=== PATIENT | male | born 1945 | race Caucasian/White ===

== ENCOUNTER 2024-12-11 21:24 | Inpatient (IN) | payer OTHER, MEDICAID ==
[~2024-12-11] VITALS: Ht 177.8 cm; Wt 48.3 kg
[~2024-12-11 21:24] MED LIST: ATOR-507 PO; BACL10TA PO; DIGO0.1262 PO; GABA-1250 PO; LISI2.5T47 PO; METO25TA36 PO; WARF-110 PO
--- NOTE | 2024-12-11 21:44 | ED.PDOC ---
HPI Comments 79y M who presents to the ED via EMS for chief complaint of chest pain. Per EMS, pt is resident at care facility called [facility] and facility called after pt approx 2230, started beating his chest and states he was having pain. Pt preceded to have episode of vomiting and EMS was called to the scene. EMS arrived on scene and facility had give pt 324 ASA and EMS states pt was altered upon arrival. EMS states they asked if this is baseline and facility states they do not know but EMS states pt was [id number]. Pt now in the ED, appears alerted but otherwise has noted stable vitals. Pt otherwise not answering questions at this time and EMS states only know history of pt is HTN. 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 Notes Allergies: Coded Allergies: Penicillins (Verified Allergy, Severe, 10/21/15) Home Meds Reported Medications Warfarin Sodium (Warfarin Sodium) 2.5 Mg Tab, 2.5 MG PO DAILY, TAB 10/23/15 Gabapentin (Gabapentin) 300 Mg Cap, 1 CAP PO TID PRN for MILD PAIN OR TEMP>100.4, #90 CAP 5 Refills 10/23/15 Baclofen (Baclofen) 10 Mg Tab, 10 MG PO Q6HP PRN for MILD PAIN OR TEMP>100.4, TAB 10/23/15 Digoxin (Digoxin) 0.125 Mg Tab, 1 TAB PO DAILY, #30 TAB 5 Refills 10/23/15 Metoprolol Succinate (Toprol Xl) 25 Mg Tab, 1 TAB PO BID, #30 TAB 5 Refills 10/23/15 Lisinopril (Lisinopril) 2.5 Mg Tab, 1 TAB PO DAILY, #30 TAB 5 Refills 10/23/15 Atorvastatin Calcium (Lipitor) 40 Mg Tab, 1 TAB PO QPM, #90 TAB 1 Refill 10/23/15 Information Source: Emergency Med Personnel Mode of Arrival: EMS Brought in by: EMS Past Medical History PAST MEDICAL HISTORY: CAD, CVA, HTN, [place] Surgical History: Pacemaker Family History Family History: No family hx of DM, No family hx of Heart eleanor, No family hx of HTN, No family hx of Stroke Social History Smoker: Cigarettes, Greater Than 1 Pack/Day Alcohol: Occasionally Drugs: Denies Drug Use Lives In: Assisted Care Constitutional: denies: chills, diaphoresis, fatigue, fever, malaise, sweats, weakness, others EENTM: denies: blurred vision, double vision, ear bleeding, ear discharge, ear drainage, ear pain, ear ringing, eye pain, eye redness, hearing loss, mouth pain, mouth swelling, nasal discharge, nose bleeding, nose congestion, nose pain, photophobia, tearing, throat pain, throat swelling, voice changes, others Respiratory: denies: cough, hemoptysis, orthopnea, SOB at rest, shortness of breath, SOB with excertion, stridor, wheezing, others Cardiovascular: reports: chest pain; denies: dizzy spells, diaphoresis, Dyspnea on exertion, edema, irregular heart beat, left arm pain, lightheadedness, palpitations, PND, syncope, others Gastrointestinal: denies: abdomen distended, abdominal pain, blood streaked bowels, constipated, diarrhea, dysphagia, difficulty swallowing, hematemesis, melena, nausea, poor appetite, poor fluid intake, rectal bleeding, rectal pain, vomiting, others Genitourinary: denies: burning, dysuria, flank pain, frequency, hematuria, incontinence, penile discharge, penile sore, pain, testicle pain, testicle swelling, urgency, others Neurological: denies: dizziness, fainting, headache, left sided numbness, left sided weakness, numbness, paresthesia, pre-existing deficit, right sided numbness, right sided weakness, seizure, speech problems, tingling, tremors, weakness, others Musculoskeletal: denies: back pain, gout, joint pain, joint swelling, muscle pain, muscle stiffness, neck pain, others Integumetry: denies: bruises, change in color, change in hair/nails, dryness, laceration, lesions, lumps, rash, wounds, others Allergic/Immunocompromised: denies: Difficulty Healing, Frequent Infections, Hives, Itching, others Hematologic/Lymphatic: denies: anemia, blood clots, easy bleeding, easy bruising, swollen glands, others Endocrine: denies: excessive hunger, excessive sweating, excessive thirst, excessive urination, flushing, intolerance to cold, intolerance to heat, unexplained weight gain, unexplained weight loss, others Psychiatric: denies: anxiety, bipolar disorder, depression, hopeless, panic disorder, schizophrenia, sleepless, suicidal, others Unable to Obtain due to: Altered Mental Status Physical Exam General Appearance: Other (pt is catatonic ) HEENT: NOT DONE Neck: NOT DONE Respiratory: Normal Breath Sounds Cardiovascular: NOT DONE Breast Exam: None Gastrointestinal: NOT DONE Genitalia: Deferred Pelvic: Deferred Rectal: Deferred Extremities: NOT DONE Musculoskeletal : Apperance: Normal Neurologic: NOT DONE Cerebellar Function: NOT DONE Reflexes: NOT DONE Skin: Dry, NOT DONE Lymphatic: NOT DONE Was a procedure done? Was a procedure done?: No CP Differential Dx Differential Diagnosis: A-fib, A-Flutter, Angina, Anxiety / Panic Attack, Atrial Dysrhythmia, Heart Failure Other Differential Diagnosis altered mental status, metabolic encephalopathy X-Ray, Labs, Meds, VS Vital Signs Date Time Temp Pulse Resp B/P (MAP) Pulse Ox O2 Delivery O2 Flow Rate FiO2 12/11/24 21:26 88 12/11/24 21:24 99.1 69 16 108/51 (70) 96 Lab Test 12/11/24 23:07 12/11/24 22:10 12/11/24 22:08 Range/Units Troponin I High Sensitivity Pending 4 </=54 ng/L White Blood Count 16.8 H 4.4-10.8 10^3/uL Red Blood Count 3.00 L 4.5-5.90 10^6/uL Hemoglobin 4.6 *L 13.5-17.5 g/dL Hematocrit 17.9 L 41.0-53.0 % Mean Corpuscular Volume 59.7 L 80.0-100.0 fL Mean Corpuscular Hemoglobin 15.2 L 28.0-32.0 pg Mean Corpuscular Hemoglobin Concent 25.5 L 32.0-36.0 g/dL Red Cell Distribution Width 20.7 H 11.8-14.3 % Platelet Count 384 140-450 10^3/uL Mean Platelet Volume 7.2 6.9-10.8 fL Neutrophils (%) (Auto) 37.0-80.0 % Lymphocytes (%) (Auto) 10.0-50.0 % Monocytes (%) (Auto) 0.0-12.0 % Eosinophils (%) (Auto) 0.0-7.0 % Basophils (%) (Auto) 0.0-2.0 % Neutrophils # (Auto) 1.6-8.6 10 ^3/uL Lymphocytes # (Auto) 0.4-5.4 10 ^3/uL Monocytes # (Auto) 0-1.3 10 ^3/uL Eosinophils # (Auto) 0-0.8 10 ^3/uL Basophils # (Auto) 0-0.2 10 ^3/uL Differential Total Cells Counted Pending Neutrophils % (Manual) Pending Band Neutrophils % (Manual) Pending Lymphocytes % (Manual) Pending Monocytes % (Manual) Pending Eosinophils % (Manual) Pending Basophils % (Manual) Pending Metamyelocytes % (manual) Pending Myelocytes % (Manual) Pending Promyelocytes % (Manual) Pending Blast Cells % (Manual) Pending Nucleated Red Blood Cells % Reactive Lymphocytes Pending Platelet Estimate Pending Sodium Level 139 136-145 mmol/L Potassium Level 4.3 3.5-5.1 mmol/L Chloride Level 111 H 98-107 mmol/L Carbon Dioxide Level 20 20-31 mmol/L Anion Gap 8 5-15 Blood Urea Nitrogen 14 9-23 mg/dL Creatinine 0.69 L 0.700-1.30 mg/dL Glomerular Filtration Rate Calc 95 >90 mL/min BUN/Creatinine Ratio 20.3 H 10.0-20.0 Serum Glucose 108 H 74-106 mg/dL Calcium Level 8.6 L 8.7-10.4 mg/dL Total Bilirubin 0.3 0.2-1.0 mg/dL Aspartate Amino Transferase (AST) 8 L 13-40 U/L Alanine Aminotransferase (ALT) 9 7-40 U/L Alkaline Phosphatase 71 46-116 U/L B-Type Natriuretic Peptide 304.72 0-100 pg/mL Total Protein 5.5 L 5.7-8.2 g/dL Albumin 3.3 3.2-4.8 g/dL Lipase 22 12-53 U/L Lactic Acid Level 4.8 *H 0.4-2.0 mmol/L Ammonia < 10 L 11-32 umol/L X-Ray, Labs, Meds, VS Comment Patient will be admitted for anemia, hemoglobin less than five, patient to be started with tinnitus packed red blood cells pending type and screen Possible sepsis. Elevated lactic acid elevated white count. Currently unknown source. Patient will be started on vancomycin and blood cultures will be drawn Prior charts reviewed Vital signs reviewed Time of 1ST Reevaluation: 22:10 Reevaluation 1ST: Unchanged Patient Education/Counseling: Diagnosis, Treatment, Other (pt altered) Family Education/Counseling: Diagnosis, No Family Present Departure 1 Departure Time of Disposition: 23:36 Impression: Primary Impression: Anemia due to blood loss, chronic Additional Impressions: Leukocytosis Qualified Codes: D72.829 - Elevated white blood cell count, unspecified Elevated lactic acid level Altered mental status Qualified Codes: R41.0 - Disorientation, unspecified Disposition: 09 ADMITTED INPATIENT Condition: Guarded Discharged With: Self Critical Care Note Critical Care Time?: Yes (30 min-critical care time only) Critical care comment: Due to a high probability of clinically significant, life threatening deterioration, the patient required my highest level of preparedness to intervene emergently and I personally spent this critical care time directly and personally managing the patient. This critical care time included obtaining a history; examining the patient; pulse oximetry; ordering and review of studies; arranging urgent treatment with development of a management plan; evaluation of patient's response to treatment; frequent reassessment; and, discussions with other providers. This critical care time was performed to assess and manage the high probability of imminent, life-threatening deterioration that could result in multi-organ failure. It was exclusive of separately billable procedures and treating other patients and teaching time. Stability Stability form required: No Heart Score Heart Score: Heart Score Response (Comments) Value History N/A 0 EKG N/A 0 Age N/A 0 Risk Factors N/A 0 Troponin N/A 0 Total 0 I personally scribed for SAVANNAH RIOJAS MD ([email or web address]) on 12/11/24 at 21:44. Electronically submitted by Moe Jett ([email or web address]). SAVANNAH RIOJAS MD Dec 11, 2024 21:44 KEN THURMAN Dec 11, 2024 23:40
--- NOTE | 2024-12-11 22:47 | DVH ---
CHEST RADIOGRAPH Indication: aloc Technique: Single frontal view of the chest was obtained Comparison: None FINDINGS: Lines and Tubes: Left-sided cardiac device with intact leads. Lungs: Clear Pleura: No effusion. No pneumothorax. Cardiomediastinal contours: Unremarkable Bones: Unremarkable IMPRESSION: Clear lungs.
[2024-12-11 22:48] LABS: Albumin 3.3 g/dL (3.2-4.8); Alkaline Phosphatase 71 U/L (46-116); Anion Gap 8 (5-15); BUN/Creatinine Ratio 20.3 (10.0-20.0); Blood Urea Nitrogen 14 mg/dL (9-23); Carbon Dioxide 20 mmol/L (20-31); Lipase 22 U/L (12-53); Potassium 4.3 mmol/L (3.5-5.1); Sodium 139 mmol/L (136-145)
[2024-12-11 22:54] LABS: Alanine Aminotransferase 9 U/L (7-40); Aspartate Aminotransferase 8 U/L (13-40); Bilirubin, Total 0.3 mg/dL (0.2-1.0); Calcium 8.6 mg/dL (8.7-10.4); Chloride 111 mmol/L (98-107); Glucose 108 mg/dL (74-106); Total Protein 5.5 g/dL (5.7-8.2)
--- NOTE | 2024-12-11 22:59 | DVH ---
EXAM: CT HEAD WITHOUT CONTRAST INDICATION: aloc TECHNIQUE: CT of the head without intravenous contrast. Radiation Dose Information: CT Dose: CTDI volume is 21.65 mGy. Dose-length product is 3500 86.68 mGy*cm The dose indicators for CT are the volume Computed Tomography (CT) Dose Index (CTDIvol) and the Dose Length Product (DLP), and are measured in units of mGy and mGy-cm, respectively. These indicators are not patient dose, but values generated from the CT scanner acquisition factors. The report includes radiation exposure data for exposures received during this examination. COMPARISON: None FINDINGS: Patient would not hold still and images are suboptimal. There is no evidence of acute intracranial hemorrhage, extra-axial collection, mass effect, midline s hift, herniation or hydrocephalus. Large area of encephalomalacia involving the right frontal temporal lobe with no mass effect or midli ne shift findings suggest large area of ischemic infarct. This suggests an old infarct. There are no prior studies for comparison The ventricles, sulci and cisterns are age appropriate. The cuadra-white differentiation is intact. Patchy periventricular and subcortical white matter hypoattenuation is nonspecific but may be related to small vessel ischemic disease. The visualized paranasal sinuses and mastoid air cells are clear. The surrounding soft tissues and osseous structures are unremarkable. IMPRESSION: 1. Large area of encephalomalacia involving the right temporal frontal and parietal lobes may represe nt old infarct. 2. No prior studies for comparison.
[2024-12-11 23:28] LABS: Hematocrit 17.9 % (41.0-53.0); Mean Corpuscular Hemoglobin 15.2 pg (28.0-32.0); Mean Corpuscular Hgb Conc. 25.5 g/dL (32.0-36.0); Mean Corpuscular Volume 59.7 fL (80.0-100.0); Platelet Count (auto) 384 10^3/uL (140-450); Red Cell Distribution Width 20.7 % (11.8-14.3); White Blood Cell 16.8 10^3/uL (4.4-10.8)
[2024-12-11 23:28] LABS: Lactic Acid w/Reflex 4.8 mmol/L (0.4-2.0)
[2024-12-11 23:29] LABS: Hemoglobin 4.6 g/dL (13.5-17.5)
[2024-12-11 23:32] LABS: Basophils % (manual) 0 (0.0-2.0); Blast Cells 0; Eosinophils % (manual) 0 (0-7); Metamyelocytes % 0; Monocytes % (manual) 0 (0-12); Myelocytes % 0; Promyelocytes % 0; Reactive Lymphocytes 0
[2024-12-12] VITALS (17 sets, daily range): BP systolic 80–164; BP diastolic 34–53; PULSE 58–79; RESP 19–45; TEMP 97.9–100.2; O2SAT 96–98
[2024-12-12] MEDS: VANCOMYCIN 1GM/250ML KIT 250 ML IV ONE (00:02)
[2024-12-12] MEDS ORDERED: cefTRIAXone 1GM/50ML D5W 50 ML IV ONE (00:15)
[2024-12-12] MEDS ORDERED: MORPHINE SULFATE INJ 2 MG/ml SYRG IV PRN (00:30)
[2024-12-12] MEDS ORDERED: NITROGLYCERIN 0.4 MG SL TAB SL PRN (00:30)
[2024-12-12] MEDS ORDERED: VANCOMYCIN PER PHARMACY 0 MG IV SCH (00:30)
[2024-12-12] MEDS: SODIUM CHLORIDE 0.9% 2,000 ML IV ONE (01:05)
[2024-12-12 01:11] LABS: % Iron Saturation 3.4 % (20-55); Band Neutrophils % (manual) 11; Lymphocytes % (manual) 5 (10.0-50.0)
[2024-12-12 01:12] LABS: Hypochromia Marked
[2024-12-12 01:13] LABS: Anisocytosis Slight; Platelet Estimate Adequate
[2024-12-12] MEDS ORDERED: SODIUM CHLORIDE 0.9% 1,000 ML IV ONE ×2 (01:15→01:30)
[2024-12-12] MEDS ORDERED: MEROPENEM 1GM IVPB 50 ML IV ONE (01:15)
--- NOTE | 2024-12-12 01:20 | DVH ---
Exam: CT CHST AB PEL WO CON-NO IV/ORAL History: aloc Comparison Study: None available at time of dictation. Technique: Multidetector spiral CT of the chest, abdomen and pelvis was performed from lower neck to pubic symphysis Axial, coronal and sagittal multiplanar reformats were performed by the technologist on a separate workstation. Radiation Dose : 1. Chest/Abdomen/Pelvis: CTDIvol 7 mGy, DLP 476 mGy*cm. Findings: Lower neck: Within normal limits Lungs: Within normal limits Heart/Vascular Structures: Fviddwea-jy-apaig pericardial effusion measuring up to 2 cm left lateral p ericardium left-sided cardiac device with intact leads. Lymph Nodes: No adenopathy Pleura: Small right and trace left-sided pericardial effusion with adjacent compressive atelectasis Liver: The liver is normal in size. No focal lesions. Normal hepatic vascular enhancement. Gallbladder and Biliary Tree: Unremarkable Spleen: Unremarkable Pancreas: The pancreas is normal in appearance without focal lesions or abnormal enhancement. Adrenal Glands: Unremarkable Kidneys: Bilateral nonobstructing renal stones measuring up to 1.5 cm. Cwug-rw-jizfonlb right-sided h ydronephrosis with multiple stones seen in the right ureter measuring up to 8 mm. Bladder: Multiple urinary bladder stones measuring up to 1 cm Bowel: The stomach is grossly normal in appearance. Moderate fecal retention throughout the colon. T he appendix is not visualized; however, no secondary findings of acute appendicitis identified. Ascites: Absent Lymphadenopathy: No mesenteric, retroperitoneal or periportal lymphadenopathy. Abdominal Wall and Mesentery: Unremarkable. Vasculature: The visualized abdominal aorta is normal in size and caliber. Abdominal and pelvic vess els demonstrate normal enhancement. Pelvic Organs: Unremarkable Musculoskeletal: No aggressive focal bony lesions, acute fractures or dislocation. IMPRESSION: Lfpt-uj-avgketfe right-sided hydroureteronephrosis with multiple stones in the right ureter measuring up to 8 mm. There are multiple stones within the urinary bladder measuring less than 1 cm. The bila teral kidneys demonstrate multiple nonobstructing stones measuring up to 2 cm. Small right and trace left pleural effusions with adjacent compressive atelectasis Moderate to severe pericardial effusion. Moderate fecal retention throughout the colon
[2024-12-12 01:24] LABS: INR 1.17 (0.9-1.15); Partial Thromboplastin Time 25.9 SEC (24.5-34.5); Prothrombin Time 12.2 sec (9.3-11.8)
[2024-12-12] MEDS: ACETAMINOPHEN 650 MG RECT SUPP PR ONE ×2 (01:44→01:55)
[2024-12-12] MEDS: IRON SUCROSE COMPLEX 110 ML IV SCH (02:05)
[2024-12-12 02:14] LABS: Erythrocyte Sedimentation Rate 25 mm/hr (0-20)
[2024-12-12] MEDS: MEROPENEM 1GM IVPB 50 ML IV ONE (02:31)
--- NOTE | 2024-12-12 02:32 | DVHHPRES ---
History of Present Illness Resident Creating Document: TRANG FULLER RESIDENT Reason for Visit: Severe anemia History of Present Illness All the info were extracted from the EMR, patient is AX40 and the phone numbers given didn't worm picker the call. A79y old male BIBA due to chest pain. Patient is a resident at a care facility called [facility]. The facility called EMS after approximately 2230 when the patient started beating his chest, stating he was having pain, and subsequently had an episode of vomiting. On EMS arrival, patient was reported to be altered. The facility had given 324 mg ASA prior to EMS arrival. EMS was uncertain if this mental status was baseline; the facility was unsure. PMHx: He also has a history of severe stroke (encephalomalacia in right temporal, frontal, and parietal lobes) with significant neurologic sequelae possible vascular dementia, prior episodes of gastrointestinal bleeding, Coronary artery disease sp stents, hypertension, atrial fibrillation with rapid ventricular response, ventricular tachycardia, left above-knee amputation, chronic kidney stones, history of GI bleed, ICD , hypercoagulable state. Home meds: Risperidone Eliquis levothyroxine tamsulosin Restoril gabapentin Currently, he is febrile and tachycardic, with borderline-low blood pressures, on 3 L of oxygen nasal cannula for acute hypoxic respiratory failure. Broad- spectrum antibiotics (meropenem, vancomycin) have been started for possible sepsis; IV fluids were stopped due to a newly discovered asmhpwnw-wu-vjmiyo pericardial effusion. He is also severely anemic (hemoglobin 4.6 g/dL) and is receiving packed red blood cell transfusions. Review of Systems Review of Systems Patient is altered Allergies: Coded Allergies: Penicillins (Verified Allergy, Severe, 10/21/15) Medications Current Medications Medications Dose Ordered Sig/Roberto Route Start Time Stop Time Status Last Admin Dose Admin Nitroglycerin 0.4 mg Q5MINP PRN SL 12/12/24 00:30 Morphine Sulfate 2 mg Q30M PRN IV 12/12/24 00:30 Vancomycin HCl 0 ml @ 0 mls/hr UD IV 12/12/24 00:30 UNV Ceftriaxone Sodium 50 ml @ 100 mls/hr DAILY IV 12/12/24 10:00 UNV Meropenem 50 ml @ 17 mls/hr Q8HR IV 12/12/24 06:00 UNV Iron Sucrose 110 ml @ 110 mls/hr DAILY@1200 IV 12/12/24 01:30 12/15/24 12:59 12/12/24 02:05 110 MLS/HR Exam Vital Signs Vital Signs Date Time Temp Pulse Resp B/P (MAP) Pulse Ox O2 Delivery O2 Flow Rate FiO2 12/12/24 01:55 101.1 12/12/24 01:21 22 125/38 (67) 100 12/12/24 00:38 121 General Appearance: Other (AX0 0 ) HEENT: Atraumatic, Other (pale ) Respiratory: Other (diminished breath sounds ) Cardiovascular: Other (tachycardic , heart sound inaudible ) Abdominal: Normal bowel sounds, Other (rectal exam: stool in the rectal vault, no active bleeding ) Extremities: Other (above the knee amputation ) Neuro: Other (severe sequalae of stroke ) Psych/Mental Status: Other (AX0 ) Labs/Xrays Labs Test 12/12/24 01:30 12/12/24 00:06 12/11/24 23:07 12/11/24 22:10 Range/Units Erythrocyte Sedimentation Rate 25 H 0-20 mm/hr Lactic Acid Level 7.8 *H 0.4-2.0 mmol/L Prothrombin Time 12.2 H 9.3-11.8 sec Prothrombin Time INR 1.17 H 0.9-1.15 Activated Partial Thromboplast Time 25.9 24.5-34.5 SEC Troponin I High Sensitivity 6 </=54 ng/L Thyroid Stimulating Hormone (TSH) 3.98 0.55-4.78 uIU/mL White Blood Count 16.8 H 4.4-10.8 10^3/uL Red Blood Count 3.00 L 4.5-5.90 10^6/uL Hemoglobin 4.6 *L 13.5-17.5 g/dL Hematocrit 17.9 L 41.0-53.0 % Mean Corpuscular Volume 59.7 L 80.0-100.0 fL Mean Corpuscular Hemoglobin 15.2 L 28.0-32.0 pg Mean Corpuscular Hemoglobin Concent 25.5 L 32.0-36.0 g/dL Red Cell Distribution Width 20.7 H 11.8-14.3 % Platelet Count 384 140-450 10^3/uL Mean Platelet Volume 7.2 6.9-10.8 fL Neutrophils (%) (Auto) 37.0-80.0 % Lymphocytes (%) (Auto) 10.0-50.0 % Monocytes (%) (Auto) 0.0-12.0 % Eosinophils (%) (Auto) 0.0-7.0 % Basophils (%) (Auto) 0.0-2.0 % Neutrophils # (Auto) 1.6-8.6 10 ^3/uL Lymphocytes # (Auto) 0.4-5.4 10 ^3/uL Monocytes # (Auto) 0-1.3 10 ^3/uL Eosinophils # (Auto) 0-0.8 10 ^3/uL Basophils # (Auto) 0-0.2 10 ^3/uL Differential Total Cells Counted 100.0 100 Neutrophils % (Manual) 84 H 37.0-80.0 Band Neutrophils % (Manual) 11 Lymphocytes % (Manual) 5 L 10.0-50.0 Monocytes % (Manual) 0 0-12 Eosinophils % (Manual) 0 0-7 Basophils % (Manual) 0 0.0-2.0 Metamyelocytes % (manual) 0 Myelocytes % (Manual) 0 Promyelocytes % (Manual) 0 Blast Cells % (Manual) 0 Nucleated Red Blood Cells % Reactive Lymphocytes 0 Platelet Estimate Adequate Hypochromasia (manual) Marked Anisocytosis (manual) Slight Microcytosis Marked [place] Cells Few Schistocytes Few Sodium Level 139 136-145 mmol/L Potassium Level 4.3 3.5-5.1 mmol/L Chloride Level 111 H 98-107 mmol/L Carbon Dioxide Level 20 20-31 mmol/L Anion Gap 8 5-15 Blood Urea Nitrogen 14 9-23 mg/dL Creatinine 0.69 L 0.700-1.30 mg/dL Glomerular Filtration Rate Calc 95 >90 mL/min BUN/Creatinine Ratio 20.3 H 10.0-20.0 Serum Glucose 108 H 74-106 mg/dL Calcium Level 8.6 L 8.7-10.4 mg/dL Iron Level 11 L 65-175 ug/dL Total Iron Binding Capacity 323 250-425 ug/dL Percent Iron Saturation 3.4 L 20-55 % Ferritin 6.1 L 22-322 ng/mL Total Bilirubin 0.3 0.2-1.0 mg/dL Aspartate Amino Transferase (AST) 8 L 13-40 U/L Alanine Aminotransferase (ALT) 9 7-40 U/L Alkaline Phosphatase 71 46-116 U/L C-Reactive Protein High Sensitivity 1.32 H <1.0 mg/dL B-Type Natriuretic Peptide 304.72 0-100 pg/mL Total Protein 5.5 L 5.7-8.2 g/dL Albumin 3.3 3.2-4.8 g/dL Lipase 22 12-53 U/L Test 12/11/24 22:08 Range/Units Ammonia < 10 L 11-32 umol/L Assessment/Plan Assessment/Plan Chest/Abdomen/ Pelvis CT scan: Irda-oo-zzvwoens right-sided hydroureteronephrosis with multiple stones in the right ureter measuring up to 8 mm. There are multiple stones within the urinary bladder measuring less than 1 cm. The bilateral kidneys demonstrate multiple nonobstructing stones measuring up to 2 cm. Small right and trace left pleural effusions with adjacent compressive atelectasis Moderate to severe pericardial effusion. Moderate fecal retention throughout the colon Head CT scan: Large area of encephalomalacia involving the right temporal frontal and parietal lobes may represent old infarct. Neurologic: #Acute metabolic encephalopathy due to sepsis #Vascular dementia #Large area of encephalomalacia involving the right temporal frontal and parietal lobes may represent old infarct Patient is AX0, no relatives at bedside unable to discuss code status Cardiology: #Sepsis: not septic shock yet #Moderate to severe pericardial effusion #H/o atrial fibrillation #H/o coronary disease s/p stent #H/o ventricular arrhythmia #s/p ICD placement EKG showed tachycardia and ventricular pacing Hold on fluids due to pericardial effusion Hold on anticoagulation due to severe anemia ECHO and cardiology consult 2RBC transfusing Pulmonary #Acute respiratory failure #Small pleural effusions #Early Aspiration pneumonia? #Sepsis Patient is on nasal cannula 3LT Meropenem/vancomycin Sputum culture Renal #Sepsis #Bkcs-hz-mdfvinek right-sided hydroureteronephrosis with multiple stones in the right ureter measuring up to 8 mm. #Lactic acidosis #There are multiple stones within the urinary bladder measuring less than 1 cm. #The bilateral kidneys demonstrate multiple nonobstructing stones measuring up to 2 cm. Diane placement Meropenem/vancomycin Urine culture Pending urinalysis: possible UTI GI #Possible GI bleeding #History of GI bleeding #History of colonic polyps Rectal exam negative for blood pending SOB Hold on feedings Heme/onc #Severe anemia #Iron deficiency 2RBC Iron IV Case discussed with Dr Villaloobs Disposition: BG Time spent on care 71 min Unable to assess code status Plan discussed with: Other (RN) My Orders Orders - TRANG FULLER RESIDENT Procedure Category Date Status Time Admit ADMIT 12/12/24 Transmitted 00:16 Nitroglycerin PHA 12/12/24 In Process Sublingual (Ntrostat 00:30 Morphine Sulfate PHA 12/12/24 In Process Injection 00:30 Oxygen By Nasal RT 12/12/24 Transmitted Cannula 00:16 Stat Ekg For Chest DEMARIO 12/12/24 In Process Pain 00:16 Notify Md Of Changes DEMARIO 12/12/24 In Process From Base 00:16 Supervisor Engine Repair For [facility] 12/12/24 In Process 24 Hours 00:16 Emergency Dysrhythmia [facility] 12/12/24 In Process Protocol 00:16 Rhythm Strips Once DEMARIO 12/12/24 In Process Every Shift 00:16 Stool Occult Blood LAB 12/12/24 Logged 00:22 Stool Wbc LAB 12/12/24 Logged 00:22 Stool Bacterial ANAHI 12/12/24 Logged Culture 00:22 Urine Bacterial ANAHI 12/12/24 Logged Culture 00:22 Respiratory Culture ANAHI 12/12/24 Logged W/ Gs 00:22 Echo 2d Mode Cardiac US 12/12/24 Logged DOP 00:25 Vancomycin Per PHA 12/12/24 Pending Pharmacy 00:30 Mrsa Screen ANAHI 12/12/24 Logged 00:31 Meropenem 1gm Ivpb PHA 12/12/24 Pending (Merrem 1gm/ Ns) 06:00 Iron Sucrose Complex PHA 12/12/24 In Process (Venofer) 01:30 Insert Diane Catheter DEMARIO 12/12/24 In Process 01:30 Complete Blood Count LAB 12/13/24 Verified 04:00 Comprehensive LAB 12/13/24 Verified Metabolic Panel 04:00 Drug Screen LAB 12/13/24 Verified 04:00 Hemoglobin A1c LAB 12/13/24 Verified 04:00 Lactic Acid W/ Reflex LAB 12/13/24 Verified Order 04:00 Lipid Panel LAB 12/13/24 Verified 04:00 PTPTT LAB 12/13/24 Verified 04:00 Vitamin B12 LAB 12/13/24 Verified 04:00 Vitamin D, 25-Hydroxy LAB 12/13/24 Verified 04:00 * Cardiology Consult CONS 12/12/24 Verified 02:31 Date of Service: Dec 12, 2024 Billing Provider: HUMBERTO VILLALOBOS MD Common Visit Codes: 59427-AWHDKWO INP/OBS CARE (HIGH) Secondary Visit Codes: 49510-IBIOESHZ CARE PLAN 30 MINUTES TRANG FULLER RESIDENT Dec 12, 2024 02:32 HUMBERTO VILLALOBOS MD Dec 12, 2024 13:08
[2024-12-12 05:47] LABS: Urine Bacteria FEW /hpf (None Seen); Urine Blood 1+ /uL (Negative); Urine Clarity Turbid (Clear); Urine Color Light-Orange (Yellow); Urine Protein, UAD 2+ (Negative); Urine Specific Gravity 1.018 (1.001-1.035); Urine Squamous Epithelial Cell FEW /hpf (<5); Urine Urobilinogen Normal (Negative); Urine WBC 50 /HPF (0-3); Urine pH 7.5 (5.0-9.0)
[2024-12-12] MEDS: SODIUM CHLORIDE 0.9% 500 ML IV ONE (07:30)
[2024-12-12 08:10] LABS: Urine Blood 2+ /uL (Negative); Urine Clarity Ex.Turbid (Clear); Urine Color Dark-Brown (Yellow); Urine Protein, UAD 3+ (Negative); Urine Specific Gravity 1.022 (1.001-1.035); Urine Urobilinogen Normal (Negative)
[2024-12-12] MEDS: ACETAMINOPHEN 650 MG RECT SUPP PR PRN (09:17)
[2024-12-12 09:39] LABS: Base Excess -12.3 mmol/L (-2.0-3.0)
--- NOTE | 2024-12-12 09:58 | ECG ---
[facility] Test Date: 2024-12-12 Test Time: 00:38:44 Pat Name: ADI LUX Department: ER Room: [address] [place] [address] Gender: M Livestock Feeder: ER : 1945 Requested By: EMERGENCY EMERGENCY Order Number: [id number] Reading MD: James Sanchez Measurements Intervals [place] Rate: 121 P: 0 FL: 0 QRS: 156 QRSD: 223 T: 263 QT: 429 QTc: 609 Interpretive Statements Afib/flut and V-paced complexes No further analysis attempted due to paced rhythm Electronically Signed On 12-12-2024 22:26:25 PST by James Sanchez Please click the below link to view image of tracing.
--- NOTE | 2024-12-12 09:58 | ECG ---
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
--- NOTE | 2024-12-12 09:58 | ECG ---
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
[2024-12-12] MEDS ORDERED: cefTRIAXone 1GM/50ML D5W 50 ML IV SCH (10:00)
[2024-12-12] MEDS: SODIUM BICARB 8.4% 50Meq/50ml SYR Vial IV ONE (10:41)
--- NOTE | 2024-12-12 10:53 | DVHCONRES ---
Date Seen: Dec 12, 2024 Resident Creating Document: THIERNO MELENDEZ RESIDENT Referring Physician Dr. Torrez, resident Reason for Consultation Pericardial effusion History of Present Illness This is a 79-year-old male who was brought in by ambulance due to chief complain of chest pain. History was gathered from the EMR given that patient is A&Ox0. He has a past medical history relevant for stroke with right temporal, frontal and parietal encephalomalacia, he has received bleeding, CAD status post stents, hypertension, atrial fibrillation, nephrolithiasis, AICD placement. Past surgical history: Left above the knee amputation. Home meds: Digoxin, Lipitor, baclofen, gabapentin, lisinopril, metoprolol, levothyroxine, Eliquis, risperidone, tamsulosin Patient is a current resident at a care facility called [facility], home called EMS at 10:30 p.m. due to patient has been beating his chest and stating that he had pain, subsequently developing an episode of vomiting. On EMS arrival, patient was altered, they have given aspirin 325 mg. In the ED, a head CT demonstrated large encephalomalacia, no other acute abnormality, a CBC revealed a hemoglobin of 4.6, patient was ordered to packs of RBCs, patient was given IV fluids, she was placed on broad-spectrum antibiotics with meropenem [place]. [place] [address], bands 11%. Patient's lactic acid was shown to be 4.8 and increased to 7.8, he continued to receive IV fluids, he was larsen-cultured. Troponins were within normal limits x3, BNP was 304. A chest x-ray initially showed to be unremarkable, no significant effusion or signs of congestion. He has a left-sided AICD with intact leads. A chest/abdomen/pelvis CT scan without contrast revealed: Moderate to large pericardial effusion measuring up to 2 cm in the left lateral pericardium, small right and left pleural effusions, right-sided hydroureteronephrosis, significant amount of kidney stones. An EKG revealed ventricular paced complexes, low voltage in V1, V2, V6. Family History: Cancer of colon G8 MOTHER, Onset:50's - 60 Family history: Arthritis G8 MOTHER, Onset:50's - 60 Family history: Cardiovascular disease G8 FATHER, Onset:50's - 60 Allergies: Coded Allergies: Penicillins (Verified Allergy, Severe, 10/21/15) Home Meds Reported Medications Warfarin Sodium (Warfarin Sodium) 2.5 Mg Tab, 2.5 MG PO DAILY, TAB 10/23/15 Gabapentin (Gabapentin) 300 Mg Cap, 1 CAP PO TID PRN for MILD PAIN OR TEMP>100.4, #90 CAP 5 Refills 10/23/15 Baclofen (Baclofen) 10 Mg Tab, 10 MG PO Q6HP PRN for MILD PAIN OR TEMP>100.4, TAB 10/23/15 Digoxin (Digoxin) 0.125 Mg Tab, 1 TAB PO DAILY, #30 TAB 5 Refills 10/23/15 Metoprolol Succinate (Toprol Xl) 25 Mg Tab, 1 TAB PO BID, #30 TAB 5 Refills 10/23/15 Lisinopril (Lisinopril) 2.5 Mg Tab, 1 TAB PO DAILY, #30 TAB 5 Refills 10/23/15 Atorvastatin Calcium (Lipitor) 40 Mg Tab, 1 TAB PO QPM, #90 TAB 1 Refill 10/23/15 Current Medications Current Medications Medications (Trade) Dose Ordered Sig/Roberto Route PRN Reason Start Time Stop Time Status Last Admin Nitroglycerin (Ntrostat Sublingual) 0.4 mg Q5MINP PRN SL FOR CHEST PAIN 12/12/24 00:30 Morphine Sulfate 2 mg Q30M PRN IV FOR CHEST PAIN 12/12/24 00:30 Vancomycin HCl 0 ml @ 0 mls/hr UD IV 12/12/24 00:30 UNV Ceftriaxone Sodium 50 ml @ 100 mls/hr DAILY IV 12/12/24 10:00 UNV Meropenem 50 ml @ 17 mls/hr Q8HR IV 12/12/24 06:00 UNV Iron Sucrose 110 ml @ 110 mls/hr DAILY@1200 IV 12/12/24 01:30 12/15/24 12:59 12/12/24 02:05 Acetaminophen (Tylenol Suppository) 650 mg Q6HP PRN CA PAIN SCALE 1-3 OR TEMP>100.4 12/12/24 08:30 12/12/24 09:17 Review of Systems Can not obtain as patient is altered. Vital Signs Vital Signs Date Time Temp Pulse Resp B/P (MAP) Pulse Ox O2 Delivery O2 Flow Rate FiO2 12/12/24 09:17 100.8 12/12/24 08:00 67 12/12/24 07:42 Nasal Cannula* 2 28 12/12/24 07:42 39 154/46 (82 98 Physical Exam General: A&O x0, in acute distress due to shortness of breath, using accessory muscles HEENT: Head is normocephalic and atraumatic. Pupils are equal, round, and reactive to light. Neck: Flat jugular veins Heart: Regular rate, muffled heart sounds Lungs: Mild bilateral crackles Abdomen: No external sign of injury. Bowel sounds are present. Abdomen is soft, nontender. Extremities: Left [id number] amputation, cold extremities Skin: No rash. Labs/Diagnostic Data Labs Test 12/12/24 09:29 12/12/24 07:47 12/12/24 04:56 12/12/24 02:20 Range/Units Blood Gas Specimen Type Arterial Blood Gas Sample Site Right radial Blood Gas Patient Temperature 37.0 Arterial Blood Date Drawn Arterial Blood pH 7.406 7.350-7.450 Arterial Blood Partial Pressure CO2 18.3 *L 35.0-48.0 mmHg Arterial Blood Partial Pressure O2 79.4 L 83.0-108.0 mmHg Arterial Blood HCO3 11.2 L 21.0-28.0 mmol/L Arterial Blood Oxygen Saturation 95.6 94.0-98.0 % Arterial Blood Base Excess -12.3 L -2.0-3.0 mmol/L Arterial Blood Oxyhemoglobin 92.6 L 94.0-98.0 % Arterial Blood Carboxyhemoglobin 2.6 H 0.5-1.5 % Arterial Blood Methemoglobin 0.5 0.0-1.5 % David Test Yes Blood Gas Total Hemoglobin 6.20 *L 13.5-17.5 g/dL Blood Gas Liter Flow 4.00 Blood Gas Modality Nasal cannula FiO2 % 36.0 Blood Gas Critical Value Read Back Yes Blood Gas Notified Whom yash Frost Blood Gas Notified Time Blood Gas Notified By Research Assistant laquita alex Urine Color Dark-brown Yellow Urine Clarity Ex.turbid Clear Urine pH 7.0 5.0-9.0 Urine Specific [place] 1.022 1.001-1.035 Urine Protein 3+ H Negative Urine Ketones Trace Negative Urine Blood 2+ H Negative /uL Urine Nitrite 2+ H Negative Urine Bilirubin Negative Negative Urine Urobilinogen Normal Negative mg/dL Urine Leukocyte Esterase 3+ Negative /uL Urine Glucose Normal Normal mg/dL POC Glucose 112 H 70-106 mg/dl Urine RBC 19 0 - 3 /hpf Urine Microscopic WBC 50 H 0-3 /HPF Urine Squamous Epithelial Cells Few <5 /hpf Urine Calcium Oxalate Crystals Few None Seen Urine Bacteria Few H None Seen /hpf Test 12/12/24 01:30 12/12/24 00:06 12/12/24 00:04 12/11/24 23:07 Range/Units Erythrocyte Sedimentation Rate 25 H 0-20 mm/hr Lactic Acid Level 7.8 *H 0.4-2.0 mmol/L Magnesium Level 1.7 1.6-2.6 mg/dL Prothrombin Time 12.2 H 9.3-11.8 sec Prothrombin Time INR 1.17 H 0.9-1.15 Activated Partial Thromboplast Time 25.9 24.5-34.5 SEC Troponin I High Sensitivity 6 </=54 ng/L Thyroid Stimulating Hormone (TSH) 3.98 0.55-4.78 uIU/mL Test 12/11/24 22:10 12/11/24 22:08 Range/Units White Blood Count 16.8 H 4.4-10.8 10^3/uL Red Blood Count 3.00 L 4.5-5.90 10^6/uL Hemoglobin 4.6 *L 13.5-17.5 g/dL Hematocrit 17.9 L 41.0-53.0 % Mean Corpuscular Volume 59.7 L 80.0-100.0 fL Mean Corpuscular Hemoglobin 15.2 L 28.0-32.0 pg Mean Corpuscular Hemoglobin Concent 25.5 L 32.0-36.0 g/dL Red Cell Distribution Width 20.7 H 11.8-14.3 % Platelet Count 384 140-450 10^3/uL Mean Platelet Volume 7.2 6.9-10.8 fL Neutrophils (%) (Auto) 37.0-80.0 % Lymphocytes (%) (Auto) 10.0-50.0 % Monocytes (%) (Auto) 0.0-12.0 % Eosinophils (%) (Auto) 0.0-7.0 % Basophils (%) (Auto) 0.0-2.0 % Neutrophils # (Auto) 1.6-8.6 10 ^3/uL Lymphocytes # (Auto) 0.4-5.4 10 ^3/uL Monocytes # (Auto) 0-1.3 10 ^3/uL Eosinophils # (Auto) 0-0.8 10 ^3/uL Basophils # (Auto) 0-0.2 10 ^3/uL Differential Total Cells Counted 100.0 100 Neutrophils % (Manual) 84 H 37.0-80.0 Band Neutrophils % (Manual) 11 Lymphocytes % (Manual) 5 L 10.0-50.0 Monocytes % (Manual) 0 0-12 Eosinophils % (Manual) 0 0-7 Basophils % (Manual) 0 0.0-2.0 Metamyelocytes % (manual) 0 Myelocytes % (Manual) 0 Promyelocytes % (Manual) 0 Blast Cells % (Manual) 0 Nucleated Red Blood Cells % Reactive Lymphocytes 0 Platelet Estimate Adequate Hypochromasia (manual) Marked Anisocytosis (manual) Slight Microcytosis Marked Diane Cells Few Schistocytes Few Sodium Level 139 136-145 mmol/L Potassium Level 4.3 3.5-5.1 mmol/L Chloride Level 111 H 98-107 mmol/L Carbon Dioxide Level 20 20-31 mmol/L Anion Gap 8 5-15 Blood Urea Nitrogen 14 9-23 mg/dL Creatinine 0.69 L 0.700-1.30 mg/dL Glomerular Filtration Rate Calc 95 >90 mL/min BUN/Creatinine Ratio 20.3 H 10.0-20.0 Serum Glucose 108 H 74-106 mg/dL Calcium Level 8.6 L 8.7-10.4 mg/dL Iron Level 11 L 65-175 ug/dL Total Iron Binding Capacity 323 250-425 ug/dL Percent Iron Saturation 3.4 L 20-55 % Ferritin 6.1 L 22-322 ng/mL Total Bilirubin 0.3 0.2-1.0 mg/dL Aspartate Amino Transferase (AST) 8 L 13-40 U/L Alanine Aminotransferase (ALT) 9 7-40 U/L Alkaline Phosphatase 71 46-116 U/L C-Reactive Protein High Sensitivity 1.32 H <1.0 mg/dL B-Type Natriuretic Peptide 304.72 0-100 pg/mL Total Protein 5.5 L 5.7-8.2 g/dL Albumin 3.3 3.2-4.8 g/dL Lipase 22 12-53 U/L Ammonia < 10 L 11-32 umol/L Assessment Chest pain, rule out ACS, likely related to pericardial effusion Pericardial effusion, moderate to severe CAD status post multiple stents Atrial fibrillation Hypertension AICD Sepsis Lactic acidosis UTI Metabolic encephalopathy Metabolic acidosis with respiratory alkalosis Acute hypoxic respiratory failure Severe anemia GI bleed Left cetnz-jis-tdlt amputation Nephrolithiasis Right-sided hydroureteronephrosis Plan/Recommendation Order stat echo given CT findings of moderate to severe pericardial effusion, muffled heart sounds, on low voltage in some precordial leads, blood pressure is currently stable. Echo showed mild pericardial effusion, EF 40%, septal hypokinesis Previous echo from 2016 reveals an ejection fraction of 30-35%, moderate global hypokinesis Last stress test was performed in 2016, no ischemia noted Recommend treating underlying infection, broad-spectrum antibiotic, gentle IV fluids, sepsis protocol IVF given, pending pancultures Obtain digoxin levels Address goals of care by primary team Poor prognosis Case was discussed with Dr. Landers Plan discussed with: Other (RN) THIERNO MELENDEZ RESIDENT Dec 12, 2024 10:53 ELIDA LANDERS MD Dec 12, 2024 13:57
[2024-12-12 11:11] LABS: Eosinophils # (auto) 0 10 ^3/uL (0-0.8); Monocytes # (auto) 0.2 10 ^3/uL (0-1.3)
[2024-12-12 11:13] LABS: Basophils # (auto) 0 10 ^3/uL (0-0.2); Basophils % (auto) 0.2 % (0.0-2.0); Hematocrit 22.2 % (41.0-53.0); Lymphocytes # (auto) 0.1 10 ^3/uL (0.4-5.4); Lymphocytes % (auto) 0.6 % (10.0-50.0); Mean Corpuscular Hemoglobin 17.7 pg (28.0-32.0); Mean Corpuscular Hgb Conc. 26.5 g/dL (32.0-36.0); Mean Corpuscular Volume 66.9 fL (80.0-100.0); Neutrophils % (auto) 98.2 % (37.0-80.0); Nucleated Red Blood Cells % 0.2 %; Platelet Count (auto) 268 10^3/uL (140-450); Red Blood Cells 3.32 10^6/uL (4.5-5.90); Red Cell Distribution Width 26.5 % (11.8-14.3); White Blood Cell 21.4 10^3/uL (4.4-10.8)
[2024-12-12 11:20] LABS: Hemoglobin 5.9 g/dL (13.5-17.5)
[2024-12-12 11:26] LABS: Alanine Aminotransferase 16 U/L (7-40); Alkaline Phosphatase 81 U/L (46-116); Anion Gap 17 (5-15); Aspartate Aminotransferase 24 U/L (13-40); BUN/Creatinine Ratio 18.2 (10.0-20.0); Bilirubin, Total 0.6 mg/dL (0.2-1.0); Blood Urea Nitrogen 20 mg/dL (9-23); Potassium 4.8 mmol/L (3.5-5.1); Sodium 142 mmol/L (136-145)
[2024-12-12 11:35] LABS: Carbon Dioxide 13 mmol/L (20-31); Chloride 112 mmol/L (98-107); Glucose 74 mg/dL (74-106); Total Protein 5.1 g/dL (5.7-8.2)
--- NOTE | 2024-12-12 11:48 | DVHSR ---
APPROVED REPORT EXAM: Two-dimensional and M-mode echocardiogram with Doppler and color Doppler. Blood Pressure: 148/53 mmHg INDICATION Heart Failure RISK FACTORS Height: 5'10", Weight: 132 DIMENSIONS LVDd4.5 (3.8-5.7cm)LA (2D)5.5 (1.9-4.0cm)Aortic Root3.8 (2.0-3.7cm) LVDs3.1 (2.5-4.0cm)LA (MM) (1.9-4.0cm)Aortic Cusp Exc1.6 (1.5-2.0cm) EF (%) 58.0 (55-70%)Rt. Atrium5.9 (1.9-4.0cm)Asc. Aorta cm IVSd1.2 (0.7-1.1cm)RV (D) (1.8-2.4cm) Mitral Valve MitralMitral Stenosis E wave1.14m/sMV Mean GR.mmHg E/A ratio0.02D MVAcm2 Aortic Valve Aortic ValveAortic Stenosis LVOT Diameter2.5 (1.8-2.4cm)Doppler AVAcm2 Tricuspid Valve TR Velocity2.50m/s [id number] Other Information Quality : Technically LimitedRhythm : Technically limited study due to body habitus and pt moving. Conclusion lvef 40% septal is hypokinetic small posterior pericardial effusion noted, no complromise severe left atrium enlarged RV enlrged RA enlarged lead in RV valves not well seen
[2024-12-12 12:44] LABS: Rapid Influenza A Negative (Negative); Rapid Influenza B Negative (Negative)
[2024-12-12 12:51] LABS: COVID19 ANTIGEN SOFIA FIA POSITIVE (NEGATIVE)
[2024-12-12] MEDS: SODIUM CHLORIDE 0.9% 1,000 ML IV SCH (13:15)
[2024-12-12] MEDS ORDERED: REMDESIVIR PER PHARMACY 0 ML IV SCH (13:15)
[2024-12-12 13:57] LABS: Hematocrit 19.5 % (41.0-53.0)
[2024-12-12] MEDS ORDERED: MEROPENEM 1GM IVPB 50 ML IV SCH (14:00)
[2024-12-12 14:06] LABS: Hemoglobin 5.7 g/dL (13.5-17.5)
[2024-12-12] MEDS: DOXYCYCLINE 100MG/100ML 100 ML IV SCH (14:16)
[2024-12-12] MEDS: ACETAMINOPHEN IV 1000 MG/100ML (10MG/ML) IV ONE (14:16)
[2024-12-12] MEDS: methylPREDNISolone SOD SUCC 40 MG/ML VL IV SCH (14:31)
[2024-12-12] MEDS: VANCOMYCIN 750MG KIT 100 ML IV SCH (15:08)
[2024-12-12] MEDS: REMDESIVIR 200mg in NS 210mL LOADING DOSE ADULT IV ONE (15:08)
[2024-12-13] MEDS: VANCOMYCIN 1GM/250ML KIT 187.5 ML IV ONE (03:18)
[2024-12-13 04:30] LABS: Hemoglobin 8.8 g/dL (13.5-17.5); Red Cell Distribution Width 29.5 % (11.8-14.3)
[2024-12-13 04:34] LABS: Hematocrit 29.1 % (41.0-53.0); Mean Corpuscular Hemoglobin 21.4 pg (28.0-32.0); Mean Corpuscular Hgb Conc. 30.3 g/dL (32.0-36.0); Mean Corpuscular Volume 70.6 fL (80.0-100.0); Platelet Count (auto) 249 10^3/uL (140-450); Red Blood Cells 4.12 10^6/uL (4.5-5.90)
[2024-12-13 04:42] LABS: INR 1.88 (0.9-1.15); Partial Thromboplastin Time 49.2 SEC (24.5-34.5); Prothrombin Time 18.7 sec (9.3-11.8)
[2024-12-13 04:48] LABS: Alanine Aminotransferase 25 U/L (7-40); Alkaline Phosphatase 69 U/L (46-116); Anion Gap 12 (5-15); BUN/Creatinine Ratio 21.8 (10.0-20.0); Cholesterol 66 mg/dL (< 200); LDL Cholesterol 25 mg/dL (< 100); Potassium 3.9 mmol/L (3.5-5.1); Triglycerides 82 mg/dL (< 150)
[2024-12-13 04:49] LABS: Bilirubin, Total 0.6 mg/dL (0.2-1.0)
[2024-12-13 04:58] LABS: Aspartate Aminotransferase 68 U/L (13-40); Blood Urea Nitrogen 24 mg/dL (9-23); Calcium 7.6 mg/dL (8.7-10.4); Carbon Dioxide 17 mmol/L (20-31); Chloride 116 mmol/L (98-107); Glucose 73 mg/dL (74-106); HDL Cholesterol 21 mg/dL (40-59); Sodium 145 mmol/L (136-145); Total Protein 5.2 g/dL (5.7-8.2)
[2024-12-13 04:59] LABS: White Blood Cell 51.2 10^3/uL (4.4-10.8)
[2024-12-13 05:00] LABS: Lactic Acid w/Reflex 3.9 mmol/L (0.4-2.0)
[2024-12-13 05:02] LABS: Basophils % (manual) 0 (0.0-2.0); Blast Cells 0; Eosinophils % (manual) 0 (0-7); Metamyelocytes % 0; Myelocytes % 0; Promyelocytes % 0; Reactive Lymphocytes 0
[2024-12-13 06:08] LABS: Anisocytosis Marked; Band Neutrophils % (manual) 19; Hypochromia Moderate; Lymphocytes % (manual) 7 (10.0-50.0); Monocytes % (manual) 7 (0-12); Platelet Estimate Adequate
[2024-12-13] MEDS ORDERED: REMDESIVIR 100mg in NS 230mL (3 DAY REGIMEN) IV SCH (15:00)
[2024-12-13] MEDS: REMDESIVIR 100mg in NS 230mL (5 DAY REGIMEN) IV SCH (15:06)
[2024-12-13] MEDS: VANCOMYCIN 750MG KIT 100 ML IV SCH (16:39)
[2024-12-13 19:57] VITALS: PULSE 60; RESP 26; O2SAT 96
[2024-12-14] VITALS (79 sets, daily range): BP systolic 94–137; BP diastolic 15–83; PULSE 59–91; RESP 12–29; TEMP 96.4–98.6; O2SAT 95–100
[2024-12-14] MEDS: ROCURONIUM 10MG/ML 10ML VIAL IV ONE ×2 (00:14→00:16)
[2024-12-14] MEDS: NOREPINEPHRINE 8 MG/250ML KIT 250 ML IV ONE (00:14)
[2024-12-14] MEDS: DEXTROSE 50% SYRINGE 50 ML IV ONE (00:14)
[2024-12-14] MEDS: ETOMIDATE (2MG/ML) 20ML VIAL IV ONE ×2 (00:14→00:16)
[2024-12-14] MEDS: NOREPINEPHRINE 8 MG/250ML KIT 250 ML IV SCH (00:15)
[2024-12-14] MEDS: PROPOFOL 100 ML IV SCH (01:21)
--- NOTE | 2024-12-14 01:21 | DVH ---
CHEST RADIOGRAPH Indication: POST INTUBATION Technique: Single frontal view of the chest was obtained COMPARISON: XY CHEST XRAY 1 VIEW on DOS: 12/11/24 FINDINGS/IMPRESSION: Lines and Tubes: Interval insertion of ETT the tip of which is at the origin of the right mainstem br onchus and should be withdrawn by 3-4 cm. Dual-lead AID again noted overlying left chest wall. Lungs/Pleura: Opacities noted throughout both lungs most likely representing pulmonary edema. Bibasil ar atelectasis/consolidation and small bilateral pleural effusions. No normal thorax. Cardiomediastinal contours: Unremarkable
[2024-12-14 02:16] LABS: Base Excess -15.5 mmol/L (-2.0-3.0)
--- NOTE | 2024-12-14 02:42 | DVHNC2 ---
Intubation Indication: Respiratory Insufficiency, Airway Protection Prep: Preoxygenation Pretreated with: Analgesia, Sedation Medicated with: Other (Rocuronium and etomidate) Intubation Approach: Orotracheal Intubation size: cm (22) Informed consent obtained: No Risks/benefits/alt described: Yes Date of Service: Dec 14, 2024 Billing Provider: HUMBERTO KEY MD Common Visit Codes: PROCEDURE ONLY Procedure Codes: 09819-[id number] HAZEL ARAGON RESIDENT Dec 14, 2024 02:42 HUMBERTO KEY MD Dec 16, 2024 10:11
--- NOTE | 2024-12-14 02:44 | DVHNC2 ---
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 department chair: Attending Physician (Dr Leija) Indication: Hypotension Room prepared for procedure: Yes Security Systems Installer performed hand hygien: Yes Maximal sterile barrier precau: Mask/Eye shield, Sterile gown, Cap, Sterlie gloves, Large sterlie drape Skin Preparation: Chlorhexidine gluconate Skin preparation completely dr: Yes Insertion site: Left, Internal jugular Central line catheter type: [id number] dialysis Number of lumens: 3 Central line exchanged over a: No Antiseptic ointment applied to: Yes Post Assessment: Chest X-Ray, Proper placement Informed consent obtained: No Risks/benefits/alt described: Yes Date of Service: Dec 14, 2024 Billing Provider: HUMBERTO KEY MD Common Visit Codes: PROCEDURE ONLY Procedure Codes: 30245-LTRYUM NON-TUNNEL CV CATH HAZEL ARAGON Dec 14, 2024 02:44 HUMBERTO KEY MD Dec 16, 2024 10:12
[2024-12-14] MEDS ORDERED: cefTRIAXone 1GM/50ML D5W 50 ML IV ONE (03:30)
[2024-12-14 06:57] LABS: Base Excess -14.6 mmol/L (-2.0-3.0)
[2024-12-14 09:20] LABS: Basophils # (auto) 0.1 10 ^3/uL (0-0.2); Basophils % (auto) 0.3 % (0.0-2.0); Eosinophils # (auto) 0.5 10 ^3/uL (0-0.8); Eosinophils % (auto) 1.1 % (0.0-7.0); Hematocrit 33.6 % (41.0-53.0); Hemoglobin 9.5 g/dL (13.5-17.5); Lymphocytes # (auto) 0.5 10 ^3/uL (0.4-5.4); Lymphocytes % (auto) 1.2 % (10.0-50.0); Mean Corpuscular Hemoglobin 20.7 pg (28.0-32.0); Mean Corpuscular Hgb Conc. 28.3 g/dL (32.0-36.0); Monocytes # (auto) 0.7 10 ^3/uL (0-1.3); Monocytes % (auto) 1.6 % (0.0-12.0); Neutrophils # (auto) 41.7 10 ^3/uL (1.6-8.6); Neutrophils % (auto) 95.8 % (37.0-80.0); Nucleated Red Blood Cells % 0.5 %; Platelet Count (auto) 263 10^3/uL (140-450); Red Blood Cells 4.61 10^6/uL (4.5-5.90); Red Cell Distribution Width 29.2 % (11.8-14.3)
[2024-12-14 09:31] LABS: Alkaline Phosphatase 108 U/L (46-116); Anion Gap 16 (5-15); BUN/Creatinine Ratio 31.9 (10.0-20.0); Potassium 4.1 mmol/L (3.5-5.1)
[2024-12-14 09:32] LABS: Bilirubin, Total 0.7 mg/dL (0.2-1.0)
[2024-12-14 09:38] LABS: Alanine Aminotransferase 257 U/L (7-40); Albumin 2.8 g/dL (3.2-4.8); Aspartate Aminotransferase 357 U/L (13-40); Blood Urea Nitrogen 46 mg/dL (9-23); Calcium 7.6 mg/dL (8.7-10.4); Carbon Dioxide 14 mmol/L (20-31); Chloride 120 mmol/L (98-107); Glucose 134 mg/dL (74-106); Sodium 150 mmol/L (136-145); Total Protein 5.1 g/dL (5.7-8.2)
[2024-12-14 09:43] LABS: White Blood Cell 43.5 10^3/uL (4.4-10.8)
[2024-12-14 10:01] LABS: Anisocytosis Marked; Hypochromia Marked; Ovalocytes FEW; Platelet Estimate Adequate
[2024-12-14] MEDS: PANTOPRAZOLE 40 MG/10 ML VIAL INJ IV SCH (10:54)
--- NOTE | 2024-12-14 12:25 | RESUS ---
CODE BLUE ASSESSSMENT History of Events History of Events: ICU bed assigned and was being transported to room 262 with RT and ER drawbench operator helper. Per RN pulses were lost in elevator when CPR began and 1 epinephrine was given then code was called on arrival to 262. Patient was Infusing levophed and propofol drips as ordered and being bagged by RT during transport/code on zoll monitor. Initial Information Date: Dec 14, 2024 Time: 08:20 Location of Arrest: [facility] (in central elevator on way to marco a) Arrest Witnessed: Yes CPR started initial time: 08:20 CPR started by whom: Hospital Staff Type of arrest: Cardiac, Adult, Witnessed Spontaneous Respirations: No Pulse Present: No Monitoring: ECG, Pulse Oximetry Crash Cart Opened and Supplies: Yes Airway Ventilation Breathing at Onset: Assisted Oxygen Delivery Method: Ambu-Bag Comments: previously intubated Circulation Circulation : Time: 08:24 Pulse Rate (adult): 106 Blood Pressure Systolic: 122 Blood Pressure Diastolic: 26 Medications & Response Medications and Responses #1: Medication Time: 08:20 ADULT Medications Given ADULT: Epinephrine 1 mg Route of Administration: IV Medications and Responses #2: Medication Time: 08:27 ADULT Medications Given ADULT: 2 Amps Na Bicarb Comment given post rosc Nurses Notes [place] Coma Scale Eye Opening: None (1) [place] Coma Scale Verbal: None (1) [place] Coma Scale Motor: Withdraws to Pain (4) Pupil Reaction: Sluggish Bedside Blood Glucose: 143 Time Code Ended Time Code Ended: 08:24 Post Arrest Status: Ventilated Outcome of code: Successful Code Team Present: Anamaria Dailey PATTERNMAKER PRESSURE CAST, Dr Valerio Resident, ROSC Time of ROSC: 08:24 Sathya Cuadra Dec 14, 2024 12:25
--- NOTE | 2024-12-14 12:32 | DVH ---
EXAM: US Duplex Right Upper Extremity Veins CLINICAL INDICATION: rule out DVT TECHNIQUE: Real-time duplex ultrasound scan of the right upper extremity veins integrating B-mode tw o-dimensional vascular structure, Doppler spectral analysis, color flow Doppler imaging and compressi on. COMPARISON: None FINDINGS: DEEP VEINS: Unremarkable. No DVT in the internal jugular, subclavian, axillary, or brachial veins. The veins demonstrate normal color flow, are normally compressible, with normal phasic flow and/or augmentation response. SUPERFICIAL VEINS: Thrombus in the cephalic vein of the forearm. SOFT TISSUES: No acute findings. OTHER FINDINGS: . IMPRESSION: Thrombus in the cephalic vein of the forearm.
[2024-12-14 13:01] LABS: Lactic Acid w/Reflex 3.1 mmol/L (0.4-2.0)
[2024-12-14] MEDS: SODIUM CHLORIDE 0.9% 1,000 ML IV SCH (13:15)
[2024-12-14 15:28] LABS: Base Excess -9.5 mmol/L (-2.0-3.0)
[2024-12-14] MEDS: AZTREONAM 1GM INJ 1 GM in D5W 5% 50 ML IV SCH (16:00)
--- NOTE | 2024-12-14 20:00 | DVHINCON2 ---
Date of service: Dec 14, 2024 Referring Physician Arnel Chiu DO Reason for Consultation Acute hypoxic respiratory failure requiring mechanical vent. History of Present Illness A 79-year-old man with extensive past medical history including stroke, GI bleed, CAD s/p stents, hypertension, AFib and ICD placement who was brought in to ED on 12/12/24 via EMS due to chest pain. Patient is a resident at a care facility called [facility]. The facility called EMS at approximately 2230 on day of presentation when pt started beating his chest stating he was having pain, and subsequently had an episode of vomiting. On EMS arrival, patient was reported to be altered. The facility had given 324 mg ASA prior to EMS arrival. EMS was uncertain if this mental status was baseline; the facility was unsure. Patient was admitted for further care and pulmonary consultation is requested for evaluation and management of acute hypoxic respiratory failure requiring mechanical vent. Review of Systems: Unable to obtain, intubated. Past Medical History: History of severe stroke (encephalomalacia in right temporal, frontal, and parietal lobes) with significant neurologic sequelae possible vascular dementia Prior episodes of gastrointestinal bleeding Coronary artery disease sp stents Hypertension Atrial fibrillation with rapid ventricular response, ventricular tachycardia Chronic kidney stones Hypercoagulable state. Past Surgical History: Cardiac stents ICD Left above-knee amputation Medications: Reviewed. Allergies: Penicillin. Family History: Cancer of colon Cardiovascular disease Arthritis Social History: Nonsmoker. No alcohol or illicit drug use. Family History: Cancer of colon G8 MOTHER, Onset:50's - 60 Family history: Arthritis G8 MOTHER, Onset:50's - 60 Family history: Cardiovascular disease G8 FATHER, Onset:50's - 60 Allergies: Coded Allergies: Penicillins (Verified Allergy, Severe, 10/21/15) Home Meds Reported Medications Warfarin Sodium (Warfarin Sodium) 2.5 Mg Tab, 2.5 MG PO DAILY, TAB 10/23/15 Gabapentin (Gabapentin) 300 Mg Cap, 1 CAP PO TID PRN for MILD PAIN OR TEMP>100.4, #90 CAP 5 Refills 10/23/15 Baclofen (Baclofen) 10 Mg Tab, 10 MG PO Q6HP PRN for MILD PAIN OR TEMP>100.4, TAB 10/23/15 Digoxin (Digoxin) 0.125 Mg Tab, 1 TAB PO DAILY, #30 TAB 5 Refills 10/23/15 Metoprolol Succinate (Toprol Xl) 25 Mg Tab, 1 TAB PO BID, #30 TAB 5 Refills 10/23/15 Lisinopril (Lisinopril) 2.5 Mg Tab, 1 TAB PO DAILY, #30 TAB 5 Refills 10/23/15 Atorvastatin Calcium (Lipitor) 40 Mg Tab, 1 TAB PO QPM, #90 TAB 1 Refill 10/23/15 Current Medications Current Medications Medications (Trade) Dose Ordered Sig/Roberto Route PRN Reason Start Time Stop Time Status Last Admin Propofol 100 ml @ 1.8 mls/hr Q24H IV 12/14/24 00:30 12/14/24 14:04 Norepinephrine Bitartrate 250 ml @ 3.75 mls/hr Q24H IV 12/14/24 00:15 12/14/24 19:57 Ceftriaxone Sodium 50 ml @ 100 mls/hr DAILY@0300 IV 12/15/24 03:00 12/14/24 15:30 DC Pantoprazole Sodium (Protonix) 40 mg BID IV 12/14/24 08:46 12/14/24 10:54 Sodium Chloride 1,000 ml @ 75 mls/hr [id number] IV 12/14/24 13:15 12/14/24 13:15 Aztreonam 1 gm/ Dextrose 50 ml @ 100 mls/hr Q8HR IV 12/14/24 16:00 Apixaban (Eliquis) 10 mg BID NG 12/14/24 22:00 12/21/24 21:59 Vital Signs Vital Signs Date Time Temp Pulse Resp B/P (MAP) Pulse Ox O2 Delivery O2 Flow Rate FiO2 12/14/24 19:57 109/57 12/14/24 19:15 98.4 60 18 100 209.1 12/14/24 18:58 30 12/14/24 12:25 Ambu-Bag 12/13/24 19:57 3 Physical Exam Gen.: Patient lying in bed in medical ICU. Sedated, intubated on mechanical ventilator. Head: Normocephalic, atraumatic. Eyes: PERRLA. Ears: Normal external anatomy. Throat: Endotracheal tube and orogastric tube in place. Neck: Supple, trachea midline. Chest: Transmitted breath sounds bilaterally. Decreased air entry bilaterally. No wheezing. Bibasilar crackles. Cardiovascular: Positive S1, positive S2. Regular rate and rhythm. Abdomen: Positive bowel sounds in all 4 quadrants. Soft, nontender, nondistended. : Diane in place. Normal external genitalia. Rectal: Deferred. Skin: Warm, dry. Intact. Extremities: 2+ radial pulses bilaterally. No lower extremity edema. Left above-knee amputation Neuro: Sedated. Labs/Diagnostic Data Labs Test 12/14/24 14:22 12/14/24 11:40 12/14/24 10:25 12/14/24 08:48 Range/Units Lactic Acid Level 2.3 *H 0.4-2.0 mmol/L Creatinine 1.29 0.700-1.30 mg/dL Glomerular Filtration Rate Calc 57 >90 mL/min Random Vancomycin Level 21.2 H 5-10 ug/mL Blood Gas Specimen Type Arterial Blood Gas Sample Site Right radial Blood Gas Patient Temperature 37.0 Arterial Blood Date Drawn [id number] Arterial Blood pH 7.401 7.350-7.450 Arterial Blood Partial Pressure CO2 22.7 L 35.0-48.0 mmHg Arterial Blood Partial Pressure O2 119.8 H 83.0-108.0 mmHg Arterial Blood HCO3 13.8 L 21.0-28.0 mmol/L Arterial Blood Oxygen Saturation 98.1 H 94.0-98.0 % Arterial Blood Base Excess -9.5 L -2.0-3.0 mmol/L Arterial Blood Oxyhemoglobin 96.8 94.0-98.0 % Arterial Blood Carboxyhemoglobin 1.2 0.5-1.5 % Arterial Blood Methemoglobin 0.1 0.0-1.5 % David Test Modified Blood Gas Total Hemoglobin 9.80 L 13.5-17.5 g/dL Blood Gas Set Respiration Rate 18.0 Blood Gas Modality Vent - ac FiO2 % 30.0 Blood Gas Tidal Volume 480.0 Blood Gas PEEP or CPAP 5.0 White Blood Count 43.5 *H 4.4-10.8 10^3/uL Red Blood Count 4.61 4.5-5.90 10^6/uL Hemoglobin 9.5 L 13.5-17.5 g/dL Hematocrit 33.6 #L 41.0-53.0 % Mean Corpuscular Volume 73.0 L 80.0-100.0 fL Mean Corpuscular Hemoglobin 20.7 L 28.0-32.0 pg Mean Corpuscular Hemoglobin Concent 28.3 L 32.0-36.0 g/dL Red Cell Distribution Width 29.2 H 11.8-14.3 % Platelet Count 263 140-450 10^3/uL Mean Platelet Volume 9.0 6.9-10.8 fL Neutrophils (%) (Auto) 95.8 H 37.0-80.0 % Lymphocytes (%) (Auto) 1.2 L 10.0-50.0 % Monocytes (%) (Auto) 1.6 0.0-12.0 % Eosinophils (%) (Auto) 1.1 0.0-7.0 % Basophils (%) (Auto) 0.3 0.0-2.0 % Neutrophils # (Auto) 41.7 H 1.6-8.6 10 ^3/uL Lymphocytes # (Auto) 0.5 0.4-5.4 10 ^3/uL Monocytes # (Auto) 0.7 0-1.3 10 ^3/uL Eosinophils # (Auto) 0.5 0-0.8 10 ^3/uL Basophils # (Auto) 0.1 0-0.2 10 ^3/uL Nucleated Red Blood Cells 0.5 % Platelet Estimate Adequate Hypochromasia (manual) Marked Anisocytosis (manual) Marked Microcytosis Moderate Ovalocytes Few Diane Cells Moderate Sodium Level 150 #H 136-145 mmol/L Potassium Level 4.1 3.5-5.1 mmol/L Chloride Level 120 H 98-107 mmol/L Carbon Dioxide Level 14 L 20-31 mmol/L Anion Gap 16 H 5-15 Blood Urea Nitrogen 46 #H 9-23 mg/dL BUN/Creatinine Ratio 31.9 H 10.0-20.0 Serum Glucose 134 H 74-106 mg/dL Calcium Level 7.6 L 8.7-10.4 mg/dL Magnesium Level 2.0 1.6-2.6 mg/dL Total Bilirubin 0.7 0.2-1.0 mg/dL Aspartate Amino Transferase (AST) 357 H 13-40 U/L Alanine Aminotransferase (ALT) 257 H 7-40 U/L Alkaline Phosphatase 108 46-116 U/L Total Protein 5.1 L 5.7-8.2 g/dL Albumin 2.8 L 3.2-4.8 g/dL Test 12/14/24 08:29 12/14/24 06:48 12/14/24 03:26 12/13/24 16:12 Range/Units POC Glucose 143 H 70-106 mg/dl Blood Gas Critical Value Read Back Yes Blood Gas Notified Whom Peg chiu md Blood Gas Notified Time [id number] Blood Gas Notified By Legal Secretary virginia ortiz Stool Occult Blood Negative Stool Occult Blood Sample #3 Negative Vancomycin Level Trough 21.1 H 5-10 ug/mL Test 12/13/24 05:00 12/13/24 03:56 12/12/24 13:28 12/12/24 10:21 Range/Units Differential Total Cells Counted 100.0 100 Neutrophils % (Manual) 67 37.0-80.0 Band Neutrophils % (Manual) 19 Lymphocytes % (Manual) 7 L 10.0-50.0 Monocytes % (Manual) 7 0-12 Eosinophils % (Manual) 0 0-7 Basophils % (Manual) 0 0.0-2.0 Metamyelocytes % (manual) 0 Myelocytes % (Manual) 0 Promyelocytes % (Manual) 0 Blast Cells % (Manual) 0 Reactive Lymphocytes 0 Prothrombin Time 18.7 H 9.3-11.8 sec Prothrombin Time INR 1.88 H 0.9-1.15 Activated Partial Thromboplast Time 49.2 H 24.5-34.5 SEC Hemoglobin A1c 5.0 <5.7 % A1C Triglycerides Level 82 < 150 mg/dL Cholesterol Level 66 < 200 mg/dL LDL Cholesterol 25 < 100 mg/dL HDL Cholesterol 21 L 40-59 mg/dL Vitamin B12 Level 331 211-911 pg/mL Vitamin D 25-Hydroxy 7.2 L 30.0-100 ng/mL Haptoglobin 139 34-355 mg/dL Digoxin Level < 0.14 L 0.8-2 ng/mL Test 12/12/24 09:29 12/12/24 07:47 12/12/24 07:45 12/12/24 02:20 Range/Units Blood Gas Liter Flow 4.00 Urine Color Dark-brown Yellow Urine Clarity Ex.turbid Clear Urine pH 7.0 5.0-9.0 Urine Specific [place] 1.022 1.001-1.035 Urine Protein 3+ H Negative Urine Ketones Trace Negative Urine Blood 2+ H Negative /uL Urine Nitrite 2+ H Negative Urine Bilirubin Negative Negative Urine Urobilinogen Normal Negative mg/dL Urine Leukocyte Esterase 3+ Negative /uL Urine Glucose Normal Normal mg/dL Influenza Type A Antigen Negative Negative Influenza Type B Antigen Negative Negative Urine RBC 19 0 - 3 /hpf Urine Microscopic WBC 50 H 0-3 /HPF Urine Squamous Epithelial Cells Few <5 /hpf Urine Calcium Oxalate Crystals Few None Seen Urine Bacteria Few H None Seen /hpf Test 12/12/24 01:30 12/12/24 00:00 12/11/24 23:07 12/11/24 22:10 Range/Units Erythrocyte Sedimentation Rate 25 H 0-20 mm/hr SARS-CoV-2 Antigen (Rapid) Positive *A NEGATIVE Troponin I High Sensitivity 6 </=54 ng/L Thyroid Stimulating Hormone (TSH) 3.98 0.55-4.78 uIU/mL Schistocytes Few Iron Level 11 L 65-175 ug/dL Total Iron Binding Capacity 323 250-425 ug/dL Percent Iron Saturation 3.4 L 20-55 % Ferritin 6.1 L 22-322 ng/mL C-Reactive Protein High Sensitivity 1.32 H <1.0 mg/dL B-Type Natriuretic Peptide 304.72 0-100 pg/mL Lipase 22 12-53 U/L Test 12/11/24 22:08 Range/Units Ammonia < 10 L 11-32 umol/L Microbiology Date/Time Source Procedure Growth Status 12/12/24 00:41 Stool Stool Culture - Preliminary Resulted 12/12/24 00:41 Stool Shiga Toxin I & II - Final Resulted 12/12/24 00:31 Nose MRSA Screen - Final Complete 12/12/24 00:14 Blood Blood Culture - Preliminary NO GROWTH AFTER 48 HOURS OF INCUBATION. Resulted Assessment Impression: Acute hypoxic respiratory failure On mechanical ventilator COVID 19 infection S/p cardiac arrest Anemia Cachexia, BMI of 19 Plan: s/p intubation on mechanical ventilator. CXR image and report reviewed. Devices in place. Bilateral opacities. No pneumothorax. No pleural effusion. ABG reviewed. On AC mode; RR 18, VT 480, PEEP 5, Fio2 30% Titrate FIO2 to keep O2 saturation above 90%. VAP bundle. Daily ABG and CXR while intubated Sedate for ventilator synchrony - on Propofol Start remdesivir course. Steroids - Solu-Medrol Monitor hemoglobin On pressors for hemodynamic support Levophed 18 mcg/min Titrate to keep mean arterial pressure greater than 65 mmHg. Monitor renal function Monitor electrolytes. Supplement as necessary. Monitor ins and outs. GI prophylaxis. DVT prophylaxis. Prognosis: Poor given patient's multiple co-morbidities. Condition: Critical Rest of plan per hospitalist and other consultants. A total of 35 minutes of critical care time was spent reviewing the patient record, examining the patient, making a diagnostic and therapeutic plan, discussing this plan with the medical personnel, following up on diagnostic studies and following the patient for clinical stability excluding any and all procedures. At least 50% of this time was spent in direct, [id number] contact. Thank you Dr. Chiu for allowing me to participate in this patient's care. Further recommendations will depend on the patient's clinical course. Please do not hesitate to contact me if you have any questions or concerns. This medical document was created using an electronic medical record system with [email or web address] dictation system. Although these documentations are being carefully reviewed, there may still be some phonetic and typographical changes. The errors are purely typographical, due to imperfection on the software program, and do not reflect any compromise in the patient's medical care. Plan discussed with: Other (ROSALES Santizo/Dr. Chiu) VIDYA MISHRA MD Dec 14, 2024 20:00
[2024-12-14] MEDS: AZTREONAM 1 GM INJ VIAL ONE (21:42)
[2024-12-14] MEDS: APIXABAN 5 MG TAB NG SCH (22:29)
[2024-12-15] VITALS (108 sets, daily range): BP systolic 92–127; BP diastolic 45–67; PULSE 58–69; RESP 15–23; TEMP 97.5–99.3; O2SAT 98–100
[2024-12-15] MEDS ORDERED: cefTRIAXone 1GM/50ML D5W 50 ML IV SCH (03:00)
[2024-12-15 05:25] LABS: Hemoglobin 8.7 g/dL (13.5-17.5); Platelet Count (auto) 194 10^3/uL (140-450)
[2024-12-15 05:28] LABS: Hematocrit 30.1 % (41.0-53.0); Mean Corpuscular Hemoglobin 20.7 pg (28.0-32.0); Mean Corpuscular Hgb Conc. 28.8 g/dL (32.0-36.0); Mean Corpuscular Volume 71.8 fL (80.0-100.0)
[2024-12-15 05:29] LABS: Anion Gap 15 (5-15)
[2024-12-15 05:34] LABS: BUN/Creatinine Ratio 43.2 (10.0-20.0)
--- NOTE | 2024-12-15 05:44 | DVH ---
EXAM: XY CHEST PORTABLE Indication: INTUBATED Technique: Single frontal view of the chest was obtained Comparison: XY CHEST PORTABLE on DOS: 12/14/24, XY CHEST XRAY 1 VIEW on DOS: 12/11/24 FINDINGS: Lines and Tubes: Interval retraction of endotracheal tube which projects 6 cm above the level of the pauline. Cardiac pacemaker projects over left chest wall. Enteric tube tip projects over the expected region of the stomach. Lungs: Pulmonary edema. Pleura: Trace left pleural effusion. No pneumothorax. Cardiomediastinal contours: Unremarkable Bones: No acute osseous abnormality. IMPRESSION: Lines and tubes in appropriate position.
[2024-12-15 05:57] LABS: Blood Urea Nitrogen 48 mg/dL (9-23); Calcium 7.6 mg/dL (8.7-10.4); Carbon Dioxide 17 mmol/L (20-31); Chloride 121 mmol/L (98-107); Glucose 145 mg/dL (74-106); Potassium 3.1 mmol/L (3.5-5.1); Sodium 153 mmol/L (136-145)
[2024-12-15 06:17] LABS: White Blood Cell 39.3 10^3/uL (4.4-10.8)
[2024-12-15 06:19] LABS: Basophils % (manual) 0 (0.0-2.0); Blast Cells 0; Eosinophils % (manual) 0 (0-7); Metamyelocytes % 0; Monocytes % (manual) 0 (0-12); Myelocytes % 0; Promyelocytes % 0; Reactive Lymphocytes 0
[2024-12-15 07:03] LABS: Band Neutrophils % (manual) 6; Hypochromia Marked; Lymphocytes % (manual) 2 (10.0-50.0); Ovalocytes FEW
[2024-12-15 07:04] LABS: Anisocytosis Marked; Platelet Estimate Adequate
[2024-12-15] MEDS: VANCOMYCIN 1GM/250ML KIT 250 ML IV ONE (10:35)
--- NOTE | 2024-12-15 15:12 | DVHPN2 ---
Reviewed: Care Plan, H&P, Labs, Medications, Previous Orders, Radiology Changes from previous H/P or p: No Changes General: Per HPI Objective Vitals Vital Signs Date Time Temp Pulse Resp B/P (MAP) Pulse Ox O2 Delivery O2 Flow Rate FiO2 12/15/24 14:45 98.4 60 19 113/57 (75) 100 209.1 12/15/24 14:12 30 12/15/24 08:00 Mechanical Ventilator+ 12/13/24 19:57 3 Intake/Output Intake and Output 12/15/24 07:00 Intake Total 2833.75 ml Output Total 875 ml Balance 1958.75 ml Intake Oral 30 ml IV Total 2803.75 ml Output Urine Total 875 ml General Appearance: No acute distress Cardiovascular: Regular rate, Normal S1, Normal S2 Abdomen: Normal bowel sounds Medications Current Medications Medications Dose Ordered Sig/Roberto Route Start Time Stop Time Status Last Admin Dose Admin Nitroglycerin 0.4 mg Q5MINP PRN SL 12/12/24 00:30 Morphine Sulfate 2 mg Q30M PRN IV 12/12/24 00:30 Vancomycin HCl 0 ml @ 0 mls/hr UD IV 12/12/24 00:30 Ceftriaxone Sodium 50 ml @ 100 mls/hr DAILY IV 12/12/24 10:00 UNV Acetaminophen 650 mg Q6HP PRN AL 12/12/24 08:30 12/12/24 09:17 650 MG Doxycycline Hyclate 100 ml @ 50 mls/hr Q12H IV 12/12/24 13:00 12/15/24 14:28 50 MLS/HR Remdesivir 0 ml @ 0 mls/hr PER PHARMACY IV 12/12/24 13:15 12/16/24 13:16 Methylprednisolone Sodium Succinate 40 mg Q8HR IV 12/12/24 14:00 12/15/24 14:29 40 MG Remdesivir 100 mg/ Sodium Chloride 250 ml @ 250 mls/hr DAILY@1500 IV 12/13/24 15:00 12/16/24 15:59 12/14/24 16:30 250 MLS/HR Propofol 100 ml @ 1.8 mls/hr Q24H IV 12/14/24 00:30 12/15/24 05:07 5.4 MLS/HR Norepinephrine Bitartrate 250 ml @ 3.75 mls/hr Q24H IV 12/14/24 00:15 12/15/24 13:23 26.25 MLS/HR Pantoprazole Sodium 40 mg BID IV 12/14/24 08:46 12/15/24 09:48 40 MG Sodium Chloride 1,000 ml @ 75 mls/hr [id number] IV 12/14/24 13:15 12/15/24 04:00 75 MLS/HR Aztreonam 1 gm/ Dextrose 50 ml @ 100 mls/hr Q8HR IV 12/14/24 16:00 12/15/24 14:39 100 MLS/HR Apixaban 10 mg BID NG 12/14/24 22:00 12/21/24 21:59 12/15/24 09:48 10 MG Laboratory Results Laboratory Tests 12/15/24 04:46 Chemistry Test 12/15/24 04:46 Calcium Level 7.6 mg/dL (8.7-10.4) L Urinalysis Test 12/12/24 02:20 12/12/24 07:47 Urine RBC 19 /hpf (0 - 3) Urine Microscopic WBC 50 /HPF (0-3) H Urine Squamous Epithelial Cells Few /hpf (<5) Urine Calcium Oxalate Crystals Few (None Seen) Urine Bacteria Few /hpf (None Seen) H Urine Color Dark-brown (Yellow) Urine Clarity Ex.turbid (Clear) Urine pH 7.0 (5.0-9.0) Urine Specific [place] 1.022 (1.001-1.035) Urine Protein 3+ (Negative) H Urine Ketones Trace (Negative) Urine Blood 2+ /uL (Negative) H Urine Nitrite 2+ (Negative) H Urine Bilirubin Negative (Negative) Urine Urobilinogen Normal mg/dL (Negative) Urine Leukocyte Esterase 3+ /uL (Negative) Urine Glucose Normal mg/dL (Normal) Blood Gas Results Test 12/15/24 08:51 Arterial Blood pH 7.400 (7.350-7.450) FiO2 % 30.0 Microbiology Microbiology Date/Time Source Procedure Growth Status 12/14/24 10:05 Nose MRSA Screen - Final Complete 12/14/24 01:10 Sputum Gram Stain - Final Resulted 12/14/24 01:10 Sputum Respiratory Culture - Preliminary Resulted 12/12/24 00:41 Stool Stool Culture - Preliminary Resulted 12/12/24 00:41 Stool Shiga Toxin I & II - Final Resulted 12/12/24 00:14 Blood Blood Culture - Preliminary NO GROWTH AFTER 72 HOURS OF INCUBATION. Resulted Labs and/or images reviewed: Labs reviewed by me, Image(s) reviewed by me Assessment/Plan Assessment/Plan A79y old male BIBA due to chest pain. Patient is a resident at a care facility called [facility]. The facility called EMS after approximately 2230 when the patient started beating his chest, stating he was having pain, and subsequently had an episode of vomiting. On EMS arrival, patient was reported to be altered. The facility had given 324 mg ASA prior to EMS arrival. EMS was uncertain if this mental status was baseline; the facility was unsure. PMHx: He also has a history of severe stroke (encephalomalacia in right temporal, frontal, and parietal lobes) with significant neurologic sequelae possible vascular dementia, prior episodes of gastrointestinal bleeding, Coronary artery disease sp stents, hypertension, atrial fibrillation with rapid ventricular response, ventricular tachycardia, left above-knee amputation, chronic kidney stones, history of GI bleed, ICD , hypercoagulable state. Chest/Abdomen/ Pelvis CT scan: [id number] right-sided hydroureteronephrosis with multiple stones in the right ureter measuring up to 8 mm. There are multiple stones within the urinary bladder measuring less than 1 cm. The bilateral kidneys demonstrate multiple nonobstructing stones measuring up to 2 cm. Small right and trace left pleural effusions with adjacent compressive atelectasis Moderate to severe pericardial effusion. Moderate fecal retention throughout the colon Head CT scan: Large area of encephalomalacia involving the right temporal frontal and parietal lobes may represent old infarct. #Acute metabolic encephalopathy due to sepsis #Vascular dementia #Large area of encephalomalacia involving the right temporal frontal and parietal lobes may represent old infarct #Sepsis: not septic shock yet #Moderate to severe pericardial effusion #H/o atrial fibrillation #H/o coronary disease s/p stent #H/o ventricular arrhythmia #s/p ICD placement #Acute respiratory failure #Small pleural effusions #Early Aspiration pneumonia? #Sepsis #Sepsis #[id number] right-sided hydroureteronephrosis with multiple stones in the right ureter measuring up to 8 mm. #Lactic acidosis #There are multiple stones within the urinary bladder measuring less than 1 cm. #The bilateral kidneys demonstrate multiple nonobstructing stones measuring up to 2 cm. #Possible GI bleeding #History of GI bleeding #History of colonic polyps #Severe anemia #Iron deficiency 12/13/2024 continue with current care family wants every done at the moment. Plan discussed with: Other My Orders Orders - EMI RUSH DO Procedure Category Date Status Time Aztreonam 1gm Inj PHA 12/14/24 In Process (Azactam) 16:00 Apixaban (Eliquis) PHA 12/14/24 In Process 22:00 Chest Portable XY 12/15/24 Resulted 04:00 Lactulose Oral PHA 12/15/24 Verified 15:15 Date of Service: Dec 13, 2024 Billing Provider: EMI RUSH DO Common Visit Codes: [id number] INP/OBS CARE(HIGH) EMI RUSH DO Dec 15, 2024 15:12
--- NOTE | 2024-12-15 15:13 | DVHPN2 ---
Reviewed: Care Plan, H&P, Labs, Medications, Previous Orders, Radiology Changes from previous H/P or p: No Changes General: Per HPI Objective Vitals Vital Signs Date Time Temp Pulse Resp B/P (MAP) Pulse Ox O2 Delivery O2 Flow Rate FiO2 12/15/24 14:45 98.4 60 19 113/57 (75) 100 209.1 12/15/24 14:12 30 12/15/24 08:00 Mechanical Ventilator+ 12/13/24 19:57 3 Intake/Output Intake and Output 12/15/24 07:00 Intake Total 2833.75 ml Output Total 875 ml Balance 1958.75 ml Intake Oral 30 ml IV Total 2803.75 ml Output Urine Total 875 ml Medications Current Medications Medications Dose Ordered Sig/Roberto Route Start Time Stop Time Status Last Admin Dose Admin Nitroglycerin 0.4 mg Q5MINP PRN SL 12/12/24 00:30 Morphine Sulfate 2 mg Q30M PRN IV 12/12/24 00:30 Vancomycin HCl 0 ml @ 0 mls/hr UD IV 12/12/24 00:30 Ceftriaxone Sodium 50 ml @ 100 mls/hr DAILY IV 12/12/24 10:00 UNV Acetaminophen 650 mg Q6HP PRN MN 12/12/24 08:30 12/12/24 09:17 650 MG Doxycycline Hyclate 100 ml @ 50 mls/hr Q12H IV 12/12/24 13:00 12/15/24 14:28 50 MLS/HR Remdesivir 0 ml @ 0 mls/hr PER PHARMACY IV 12/12/24 13:15 12/16/24 13:16 Methylprednisolone Sodium Succinate 40 mg Q8HR IV 12/12/24 14:00 12/15/24 14:29 40 MG Remdesivir 100 mg/ Sodium Chloride 250 ml @ 250 mls/hr DAILY@1500 IV 12/13/24 15:00 12/16/24 15:59 12/14/24 16:30 250 MLS/HR Propofol 100 ml @ 1.8 mls/hr Q24H IV 12/14/24 00:30 12/15/24 05:07 5.4 MLS/HR Norepinephrine Bitartrate 250 ml @ 3.75 mls/hr Q24H IV 12/14/24 00:15 12/15/24 13:23 26.25 MLS/HR Pantoprazole Sodium 40 mg BID IV 12/14/24 08:46 12/15/24 09:48 40 MG Sodium Chloride 1,000 ml @ 75 mls/hr [id number] IV 12/14/24 13:15 12/15/24 04:00 75 MLS/HR Aztreonam 1 gm/ Dextrose 50 ml @ 100 mls/hr Q8HR IV 12/14/24 16:00 12/15/24 14:39 100 MLS/HR Apixaban 10 mg BID NG 12/14/24 22:00 12/21/24 21:59 12/15/24 09:48 10 MG Laboratory Results Laboratory Tests 12/15/24 04:46 Chemistry Test 12/15/24 04:46 Calcium Level 7.6 mg/dL (8.7-10.4) L Urinalysis Test 12/12/24 02:20 12/12/24 07:47 Urine RBC 19 /hpf (0 - 3) Urine Microscopic WBC 50 /HPF (0-3) H Urine Squamous Epithelial Cells Few /hpf (<5) Urine Calcium Oxalate Crystals Few (None Seen) Urine Bacteria Few /hpf (None Seen) H Urine Color Dark-brown (Yellow) Urine Clarity Ex.turbid (Clear) Urine pH 7.0 (5.0-9.0) Urine Specific [place] 1.022 (1.001-1.035) Urine Protein 3+ (Negative) H Urine Ketones Trace (Negative) Urine Blood 2+ /uL (Negative) H Urine Nitrite 2+ (Negative) H Urine Bilirubin Negative (Negative) Urine Urobilinogen Normal mg/dL (Negative) Urine Leukocyte Esterase 3+ /uL (Negative) Urine Glucose Normal mg/dL (Normal) Blood Gas Results Test 12/15/24 08:51 Arterial Blood pH 7.400 (7.350-7.450) FiO2 % 30.0 Microbiology Microbiology Date/Time Source Procedure Growth Status 12/14/24 10:05 Nose MRSA Screen - Final Complete 12/14/24 01:10 Sputum Gram Stain - Final Resulted 12/14/24 01:10 Sputum Respiratory Culture - Preliminary Resulted 12/12/24 00:41 Stool Stool Culture - Preliminary Resulted 12/12/24 00:41 Stool Shiga Toxin I & II - Final Resulted 12/12/24 00:14 Blood Blood Culture - Preliminary NO GROWTH AFTER 72 HOURS OF INCUBATION. Resulted Assessment/Plan Assessment/Plan A79y old male BIBA due to chest pain. Patient is a resident at a care facility called [facility]. The facility called EMS after approximately 2230 when the patient started beating his chest, stating he was having pain, and subsequently had an episode of vomiting. On EMS arrival, patient was reported to be altered. The facility had given 324 mg ASA prior to EMS arrival. EMS was uncertain if this mental status was baseline; the facility was unsure. PMHx: He also has a history of severe stroke (encephalomalacia in right temporal, frontal, and parietal lobes) with significant neurologic sequelae possible vascular dementia, prior episodes of gastrointestinal bleeding, Coronary artery disease sp stents, hypertension, atrial fibrillation with rapid ventricular response, ventricular tachycardia, left above-knee amputation, chronic kidney stones, history of GI bleed, ICD , hypercoagulable state. Chest/Abdomen/ Pelvis CT scan: [id number] right-sided hydroureteronephrosis with multiple stones in the right ureter measuring up to 8 mm. There are multiple stones within the urinary bladder measuring less than 1 cm. The bilateral kidneys demonstrate multiple nonobstructing stones measuring up to 2 cm. Small right and trace left pleural effusions with adjacent compressive atelectasis Moderate to severe pericardial effusion. Moderate fecal retention throughout the colon Head CT scan: Large area of encephalomalacia involving the right temporal frontal and parietal lobes may represent old infarct. #Acute metabolic encephalopathy due to sepsis #Vascular dementia #Large area of encephalomalacia involving the right temporal frontal and parietal lobes may represent old infarct #Sepsis: not septic shock yet #Moderate to severe pericardial effusion #H/o atrial fibrillation #H/o coronary disease s/p stent #H/o ventricular arrhythmia #s/p ICD placement #Acute respiratory failure #Small pleural effusions #Early Aspiration pneumonia? #Sepsis #Sepsis #[id number]-[id number] right-sided hydroureteronephrosis with multiple stones in the right ureter measuring up to 8 mm. #Lactic acidosis #There are multiple stones within the urinary bladder measuring less than 1 cm. #The bilateral kidneys demonstrate multiple nonobstructing stones measuring up to 2 cm. #Possible GI bleeding #History of GI bleeding #History of colonic polyps #Severe anemia #Iron deficiency 12/13/2024 continue with current care family wants every done at the moment. 12/14/2024 continue with current pt is now intubated Plan discussed with: Other (nursing staff) My Orders Orders - EMI RUSH DO Procedure Category Date Status Time Aztreonam 1gm Inj PHA 12/14/24 In Process (Azactam) 16:00 Apixaban (Eliquis) PHA 12/14/24 In Process 22:00 Chest Portable XY 12/15/24 Resulted 04:00 Lactulose Oral PHA 12/15/24 Verified 15:15 Date of Service: Dec 14, 2024 Billing Provider: EMI RUSH DO Common Visit Codes: [id number] CARE 30-74 MIN EMI RUSH DO Dec 15, 2024 15:13
--- NOTE | 2024-12-15 15:14 | DVHPN2 ---
Reviewed: Care Plan, H&P, Labs, Medications, Previous Orders, Radiology Changes from previous H/P or p: No Changes General: Per HPI Objective Vitals Vital Signs Date Time Temp Pulse Resp B/P (MAP) Pulse Ox O2 Delivery O2 Flow Rate FiO2 12/15/24 14:45 98.4 60 19 113/57 (75) 100 209.1 12/15/24 14:12 30 12/15/24 08:00 Mechanical Ventilator+ 12/13/24 19:57 3 Intake/Output Intake and Output 12/15/24 07:00 Intake Total 2833.75 ml Output Total 875 ml Balance 1958.75 ml Intake Oral 30 ml IV Total 2803.75 ml Output Urine Total 875 ml General Appearance: No acute distress HEENT: Atraumatic Cardiovascular: Regular rate, Normal S1, Normal S2 Abdomen: Normal bowel sounds, Soft Medications Current Medications Medications Dose Ordered Sig/Roberto Route Start Time Stop Time Status Last Admin Dose Admin Nitroglycerin 0.4 mg Q5MINP PRN SL 12/12/24 00:30 Morphine Sulfate 2 mg Q30M PRN IV 12/12/24 00:30 Vancomycin HCl 0 ml @ 0 mls/hr UD IV 12/12/24 00:30 Ceftriaxone Sodium 50 ml @ 100 mls/hr DAILY IV 12/12/24 10:00 UNV Acetaminophen 650 mg Q6HP PRN [place] 12/12/24 08:30 12/12/24 09:17 650 MG Doxycycline Hyclate 100 ml @ 50 mls/hr Q12H IV 12/12/24 13:00 12/15/24 14:28 50 MLS/HR Remdesivir 0 ml @ 0 mls/hr PER PHARMACY IV 12/12/24 13:15 12/16/24 13:16 Methylprednisolone Sodium Succinate 40 mg Q8HR IV 12/12/24 14:00 12/15/24 14:29 40 MG Remdesivir 100 mg/ Sodium Chloride 250 ml @ 250 mls/hr DAILY@1500 IV 12/13/24 15:00 12/16/24 15:59 12/14/24 16:30 250 MLS/HR Propofol 100 ml @ 1.8 mls/hr Q24H IV 12/14/24 00:30 12/15/24 05:07 5.4 MLS/HR Norepinephrine Bitartrate 250 ml @ 3.75 mls/hr Q24H IV 12/14/24 00:15 12/15/24 13:23 26.25 MLS/HR Pantoprazole Sodium 40 mg BID IV 12/14/24 08:46 12/15/24 09:48 40 MG Sodium Chloride 1,000 ml @ 75 mls/hr [id number] IV 12/14/24 13:15 12/15/24 04:00 75 MLS/HR Aztreonam 1 gm/ Dextrose 50 ml @ 100 mls/hr Q8HR IV 12/14/24 16:00 12/15/24 14:39 100 MLS/HR Apixaban 10 mg BID NG 12/14/24 22:00 12/21/24 21:59 12/15/24 09:48 10 MG Laboratory Results Laboratory Tests 12/15/24 04:46 Chemistry Test 12/15/24 04:46 Calcium Level 7.6 mg/dL (8.7-10.4) L Urinalysis Test 12/12/24 02:20 12/12/24 07:47 Urine RBC 19 /hpf (0 - 3) Urine Microscopic WBC 50 /HPF (0-3) H Urine Squamous Epithelial Cells Few /hpf (<5) Urine Calcium Oxalate Crystals Few (None Seen) Urine Bacteria Few /hpf (None Seen) H Urine Color Dark-brown (Yellow) Urine Clarity Ex.turbid (Clear) Urine pH 7.0 (5.0-9.0) Urine Specific [place] 1.022 (1.001-1.035) Urine Protein 3+ (Negative) H Urine Ketones Trace (Negative) Urine Blood 2+ /uL (Negative) H Urine Nitrite 2+ (Negative) H Urine Bilirubin Negative (Negative) Urine Urobilinogen Normal mg/dL (Negative) Urine Leukocyte Esterase 3+ /uL (Negative) Urine Glucose Normal mg/dL (Normal) Blood Gas Results Test 12/15/24 08:51 Arterial Blood pH 7.400 (7.350-7.450) FiO2 % 30.0 Microbiology Microbiology Date/Time Source Procedure Growth Status 12/14/24 10:05 Nose MRSA Screen - Final Complete 12/14/24 01:10 Sputum Gram Stain - Final Resulted 12/14/24 01:10 Sputum Respiratory Culture - Preliminary Resulted 12/12/24 00:41 Stool Stool Culture - Preliminary Resulted 12/12/24 00:41 Stool Shiga Toxin I & II - Final Resulted 12/12/24 00:14 Blood Blood Culture - Preliminary NO GROWTH AFTER 72 HOURS OF INCUBATION. Resulted Labs and/or images reviewed: Labs reviewed by me, Image(s) reviewed by me Assessment/Plan Assessment/Plan A79y old male BIBA due to chest pain. Patient is a resident at a care facility called [facility]. The facility called EMS after approximately 2230 when the patient started beating his chest, stating he was having pain, and subsequently had an episode of vomiting. On EMS arrival, patient was reported to be altered. The facility had given 324 mg ASA prior to EMS arrival. EMS was uncertain if this mental status was baseline; the facility was unsure. PMHx: He also has a history of severe stroke (encephalomalacia in right temporal, frontal, and parietal lobes) with significant neurologic sequelae possible vascular dementia, prior episodes of gastrointestinal bleeding, Coronary artery disease sp stents, hypertension, atrial fibrillation with rapid ventricular response, ventricular tachycardia, left above-knee amputation, chronic kidney stones, history of GI bleed, ICD , hypercoagulable state. Chest/Abdomen/ Pelvis CT scan: [id number] right-sided hydroureteronephrosis with multiple stones in the right ureter measuring up to 8 mm. There are multiple stones within the urinary bladder measuring less than 1 cm. The bilateral kidneys demonstrate multiple nonobstructing stones measuring up to 2 cm. Small right and trace left pleural effusions with adjacent compressive atelectasis Moderate to severe pericardial effusion. Moderate fecal retention throughout the colon Head CT scan: Large area of encephalomalacia involving the right temporal frontal and parietal lobes may represent old infarct. #Acute metabolic encephalopathy due to sepsis #Vascular dementia #Large area of encephalomalacia involving the right temporal frontal and parietal lobes may represent old infarct #Sepsis: not septic shock yet #Moderate to severe pericardial effusion #H/o atrial fibrillation #H/o coronary disease s/p stent #H/o ventricular arrhythmia #s/p ICD placement #Acute respiratory failure #Small pleural effusions #Early Aspiration pneumonia? #Sepsis #Sepsis #Esil-mo-abbedacx right-sided hydroureteronephrosis with multiple stones in the right ureter measuring up to 8 mm. #Lactic acidosis #There are multiple stones within the urinary bladder measuring less than 1 cm. #The bilateral kidneys demonstrate multiple nonobstructing stones measuring up to 2 cm. #Possible GI bleeding #History of GI bleeding #History of colonic polyps #Severe anemia #Iron deficiency 12/13/2024 continue with current care family wants every done at the moment. 12/14/2024 continue with current pt is now intubated 12/15/2024 continue with current care Pulm (DR Perez) consulted and assisting in management Plan discussed with: Other (nursing staff) My Orders Orders - EMI RUSH DO Procedure Category Date Status Time Aztreonam 1gm Inj PHA 12/14/24 In Process (Azactam) 16:00 Apixaban (Eliquis) PHA 12/14/24 In Process 22:00 Chest Portable XY 12/15/24 Resulted 04:00 Lactulose Oral PHA 12/15/24 Verified 15:15 Date of Service: Dec 15, 2024 Billing Provider: EMI RUSH DO Common Visit Codes: [id number] CARE 30-74 MIN EMI RUSH DO Dec 15, 2024 15:14
[2024-12-15] MEDS ORDERED: CLINIMIX PER PHARMACY 0 ML IV SCH (15:15)
[2024-12-15] MEDS: POTASSIUM CHL 20MEQ/100ML 100 ML IV SCH (17:34)
[2024-12-15] MEDS: LACTULOSE 20Gm/30ML SOLN PO PRN (17:41)
[2024-12-15] MEDS: AMINO ACID INFUSION IN D10W 1,000 ML IV SCH (21:43)
--- NOTE | 2024-12-15 22:58 | DVHPN2 ---
Progress Note - Dictate Date Seen: Dec 15, 2024 Medical Necessity Reason Pt with a Central, PICC or Fol: Yes The following are medically ne: Barron Catheter Reason for barron catheter: Strict I&O Subjective Patient seen and examined at bedside. Sedated, intubated on mechanical ventilator. Overnight events reviewed. vital signs Vital Sign Date Time Temp Pulse Resp B/P (MAP) Pulse Ox O2 Delivery O2 Flow Rate FiO2 12/15/24 22:30 105/54 12/15/24 22:00 30 12/15/24 22:00 60 12/15/24 20:45 99.3 18 100 210.7 12/15/24 20:00 Mechanical Ventilator+ 12/13/24 19:57 3 Total Intake and Output 12/14/24 12/14/24 12/15/24 15:00 23:00 07:00 Intake Total 619.75 ml 1305.80 ml 908.20 ml Output Total 25 ml 400 ml 450 ml Balance 594.75 ml 905.80 ml 458.20 ml medications Current Medications Medications Dose Ordered Sig/Roberto Route Start Time Stop Time Status Last Admin Dose Admin Nitroglycerin 0.4 mg Q5MINP PRN SL 12/12/24 00:30 Morphine Sulfate 2 mg Q30M PRN IV 12/12/24 00:30 Vancomycin HCl 0 ml @ 0 mls/hr UD IV 12/12/24 00:30 Ceftriaxone Sodium 50 ml @ 100 mls/hr DAILY IV 12/12/24 10:00 UNV Acetaminophen 650 mg Q6HP PRN GA 12/12/24 08:30 12/12/24 09:17 650 MG Doxycycline Hyclate 100 ml @ 50 mls/hr Q12H IV 12/12/24 13:00 12/15/24 14:28 50 MLS/HR Remdesivir 0 ml @ 0 mls/hr PER PHARMACY IV 12/12/24 13:15 12/16/24 13:16 Methylprednisolone Sodium Succinate 40 mg Q8HR IV 12/12/24 14:00 12/15/24 21:52 40 MG Remdesivir 100 mg/ Sodium Chloride 250 ml @ 250 mls/hr DAILY@1500 IV 12/13/24 15:00 12/16/24 15:59 12/15/24 16:59 250 MLS/HR Propofol 100 ml @ 1.8 mls/hr Q24H IV 12/14/24 00:30 12/15/24 16:18 5.4 MLS/HR Norepinephrine Bitartrate 250 ml @ 3.75 mls/hr Q24H IV 12/14/24 00:15 12/15/24 13:23 26.25 MLS/HR Pantoprazole Sodium 40 mg BID IV 12/14/24 08:46 12/15/24 21:51 40 MG Aztreonam 1 gm/ Dextrose 50 ml @ 100 mls/hr Q8HR IV 12/14/24 16:00 12/15/24 21:42 100 MLS/HR Apixaban 10 mg BID NG 12/14/24 22:00 12/21/24 21:59 12/15/24 21:51 10 MG Lactulose 30 ml Q6HPRN PRN PO 12/15/24 15:15 12/15/24 17:41 30 ML Amino Acids 0 ml @ 0 mls/hr PER PHARMACY IV 12/15/24 15:15 Amino Acids/ Electrolytes/ Dextrose 1,000 ml @ 41 mls/hr DAILY@2200 IV 12/15/24 22:00 12/15/24 21:43 41 MLS/HR Diagnostic Test (Pha) 1 strip Q6HR 12/16/24 00:00 Insulin Human Regular FOLLOW SLIDING SCALE Q6HR SC 12/16/24 00:00 Dextrose 50 ml UD IV 12/16/24 00:00 Apixaban 5 mg BID NG 12/21/24 22:00 objective Gen.: Patient lying in bed in medical ICU. Sedated, intubated on mechanical ventilator. Head: Normocephalic, atraumatic. Eyes: PERRLA. Ears: Normal external anatomy. Throat: Endotracheal tube and orogastric tube in place. Neck: Supple, trachea midline. Chest: Transmitted breath sounds bilaterally. Decreased air entry bilaterally. No wheezing. Bibasilar crackles. Cardiovascular: Positive S1, positive S2. Regular rate and rhythm. Abdomen: Positive bowel sounds in all 4 quadrants. Soft, nontender, nondistended. : Barron in place. Normal external genitalia. Rectal: Deferred. Skin: Warm, dry. Intact. Extremities: 2+ radial pulses bilaterally. No lower extremity edema. Neuro: Sedated. laboratory and microbiology Laboratory Tests 12/15/24 04:46 Test 12/15/24 04:46 Range/Units Serum Glucose 145 H 74-106 mg/dL Assessment/Plan Impression: Acute hypoxic respiratory failure On mechanical ventilator COVID 19 infection S/p cardiac arrest Anemia Cachexia, BMI of 19 Events: Remains on vent support On AC mode; RR 18, VT 480, PEEP 5, Fio2 30% CXR image and report reviewed. Devices in place. Pulmonary edema. Trace left pleural effusion and atelectasis. ABG reviewed, compensated. Metabolic acidosis w/ respiratory compensation. Leukocytosis - monitor WBC Monitor hemoglobin, 8.7 g/dl Iron supplementation Lactic acidosis - trending down Hypernatremia -monitor sodium Hypokalemia, supplement Metabolic acidosis - bicarb 17. Sedated on Propofol On pressors for hemodynamic support Levophed 14 mcg/min Titrate to keep mean arterial pressure greater than 65 mmHg. Continue abx Blood cultures show no growth after 72 hours Sputum culture shows normal oropharyngeal carmelo IV steroids Continue Remdesivir Labs and imaging reviewed. Rest of plan as noted below. Plan: s/p intubation on mechanical ventilator. On AC mode; RR 18, VT 480, PEEP 5, Fio2 30% Titrate FIO2 to keep O2 saturation above 90%. VAP bundle. Daily ABG and CXR while intubated Sedate for ventilator synchrony - on Propofol Remdesivir course. Steroids - Solu-Medrol Monitor hemoglobin On pressors for hemodynamic support Titrate to keep mean arterial pressure greater than 65 mmHg. Monitor renal function Monitor electrolytes. Supplement as necessary. Monitor ins and outs. GI prophylaxis. DVT prophylaxis. Prognosis: Poor given patient's multiple co-morbidities. Condition: Critical Rest of plan per hospitalist and other consultants. A total of 35 minutes of critical care time was spent reviewing the patient record, examining the patient, making a diagnostic and therapeutic plan, discussing this plan with the medical personnel, following up on diagnostic studies and following the patient for clinical stability excluding any and all procedures. At least 50% of this time was spent in direct, onum-op-vkwl contact. Thank you Dr. Baez for allowing me to participate in this patient's care. Further recommendations will depend on the patient's clinical course. Please do not hesitate to contact me if you have any questions or concerns. This medical document was created using an electronic medical record system with [employer] system. Although these documentations are being carefully reviewed, there may still be some phonetic and typographical changes. The errors are purely typographical, due to imperfection on the software program, and do not reflect any compromise in the patient's medical care. Dietary Evaluation Review Comments: 1. If GI is accessible, consider glucerna 1.2 @ 50ml/hr to provide 1440kcal, 72g pro, 966 ml FW to meet 100% of needs. 2. Consider advance to CCHO 60g diet when appropriate 3. Consider TPN if NPO> 7 days Expected Outcomes/Goals: 1. Pt will meet >75% of estimated needs within 2-3 days Plan discussed with: Other (ROSALES Moss) Critical Care Time(min): 35 CC Plasma Assessment Blood Product Administration S: [id number] VIDYA MISHRA MD Dec 15, 2024 22:58
[2024-12-16] VITALS (107 sets, daily range): BP systolic 85–118; BP diastolic 50–76; PULSE 60–71; RESP 12–24; TEMP 96.3–99.5; O2SAT 95–100
[2024-12-16] MEDS ORDERED: DEXTROSE (50%) 50ML SYRG IV SCH
[2024-12-16] MEDS: ACCU-CHEK COMFORT CURVE STRIP VI SCH (00:02)
[2024-12-16] MEDS: InsuLIN REG 1unit/0.01ml Soln (100units/ml) SC SCH (00:02)
[2024-12-16 05:53] LABS: Alanine Aminotransferase 245 U/L (7-40); Albumin 2.3 g/dL (3.2-4.8); Alkaline Phosphatase 102 U/L (46-116); Anion Gap 12 (5-15); Aspartate Aminotransferase 96 U/L (13-40); BUN/Creatinine Ratio 48.3 (10.0-20.0); Bilirubin, Total 0.5 mg/dL (0.2-1.0); Blood Urea Nitrogen 56 mg/dL (9-23); Calcium 7.7 mg/dL (8.7-10.4); Carbon Dioxide 18 mmol/L (20-31); Chloride 123 mmol/L (98-107); Glucose 188 mg/dL (74-106); Phosphorus 2.6 mg/dL (2.4-5.1); Potassium 3.3 mmol/L (3.5-5.1); Sodium 153 mmol/L (136-145)
[2024-12-16 07:47] LABS: Base Excess -8.2 mmol/L (-2.0-3.0)
[2024-12-16] MEDS: POTASSIUM PHOSPHATE 26.4 MEQ in SODIUM CHL 0.9% 100 ML IV ONE (13:05)
--- NOTE | 2024-12-16 15:46 | DVHPN2 ---
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, left leg AKA, history of atrial fibrillation and VT, hypertension, coronary artery disease with a history of stents, history of GI bleed, history of kidney stones, history of ICD placement He is on mechanical ventilation 30% FiO2 and 5 of PEEP, Diprivan drip He is on Levophed drip On admission he had a hemoglobin of 4.6, today is 8.7 White count was up to 51.2 3 days ago, today is 39.3, hemoglobin is 8.7 today, platelets 194 Sodium 153 Potassium 3.3 Creatinine 1.1 Reviewed: Care Plan, H&P, Labs, Medications, Previous Orders, Radiology Changes from previous H/P or p: Changes General: Per HPI Objective Vitals Vital Signs Date Time Temp Pulse Resp B/P (MAP) Pulse Ox O2 Delivery O2 Flow Rate FiO2 12/16/24 14:46 61 18 99/60 (73) 100 30 12/16/24 13:45 99.3 210.7 12/16/24 08:00 Mechanical Ventilator+ Intake/Output Intake and Output 12/16/24 07:00 Intake Total 2591.95 ml Output Total 650 ml Balance 1941.95 ml Intake Oral 120 ml IV Total 2471.95 ml Output Urine Total 650 ml General Appearance: No acute distress HEENT: Atraumatic Cardiovascular: Regular rate, Normal S1, Normal S2 Abdomen: Normal bowel sounds, Soft Medications Current Medications Medications Dose Ordered Sig/Roberto Route Start Time Stop Time Status Last Admin Dose Admin Nitroglycerin 0.4 mg Q5MINP PRN SL 12/12/24 00:30 Morphine Sulfate 2 mg Q30M PRN IV 12/12/24 00:30 Vancomycin HCl 0 ml @ 0 mls/hr UD IV 12/12/24 00:30 Ceftriaxone Sodium 50 ml @ 100 mls/hr DAILY IV 12/12/24 10:00 UNV Acetaminophen 650 mg Q6HP PRN SD 12/12/24 08:30 12/12/24 09:17 650 MG Doxycycline Hyclate 100 ml @ 50 mls/hr Q12H IV 12/12/24 13:00 12/16/24 13:04 50 MLS/HR Methylprednisolone Sodium Succinate 40 mg Q8HR IV 12/12/24 14:00 12/16/24 14:25 40 MG Remdesivir 100 mg/ Sodium Chloride 250 ml @ 250 mls/hr DAILY@1500 IV 12/13/24 15:00 12/16/24 15:59 12/15/24 16:59 250 MLS/HR Propofol 100 ml @ 1.8 mls/hr Q24H IV 12/14/24 00:30 12/16/24 14:26 9 MLS/HR Norepinephrine Bitartrate 250 ml @ 3.75 mls/hr Q24H IV 12/14/24 00:15 12/16/24 02:11 3.75 MLS/HR Pantoprazole Sodium 40 mg BID IV 12/14/24 08:46 12/16/24 10:26 40 MG Aztreonam 1 gm/ Dextrose 50 ml @ 100 mls/hr Q8HR IV 12/14/24 16:00 12/16/24 14:25 100 MLS/HR Apixaban 10 mg BID NG 12/14/24 22:00 12/21/24 21:59 12/16/24 10:26 10 MG Lactulose 30 ml Q6HPRN PRN PO 12/15/24 15:15 12/15/24 17:41 30 ML Amino Acids 0 ml @ 0 mls/hr PER PHARMACY IV 12/15/24 15:15 Amino Acids/ Electrolytes/ Dextrose 1,000 ml @ 41 mls/hr DAILY@2200 IV 12/15/24 22:00 12/15/24 21:43 41 MLS/HR Diagnostic Test (Pha) 1 strip Q6HR 12/16/24 00:00 12/16/24 13:04 1 STRIP Insulin Human Regular FOLLOW SLIDING SCALE Q6HR SC 12/16/24 00:00 12/16/24 13:06 4 UNITS Dextrose 50 ml UD IV 12/16/24 00:00 Apixaban 5 mg BID NG 12/21/24 22:00 Laboratory Results Laboratory Tests 12/15/24 04:46 12/16/24 05:13 Chemistry Test 12/16/24 05:13 Albumin 2.3 g/dL (3.2-4.8) L Calcium Level 7.7 mg/dL (8.7-10.4) L Magnesium Level 2.0 mg/dL (1.6-2.6) Phosphorus Level 2.6 mg/dL (2.4-5.1) Total Protein 4.0 g/dL (5.7-8.2) L LFT Test 12/16/24 05:13 Alanine Aminotransferase (ALT) 245 U/L (7-40) H Alkaline Phosphatase 102 U/L (46-116) Aspartate Amino Transferase (AST) 96 U/L (13-40) H Total Bilirubin 0.5 mg/dL (0.2-1.0) Urinalysis Test 12/12/24 02:20 12/12/24 07:47 Urine RBC 19 /hpf (0 - 3) Urine Microscopic WBC 50 /HPF (0-3) H Urine Squamous Epithelial Cells Few /hpf (<5) Urine Calcium Oxalate Crystals Few (None Seen) Urine Bacteria Few /hpf (None Seen) H Urine Color Dark-brown (Yellow) Urine Clarity Ex.turbid (Clear) Urine pH 7.0 (5.0-9.0) Urine Specific [place] 1.022 (1.001-1.035) Urine Protein 3+ (Negative) H Urine Ketones Trace (Negative) Urine Blood 2+ /uL (Negative) H Urine Nitrite 2+ (Negative) H Urine Bilirubin Negative (Negative) Urine Urobilinogen Normal mg/dL (Negative) Urine Leukocyte Esterase 3+ /uL (Negative) Urine Glucose Normal mg/dL (Normal) Blood Gas Results Test 12/16/24 07:29 Arterial Blood pH 7.414 (7.350-7.450) FiO2 % 30.0 Microbiology Microbiology Date/Time Source Procedure Growth Status 12/14/24 10:05 Nose MRSA Screen - Final Complete 12/14/24 01:10 Sputum Gram Stain - Final Resulted 12/14/24 01:10 Sputum Respiratory Culture - Preliminary Resulted 12/12/24 00:41 Stool Stool Culture - Final Complete 12/12/24 00:41 Stool Shiga Toxin I & II - Final Complete 12/12/24 00:14 Blood Blood Culture - Preliminary NO GROWTH AFTER 72 HOURS OF INCUBATION. 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 History of GI bleed with possible GI bleed Severe anemia History of colonic polyps History of atrial fibrillation on blood thinners Coronary artery disease with a history of stents History of ventricular arrhythmia Status post ICD Bilateral pleural effusions Possible aspiration pneumonia COVID pneumonia Pericardial effusion Plan Clinimix IV Broad-spectrum antibiotics aztreonam and doxycycline and vancomycin IV remdesivir Eliquis IV steroids Start free water for the hypernatremia IV potassium IV Protonix Full code Contact numbers for family to clarify advance directives or code status are not working DC Eliquis: No DVT GI consult According to patient's nurse the power of environmental attorney requested full code Full code today Plan discussed with: Other Date of Service: Dec 16, 2024 Billing Provider: HUMPHREY OROZCO MD Common Visit Codes: 03522-[id number] CARE 30-74 MIN Secondary Visit Codes: 10921-[id number] CARE PLAN 30 MINUTES HUMPHREY OROZCO MD Dec 16, 2024 15:46
[2024-12-16] MEDS: VANCOMYCIN 1GM/250ML KIT 250 ML IV ONE (16:58)
[2024-12-16] MEDS: fentaNYL Drip 2500mCg/250mlNS 250 ML IV SCH (17:47)
[2024-12-16] MEDS: FREE WATER GT SCH (18:47)
--- NOTE | 2024-12-16 22:30 | DVHPN2 ---
Progress Note - Dictate Date Seen: Dec 16, 2024 Medical Necessity Reason Pt with a Central, PICC or Fol: Yes The following are medically ne: Barron Catheter Reason for barron catheter: Strict I&O Subjective Patient seen and examined at bedside. Sedated, intubated on mechanical ventilator. Overnight events reviewed. vital signs Vital Sign Date Time Temp Pulse Resp B/P (MAP) Pulse Ox O2 Delivery O2 Flow Rate FiO2 12/16/24 21:50 60 18 112/65 (81) 100 30 12/16/24 18:00 99.1 99.1 12/16/24 08:00 Mechanical Ventilator+ Total Intake and Output 12/15/24 12/15/24 12/16/24 15:00 23:00 07:00 Intake Total 1083.20 ml 875.05 ml 633.70 ml Output Total 500 ml 150 ml Balance 1083.20 ml 375.05 ml 483.70 ml medications Current Medications Medications Dose Ordered Sig/Roberto Route Start Time Stop Time Status Last Admin Dose Admin Nitroglycerin 0.4 mg Q5MINP PRN SL 12/12/24 00:30 Morphine Sulfate 2 mg Q30M PRN IV 12/12/24 00:30 Vancomycin HCl 0 ml @ 0 mls/hr UD IV 12/12/24 00:30 Ceftriaxone Sodium 50 ml @ 100 mls/hr DAILY IV 12/12/24 10:00 UNV Acetaminophen 650 mg Q6HP PRN AR 12/12/24 08:30 12/12/24 09:17 650 MG Doxycycline Hyclate 100 ml @ 50 mls/hr Q12H IV 12/12/24 13:00 12/16/24 13:04 50 MLS/HR Methylprednisolone Sodium Succinate 40 mg Q8HR IV 12/12/24 14:00 12/16/24 22:02 40 MG Propofol 100 ml @ 1.8 mls/hr Q24H IV 12/14/24 00:30 12/16/24 21:36 5.4 MLS/HR Norepinephrine Bitartrate 250 ml @ 3.75 mls/hr Q24H IV 12/14/24 00:15 12/16/24 21:38 15 MLS/HR Pantoprazole Sodium 40 mg BID IV 12/14/24 08:46 12/16/24 22:02 40 MG Aztreonam 1 gm/ Dextrose 50 ml @ 100 mls/hr Q8HR IV 12/14/24 16:00 12/16/24 21:55 100 MLS/HR Lactulose 30 ml Q6HPRN PRN PO 12/15/24 15:15 12/15/24 17:41 30 ML Amino Acids 0 ml @ 0 mls/hr PER PHARMACY IV 12/15/24 15:15 Amino Acids/ Electrolytes/ Dextrose 1,000 ml @ 41 mls/hr DAILY@2200 IV 12/15/24 22:00 12/16/24 21:55 41 MLS/HR Diagnostic Test (Pha) 1 strip Q6HR 12/16/24 00:00 12/16/24 18:48 1 STRIP Insulin Human Regular FOLLOW SLIDING SCALE Q6HR SC 12/16/24 00:00 12/16/24 18:50 2 UNITS Dextrose 50 ml UD IV 12/16/24 00:00 Purified Water 200 ml Q6HR GT 12/16/24 18:00 12/16/24 18:47 200 ML Fentanyl Citrate 250 ml @ 2.5 mls/hr Q24H IV 12/16/24 16:30 12/16/24 17:47 2.5 MLS/HR Dexmedetomidine HCl 400 mcg/ Dextrose 100 ml @ 3 mls/hr Q24H IV 12/16/24 17:00 objective Gen.: Patient lying in bed in medical ICU. Sedated, intubated on mechanical ventilator. Head: Normocephalic, atraumatic. Eyes: PERRLA. Ears: Normal external anatomy. Throat: Endotracheal tube and orogastric tube in place. Neck: Supple, trachea midline. Chest: Transmitted breath sounds bilaterally. Decreased air entry bilaterally. No wheezing. Bibasilar crackles. Cardiovascular: Positive S1, positive S2. Regular rate and rhythm. Abdomen: Positive bowel sounds in all 4 quadrants. Soft, nontender, nondistended. : Barron in place. Normal external genitalia. Rectal: Deferred. Skin: Warm, dry. Intact. Extremities: 2+ radial pulses bilaterally. No lower extremity edema. Neuro: Sedated. 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 Devices in place. Pulmonary edema. Trace left pleural effusion and atelectasis. ABG reviewed, compensated. Leukocytosis - monitor WBC Monitor hemoglobin, 8.7 g/dl Iron supplementation Sedated on Propofol On pressors for hemodynamic support Levophed 8 mcg/min Titrate to keep mean arterial pressure greater than 65 mmHg. Continue abx Blood cultures show no growth after 72 hours Sputum culture shows normal oropharyngeal carmelo IV steroids Continue Remdesivir course Taper sedation CPAP in AM with PS 8, PEEP of 5 OK for Precedex drip Labs and imaging reviewed. Rest of plan as noted below. Plan: s/p intubation on mechanical ventilator. On AC mode; RR 18, VT 480, PEEP 5, Fio2 30% Titrate FIO2 to keep O2 saturation above 90%. VAP bundle. Daily ABG and CXR while intubated Sedate for ventilator synchrony Remdesivir course. Steroids - Solu-Medrol Monitor hemoglobin On pressors for hemodynamic support Titrate to keep mean arterial pressure greater than 65 mmHg. Monitor renal function Monitor electrolytes. Supplement as necessary. Monitor ins and outs. GI prophylaxis. DVT prophylaxis. Prognosis: Poor given patient's multiple co-morbidities. Condition: Critical Rest of plan per hospitalist and other consultants. A total of 35 minutes of critical care time was spent reviewing the patient record, examining the patient, making a diagnostic and therapeutic plan, discussing this plan with the medical personnel, following up on diagnostic studies and following the patient for clinical stability excluding any and all procedures. At least 50% of this time was spent in direct, [id number] contact. Thank you Dr. Baez for allowing me to participate in this patient's care. Further recommendations will depend on the patient's clinical course. Please do not hesitate to contact me if you have any questions or concerns. This medical document was created using an electronic medical record system with [employer] system. Although these documentations are being carefully reviewed, there may still be some phonetic and typographical changes. The errors are purely typographical, due to imperfection on the software program, and do not reflect any compromise in the patient's medical care. Dietary Evaluation Review Comments: 1. If GI is accessible, consider glucerna 1.2 @ 50ml/hr to provide 1440kcal, 72g pro, 966 ml FW to meet 100% of needs. 2. Consider advance to CCHO 60g diet when appropriate 3. Consider TPN if NPO> 7 days Expected Outcomes/Goals: 1. Pt will meet >75% of estimated needs within 2-3 days Plan discussed with: Other (ROSALES Strong) Critical Care Time(min): 35 CC Plasma Assessment Blood Product Administration S: [id number] VIDYA MISHRA MD Dec 16, 2024 22:30
[2024-12-17] VITALS (88 sets, daily range): BP systolic 92–151; BP diastolic 28–84; PULSE 59–145; RESP 8–28; TEMP 96.3–97.9; O2SAT 93–100
--- NOTE | 2024-12-17 03:55 | DVH ---
CHEST RADIOGRAPH Indication: vent Technique: Single frontal view of the chest was obtained COMPARISON: XY CHEST PORTABLE on DOS: 12/15/24, XY CHEST PORTABLE on DOS: 12/14/24, XY CHEST XRAY 1 VIE W on DOS: 12/11/24 FINDINGS: Lines and Tubes: Endotracheal catheter again noted with its tip overlying level just below the thorac ic inlet. ICD generator overlies and obscures the lateral left chest and axilla with atrial and ventr icular wire leads. Lungs: Patchy airspace disease is noted at the right lung base. There is improved visualization of th e left lung base when compared with the prior study. Pleura: No effusion. No pneumothorax. Cardiomediastinal contours: Unremarkable Bones: Unremarkable IMPRESSION: 1. Pneumonia.
[2024-12-17 05:34] LABS: Platelet Count (auto) 130 10^3/uL (140-450)
[2024-12-17 05:39] LABS: Hematocrit 28.3 % (41.0-53.0); Hemoglobin 8.4 g/dL (13.5-17.5); Mean Corpuscular Hemoglobin 21.2 pg (28.0-32.0); Mean Corpuscular Hgb Conc. 29.5 g/dL (32.0-36.0); Mean Corpuscular Volume 71.9 fL (80.0-100.0); Red Blood Cells 3.94 10^6/uL (4.5-5.90); White Blood Cell 14.6 10^3/uL (4.4-10.8)
[2024-12-17 06:02] LABS: Alkaline Phosphatase 102 U/L (46-116); Anion Gap 12 (5-15); Bilirubin, Total 0.5 mg/dL (0.2-1.0); Magnesium 1.9 mg/dL (1.6-2.6); Phosphorus 3.4 mg/dL (2.4-5.1); Triglycerides 78 mg/dL (< 150)
[2024-12-17 06:43] LABS: Alanine Aminotransferase 291 U/L (7-40); Albumin 2.5 g/dL (3.2-4.8); Aspartate Aminotransferase 101 U/L (13-40); Blood Urea Nitrogen 50 mg/dL (9-23); Calcium 7.9 mg/dL (8.7-10.4); Carbon Dioxide 17 mmol/L (20-31); Chloride 120 mmol/L (98-107); Glucose 179 mg/dL (74-106); Potassium 3.3 mmol/L (3.5-5.1); Sodium 149 mmol/L (136-145); Total Protein 4.6 g/dL (5.7-8.2)
[2024-12-17 07:03] LABS: Red Cell Distribution Width 30.9 % (11.8-14.3)
[2024-12-17 07:06] LABS: Basophils % (manual) 0 (0.0-2.0); Blast Cells 0; Eosinophils % (manual) 0 (0-7); Metamyelocytes % 0; Myelocytes % 0; Promyelocytes % 0; Reactive Lymphocytes 0
[2024-12-17 07:16] LABS: Base Excess -7.7 mmol/L (-2.0-3.0)
[2024-12-17 09:13] LABS: Anisocytosis Marked; Band Neutrophils % (manual) 1; Lymphocytes % (manual) 5 (10.0-50.0); Monocytes % (manual) 1 (0-12)
[2024-12-17 09:14] LABS: Hypochromia Moderate
[2024-12-17 09:15] LABS: Large Platelets FEW; Ovalocytes FEW
[2024-12-17 09:16] LABS: Platelet Estimate Decrea
--- NOTE | 2024-12-17 11:53 | DVHPN2 ---
Subjective He is on CPAP He is alert Not following commands completely He is off the Levophed Sodium is better at 149 Reviewed: Care Plan, H&P, Labs, Medications, Previous Orders, Radiology Changes from previous H/P or p: Changes General: Per HPI Objective Vitals Vital Signs Date Time Temp Pulse Resp B/P (MAP) Pulse Ox O2 Delivery O2 Flow Rate FiO2 12/17/24 08:19 72 18 107/62 (77) 100 30 12/17/24 08:00 97.3 97.3 12/16/24 20:00 Mechanical Ventilator+ Intake/Output Intake and Output 12/17/24 07:00 Intake Total 2835.585 ml Output Total 650 ml Balance 2185.585 ml Intake Oral 400 ml IV Total 2130.585 ml Other 305 ml Output Urine Total 650 ml General Appearance: No acute distress HEENT: Atraumatic Cardiovascular: Regular rate, Normal S1, Normal S2 Abdomen: Normal bowel sounds, Soft Medications Current Medications Medications Dose Ordered Sig/Roberto Route Start Time Stop Time Status Last Admin Dose Admin Nitroglycerin 0.4 mg Q5MINP PRN SL 12/12/24 00:30 Morphine Sulfate 2 mg Q30M PRN IV 12/12/24 00:30 Vancomycin HCl 0 ml @ 0 mls/hr UD IV 12/12/24 00:30 Ceftriaxone Sodium 50 ml @ 100 mls/hr DAILY IV 12/12/24 10:00 UNV Acetaminophen 650 mg Q6HP PRN SC 12/12/24 08:30 12/12/24 09:17 650 MG Doxycycline Hyclate 100 ml @ 50 mls/hr Q12H IV 12/12/24 13:00 12/17/24 02:45 50 MLS/HR Methylprednisolone Sodium Succinate 40 mg Q8HR IV 12/12/24 14:00 12/17/24 05:06 40 MG Propofol 100 ml @ 1.8 mls/hr Q24H IV 12/14/24 00:30 12/16/24 21:36 5.4 MLS/HR Norepinephrine Bitartrate 250 ml @ 3.75 mls/hr Q24H IV 12/14/24 00:15 12/16/24 21:38 15 MLS/HR Pantoprazole Sodium 40 mg BID IV 12/14/24 08:46 12/17/24 09:31 40 MG Aztreonam 1 gm/ Dextrose 50 ml @ 100 mls/hr Q8HR IV 12/14/24 16:00 12/17/24 05:07 100 MLS/HR Lactulose 30 ml Q6HPRN PRN PO 12/15/24 15:15 12/15/24 17:41 30 ML Amino Acids 0 ml @ 0 mls/hr PER PHARMACY IV 12/15/24 15:15 Amino Acids/ Electrolytes/ Dextrose 1,000 ml @ 41 mls/hr DAILY@2200 IV 12/15/24 22:00 12/16/24 21:55 41 MLS/HR Diagnostic Test (Pha) 1 strip Q6HR 12/16/24 00:00 12/17/24 06:00 1 STRIP Insulin Human Regular FOLLOW SLIDING SCALE Q6HR SC 12/16/24 00:00 12/17/24 06:46 4 UNITS Dextrose 50 ml UD IV 12/16/24 00:00 Purified Water 200 ml Q6HR GT 12/16/24 18:00 12/17/24 05:09 200 ML Fentanyl Citrate 250 ml @ 2.5 mls/hr Q24H IV 12/16/24 16:30 12/16/24 17:47 2.5 MLS/HR Dexmedetomidine HCl 400 mcg/ Dextrose 100 ml @ 3 mls/hr Q24H IV 12/16/24 17:00 Laboratory Results Laboratory Tests 12/17/24 05:00 Chemistry Test 12/17/24 05:00 Albumin 2.5 g/dL (3.2-4.8) L Calcium Level 7.9 mg/dL (8.7-10.4) L Magnesium Level 1.9 mg/dL (1.6-2.6) Phosphorus Level 3.4 mg/dL (2.4-5.1) Total Protein 4.6 g/dL (5.7-8.2) L Lipid panel Test 12/17/24 05:00 Triglycerides Level 78 mg/dL (< 150) LFT Test 12/17/24 05:00 Alanine Aminotransferase (ALT) 291 U/L (7-40) H Alkaline Phosphatase 102 U/L (46-116) Aspartate Amino Transferase (AST) 101 U/L (13-40) H Total Bilirubin 0.5 mg/dL (0.2-1.0) Urinalysis Test 12/12/24 02:20 12/12/24 07:47 Urine RBC 19 /hpf (0 - 3) Urine Microscopic WBC 50 /HPF (0-3) H Urine Squamous Epithelial Cells Few /hpf (<5) Urine Calcium Oxalate Crystals Few (None Seen) Urine Bacteria Few /hpf (None Seen) H Urine Color Dark-brown (Yellow) Urine Clarity Ex.turbid (Clear) Urine pH 7.0 (5.0-9.0) Urine Specific [place] 1.022 (1.001-1.035) Urine Protein 3+ (Negative) H Urine Ketones Trace (Negative) Urine Blood 2+ /uL (Negative) H Urine Nitrite 2+ (Negative) H Urine Bilirubin Negative (Negative) Urine Urobilinogen Normal mg/dL (Negative) Urine Leukocyte Esterase 3+ /uL (Negative) Urine Glucose Normal mg/dL (Normal) Blood Gas Results Test 12/17/24 07:04 Arterial Blood pH 7.460 (7.350-7.450) FiO2 % 30.0 Microbiology Microbiology Date/Time Source Procedure Growth Status 12/14/24 10:05 Nose MRSA Screen - Final Complete 12/14/24 01:10 Sputum Gram Stain - Final Resulted 12/14/24 01:10 Sputum Respiratory Culture - Preliminary Resulted 12/12/24 00:41 Stool Stool Culture - Final Complete 12/12/24 00:41 Stool Shiga Toxin I & II - Final Complete 12/12/24 00:14 Blood Blood Culture - Final NO GROWTH AFTER 5 DAYS OF INCUBATION. 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 History of GI bleed with possible GI bleed Severe anemia History of colonic polyps History of atrial fibrillation on blood thinners Coronary artery disease with a history of stents History of ventricular arrhythmia Status post ICD Bilateral pleural effusions Possible aspiration pneumonia COVID pneumonia Pericardial effusion Plan Clinimix IV Broad-spectrum antibiotics aztreonam and doxycycline and vancomycin IV remdesivir Eliquis IV steroids Start free water for the hypernatremia IV potassium IV Protonix Full code Contact numbers for family to clarify advance directives or code status are not working DC Eliquis: No DVT GI consult According to patient's nurse the power of crossword puzzle maker requested full code Full code today 12/17/2024: Hypernatremia: Continue free water Acute respiratory failure: CPAP Hypokalemia: Replace IV Off Levophed drip Continue Clinimix Nephrology consult Discontinue Eliquis GI consult Plan discussed with: Other My Orders Orders - HUMPHREY OROZCO MD Procedure Category Date Status Time Free Water PHA 12/16/24 In Process 18:00 Chest Portable XY 12/17/24 Resulted 06:00 Abg W/ Co-Ox RT 12/17/24 Logged 06:00 * [facility] [employer] CONS 12/16/24 Transmitted 15:45 *Dr. [facility] CONS 12/16/24 Transmitted -[place] 15:51 Apply Barrier Cream DEMARIO 12/16/24 In Process 12:56 Cleanse Wound With DEMARIO 12/16/24 In Process Wound Clean 12:56 Urine Bacterial ANAHI 12/16/24 In Process Culture 16:26 Fentanyl Drip PHA 12/16/24 In Process 2500mcg/250mlns 16:30 * Dietary Consult CONS 12/16/24 Transmitted 16:57 Date of Service: Dec 17, 2024 Billing Provider: HUMPHREY OROZCO MD Common Visit Codes: [id number] CARE 30-74 MIN HUMPHREY OROZCO MD Dec 17, 2024 11:53
[2024-12-17 12:13] LABS: Base Excess -8.9 mmol/L (-2.0-3.0)
[2024-12-17] MEDS: POTASSIUM CHL 20MEQ/100ML 100 ML IV ONE (13:02)
--- NOTE | 2024-12-17 13:31 | DVHINCON2 ---
Date of service: Dec 17, 2024 Reason for Consultation hypernatremia History of Present Illness 79-year-old male past medical history of severe stroke with residual upper and lower extremity weakness, coronary artery disease, hypertension patient with vascular dementia living in a chronic care facility. Patient was brought to the hospital due to change in mental state. Hospital course was notable for pneumonia and respiratory failure status post intubation. Patient was also noted to have cardiac event in the elevator cardiac arrest with spontaneous return of circulation. Nephrology is consulted today due to elevated sodium level. Patient is now status post extubation Allergies: Coded Allergies: Penicillins (Verified Allergy, Severe, 10/21/15) Home Meds Reported Medications Warfarin Sodium (Warfarin Sodium) 2.5 Mg Tab, 2.5 MG PO DAILY, TAB 10/23/15 Gabapentin (Gabapentin) 300 Mg Cap, 1 CAP PO TID PRN for MILD PAIN OR TEMP>100.4, #90 CAP 5 Refills 10/23/15 Baclofen (Baclofen) 10 Mg Tab, 10 MG PO Q6HP PRN for MILD PAIN OR TEMP>100.4, TAB 10/23/15 Digoxin (Digoxin) 0.125 Mg Tab, 1 TAB PO DAILY, #30 TAB 5 Refills 10/23/15 Metoprolol Succinate (Toprol Xl) 25 Mg Tab, 1 TAB PO BID, #30 TAB 5 Refills 10/23/15 Lisinopril (Lisinopril) 2.5 Mg Tab, 1 TAB PO DAILY, #30 TAB 5 Refills 10/23/15 Atorvastatin Calcium (Lipitor) 40 Mg Tab, 1 TAB PO QPM, #90 TAB 1 Refill 10/23/15 Current Medications Current Medications Medications (Trade) Dose Ordered Sig/Roberto Route PRN Reason Start Time Stop Time Status Last Admin Apixaban (Eliquis) 5 mg BID NG 12/21/24 22:00 12/16/24 15:49 DC Purified Water 200 ml Q6HR GT 12/16/24 18:00 12/17/24 13:42 DC 12/17/24 05:09 Dexmedetomidine HCl 400 mcg/ Dextrose 100 ml @ 3 mls/hr Q24H IV 12/16/24 17:00 Dextrose 1,000 ml @ 30 mls/hr Q24H IV 12/17/24 13:45 12/17/24 15:25 Magnesium Sulfate/ Dextrose 100 ml @ 100 mls/hr Q1HR IV 12/17/24 15:00 12/17/24 16:59 12/17/24 15:22 Family History: Cancer of colon G8 MOTHER, Onset:50's - 60 Family history: Arthritis G8 MOTHER, Onset:50's - 60 Family history: Cardiovascular disease G8 FATHER, Onset:50's - 60 Review of Systems Can not obtain due to critical illness and mental state H&P Exam Vital Signs/I&O Vital Sign Date Time Temp Pulse Resp B/P (MAP) Pulse Ox O2 Delivery O2 Flow Rate FiO2 12/17/24 16:00 97.5 62 14 103/53 (70) 100 97.5 12/17/24 14:50 0.0 21 12/16/24 20:00 Mechanical Ventilator+ Intake and Output 12/16/24 12/17/24 19:00 07:00 Intake Total 1571.835 ml 1263.75 ml Output Total 300 ml 350 ml Balance 1271.835 ml 913.75 ml Intake Oral 400 ml IV Total 1311.835 ml 818.75 ml Other 260 ml 45 ml Output Urine Total 300 ml 350 ml Physical Exam Frail critically ill elderly male Appears in distress Breathing with open face mass Mildly gargling secretions Abdomen is soft Diane catheter Labs/Diagnostic Data Labs/Diagnostic Data Laboratory Tests Test 12/17/24 12:27 12/17/24 12:04 12/17/24 07:04 12/17/24 05:00 Range/Units POC Glucose 149 H 70-106 mg/dl Blood Gas Specimen Type Arterial Arterial Blood Gas Sample Site Right brachial Right brachial Blood Gas Patient Temperature 37.0 37.0 Arterial Blood Date Drawn [id number] Arterial Blood pH 7.449 7.460 H 7.350-7.450 Arterial Blood Partial Pressure CO2 20.1 L 21.4 L 35.0-48.0 mmHg Arterial Blood Partial Pressure O2 128.0 H 127.6 H 83.0-108.0 mmHg Arterial Blood HCO3 13.6 L 14.9 L 21.0-28.0 mmol/L Arterial Blood Oxygen Saturation 98.2 H 98.2 H 94.0-98.0 % Arterial Blood Base Excess -8.9 L -7.7 L -2.0-3.0 mmol/L Arterial Blood Oxyhemoglobin 97.2 96.7 94.0-98.0 % Arterial Blood Carboxyhemoglobin 0.8 1.2 0.5-1.5 % Arterial Blood Methemoglobin 0.2 0.3 0.0-1.5 % David Test N/a N/a Blood Gas Total Hemoglobin 9.10 L 8.50 L 13.5-17.5 g/dL Blood Gas Modality Vent - cpap Vent - ac FiO2 % 30.0 30.0 Blood Gas Pressure Support 8 Blood Gas PEEP or CPAP 5.0 5.0 Blood Gas Set Respiration Rate 18.0 Blood Gas Tidal Volume 480.0 White Blood Count 14.6 #H 4.4-10.8 10^3/uL Red Blood Count 3.94 L 4.5-5.90 10^6/uL Hemoglobin 8.4 L 13.5-17.5 g/dL Hematocrit 28.3 L 41.0-53.0 % Mean Corpuscular Volume 71.9 L 80.0-100.0 fL Mean Corpuscular Hemoglobin 21.2 L 28.0-32.0 pg Mean Corpuscular Hemoglobin Concent 29.5 L 32.0-36.0 g/dL Red Cell Distribution Width 30.9 H 11.8-14.3 % Platelet Count 130 L 140-450 10^3/uL Mean Platelet Volume 9.1 6.9-10.8 fL Neutrophils (%) (Auto) 37.0-80.0 % Lymphocytes (%) (Auto) 10.0-50.0 % Monocytes (%) (Auto) 0.0-12.0 % Basophils (%) (Auto) 0.0-2.0 % Neutrophils # (Auto) 1.6-8.6 10 ^3/uL Lymphocytes # (Auto) 0.4-5.4 10 ^3/uL Monocytes # (Auto) 0-1.3 10 ^3/uL Differential Total Cells Counted 100.0 100 Neutrophils % (Manual) 93 H 37.0-80.0 Band Neutrophils % (Manual) 1 Lymphocytes % (Manual) 5 L 10.0-50.0 Monocytes % (Manual) 1 0-12 Eosinophils % (Manual) 0 0-7 Basophils % (Manual) 0 0.0-2.0 Metamyelocytes % (manual) 0 Myelocytes % (Manual) 0 Promyelocytes % (Manual) 0 Blast Cells % (Manual) 0 Reactive Lymphocytes 0 Platelet Estimate Decrea Large Platelets Few Hypochromasia (manual) Moderate Anisocytosis (manual) Marked Microcytosis Moderate Ovalocytes Few [place] Cells Moderate Schistocytes Moderate Sodium Level 149 H 136-145 mmol/L Potassium Level 3.3 L 3.5-5.1 mmol/L Chloride Level 120 H 98-107 mmol/L Carbon Dioxide Level 17 L 20-31 mmol/L Anion Gap 12 5-15 Blood Urea Nitrogen 50 H 9-23 mg/dL Creatinine 1.02 0.700-1.30 mg/dL Glomerular Filtration Rate Calc 75 >90 mL/min BUN/Creatinine Ratio 49.0 H 10.0-20.0 Serum Glucose 179 H 74-106 mg/dL Calcium Level 7.9 L 8.7-10.4 mg/dL Phosphorus Level 3.4 2.4-5.1 mg/dL Magnesium Level 1.9 1.6-2.6 mg/dL Total Bilirubin 0.5 0.2-1.0 mg/dL Aspartate Amino Transferase (AST) 101 H 13-40 U/L Alanine Aminotransferase (ALT) 291 H 7-40 U/L Alkaline Phosphatase 102 46-116 U/L Total Protein 4.6 L 5.7-8.2 g/dL Albumin 2.5 L 3.2-4.8 g/dL Triglycerides Level 78 < 150 mg/dL Random Vancomycin Level 21.3 H 5-10 ug/mL Test 12/16/24 22:50 12/16/24 17:52 12/16/24 11:55 12/16/24 07:29 Range/Units POC Glucose 137 H 141 H 153 H 70-106 mg/dl Blood Gas Specimen Type Arterial Blood Gas Sample Site Right radial Blood Gas Patient Temperature 37.0 Arterial Blood Date Drawn [id number] Arterial Blood pH 7.414 7.350-7.450 Arterial Blood Partial Pressure CO2 24.9 L 35.0-48.0 mmHg Arterial Blood Partial Pressure O2 105.1 83.0-108.0 mmHg Arterial Blood HCO3 15.6 L 21.0-28.0 mmol/L Arterial Blood Oxygen Saturation 96.9 94.0-98.0 % Arterial Blood Base Excess -8.2 L -2.0-3.0 mmol/L Arterial Blood Oxyhemoglobin 94.1 94.0-98.0 % Arterial Blood Carboxyhemoglobin 1.7 H 0.5-1.5 % Arterial Blood Methemoglobin 1.2 0.0-1.5 % David Test Modified Blood Gas Total Hemoglobin 6.40 *L 13.5-17.5 g/dL Blood Gas Set Respiration Rate 18.0 Blood Gas Modality Vent - ac FiO2 % 30.0 Blood Gas Tidal Volume 480.0 Blood Gas PEEP or CPAP 5.0 Blood Gas Critical Value Read Back Yes Blood Gas Notified Whom greg Mckeon Blood Gas Notified Time [id number] Blood Gas Notified By [employer] laquita sebastian 12/16/24 05:13 12/15/24 23:57 12/15/24 08:51 12/15/24 04:46 Range/Units Sodium Level 153 H 153 H 136-145 mmol/L Potassium Level 3.3 L 3.1 L 3.5-5.1 mmol/L Chloride Level 123 H 121 H 98-107 mmol/L Carbon Dioxide Level 18 L 17 L 20-31 mmol/L Anion Gap 12 15 5-15 Blood Urea Nitrogen 56 H 48 H 9-23 mg/dL Creatinine 1.16 1.11 0.700-1.30 mg/dL Glomerular Filtration Rate Calc 64 68 >90 mL/min BUN/Creatinine Ratio 48.3 H 43.2 H 10.0-20.0 Serum Glucose 188 H 145 H 74-106 mg/dL Calcium Level 7.7 L 7.6 L 8.7-10.4 mg/dL Phosphorus Level 2.6 2.4-5.1 mg/dL Magnesium Level 2.0 1.6-2.6 mg/dL Total Bilirubin 0.5 0.2-1.0 mg/dL Aspartate Amino Transferase (AST) 96 H 13-40 U/L Alanine Aminotransferase (ALT) 245 H 7-40 U/L Alkaline Phosphatase 102 46-116 U/L Total Protein 4.0 L 5.7-8.2 g/dL Albumin 2.3 L 3.2-4.8 g/dL Random Vancomycin Level 14.7 H 15.8 H 5-10 ug/mL POC Glucose 165 H 70-106 mg/dl Blood Gas Specimen Type Arterial Blood Gas Sample Site Right radial Blood Gas Patient Temperature 37.0 Arterial Blood Date Drawn [id number] Arterial Blood pH 7.400 7.350-7.450 Arterial Blood Partial Pressure CO2 21.9 L 35.0-48.0 mmHg Arterial Blood Partial Pressure O2 128.2 H 83.0-108.0 mmHg Arterial Blood HCO3 13.3 L 21.0-28.0 mmol/L Arterial Blood Oxygen Saturation 98.3 H 94.0-98.0 % Arterial Blood Base Excess -10.0 L -2.0-3.0 mmol/L Arterial Blood Oxyhemoglobin 96.9 94.0-98.0 % Arterial Blood Carboxyhemoglobin 1.3 0.5-1.5 % Arterial Blood Methemoglobin 0.1 0.0-1.5 % David Test Modified Blood Gas Total Hemoglobin 9.40 L 13.5-17.5 g/dL Blood Gas Set Respiration Rate 18.0 Blood Gas Modality Vent - ac FiO2 % 30.0 Blood Gas Tidal Volume 480.0 Blood Gas PEEP or CPAP 5.0 White Blood Count 39.3 *H 4.4-10.8 10^3/uL Red Blood Count 4.20 L 4.5-5.90 10^6/uL Hemoglobin 8.7 L 13.5-17.5 g/dL Hematocrit 30.1 #L 41.0-53.0 % Mean Corpuscular Volume 71.8 L 80.0-100.0 fL Mean Corpuscular Hemoglobin 20.7 L 28.0-32.0 pg Mean Corpuscular Hemoglobin Concent 28.8 L 32.0-36.0 g/dL Red Cell Distribution Width 30.0 H 11.8-14.3 % Platelet Count 194 140-450 10^3/uL Mean Platelet Volume 9.0 6.9-10.8 fL Neutrophils (%) (Auto) 37.0-80.0 % Lymphocytes (%) (Auto) 10.0-50.0 % Monocytes (%) (Auto) 0.0-12.0 % Basophils (%) (Auto) 0.0-2.0 % Neutrophils # (Auto) 1.6-8.6 10 ^3/uL Lymphocytes # (Auto) 0.4-5.4 10 ^3/uL Monocytes # (Auto) 0-1.3 10 ^3/uL Differential Total Cells Counted 100.0 100 Neutrophils % (Manual) 92 H 37.0-80.0 Band Neutrophils % (Manual) 6 Lymphocytes % (Manual) 2 L 10.0-50.0 Monocytes % (Manual) 0 0-12 Eosinophils % (Manual) 0 0-7 Basophils % (Manual) 0 0.0-2.0 Metamyelocytes % (manual) 0 Myelocytes % (Manual) 0 Promyelocytes % (Manual) 0 Blast Cells % (Manual) 0 Reactive Lymphocytes 0 Platelet Estimate Adequate Hypochromasia (manual) Marked Anisocytosis (manual) Marked Microcytosis Moderate Ovalocytes Few Diane Cells Moderate Schistocytes Moderate Test 12/14/24 14:22 12/14/24 12:00 12/14/24 11:40 12/14/24 10:25 Range/Units Lactic Acid Level 2.3 *H 3.1 *H 0.4-2.0 mmol/L Creatinine 1.29 0.700-1.30 mg/dL Glomerular Filtration Rate Calc 57 >90 mL/min Random Vancomycin Level 21.2 H 5-10 ug/mL Blood Gas Specimen Type Arterial Blood Gas Sample Site Right radial Blood Gas Patient Temperature 37.0 Arterial Blood Date Drawn [id number] Arterial Blood pH 7.401 7.350-7.450 Arterial Blood Partial Pressure CO2 22.7 L 35.0-48.0 mmHg Arterial Blood Partial Pressure O2 119.8 H 83.0-108.0 mmHg Arterial Blood HCO3 13.8 L 21.0-28.0 mmol/L Arterial Blood Oxygen Saturation 98.1 H 94.0-98.0 % Arterial Blood Base Excess -9.5 L -2.0-3.0 mmol/L Arterial Blood Oxyhemoglobin 96.8 94.0-98.0 % Arterial Blood Carboxyhemoglobin 1.2 0.5-1.5 % Arterial Blood Methemoglobin 0.1 0.0-1.5 % David Test Modified Blood Gas Total Hemoglobin 9.80 L 13.5-17.5 g/dL Blood Gas Set Respiration Rate 18.0 Blood Gas Modality Vent - ac FiO2 % 30.0 Blood Gas Tidal Volume 480.0 Blood Gas PEEP or CPAP 5.0 Test 12/14/24 08:48 12/14/24 08:29 12/14/24 06:48 12/14/24 03:40 Range/Units White Blood Count 43.5 *H 4.4-10.8 10^3/uL Red Blood Count 4.61 4.5-5.90 10^6/uL Hemoglobin 9.5 L 13.5-17.5 g/dL Hematocrit 33.6 #L 41.0-53.0 % Mean Corpuscular Volume 73.0 L 80.0-100.0 fL Mean Corpuscular Hemoglobin 20.7 L 28.0-32.0 pg Mean Corpuscular Hemoglobin Concent 28.3 L 32.0-36.0 g/dL Red Cell Distribution Width 29.2 H 11.8-14.3 % Platelet Count 263 140-450 10^3/uL Mean Platelet Volume 9.0 6.9-10.8 fL Neutrophils (%) (Auto) 95.8 H 37.0-80.0 % Lymphocytes (%) (Auto) 1.2 L 10.0-50.0 % Monocytes (%) (Auto) 1.6 0.0-12.0 % Eosinophils (%) (Auto) 1.1 0.0-7.0 % Basophils (%) (Auto) 0.3 0.0-2.0 % Neutrophils # (Auto) 41.7 H 1.6-8.6 10 ^3/uL Lymphocytes # (Auto) 0.5 0.4-5.4 10 ^3/uL Monocytes # (Auto) 0.7 0-1.3 10 ^3/uL Eosinophils # (Auto) 0.5 0-0.8 10 ^3/uL Basophils # (Auto) 0.1 0-0.2 10 ^3/uL Nucleated Red Blood Cells 0.5 % Platelet Estimate Adequate Hypochromasia (manual) Marked Anisocytosis (manual) Marked Microcytosis Moderate Ovalocytes Few [place] Cells Moderate Sodium Level 150 #H 136-145 mmol/L Potassium Level 4.1 3.5-5.1 mmol/L Chloride Level 120 H 98-107 mmol/L Carbon Dioxide Level 14 L 20-31 mmol/L Anion Gap 16 H 5-15 Blood Urea Nitrogen 46 #H 9-23 mg/dL Creatinine 1.44 H 0.700-1.30 mg/dL Glomerular Filtration Rate Calc 50 >90 mL/min BUN/Creatinine Ratio 31.9 H 10.0-20.0 Serum Glucose 134 H 74-106 mg/dL Calcium Level 7.6 L 8.7-10.4 mg/dL Magnesium Level 2.0 1.6-2.6 mg/dL Total Bilirubin 0.7 0.2-1.0 mg/dL Aspartate Amino Transferase (AST) 357 H 13-40 U/L Alanine Aminotransferase (ALT) 257 H 7-40 U/L Alkaline Phosphatase 108 46-116 U/L Total Protein 5.1 L 5.7-8.2 g/dL Albumin 2.8 L 3.2-4.8 g/dL POC Glucose 143 H 148 H 70-106 mg/dl Blood Gas Specimen Type Arterial Blood Gas Sample Site Right radial Blood Gas Patient Temperature 37.0 Arterial Blood Date Drawn [id number] Arterial Blood pH 7.229 *L 7.350-7.450 Arterial Blood Partial Pressure CO2 28.3 L 35.0-48.0 mmHg Arterial Blood Partial Pressure O2 104.0 83.0-108.0 mmHg Arterial Blood HCO3 11.6 L 21.0-28.0 mmol/L Arterial Blood Oxygen Saturation 97.6 94.0-98.0 % Arterial Blood Base Excess -14.6 L -2.0-3.0 mmol/L Arterial Blood Oxyhemoglobin 95.9 94.0-98.0 % Arterial Blood Carboxyhemoglobin 1.3 0.5-1.5 % Arterial Blood Methemoglobin 0.4 0.0-1.5 % David Test Modified Blood Gas Total Hemoglobin 10.30 L 13.5-17.5 g/dL Blood Gas Set Respiration Rate 18.0 Blood Gas Modality Vent - ac FiO2 % 30.0 Blood Gas Tidal Volume 450.0 Blood Gas PEEP or CPAP 5.0 Blood Gas Critical Value Read Back Yes Blood Gas Notified Whom Peg chiu md Blood Gas Notified Time [id number] Blood Gas Notified By [employer] t diana Test 12/14/24 03:26 12/14/24 02:11 12/13/24 16:12 12/13/24 05:41 Range/Units Stool Occult Blood Negative Stool Occult Blood Sample #3 Negative Blood Gas Specimen Type Arterial Blood Gas Sample Site Right radial Blood Gas Patient Temperature 37.0 Arterial Blood Date Drawn [id number] Arterial Blood pH 7.199 *L 7.350-7.450 Arterial Blood Partial Pressure CO2 29.3 L 35.0-48.0 mmHg Arterial Blood Partial Pressure O2 186.8 H 83.0-108.0 mmHg Arterial Blood HCO3 11.2 L 21.0-28.0 mmol/L Arterial Blood Oxygen Saturation 99.4 H 94.0-98.0 % Arterial Blood Base Excess -15.5 L -2.0-3.0 mmol/L Arterial Blood Oxyhemoglobin 98.1 H 94.0-98.0 % Arterial Blood Carboxyhemoglobin 1.0 0.5-1.5 % Arterial Blood Methemoglobin 0.3 0.0-1.5 % David Test Modified Blood Gas Total Hemoglobin 9.80 L 13.5-17.5 g/dL Blood Gas Set Respiration Rate 18.0 Blood Gas Modality Vent - ac FiO2 % 60.0 Blood Gas Tidal Volume 450.0 Blood Gas PEEP or CPAP 5.0 Blood Gas Critical Value Read Back Yes Blood Gas Notified Whom Dr. loya Blood Gas Notified Time [id number] Blood Gas Notified By [employer] jazzy chappell Vancomycin Level Trough 21.1 H 5-10 ug/mL Lactic Acid Level 3.3 *H 0.4-2.0 mmol/L Test 12/13/24 03:56 12/12/24 13:28 12/12/24 10:21 12/12/24 09:29 Range/Units White Blood Count 51.2 #*H 21.4 #H 4.4-10.8 10^3/uL Red Blood Count 4.12 L 3.32 L 4.5-5.90 10^6/uL Hemoglobin 8.8 #L 5.7 *L 5.9 #*L 13.5-17.5 g/dL Hematocrit 29.1 #L 19.5 #L 22.2 #L 41.0-53.0 % Mean Corpuscular Volume 70.6 #L 66.9 #L 80.0-100.0 fL Mean Corpuscular Hemoglobin 21.4 L 17.7 L 28.0-32.0 pg Mean Corpuscular Hemoglobin Concent 30.3 L 26.5 L 32.0-36.0 g/dL Red Cell Distribution Width 29.5 H 26.5 H 11.8-14.3 % Platelet Count 249 268 140-450 10^3/uL Mean Platelet Volume 8.7 8.0 6.9-10.8 fL Neutrophils (%) (Auto) 98.2 H 37.0-80.0 % Lymphocytes (%) (Auto) 0.6 L 10.0-50.0 % Monocytes (%) (Auto) 1.0 0.0-12.0 % Basophils (%) (Auto) 0.2 0.0-2.0 % Neutrophils # (Auto) 21.0 H 1.6-8.6 10 ^3/uL Lymphocytes # (Auto) 0.1 L 0.4-5.4 10 ^3/uL Monocytes # (Auto) 0.2 0-1.3 10 ^3/uL Differential Total Cells Counted 100.0 100 Neutrophils % (Manual) 67 37.0-80.0 Band Neutrophils % (Manual) 19 Lymphocytes % (Manual) 7 L 10.0-50.0 Monocytes % (Manual) 7 0-12 Eosinophils % (Manual) 0 0-7 Basophils % (Manual) 0 0.0-2.0 Metamyelocytes % (manual) 0 Myelocytes % (Manual) 0 Promyelocytes % (Manual) 0 Blast Cells % (Manual) 0 Reactive Lymphocytes 0 Platelet Estimate Adequate Hypochromasia (manual) Moderate Anisocytosis (manual) Marked Microcytosis Moderate Prothrombin Time 18.7 H 9.3-11.8 sec Prothrombin Time INR 1.88 H 0.9-1.15 Activated Partial Thromboplast Time 49.2 H 24.5-34.5 SEC Sodium Level 145 142 136-145 mmol/L Potassium Level 3.9 4.8 3.5-5.1 mmol/L Chloride Level 116 H 112 H 98-107 mmol/L Carbon Dioxide Level 17 L 13 L 20-31 mmol/L Anion Gap 12 17 H 5-15 Blood Urea Nitrogen 24 H 20 9-23 mg/dL Creatinine 1.10 1.10 0.700-1.30 mg/dL Glomerular Filtration Rate Calc 69 69 >90 mL/min BUN/Creatinine Ratio 21.8 H 18.2 10.0-20.0 Serum Glucose 73 L 74 74-106 mg/dL Hemoglobin A1c 5.0 <5.7 % A1C Lactic Acid Level 3.9 *H 0.4-2.0 mmol/L Calcium Level 7.6 L 8.0 L 8.7-10.4 mg/dL Total Bilirubin 0.6 0.6 0.2-1.0 mg/dL Aspartate Amino Transferase (AST) 68 H 24 13-40 U/L Alanine Aminotransferase (ALT) 25 16 7-40 U/L Alkaline Phosphatase 69 81 46-116 U/L Total Protein 5.2 L 5.1 L 5.7-8.2 g/dL Albumin 3.0 L 3.0 L 3.2-4.8 g/dL Triglycerides Level 82 < 150 mg/dL Cholesterol Level 66 < 200 mg/dL LDL Cholesterol 25 < 100 mg/dL HDL Cholesterol 21 L 40-59 mg/dL Vitamin B12 Level 331 211-911 pg/mL Vitamin D 25-Hydroxy 7.2 L 30.0-100 ng/mL Haptoglobin 139 34-355 mg/dL Eosinophils (%) (Auto) 0.0 0.0-7.0 % Eosinophils # (Auto) 0 0-0.8 10 ^3/uL Basophils # (Auto) 0 0-0.2 10 ^3/uL Nucleated Red Blood Cells 0.2 % Digoxin Level < 0.14 L 0.8-2 ng/mL Blood Gas Specimen Type Arterial Blood Gas Sample Site Right radial Blood Gas Patient Temperature 37.0 Arterial Blood Date Drawn [id number] Arterial Blood pH 7.406 7.350-7.450 Arterial Blood Partial Pressure CO2 18.3 *L 35.0-48.0 mmHg Arterial Blood Partial Pressure O2 79.4 L 83.0-108.0 mmHg Arterial Blood HCO3 11.2 L 21.0-28.0 mmol/L Arterial Blood Oxygen Saturation 95.6 94.0-98.0 % Arterial Blood Base Excess -12.3 L -2.0-3.0 mmol/L Arterial Blood Oxyhemoglobin 92.6 L 94.0-98.0 % Arterial Blood Carboxyhemoglobin 2.6 H 0.5-1.5 % Arterial Blood Methemoglobin 0.5 0.0-1.5 % David Test Yes Blood Gas Total Hemoglobin 6.20 *L 13.5-17.5 g/dL Blood Gas Liter Flow 4.00 Blood Gas Modality Nasal cannula FiO2 % 36.0 Blood Gas Critical Value Read Back Yes Blood Gas Notified Whom yash Frost Blood Gas Notified Time [id number] Blood Gas Notified By laquita Stevenson Test 12/12/24 07:47 12/12/24 07:45 12/12/24 04:56 12/12/24 02:20 Range/Units Urine Color Dark-brown Light-orange Yellow Urine Clarity Ex.turbid Turbid H Clear Urine pH 7.0 7.5 5.0-9.0 Urine Specific [place] 1.022 1.018 1.001-1.035 Urine Protein 3+ H 2+ H Negative Urine Ketones Trace Trace Negative Urine Blood 2+ H 1+ H Negative /uL Urine Nitrite 2+ H 2+ H Negative Urine Bilirubin Negative Negative Negative Urine Urobilinogen Normal Normal Negative mg/dL Urine Leukocyte Esterase 3+ 3+ Negative /uL Urine Glucose Normal Normal Normal mg/dL Influenza Type A Antigen Negative Negative Influenza Type B Antigen Negative Negative POC Glucose 112 H 70-106 mg/dl Urine RBC 19 0 - 3 /hpf Urine Microscopic WBC 50 H 0-3 /HPF Urine Squamous Epithelial Cells Few <5 /hpf Urine Calcium Oxalate Crystals Few None Seen Urine Bacteria Few H None Seen /hpf Test 12/12/24 01:30 12/12/24 00:06 12/12/24 00:04 12/12/24 00:00 Range/Units Erythrocyte Sedimentation Rate 25 H 0-20 mm/hr Lactic Acid Level 7.8 *H 0.4-2.0 mmol/L Magnesium Level 1.7 1.6-2.6 mg/dL SARS-CoV-2 Antigen (Rapid) Positive *A NEGATIVE Test 12/11/24 23:07 12/11/24 22:10 12/11/24 22:08 Range/Units Prothrombin Time 12.2 H 9.3-11.8 sec Prothrombin Time INR 1.17 H 0.9-1.15 Activated Partial Thromboplast Time 25.9 24.5-34.5 SEC Troponin I High Sensitivity 6 4 </=54 ng/L Thyroid Stimulating Hormone (TSH) 3.98 0.55-4.78 uIU/mL White Blood Count 16.8 H 4.4-10.8 10^3/uL Red Blood Count 3.00 L 4.5-5.90 10^6/uL Hemoglobin 4.6 *L 13.5-17.5 g/dL Hematocrit 17.9 L 41.0-53.0 % Mean Corpuscular Volume 59.7 L 80.0-100.0 fL Mean Corpuscular Hemoglobin 15.2 L 28.0-32.0 pg Mean Corpuscular Hemoglobin Concent 25.5 L 32.0-36.0 g/dL Red Cell Distribution Width 20.7 H 11.8-14.3 % Platelet Count 384 140-450 10^3/uL Mean Platelet Volume 7.2 6.9-10.8 fL Neutrophils (%) (Auto) 37.0-80.0 % Lymphocytes (%) (Auto) 10.0-50.0 % Monocytes (%) (Auto) 0.0-12.0 % Eosinophils (%) (Auto) 0.0-7.0 % Basophils (%) (Auto) 0.0-2.0 % Neutrophils # (Auto) 1.6-8.6 10 ^3/uL Lymphocytes # (Auto) 0.4-5.4 10 ^3/uL Monocytes # (Auto) 0-1.3 10 ^3/uL Eosinophils # (Auto) 0-0.8 10 ^3/uL Basophils # (Auto) 0-0.2 10 ^3/uL Differential Total Cells Counted 100.0 100 Neutrophils % (Manual) 84 H 37.0-80.0 Band Neutrophils % (Manual) 11 Lymphocytes % (Manual) 5 L 10.0-50.0 Monocytes % (Manual) 0 0-12 Eosinophils % (Manual) 0 0-7 Basophils % (Manual) 0 0.0-2.0 Metamyelocytes % (manual) 0 Myelocytes % (Manual) 0 Promyelocytes % (Manual) 0 Blast Cells % (Manual) 0 Nucleated Red Blood Cells % Reactive Lymphocytes 0 Platelet Estimate Adequate Hypochromasia (manual) Marked Anisocytosis (manual) Slight Microcytosis Marked [place] Cells Few Schistocytes Few Sodium Level 139 136-145 mmol/L Potassium Level 4.3 3.5-5.1 mmol/L Chloride Level 111 H 98-107 mmol/L Carbon Dioxide Level 20 20-31 mmol/L Anion Gap 8 5-15 Blood Urea Nitrogen 14 9-23 mg/dL Creatinine 0.69 L 0.700-1.30 mg/dL Glomerular Filtration Rate Calc 95 >90 mL/min BUN/Creatinine Ratio 20.3 H 10.0-20.0 Serum Glucose 108 H 74-106 mg/dL Calcium Level 8.6 L 8.7-10.4 mg/dL Iron Level 11 L 65-175 ug/dL Total Iron Binding Capacity 323 250-425 ug/dL Percent Iron Saturation 3.4 L 20-55 % Ferritin 6.1 L 22-322 ng/mL Total Bilirubin 0.3 0.2-1.0 mg/dL Aspartate Amino Transferase (AST) 8 L 13-40 U/L Alanine Aminotransferase (ALT) 9 7-40 U/L Alkaline Phosphatase 71 46-116 U/L C-Reactive Protein High Sensitivity 1.32 H <1.0 mg/dL B-Type Natriuretic Peptide 304.72 0-100 pg/mL Total Protein 5.5 L 5.7-8.2 g/dL Albumin 3.3 3.2-4.8 g/dL Lipase 22 12-53 U/L Lactic Acid Level 4.8 *H 0.4-2.0 mmol/L Ammonia < 10 L 11-32 umol/L Microbiology Date/Time Source Procedure Growth Status 12/14/24 01:10 Sputum Gram Stain - Final Complete 12/14/24 01:10 Respiratory Culture - Final Staphylococcus aureus Complete 12/12/24 00:41 Stool Stool Culture - Final Complete 12/12/24 00:41 Stool Shiga Toxin I & II - Final Complete 12/12/24 00:14 Blood Blood Culture - Final NO GROWTH AFTER 5 DAYS OF INCUBATION. Complete Assessment ZACARIAS resolved hydronephrosis w/ obstructing stone Right side hypernatremia CHF EF 40% respiratory failure PNA Continue free water and potassium replacement IV d5W now that patient is extubated in currently not tolerating p.o. Strict Is&Os IV antibiotics for sepsis and pneumonia Avoid hypotension Avoid contrast studies Avoid nonsteroidal anti-inflammatory drugs Plan discussed with: Patient LARRY PLASCENCIA MD Dec 17, 2024 13:31
--- NOTE | 2024-12-17 15:05 | DVHINCON2 ---
GI Consult Consult Note GI consult note Date of Consultation: 12/17/2024 Chief Complaint: GI bleed Referring Physician: Dr. Mtz H&P: 79-year-old male presented to ED via EMS with complains of chest pain Patient is altered. History from chart and RN Per notes patient had one episode of vomiting. No report of hematemesis Per per RN no bowel movement reported since admission to the hospital Patient on Eliquis, which has been held at this time SP 4 units PRBCs transfused Patient on Clinimix at this time. No clear history of what type of diet patient was on prior to admission Unsure history of any liver problems in past Past Medical History: CAD, CVA, HTN, [place] Past Surgical History: Pacemaker Social History: Per chart Smoker: Cigarettes, Greater Than 1 Pack/Day Alcohol: Occasionally Drugs: Denies Drug Use Lives In: Assisted Care Family History: Unsure Review of Systems: Heart: +chest pain Abdomen: see HPI Physical exam: General: NAD, AAOX3 Chest: lung ruth clear to auscultation Heart: RRR, no murmur Abdomen: Mild-distended, decreased BS Labs:Laboratory Tests Test 12/17/24 12:27 12/17/24 12:04 12/17/24 07:04 12/17/24 05:00 Range/Units POC Glucose 149 H 70-106 mg/dl Blood Gas Specimen Type Arterial Arterial Blood Gas Sample Site Right brachial Right brachial Blood Gas Patient Temperature 37.0 37.0 Arterial Blood Date Drawn [id number] Arterial Blood pH 7.449 7.460 H 7.350-7.450 Arterial Blood Partial Pressure CO2 20.1 L 21.4 L 35.0-48.0 mmHg Arterial Blood Partial Pressure O2 128.0 H 127.6 H 83.0-108.0 mmHg Arterial Blood HCO3 13.6 L 14.9 L 21.0-28.0 mmol/L Arterial Blood Oxygen Saturation 98.2 H 98.2 H 94.0-98.0 % Arterial Blood Base Excess -8.9 L -7.7 L -2.0-3.0 mmol/L Arterial Blood Oxyhemoglobin 97.2 96.7 94.0-98.0 % Arterial Blood Carboxyhemoglobin 0.8 1.2 0.5-1.5 % Arterial Blood Methemoglobin 0.2 0.3 0.0-1.5 % David Test N/a N/a Blood Gas Total Hemoglobin 9.10 L 8.50 L 13.5-17.5 g/dL Blood Gas Modality Vent - cpap Vent - ac FiO2 % 30.0 30.0 Blood Gas Pressure Support 8 Blood Gas PEEP or CPAP 5.0 5.0 Blood Gas Set Respiration Rate 18.0 Blood Gas Tidal Volume 480.0 White Blood Count 14.6 #H 4.4-10.8 10^3/uL Red Blood Count 3.94 L 4.5-5.90 10^6/uL Hemoglobin 8.4 L 13.5-17.5 g/dL Hematocrit 28.3 L 41.0-53.0 % Mean Corpuscular Volume 71.9 L 80.0-100.0 fL Mean Corpuscular Hemoglobin 21.2 L 28.0-32.0 pg Mean Corpuscular Hemoglobin Concent 29.5 L 32.0-36.0 g/dL Red Cell Distribution Width 30.9 H 11.8-14.3 % Platelet Count 130 L 140-450 10^3/uL Mean Platelet Volume 9.1 6.9-10.8 fL Neutrophils (%) (Auto) 37.0-80.0 % Lymphocytes (%) (Auto) 10.0-50.0 % Monocytes (%) (Auto) 0.0-12.0 % Basophils (%) (Auto) 0.0-2.0 % Neutrophils # (Auto) 1.6-8.6 10 ^3/uL Lymphocytes # (Auto) 0.4-5.4 10 ^3/uL Monocytes # (Auto) 0-1.3 10 ^3/uL Differential Total Cells Counted 100.0 100 Neutrophils % (Manual) 93 H 37.0-80.0 Band Neutrophils % (Manual) 1 Lymphocytes % (Manual) 5 L 10.0-50.0 Monocytes % (Manual) 1 0-12 Eosinophils % (Manual) 0 0-7 Basophils % (Manual) 0 0.0-2.0 Metamyelocytes % (manual) 0 Myelocytes % (Manual) 0 Promyelocytes % (Manual) 0 Blast Cells % (Manual) 0 Reactive Lymphocytes 0 Platelet Estimate Decrea Large Platelets Few Hypochromasia (manual) Moderate Anisocytosis (manual) Marked Microcytosis Moderate Ovalocytes Few [place] Cells Moderate Schistocytes Moderate Sodium Level 149 H 136-145 mmol/L Potassium Level 3.3 L 3.5-5.1 mmol/L Chloride Level 120 H 98-107 mmol/L Carbon Dioxide Level 17 L 20-31 mmol/L Anion Gap 12 5-15 Blood Urea Nitrogen 50 H 9-23 mg/dL Creatinine 1.02 0.700-1.30 mg/dL Glomerular Filtration Rate Calc 75 >90 mL/min BUN/Creatinine Ratio 49.0 H 10.0-20.0 Serum Glucose 179 H 74-106 mg/dL Calcium Level 7.9 L 8.7-10.4 mg/dL Phosphorus Level 3.4 2.4-5.1 mg/dL Magnesium Level 1.9 1.6-2.6 mg/dL Total Bilirubin 0.5 0.2-1.0 mg/dL Aspartate Amino Transferase (AST) 101 H 13-40 U/L Alanine Aminotransferase (ALT) 291 H 7-40 U/L Alkaline Phosphatase 102 46-116 U/L Total Protein 4.6 L 5.7-8.2 g/dL Albumin 2.5 L 3.2-4.8 g/dL Triglycerides Level 78 < 150 mg/dL Random Vancomycin Level 21.3 H 5-10 ug/mL Test 12/16/24 22:50 12/16/24 17:52 12/16/24 11:55 12/16/24 07:29 Range/Units POC Glucose 137 H 141 H 153 H 70-106 mg/dl Blood Gas Specimen Type Arterial Blood Gas Sample Site Right radial Blood Gas Patient Temperature 37.0 Arterial Blood Date Drawn [id number] Arterial Blood pH 7.414 7.350-7.450 Arterial Blood Partial Pressure CO2 24.9 L 35.0-48.0 mmHg Arterial Blood Partial Pressure O2 105.1 83.0-108.0 mmHg Arterial Blood HCO3 15.6 L 21.0-28.0 mmol/L Arterial Blood Oxygen Saturation 96.9 94.0-98.0 % Arterial Blood Base Excess -8.2 L -2.0-3.0 mmol/L Arterial Blood Oxyhemoglobin 94.1 94.0-98.0 % Arterial Blood Carboxyhemoglobin 1.7 H 0.5-1.5 % Arterial Blood Methemoglobin 1.2 0.0-1.5 % David Test Modified Blood Gas Total Hemoglobin 6.40 *L 13.5-17.5 g/dL Blood Gas Set Respiration Rate 18.0 Blood Gas Modality Vent - ac FiO2 % 30.0 Blood Gas Tidal Volume 480.0 Blood Gas PEEP or CPAP 5.0 Blood Gas Critical Value Read Back Yes Blood Gas Notified Whom greg Mckeon Blood Gas Notified Time [id number] Blood Gas Notified By [employer] Recruiter laquita sebastian 12/16/24 05:13 12/15/24 23:57 12/15/24 08:51 12/15/24 04:46 Range/Units Sodium Level 153 H 153 H 136-145 mmol/L Potassium Level 3.3 L 3.1 L 3.5-5.1 mmol/L Chloride Level 123 H 121 H 98-107 mmol/L Carbon Dioxide Level 18 L 17 L 20-31 mmol/L Anion Gap 12 15 5-15 Blood Urea Nitrogen 56 H 48 H 9-23 mg/dL Creatinine 1.16 1.11 0.700-1.30 mg/dL Glomerular Filtration Rate Calc 64 68 >90 mL/min BUN/Creatinine Ratio 48.3 H 43.2 H 10.0-20.0 Serum Glucose 188 H 145 H 74-106 mg/dL Calcium Level 7.7 L 7.6 L 8.7-10.4 mg/dL Phosphorus Level 2.6 2.4-5.1 mg/dL Magnesium Level 2.0 1.6-2.6 mg/dL Total Bilirubin 0.5 0.2-1.0 mg/dL Aspartate Amino Transferase (AST) 96 H 13-40 U/L Alanine Aminotransferase (ALT) 245 H 7-40 U/L Alkaline Phosphatase 102 46-116 U/L Total Protein 4.0 L 5.7-8.2 g/dL Albumin 2.3 L 3.2-4.8 g/dL Random Vancomycin Level 14.7 H 15.8 H 5-10 ug/mL POC Glucose 165 H 70-106 mg/dl Blood Gas Specimen Type Arterial Blood Gas Sample Site Right radial Blood Gas Patient Temperature 37.0 Arterial Blood Date Drawn [id number] Arterial Blood pH 7.400 7.350-7.450 Arterial Blood Partial Pressure CO2 21.9 L 35.0-48.0 mmHg Arterial Blood Partial Pressure O2 128.2 H 83.0-108.0 mmHg Arterial Blood HCO3 13.3 L 21.0-28.0 mmol/L Arterial Blood Oxygen Saturation 98.3 H 94.0-98.0 % Arterial Blood Base Excess -10.0 L -2.0-3.0 mmol/L Arterial Blood Oxyhemoglobin 96.9 94.0-98.0 % Arterial Blood Carboxyhemoglobin 1.3 0.5-1.5 % Arterial Blood Methemoglobin 0.1 0.0-1.5 % David Test Modified Blood Gas Total Hemoglobin 9.40 L 13.5-17.5 g/dL Blood Gas Set Respiration Rate 18.0 Blood Gas Modality Vent - ac FiO2 % 30.0 Blood Gas Tidal Volume 480.0 Blood Gas PEEP or CPAP 5.0 White Blood Count 39.3 *H 4.4-10.8 10^3/uL Red Blood Count 4.20 L 4.5-5.90 10^6/uL Hemoglobin 8.7 L 13.5-17.5 g/dL Hematocrit 30.1 #L 41.0-53.0 % Mean Corpuscular Volume 71.8 L 80.0-100.0 fL Mean Corpuscular Hemoglobin 20.7 L 28.0-32.0 pg Mean Corpuscular Hemoglobin Concent 28.8 L 32.0-36.0 g/dL Red Cell Distribution Width 30.0 H 11.8-14.3 % Platelet Count 194 140-450 10^3/uL Mean Platelet Volume 9.0 6.9-10.8 fL Neutrophils (%) (Auto) 37.0-80.0 % Lymphocytes (%) (Auto) 10.0-50.0 % Monocytes (%) (Auto) 0.0-12.0 % Basophils (%) (Auto) 0.0-2.0 % Neutrophils # (Auto) 1.6-8.6 10 ^3/uL Lymphocytes # (Auto) 0.4-5.4 10 ^3/uL Monocytes # (Auto) 0-1.3 10 ^3/uL Differential Total Cells Counted 100.0 100 Neutrophils % (Manual) 92 H 37.0-80.0 Band Neutrophils % (Manual) 6 Lymphocytes % (Manual) 2 L 10.0-50.0 Monocytes % (Manual) 0 0-12 Eosinophils % (Manual) 0 0-7 Basophils % (Manual) 0 0.0-2.0 Metamyelocytes % (manual) 0 Myelocytes % (Manual) 0 Promyelocytes % (Manual) 0 Blast Cells % (Manual) 0 Reactive Lymphocytes 0 Platelet Estimate Adequate Hypochromasia (manual) Marked Anisocytosis (manual) Marked Microcytosis Moderate Ovalocytes Few Diane Cells Moderate Schistocytes Moderate Test 12/14/24 14:22 12/14/24 12:00 12/14/24 11:40 12/14/24 10:25 Range/Units Lactic Acid Level 2.3 *H 3.1 *H 0.4-2.0 mmol/L Creatinine 1.29 0.700-1.30 mg/dL Glomerular Filtration Rate Calc 57 >90 mL/min Random Vancomycin Level 21.2 H 5-10 ug/mL Blood Gas Specimen Type Arterial Blood Gas Sample Site Right radial Blood Gas Patient Temperature 37.0 Arterial Blood Date Drawn Arterial Blood pH 7.401 7.350-7.450 Arterial Blood Partial Pressure CO2 22.7 L 35.0-48.0 mmHg Arterial Blood Partial Pressure O2 119.8 H 83.0-108.0 mmHg Arterial Blood HCO3 13.8 L 21.0-28.0 mmol/L Arterial Blood Oxygen Saturation 98.1 H 94.0-98.0 % Arterial Blood Base Excess -9.5 L -2.0-3.0 mmol/L Arterial Blood Oxyhemoglobin 96.8 94.0-98.0 % Arterial Blood Carboxyhemoglobin 1.2 0.5-1.5 % Arterial Blood Methemoglobin 0.1 0.0-1.5 % David Test Modified Blood Gas Total Hemoglobin 9.80 L 13.5-17.5 g/dL Blood Gas Set Respiration Rate 18.0 Blood Gas Modality Vent - ac FiO2 % 30.0 Blood Gas Tidal Volume 480.0 Blood Gas PEEP or CPAP 5.0 Test 12/14/24 08:48 12/14/24 08:29 12/14/24 06:48 12/14/24 03:40 Range/Units White Blood Count 43.5 *H 4.4-10.8 10^3/uL Red Blood Count 4.61 4.5-5.90 10^6/uL Hemoglobin 9.5 L 13.5-17.5 g/dL Hematocrit 33.6 #L 41.0-53.0 % Mean Corpuscular Volume 73.0 L 80.0-100.0 fL Mean Corpuscular Hemoglobin 20.7 L 28.0-32.0 pg Mean Corpuscular Hemoglobin Concent 28.3 L 32.0-36.0 g/dL Red Cell Distribution Width 29.2 H 11.8-14.3 % Platelet Count 263 140-450 10^3/uL Mean Platelet Volume 9.0 6.9-10.8 fL Neutrophils (%) (Auto) 95.8 H 37.0-80.0 % Lymphocytes (%) (Auto) 1.2 L 10.0-50.0 % Monocytes (%) (Auto) 1.6 0.0-12.0 % Eosinophils (%) (Auto) 1.1 0.0-7.0 % Basophils (%) (Auto) 0.3 0.0-2.0 % Neutrophils # (Auto) 41.7 H 1.6-8.6 10 ^3/uL Lymphocytes # (Auto) 0.5 0.4-5.4 10 ^3/uL Monocytes # (Auto) 0.7 0-1.3 10 ^3/uL Eosinophils # (Auto) 0.5 0-0.8 10 ^3/uL Basophils # (Auto) 0.1 0-0.2 10 ^3/uL Nucleated Red Blood Cells 0.5 % Platelet Estimate Adequate Hypochromasia (manual) Marked Anisocytosis (manual) Marked Microcytosis Moderate Ovalocytes Few [place] Cells Moderate Sodium Level 150 #H 136-145 mmol/L Potassium Level 4.1 3.5-5.1 mmol/L Chloride Level 120 H 98-107 mmol/L Carbon Dioxide Level 14 L 20-31 mmol/L Anion Gap 16 H 5-15 Blood Urea Nitrogen 46 #H 9-23 mg/dL Creatinine 1.44 H 0.700-1.30 mg/dL Glomerular Filtration Rate Calc 50 >90 mL/min BUN/Creatinine Ratio 31.9 H 10.0-20.0 Serum Glucose 134 H 74-106 mg/dL Calcium Level 7.6 L 8.7-10.4 mg/dL Magnesium Level 2.0 1.6-2.6 mg/dL Total Bilirubin 0.7 0.2-1.0 mg/dL Aspartate Amino Transferase (AST) 357 H 13-40 U/L Alanine Aminotransferase (ALT) 257 H 7-40 U/L Alkaline Phosphatase 108 46-116 U/L Total Protein 5.1 L 5.7-8.2 g/dL Albumin 2.8 L 3.2-4.8 g/dL POC Glucose 143 H 148 H 70-106 mg/dl Blood Gas Specimen Type Arterial Blood Gas Sample Site Right radial Blood Gas Patient Temperature 37.0 Arterial Blood Date Drawn [id number] Arterial Blood pH 7.229 *L 7.350-7.450 Arterial Blood Partial Pressure CO2 28.3 L 35.0-48.0 mmHg Arterial Blood Partial Pressure O2 104.0 83.0-108.0 mmHg Arterial Blood HCO3 11.6 L 21.0-28.0 mmol/L Arterial Blood Oxygen Saturation 97.6 94.0-98.0 % Arterial Blood Base Excess -14.6 L -2.0-3.0 mmol/L Arterial Blood Oxyhemoglobin 95.9 94.0-98.0 % Arterial Blood Carboxyhemoglobin 1.3 0.5-1.5 % Arterial Blood Methemoglobin 0.4 0.0-1.5 % David Test Modified Blood Gas Total Hemoglobin 10.30 L 13.5-17.5 g/dL Blood Gas Set Respiration Rate 18.0 Blood Gas Modality Vent - ac FiO2 % 30.0 Blood Gas Tidal Volume 450.0 Blood Gas PEEP or CPAP 5.0 Blood Gas Critical Value Read Back Yes Blood Gas Notified Whom Peg chiu md Blood Gas Notified Time [id number] Blood Gas Notified By [employer] Recruiter t diana Test 12/14/24 03:26 12/14/24 02:11 12/13/24 16:12 12/13/24 05:41 Range/Units Stool Occult Blood Negative Stool Occult Blood Sample #3 Negative Blood Gas Specimen Type Arterial Blood Gas Sample Site Right radial Blood Gas Patient Temperature 37.0 Arterial Blood Date Drawn [id number] Arterial Blood pH 7.199 *L 7.350-7.450 Arterial Blood Partial Pressure CO2 29.3 L 35.0-48.0 mmHg Arterial Blood Partial Pressure O2 186.8 H 83.0-108.0 mmHg Arterial Blood HCO3 11.2 L 21.0-28.0 mmol/L Arterial Blood Oxygen Saturation 99.4 H 94.0-98.0 % Arterial Blood Base Excess -15.5 L -2.0-3.0 mmol/L Arterial Blood Oxyhemoglobin 98.1 H 94.0-98.0 % Arterial Blood Carboxyhemoglobin 1.0 0.5-1.5 % Arterial Blood Methemoglobin 0.3 0.0-1.5 % David Test Modified Blood Gas Total Hemoglobin 9.80 L 13.5-17.5 g/dL Blood Gas Set Respiration Rate 18.0 Blood Gas Modality Vent - ac FiO2 % 60.0 Blood Gas Tidal Volume 450.0 Blood Gas PEEP or CPAP 5.0 Blood Gas Critical Value Read Back Yes Blood Gas Notified Whom Dr. loya Blood Gas Notified Time [id number] Blood Gas Notified By [employer] Recruiter jazzy chappell Vancomycin Level Trough 21.1 H 5-10 ug/mL Lactic Acid Level 3.3 *H 0.4-2.0 mmol/L Test 12/13/24 03:56 12/12/24 13:28 12/12/24 10:21 12/12/24 09:29 Range/Units White Blood Count 51.2 #*H 21.4 #H 4.4-10.8 10^3/uL Red Blood Count 4.12 L 3.32 L 4.5-5.90 10^6/uL Hemoglobin 8.8 #L 5.7 *L 5.9 #*L 13.5-17.5 g/dL Hematocrit 29.1 #L 19.5 #L 22.2 #L 41.0-53.0 % Mean Corpuscular Volume 70.6 #L 66.9 #L 80.0-100.0 fL Mean Corpuscular Hemoglobin 21.4 L 17.7 L 28.0-32.0 pg Mean Corpuscular Hemoglobin Concent 30.3 L 26.5 L 32.0-36.0 g/dL Red Cell Distribution Width 29.5 H 26.5 H 11.8-14.3 % Platelet Count 249 268 140-450 10^3/uL Mean Platelet Volume 8.7 8.0 6.9-10.8 fL Neutrophils (%) (Auto) 98.2 H 37.0-80.0 % Lymphocytes (%) (Auto) 0.6 L 10.0-50.0 % Monocytes (%) (Auto) 1.0 0.0-12.0 % Basophils (%) (Auto) 0.2 0.0-2.0 % Neutrophils # (Auto) 21.0 H 1.6-8.6 10 ^3/uL Lymphocytes # (Auto) 0.1 L 0.4-5.4 10 ^3/uL Monocytes # (Auto) 0.2 0-1.3 10 ^3/uL Differential Total Cells Counted 100.0 100 Neutrophils % (Manual) 67 37.0-80.0 Band Neutrophils % (Manual) 19 Lymphocytes % (Manual) 7 L 10.0-50.0 Monocytes % (Manual) 7 0-12 Eosinophils % (Manual) 0 0-7 Basophils % (Manual) 0 0.0-2.0 Metamyelocytes % (manual) 0 Myelocytes % (Manual) 0 Promyelocytes % (Manual) 0 Blast Cells % (Manual) 0 Reactive Lymphocytes 0 Platelet Estimate Adequate Hypochromasia (manual) Moderate Anisocytosis (manual) Marked Microcytosis Moderate Prothrombin Time 18.7 H 9.3-11.8 sec Prothrombin Time INR 1.88 H 0.9-1.15 Activated Partial Thromboplast Time 49.2 H 24.5-34.5 SEC Sodium Level 145 142 136-145 mmol/L Potassium Level 3.9 4.8 3.5-5.1 mmol/L Chloride Level 116 H 112 H 98-107 mmol/L Carbon Dioxide Level 17 L 13 L 20-31 mmol/L Anion Gap 12 17 H 5-15 Blood Urea Nitrogen 24 H 20 9-23 mg/dL Creatinine 1.10 1.10 0.700-1.30 mg/dL Glomerular Filtration Rate Calc 69 69 >90 mL/min BUN/Creatinine Ratio 21.8 H 18.2 10.0-20.0 Serum Glucose 73 L 74 74-106 mg/dL Hemoglobin A1c 5.0 <5.7 % A1C Lactic Acid Level 3.9 *H 0.4-2.0 mmol/L Calcium Level 7.6 L 8.0 L 8.7-10.4 mg/dL Total Bilirubin 0.6 0.6 0.2-1.0 mg/dL Aspartate Amino Transferase (AST) 68 H 24 13-40 U/L Alanine Aminotransferase (ALT) 25 16 7-40 U/L Alkaline Phosphatase 69 81 46-116 U/L Total Protein 5.2 L 5.1 L 5.7-8.2 g/dL Albumin 3.0 L 3.0 L 3.2-4.8 g/dL Triglycerides Level 82 < 150 mg/dL Cholesterol Level 66 < 200 mg/dL LDL Cholesterol 25 < 100 mg/dL HDL Cholesterol 21 L 40-59 mg/dL Vitamin B12 Level 331 211-911 pg/mL Vitamin D 25-Hydroxy 7.2 L 30.0-100 ng/mL Haptoglobin 139 34-355 mg/dL Eosinophils (%) (Auto) 0.0 0.0-7.0 % Eosinophils # (Auto) 0 0-0.8 10 ^3/uL Basophils # (Auto) 0 0-0.2 10 ^3/uL Nucleated Red Blood Cells 0.2 % Digoxin Level < 0.14 L 0.8-2 ng/mL Blood Gas Specimen Type Arterial Blood Gas Sample Site Right radial Blood Gas Patient Temperature 37.0 Arterial Blood Date Drawn Arterial Blood pH 7.406 7.350-7.450 Arterial Blood Partial Pressure CO2 18.3 *L 35.0-48.0 mmHg Arterial Blood Partial Pressure O2 79.4 L 83.0-108.0 mmHg Arterial Blood HCO3 11.2 L 21.0-28.0 mmol/L Arterial Blood Oxygen Saturation 95.6 94.0-98.0 % Arterial Blood Base Excess -12.3 L -2.0-3.0 mmol/L Arterial Blood Oxyhemoglobin 92.6 L 94.0-98.0 % Arterial Blood Carboxyhemoglobin 2.6 H 0.5-1.5 % Arterial Blood Methemoglobin 0.5 0.0-1.5 % David Test Yes Blood Gas Total Hemoglobin 6.20 *L 13.5-17.5 g/dL Blood Gas Liter Flow 4.00 Blood Gas Modality Nasal cannula FiO2 % 36.0 Blood Gas Critical Value Read Back Yes Blood Gas Notified Whom yash Frost Blood Gas Notified Time [id number] Blood Gas Notified By laquita Stevenson Test 12/12/24 07:47 12/12/24 07:45 12/12/24 04:56 12/12/24 02:20 Range/Units Urine Color Dark-brown Light-orange Yellow Urine Clarity Ex.turbid Turbid H Clear Urine pH 7.0 7.5 5.0-9.0 Urine Specific Bowen 1.022 1.018 1.001-1.035 Urine Protein 3+ H 2+ H Negative Urine Ketones Trace Trace Negative Urine Blood 2+ H 1+ H Negative /uL Urine Nitrite 2+ H 2+ H Negative Urine Bilirubin Negative Negative Negative Urine Urobilinogen Normal Normal Negative mg/dL Urine Leukocyte Esterase 3+ 3+ Negative /uL Urine Glucose Normal Normal Normal mg/dL Influenza Type A Antigen Negative Negative Influenza Type B Antigen Negative Negative POC Glucose 112 H 70-106 mg/dl Urine RBC 19 0 - 3 /hpf Urine Microscopic WBC 50 H 0-3 /HPF Urine Squamous Epithelial Cells Few <5 /hpf Urine Calcium Oxalate Crystals Few None Seen Urine Bacteria Few H None Seen /hpf Test 12/12/24 01:30 12/12/24 00:06 12/12/24 00:04 12/12/24 00:00 Range/Units Erythrocyte Sedimentation Rate 25 H 0-20 mm/hr Lactic Acid Level 7.8 *H 0.4-2.0 mmol/L Magnesium Level 1.7 1.6-2.6 mg/dL SARS-CoV-2 Antigen (Rapid) Positive *A NEGATIVE Test 12/11/24 23:07 12/11/24 22:10 12/11/24 22:08 Range/Units Prothrombin Time 12.2 H 9.3-11.8 sec Prothrombin Time INR 1.17 H 0.9-1.15 Activated Partial Thromboplast Time 25.9 24.5-34.5 SEC Troponin I High Sensitivity 6 4 </=54 ng/L Thyroid Stimulating Hormone (TSH) 3.98 0.55-4.78 uIU/mL White Blood Count 16.8 H 4.4-10.8 10^3/uL Red Blood Count 3.00 L 4.5-5.90 10^6/uL Hemoglobin 4.6 *L 13.5-17.5 g/dL Hematocrit 17.9 L 41.0-53.0 % Mean Corpuscular Volume 59.7 L 80.0-100.0 fL Mean Corpuscular Hemoglobin 15.2 L 28.0-32.0 pg Mean Corpuscular Hemoglobin Concent 25.5 L 32.0-36.0 g/dL Red Cell Distribution Width 20.7 H 11.8-14.3 % Platelet Count 384 140-450 10^3/uL Mean Platelet Volume 7.2 6.9-10.8 fL Neutrophils (%) (Auto) 37.0-80.0 % Lymphocytes (%) (Auto) 10.0-50.0 % Monocytes (%) (Auto) 0.0-12.0 % Eosinophils (%) (Auto) 0.0-7.0 % Basophils (%) (Auto) 0.0-2.0 % Neutrophils # (Auto) 1.6-8.6 10 ^3/uL Lymphocytes # (Auto) 0.4-5.4 10 ^3/uL Monocytes # (Auto) 0-1.3 10 ^3/uL Eosinophils # (Auto) 0-0.8 10 ^3/uL Basophils # (Auto) 0-0.2 10 ^3/uL Differential Total Cells Counted 100.0 100 Neutrophils % (Manual) 84 H 37.0-80.0 Band Neutrophils % (Manual) 11 Lymphocytes % (Manual) 5 L 10.0-50.0 Monocytes % (Manual) 0 0-12 Eosinophils % (Manual) 0 0-7 Basophils % (Manual) 0 0.0-2.0 Metamyelocytes % (manual) 0 Myelocytes % (Manual) 0 Promyelocytes % (Manual) 0 Blast Cells % (Manual) 0 Nucleated Red Blood Cells % Reactive Lymphocytes 0 Platelet Estimate Adequate Hypochromasia (manual) Marked Anisocytosis (manual) Slight Microcytosis Marked Diane Cells Few Schistocytes Few Sodium Level 139 136-145 mmol/L Potassium Level 4.3 3.5-5.1 mmol/L Chloride Level 111 H 98-107 mmol/L Carbon Dioxide Level 20 20-31 mmol/L Anion Gap 8 5-15 Blood Urea Nitrogen 14 9-23 mg/dL Creatinine 0.69 L 0.700-1.30 mg/dL Glomerular Filtration Rate Calc 95 >90 mL/min BUN/Creatinine Ratio 20.3 H 10.0-20.0 Serum Glucose 108 H 74-106 mg/dL Calcium Level 8.6 L 8.7-10.4 mg/dL Iron Level 11 L 65-175 ug/dL Total Iron Binding Capacity 323 250-425 ug/dL Percent Iron Saturation 3.4 L 20-55 % Ferritin 6.1 L 22-322 ng/mL Total Bilirubin 0.3 0.2-1.0 mg/dL Aspartate Amino Transferase (AST) 8 L 13-40 U/L Alanine Aminotransferase (ALT) 9 7-40 U/L Alkaline Phosphatase 71 46-116 U/L C-Reactive Protein High Sensitivity 1.32 H <1.0 mg/dL B-Type Natriuretic Peptide 304.72 0-100 pg/mL Total Protein 5.5 L 5.7-8.2 g/dL Albumin 3.3 3.2-4.8 g/dL Lipase 22 12-53 U/L Lactic Acid Level 4.8 *H 0.4-2.0 mmol/L Ammonia < 10 L 11-32 umol/L Microbiology Date/Time Source Procedure Growth Status 12/14/24 01:10 Sputum Gram Stain - Final Complete 12/14/24 01:10 Respiratory Culture - Final Staphylococcus aureus Complete 12/12/24 00:41 Stool Stool Culture - Final Complete 12/12/24 00:41 Stool Shiga Toxin I & II - Final Complete 12/12/24 00:14 Blood Blood Culture - Final NO GROWTH AFTER 5 DAYS OF INCUBATION. Complete Imaging: CT chest abdomen and pelvis IMPRESSION: [id number] right-sided hydroureteronephrosis with multiple stones in the right ureter measuring up to 8 mm. There are multiple stones within the urinary bladder measuring less than 1 cm. The bilateral kidneys demonstrate multiple nonobstructing stones measuring up to 2 cm. Small right and trace left pleural effusions with adjacent compressive atelectasis Moderate to severe pericardial effusion. Moderate fecal retention throughout the colon Chest x-ray IMPRESSION: 1. Pneumonia. Assessment: Possible GI bleed Severe anemia Sepsis with septic shock COVID pneumonia Constipation Elevated LFTs Plan: Discussed with Dr. Gregory Ultrasound of liver Monitor lab Hepatitis panel Stool for occult blood Lactulose Abdominal x-ray Continue Clinimix at this time we will review baseline diet that patient was in past We will continue to monitor the patient Please page GI services if any symptoms of active bleeding Discussed plan with RN Thank you for this consult Date of Service: Dec 17, 2024 Billing Provider: SHAAN BELTRAN Common Visit Codes: CONSULT ONLY Consultation Codes: [id number] CONSULT <60MIN SHAAN BELTRAN Dec 17, 2024 15:05
[2024-12-17] MEDS: MAGNESIUM SULFATE 1GM/100ML 100 ML IV SCH (15:22)
[2024-12-17] MEDS: SODIUM BICARB 8.4% 50Meq/50ml SYR Vial IV ONE (15:22)
[2024-12-17] MEDS: D5W 5% 1,000 ML IV SCH (15:25)
--- NOTE | 2024-12-17 15:45 | DVH ---
INDICATION: elevated LFTs TECHNIQUE: Multiple real-time sonographic images were obtained of the right upper quadrant. COMPARISON: None FINDINGS: The liver demonstrates heterogeneous nodular echotexture without focal mass lesions. The l iver measures 17.1 cm. There is no intrahepatic or extrahepatic ductal dilatation. The common duct measures 0.4 cm. Cholelithiasis. The gallbladder wall measures 0.2 cm and is within normal limits. The right kidney measures 10.8 cm. The right kidney is normal in contour, size, and shape. The echo genicity is normal. There is no hydronephrosis. The pancreas is not well visualized due to overlying bowel gas. IMPRESSION: Cholelithiasis. Mildly nodular hepatic contours may represent early changes of cirrhosis. Trace abdominal ascites.
--- NOTE | 2024-12-17 16:55 | DVH ---
EXAM: XY ABDOMEN 2 VIEW HISTORY: abd discomfort COMPARISON: None TECHNIQUE: Single AP of the abdomen and pelvis was obtained. Findings: Frontal view of the abdomen demonstrates a nonobstructive bowel gas pattern. No visualized renal calc florence. There is no evidence of an acute fracture, dislocation, blastic, or lytic lesions. The visualized portions of the lung bases are unremarkable. No radiopaque foreign bodies. No superficial soft tissue abnormalities. Impression: 1. Nonobstructive bowel gas pattern.
--- NOTE | 2024-12-17 22:18 | DVHPN2 ---
Progress Note - Dictate Date Seen: Dec 17, 2024 Medical Necessity Reason Pt with a Central, PICC or Fol: Yes The following are medically ne: Barron Catheter Reason for barron catheter: Strict I&O Subjective Patient seen and examined at bedside. Sedated, intubated on mechanical ventilator. Overnight events reviewed. vital signs Vital Sign Date Time Temp Pulse Resp B/P (MAP) Pulse Ox O2 Delivery O2 Flow Rate FiO2 12/17/24 20:00 97.7 59 13 108/58 (75) 99 97.7 12/17/24 14:50 0.0 21 12/17/24 08:00 Mechanical Ventilator+ Total Intake and Output 12/16/24 12/16/24 12/17/24 15:00 23:00 07:00 Intake Total 651.584 ml 1254.601 ml 972.20 ml Output Total 300 ml 350 ml Balance 651.584 ml 954.601 ml 622.20 ml medications Current Medications Medications Dose Ordered Sig/Roberto Route Start Time Stop Time Status Last Admin Dose Admin Nitroglycerin 0.4 mg Q5MINP PRN SL 12/12/24 00:30 Morphine Sulfate 2 mg Q30M PRN IV 12/12/24 00:30 Vancomycin HCl 0 ml @ 0 mls/hr UD IV 12/12/24 00:30 Ceftriaxone Sodium 50 ml @ 100 mls/hr DAILY IV 12/12/24 10:00 UNV Acetaminophen 650 mg Q6HP PRN [place] 12/12/24 08:30 12/12/24 09:17 650 MG Doxycycline Hyclate 100 ml @ 50 mls/hr Q12H IV 12/12/24 13:00 12/17/24 13:02 50 MLS/HR Methylprednisolone Sodium Succinate 40 mg Q8HR IV 12/12/24 14:00 12/17/24 21:42 40 MG Propofol 100 ml @ 1.8 mls/hr Q24H IV 12/14/24 00:30 12/16/24 21:36 5.4 MLS/HR Norepinephrine Bitartrate 250 ml @ 3.75 mls/hr Q24H IV 12/14/24 00:15 12/16/24 21:38 15 MLS/HR Pantoprazole Sodium 40 mg BID IV 12/14/24 08:46 12/17/24 21:42 40 MG Aztreonam 1 gm/ Dextrose 50 ml @ 100 mls/hr Q8HR IV 12/14/24 16:00 12/17/24 21:44 100 MLS/HR Lactulose 30 ml Q6HPRN PRN PO 12/15/24 15:15 12/15/24 17:41 30 ML Amino Acids 0 ml @ 0 mls/hr PER PHARMACY IV 12/15/24 15:15 Amino Acids/ Electrolytes/ Dextrose 1,000 ml @ 41 mls/hr DAILY@2200 IV 12/15/24 22:00 12/17/24 21:43 41 MLS/HR Diagnostic Test (Pha) 1 strip Q6HR 12/16/24 00:00 12/17/24 18:27 1 STRIP Insulin Human Regular FOLLOW SLIDING SCALE Q6HR SC 12/16/24 00:00 12/17/24 18:31 2 UNITS Dextrose 50 ml UD IV 12/16/24 00:00 Fentanyl Citrate 250 ml @ 2.5 mls/hr Q24H IV 12/16/24 16:30 12/16/24 17:47 2.5 MLS/HR Dexmedetomidine HCl 400 mcg/ Dextrose 100 ml @ 3 mls/hr Q24H IV 12/16/24 17:00 Dextrose 1,000 ml @ 30 mls/hr Q24H IV 12/17/24 13:45 12/17/24 15:25 30 MLS/HR objective Gen.: Patient lying in bed in medical ICU. Sedated, intubated on mechanical ventilator. Head: Normocephalic, atraumatic. Eyes: PERRLA. Ears: Normal external anatomy. Throat: Endotracheal tube and orogastric tube in place. Neck: Supple, trachea midline. Chest: Transmitted breath sounds bilaterally. Decreased air entry bilaterally. No wheezing. Bibasilar crackles. Cardiovascular: Positive S1, positive S2. Regular rate and rhythm. Abdomen: Positive bowel sounds in all 4 quadrants. Soft, nontender, nondistended. : Barron in place. Normal external genitalia. Rectal: Deferred. Skin: Warm, dry. Intact. Extremities: 2+ radial pulses bilaterally. No lower extremity edema. Neuro: Sedated. laboratory and microbiology Laboratory Tests 12/17/24 05:00 Test 12/17/24 05:00 Range/Units Serum Glucose 179 H 74-106 mg/dL Assessment/Plan Impression: Acute hypoxic respiratory failure On mechanical ventilator COVID 19 infection S/p cardiac arrest Anemia Cachexia, BMI of 19 Events: Remains on vent support On AC mode; RR 18, VT 480, PEEP 5, Fio2 30% CXR image and report reviewed. Devices in place. Patchy opacities in right lower lung base. Trace left pleural effusion and atelectasis. ABG reviewed, alkalemia Leukocytosis - improving; WBC 14.6 K Monitor hemoglobin, 8.4 g/dl, stable Monitor platelets - 130 K Metabolic acidosis - bicarb 17. 2 amps bicarb given Taper sedation - plan CPAP trial with PS 8, PEEP 5. OK for Precedex drip Off pressors since 2 AM, hemodynamically stable. Continue abx Blood cultures show no growth after 5 days Sputum culture shows normal oropharyngeal carmelo. Rare Staph aureus. IV steroids Continue Remdesivir course Clinimix for nutritional support Monitor renal function Monitor electrolytes. Supplement as necessary. Hypokalemia - supplement Hypomagnesemia - supplement Sodium 149 - continue to monitor Labs and imaging reviewed. Rest of plan as noted below. Plan: s/p intubation on mechanical ventilator. On AC mode; RR 18, VT 480, PEEP 5, Fio2 30% Titrate FIO2 to keep O2 saturation above 90%. VAP bundle. Daily ABG and CXR while intubated Sedate for ventilator synchrony Remdesivir course. Steroids - Solu-Medrol Monitor hemoglobin Pressors if necessary for hemodynamic support Titrate to keep mean arterial pressure greater than 65 mmHg. Monitor renal function Monitor electrolytes. Supplement as necessary. Monitor ins and outs. GI prophylaxis. DVT prophylaxis. Prognosis: Poor given patient's multiple co-morbidities. Condition: Critical Rest of plan per hospitalist and other consultants. A total of 35 minutes of critical care time was spent reviewing the patient record, examining the patient, making a diagnostic and therapeutic plan, discussing this plan with the medical personnel, following up on diagnostic studies and following the patient for clinical stability excluding any and all procedures. At least 50% of this time was spent in direct, [id number] contact. Thank you Dr. Baez for allowing me to participate in this patient's care. Further recommendations will depend on the patient's clinical course. Please do not hesitate to contact me if you have any questions or concerns. This medical document was created using an electronic medical record system with Dragon computerized dictation system. Although these documentations are being carefully reviewed, there may still be some phonetic and typographical changes. The errors are purely typographical, due to imperfection on the software program, and do not reflect any compromise in the patient's medical care. Dietary Evaluation Review Comments: 1. If GI is accessible, consider glucerna 1.2 @ 50ml/hr to provide 1440kcal, 72g pro, 966 ml FW to meet 100% of needs. 2. Consider advance to CCHO 60g diet when appropriate 3. Consider TPN if NPO> 7 days Expected Outcomes/Goals: 1. Pt will meet >75% of estimated needs within 2-3 days Plan discussed with: Other (RN) Critical Care Time(min): 35 CC Plasma Assessment Blood Product Administration S: [id number] VIDYA MISHRA MD Dec 17, 2024 22:18
[2024-12-18] VITALS (66 sets, daily range): BP systolic 126–170; BP diastolic 56–103; PULSE 57–72; RESP 17–34; TEMP 98.1–99.1; O2SAT 83–100
[2024-12-18 06:11] LABS: Hemoglobin 8.7 g/dL (13.5-17.5)
[2024-12-18 06:15] LABS: Mean Corpuscular Hemoglobin 21.1 pg (28.0-32.0); Mean Corpuscular Volume 72.9 fL (80.0-100.0); Platelet Count (auto) 136 10^3/uL (140-450); Red Blood Cells 4.11 10^6/uL (4.5-5.90); White Blood Cell 12.7 10^3/uL (4.4-10.8)
[2024-12-18 06:30] LABS: Alkaline Phosphatase 95 U/L (46-116); Anion Gap 12 (5-15); BUN/Creatinine Ratio 57.9 (10.0-20.0); Magnesium 2.3 mg/dL (1.6-2.6)
[2024-12-18 06:31] LABS: Bilirubin, Total 0.7 mg/dL (0.2-1.0); Phosphorus 2.6 mg/dL (2.4-5.1); Red Cell Distribution Width 31.1 % (11.8-14.3)
[2024-12-18 06:32] LABS: Basophils % (manual) 0 (0.0-2.0); Blast Cells 0; Eosinophils % (manual) 0 (0-7); Metamyelocytes % 0; Myelocytes % 0; Promyelocytes % 0; Reactive Lymphocytes 0
[2024-12-18 06:41] LABS: Alanine Aminotransferase 293 U/L (7-40); Albumin 2.5 g/dL (3.2-4.8); Aspartate Aminotransferase 97 U/L (13-40); Blood Urea Nitrogen 44 mg/dL (9-23); Calcium 8.3 mg/dL (8.7-10.4); Carbon Dioxide 18 mmol/L (20-31); Chloride 119 mmol/L (98-107); Glucose 171 mg/dL (74-106); Potassium 3.1 mmol/L (3.5-5.1); Sodium 149 mmol/L (136-145); Total Protein 4.6 g/dL (5.7-8.2)
[2024-12-18 06:46] LABS: INR 1.41 (0.9-1.15); Partial Thromboplastin Time 47.3 SEC (24.5-34.5); Prothrombin Time 14.4 sec (9.3-11.8)
[2024-12-18 07:39] LABS: Anisocytosis Marked; Band Neutrophils % (manual) 2; Hypochromia Moderate; Lymphocytes % (manual) 3 (10.0-50.0); Monocytes % (manual) 2 (0-12)
[2024-12-18 07:40] LABS: Large Platelets FEW; Ovalocytes FEW; Platelet Estimate Decrea
--- NOTE | 2024-12-18 09:59 | MEDREC ---
[facility] ASP Intervention Section I [facility] ASP Intervention: Deescalate AB based on CS (PLEASE CONSIDER DE-ESCALATION BASED ON CULTURE RESULTS (D/C VANCOMYCIN) ) YOLANDA GODOY PHARMACIST Dec 18, 2024 09:59
[2024-12-18] MEDS: VANCOMYCIN 500mg/100mL 100 ML IV ONE (11:51)
--- NOTE | 2024-12-18 12:14 | DVHPN2 ---
Progress Note Date Seen: Dec 18, 2024 Resident Creating Document: CAROLINE VAZQUEZ RESIDENT Medical Necessity Reason Pt with a Central, PICC or Fol: Yes The following are medically ne: Barron Catheter Reason for barron catheter: Strict I&O Subjective Review of Systems Patient seen and examined. Patient is confused. Protecting airway Unknown time of last bowel movement No nausea or vomiting. No signs of active GI bleeding Was given Eliquis For units of PRBCs till now Clinimix for nutrition. Objective vital signs Vital Sign Date Time Temp Pulse Resp B/P (MAP) Pulse Ox O2 Delivery O2 Flow Rate FiO2 12/18/24 11:30 65 20 156/72 (100) 100 12/18/24 08:00 Room Air* 0 21 12/18/24 08:00 99.1 99.1 Total Intake and Output 12/17/24 12/17/24 12/18/24 15:00 23:00 07:00 Intake Total 528 ml 1140 ml 668 ml Output Total 450 ml 450 ml Balance 528 ml 690 ml 218 ml medications Current Medications Medications Dose Ordered Sig/Roberto Route Start Time Stop Time Status Last Admin Dose Admin Nitroglycerin 0.4 mg Q5MINP PRN SL 12/12/24 00:30 Morphine Sulfate 2 mg Q30M PRN IV 12/12/24 00:30 Vancomycin HCl 0 ml @ 0 mls/hr UD IV 12/12/24 00:30 Ceftriaxone Sodium 50 ml @ 100 mls/hr DAILY IV 12/12/24 10:00 UNV Acetaminophen 650 mg Q6HP PRN [place] 12/12/24 08:30 12/12/24 09:17 650 MG Doxycycline Hyclate 100 ml @ 50 mls/hr Q12H IV 12/12/24 13:00 12/18/24 01:00 50 MLS/HR Methylprednisolone Sodium Succinate 40 mg Q8HR IV 12/12/24 14:00 12/18/24 05:04 40 MG Propofol 100 ml @ 1.8 mls/hr Q24H IV 12/14/24 00:30 12/16/24 21:36 5.4 MLS/HR Norepinephrine Bitartrate 250 ml @ 3.75 mls/hr Q24H IV 12/14/24 00:15 12/16/24 21:38 15 MLS/HR Pantoprazole Sodium 40 mg BID IV 12/14/24 08:46 12/18/24 09:35 40 MG Aztreonam 1 gm/ Dextrose 50 ml @ 100 mls/hr Q8HR IV 12/14/24 16:00 12/17/24 21:44 100 MLS/HR Lactulose 30 ml Q6HPRN PRN PO 12/15/24 15:15 12/15/24 17:41 30 ML Amino Acids 0 ml @ 0 mls/hr PER PHARMACY IV 12/15/24 15:15 Amino Acids/ Electrolytes/ Dextrose 1,000 ml @ 41 mls/hr DAILY@2200 IV 12/15/24 22:00 12/17/24 21:43 41 MLS/HR Diagnostic Test (Pha) 1 strip Q6HR 12/16/24 00:00 12/18/24 07:18 1 STRIP Insulin Human Regular FOLLOW SLIDING SCALE Q6HR SC 12/16/24 00:00 12/18/24 11:54 2 UNITS Dextrose 50 ml UD IV 12/16/24 00:00 Fentanyl Citrate 250 ml @ 2.5 mls/hr Q24H IV 12/16/24 16:30 12/16/24 17:47 2.5 MLS/HR Dexmedetomidine HCl 400 mcg/ Dextrose 100 ml @ 3 mls/hr Q24H IV 12/16/24 17:00 Dextrose 1,000 ml @ 30 mls/hr Q24H IV 12/17/24 13:45 12/17/24 15:25 30 MLS/HR Potassium Chloride 100 ml @ 50 mls/hr Q2H IV 12/18/24 12:00 12/18/24 15:59 Examination General Appearance: Mildly confused, protecting airway. Head Exam: Normal inspection Neck Exam: Normal inspection. Non-tender. Normal alignment Pulmonary/Respiratory: Chest non-tender. Clear bilateral breath sounds Cardiovascular/Chest: Regular rate and rhythm. No murmurs. No JVD. Peripheral Pulses: 2+ Radial (R). 2+ Radial (L). 2+ Pedal (R). 2+ Pedal (L) Abdominal Exam: Normal bowel sounds. Soft. Nontender. No hepatospenomegaly. No masses Ankle Exam: Negative ankle edema Lower extremities: Negative lower extremity edema Neuro/Mental Status: Alert. Appropriate motor upper and lower extremity movements. laboratory and microbiology Laboratory Tests 12/18/24 05:44 Test 12/18/24 05:44 Range/Units Serum Glucose 171 H 74-106 mg/dL Microbiology Date/Time Source Procedure Growth Status 12/17/24 20:00 Urine - Barron Port Urine Culture - Preliminary Resulted 12/16/24 11:00 Wrist Left Gram Stain - Final Resulted 12/16/24 11:00 Wound Culture - Preliminary Proteus mirabilis Resulted 12/14/24 01:10 Sputum Gram Stain - Final Complete 12/14/24 01:10 Respiratory Culture - Final Staphylococcus aureus Complete 12/12/24 00:41 Stool Stool Culture - Final Complete 12/12/24 00:41 Stool Shiga Toxin I & II - Final Complete 12/12/24 00:14 Blood Blood Culture - Final NO GROWTH AFTER 5 DAYS OF INCUBATION. Complete Problem List/Assessment/Plan Problem List/Assessment/Plan COVID pneumonia Septic shock Cholelithiasis Cirrhosis Transaminitis Possible GI bleed Cachexia BMI 19 Microcytic hypochromic anemia Lactic acidosis Coagulopathy Plan/recommendation Dr. Gregory -continue current management with IV Protonix 40 mg b.i.d. -continue monitor H&H, coagulation panel and liver function. -no active GI bleed noted till now. -nutrition with Clinimix -pending stool occult study. He had no bowel movement since admission. -IV hydration and antibiotic as per primary team -we will continue monitor this patient Plan discussed with: Other (RN) Dietary Evaluation Review Comments: 1. If GI is accessible, consider glucerna 1.2 @ 50ml/hr to provide 1440kcal, 72g pro, 966 ml FW to meet 100% of needs. 2. Consider advance to CCHO 60g diet when appropriate 3. Consider TPN if NPO> 7 days Expected Outcomes/Goals: 1. Pt will meet >75% of estimated needs within 2-3 days CC Plasma Assessment Blood Product Administration S: [id number] CAROLINE VAZQUEZ RESIDENT Dec 18, 2024 12:14
[2024-12-18] MEDS: POTASSIUM CHL 20MEQ/100ML 100 ML IV SCH (13:36)
--- NOTE | 2024-12-18 13:50 | DVHPN2 ---
Subjective He was extubated yesterday He is doing well on room air now He is following commands Off the Levophed Reviewed: Care Plan, H&P, Labs, Medications, Previous Orders, Radiology Changes from previous H/P or p: Changes General: Per HPI Objective Vitals Vital Signs Date Time Temp Pulse Resp B/P (MAP) Pulse Ox O2 Delivery O2 Flow Rate FiO2 12/18/24 12:30 71 25 139/75 (96) 99 12/18/24 12:00 98.4 98.4 12/18/24 08:00 Room Air* 0 21 Intake/Output Intake and Output 12/18/24 07:00 Intake Total 2336 ml Output Total 900 ml Balance 1436 ml Intake Oral 0 ml IV Total 2306 ml Other 30 ml Output Urine Total 900 ml General Appearance: No acute distress HEENT: Atraumatic Cardiovascular: Regular rate, Normal S1, Normal S2 Abdomen: Normal bowel sounds, Soft Medications Current Medications Medications Dose Ordered Sig/Roberto Route Start Time Stop Time Status Last Admin Dose Admin Nitroglycerin 0.4 mg Q5MINP PRN SL 12/12/24 00:30 Morphine Sulfate 2 mg Q30M PRN IV 12/12/24 00:30 Vancomycin HCl 0 ml @ 0 mls/hr UD IV 12/12/24 00:30 Ceftriaxone Sodium 50 ml @ 100 mls/hr DAILY IV 12/12/24 10:00 UNV Acetaminophen 650 mg Q6HP PRN [place] 12/12/24 08:30 12/12/24 09:17 650 MG Doxycycline Hyclate 100 ml @ 50 mls/hr Q12H IV 12/12/24 13:00 12/18/24 13:27 50 MLS/HR Methylprednisolone Sodium Succinate 40 mg Q8HR IV 12/12/24 14:00 12/18/24 05:04 40 MG Propofol 100 ml @ 1.8 mls/hr Q24H IV 12/14/24 00:30 12/16/24 21:36 5.4 MLS/HR Norepinephrine Bitartrate 250 ml @ 3.75 mls/hr Q24H IV 12/14/24 00:15 12/16/24 21:38 15 MLS/HR Pantoprazole Sodium 40 mg BID IV 12/14/24 08:46 12/18/24 09:35 40 MG Aztreonam 1 gm/ Dextrose 50 ml @ 100 mls/hr Q8HR IV 12/14/24 16:00 12/17/24 21:44 100 MLS/HR Lactulose 30 ml Q6HPRN PRN PO 12/15/24 15:15 12/15/24 17:41 30 ML Amino Acids 0 ml @ 0 mls/hr PER PHARMACY IV 12/15/24 15:15 Amino Acids/ Electrolytes/ Dextrose 1,000 ml @ 41 mls/hr DAILY@2200 IV 12/15/24 22:00 12/17/24 21:43 41 MLS/HR Diagnostic Test (Pha) 1 strip Q6HR 12/16/24 00:00 12/18/24 12:11 1 STRIP Insulin Human Regular FOLLOW SLIDING SCALE Q6HR SC 12/16/24 00:00 12/18/24 11:54 2 UNITS Dextrose 50 ml UD IV 12/16/24 00:00 Fentanyl Citrate 250 ml @ 2.5 mls/hr Q24H IV 12/16/24 16:30 12/16/24 17:47 2.5 MLS/HR Dexmedetomidine HCl 400 mcg/ Dextrose 100 ml @ 3 mls/hr Q24H IV 12/16/24 17:00 Dextrose 1,000 ml @ 30 mls/hr Q24H IV 12/17/24 13:45 12/17/24 15:25 30 MLS/HR Potassium Chloride 100 ml @ 50 mls/hr Q2H IV 12/18/24 12:00 12/18/24 15:59 12/18/24 13:36 50 MLS/HR Laboratory Results Laboratory Tests 12/18/24 05:44 Chemistry Test 12/18/24 05:44 Albumin 2.5 g/dL (3.2-4.8) L Calcium Level 8.3 mg/dL (8.7-10.4) L Magnesium Level 2.3 mg/dL (1.6-2.6) Phosphorus Level 2.6 mg/dL (2.4-5.1) Total Protein 4.6 g/dL (5.7-8.2) L Coagulation Test 12/18/24 05:44 Prothrombin Time 14.4 sec (9.3-11.8) H Prothrombin Time INR 1.41 (0.9-1.15) H Activated Partial Thromboplast Time 47.3 SEC (24.5-34.5) H LFT Test 12/18/24 05:44 Alanine Aminotransferase (ALT) 293 U/L (7-40) H Alkaline Phosphatase 95 U/L (46-116) Aspartate Amino Transferase (AST) 97 U/L (13-40) H Total Bilirubin 0.7 mg/dL (0.2-1.0) Urinalysis Test 12/12/24 02:20 12/12/24 07:47 Urine RBC 19 /hpf (0 - 3) Urine Microscopic WBC 50 /HPF (0-3) H Urine Squamous Epithelial Cells Few /hpf (<5) Urine Calcium Oxalate Crystals Few (None Seen) Urine Bacteria Few /hpf (None Seen) H Urine Color Dark-brown (Yellow) Urine Clarity Ex.turbid (Clear) Urine pH 7.0 (5.0-9.0) Urine Specific [place] 1.022 (1.001-1.035) Urine Protein 3+ (Negative) H Urine Ketones Trace (Negative) Urine Blood 2+ /uL (Negative) H Urine Nitrite 2+ (Negative) H Urine Bilirubin Negative (Negative) Urine Urobilinogen Normal mg/dL (Negative) Urine Leukocyte Esterase 3+ /uL (Negative) Urine Glucose Normal mg/dL (Normal) Microbiology Microbiology Date/Time Source Procedure Growth Status 12/17/24 20:00 Urine - [place] Urine Culture - Preliminary Resulted 12/16/24 11:00 Wrist Left Gram Stain - Final Resulted 12/16/24 11:00 Wound Culture - Preliminary Proteus mirabilis Resulted 12/14/24 01:10 Sputum Gram Stain - Final Complete 12/14/24 01:10 Respiratory Culture - Final Staphylococcus aureus Complete 12/12/24 00:41 Stool Stool Culture - Final Complete 12/12/24 00:41 Stool Shiga Toxin I & II - Final Complete 12/12/24 00:14 Blood Blood Culture - Final NO GROWTH AFTER 5 DAYS OF INCUBATION. 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 History of GI bleed with possible GI bleed Severe anemia History of colonic polyps History of atrial fibrillation on blood thinners Coronary artery disease with a history of stents History of ventricular arrhythmia Status post ICD Bilateral pleural effusions Possible aspiration pneumonia COVID pneumonia Pericardial effusion Plan Clinimix IV Broad-spectrum antibiotics aztreonam and doxycycline and vancomycin IV remdesivir Eliquis IV steroids Start free water for the hypernatremia IV potassium IV Protonix Full code Contact numbers for family to clarify advance directives or code status are not working DC Eliquis: No DVT GI consult According to patient's nurse the power of district attorney requested full code Full code today 12/17/2024: Hypernatremia: Continue free water Acute respiratory failure: CPAP Hypokalemia: Replace IV Off Levophed drip Continue Clinimix Nephrology consult Discontinue Eliquis GI consult 04/11/2025: Downgrade to telemetry Replace magnesium and potassium as needed Continue IV antibiotics Swallow eval Start diet as recommended by swallow test Plan discussed with: Patient My Orders Orders - HUMPHREY OROZCO MD Procedure Category Date Status Time [facility] Covid19 ANAHI 12/18/24 Uncollected 12:52 Transfer Orders XFER 12/18/24 Transmitted 12:52 Date of Service: Dec 18, 2024 Billing Provider: HUMPHREY OROZCO MD Common Visit Codes: [id number] CARE 30-74 MIN HUMPHREY OROZCO MD Dec 18, 2024 13:50
--- NOTE | 2024-12-18 14:40 | DVHPN2 ---
Progress Note Date Seen: Dec 18, 2024 Medical Necessity Reason Pt with a Central, PICC or Fol: Yes The following are medically ne: Barron Catheter Reason for barron catheter: Strict I&O Subjective Review of Systems: RESPIRATORY:Abnormal Objective vital signs Vital Sign Date Time Temp Pulse Resp B/P (MAP) Pulse Ox O2 Delivery O2 Flow Rate FiO2 12/18/24 14:00 60 12/18/24 12:30 25 139/75 (96) 99 12/18/24 12:00 98.4 98.4 12/18/24 08:00 Room Air* 0 21 Total Intake and Output 12/17/24 12/17/24 12/18/24 15:00 23:00 07:00 Intake Total 528 ml 1140 ml 668 ml Output Total 450 ml 450 ml Balance 528 ml 690 ml 218 ml medications Current Medications Medications Dose Ordered Sig/Roberto Route Start Time Stop Time Status Last Admin Dose Admin Nitroglycerin 0.4 mg Q5MINP PRN SL 12/12/24 00:30 Morphine Sulfate 2 mg Q30M PRN IV 12/12/24 00:30 Vancomycin HCl 0 ml @ 0 mls/hr UD IV 12/12/24 00:30 Ceftriaxone Sodium 50 ml @ 100 mls/hr DAILY IV 12/12/24 10:00 UNV Acetaminophen 650 mg Q6HP PRN [place] 12/12/24 08:30 12/12/24 09:17 650 MG Doxycycline Hyclate 100 ml @ 50 mls/hr Q12H IV 12/12/24 13:00 12/18/24 13:27 50 MLS/HR Methylprednisolone Sodium Succinate 40 mg Q8HR IV 12/12/24 14:00 12/18/24 14:34 40 MG Propofol 100 ml @ 1.8 mls/hr Q24H IV 12/14/24 00:30 12/16/24 21:36 5.4 MLS/HR Pantoprazole Sodium 40 mg BID IV 12/14/24 08:46 12/18/24 09:35 40 MG Aztreonam 1 gm/ Dextrose 50 ml @ 100 mls/hr Q8HR IV 12/14/24 16:00 12/17/24 21:44 100 MLS/HR Lactulose 30 ml Q6HPRN PRN PO 12/15/24 15:15 12/15/24 17:41 30 ML Amino Acids 0 ml @ 0 mls/hr PER PHARMACY IV 12/15/24 15:15 Amino Acids/ Electrolytes/ Dextrose 1,000 ml @ 41 mls/hr DAILY@2200 IV 12/15/24 22:00 12/17/24 21:43 41 MLS/HR Diagnostic Test (Pha) 1 strip Q6HR 12/16/24 00:00 12/18/24 12:11 1 STRIP Insulin Human Regular FOLLOW SLIDING SCALE Q6HR SC 12/16/24 00:00 12/18/24 11:54 2 UNITS Dextrose 50 ml UD IV 12/16/24 00:00 Dexmedetomidine HCl 400 mcg/ Dextrose 100 ml @ 3 mls/hr Q24H IV 12/16/24 17:00 Dextrose 1,000 ml @ 30 mls/hr Q24H IV 12/17/24 13:45 12/18/24 14:15 30 MLS/HR Potassium Chloride 100 ml @ 50 mls/hr Q2H IV 12/18/24 12:00 12/18/24 15:59 12/18/24 13:36 50 MLS/HR Examination: GENERAL:Abnormal, LUNGS:Abnormal, CVS:Abnormal, ABDOMEN:Abnormal laboratory and microbiology Laboratory Tests 12/18/24 05:44 Test 12/18/24 05:44 Range/Units Serum Glucose 171 H 74-106 mg/dL Microbiology Date/Time Source Procedure Growth Status 12/17/24 20:00 Urine - Barron [place] Urine Culture - Preliminary Resulted 12/16/24 11:00 Wrist Left Gram Stain - Final Resulted 12/16/24 11:00 Wound Culture - Preliminary Proteus mirabilis Resulted 12/14/24 01:10 Sputum Gram Stain - Final Complete 12/14/24 01:10 Respiratory Culture - Final Staphylococcus aureus Complete 12/12/24 00:41 Stool Stool Culture - Final Complete 12/12/24 00:41 Stool Shiga Toxin I & II - Final Complete 12/12/24 00:14 Blood Blood Culture - Final NO GROWTH AFTER 5 DAYS OF INCUBATION. Complete Problem List/Assessment/Plan Problem List/Assessment/Plan ZACARIAS resolved hydronephrosis w/ obstructing stone Right side hypernatremia CHF EF 40% respiratory failure PNA Continue free water and potassium replacement IV d5W now that patient is extubated in currently not tolerating p.o. failed swallow , gets IV nutrition. check electrolytes and replace daily Strict Is&Os IV antibiotics for sepsis and pneumonia Avoid hypotension Avoid contrast studies Avoid nonsteroidal anti-inflammatory drugs Plan discussed with: Patient Dietary Evaluation Review Comments: 1. If GI is accessible, consider glucerna 1.2 @ 50ml/hr to provide 1440kcal, 72g pro, 966 ml FW to meet 100% of needs. 2. Consider advance to CCHO 60g diet when appropriate 3. Consider TPN if NPO> 7 days Expected Outcomes/Goals: 1. Pt will meet >75% of estimated needs within 2-3 days CC Plasma Assessment Blood Product Administration S: [id number] LARRY PLASCENCIA MD Dec 18, 2024 14:40
[2024-12-18] MEDS: POTASSIUM PHOSPHATE 22 MEQ in SODIUM CHL 0.9% 100 ML IV ONE (16:08)
[2024-12-18] MEDS: D5W 5% 1,000 ML IV SCH (16:37)
[2024-12-18 19:25] LABS: COVID19 ANTIGEN SOFIA FIA NEGATIVE (NEGATIVE)
[2024-12-18 20:00] LABS: Base Excess -7.7 mmol/L (-2.0-3.0)
[2024-12-18] MEDS ORDERED: ALBUTEROL SULF 2.5 MG/0.5ML(0.5%) NEB SOLN NEB SCH (20:00)
--- NOTE | 2024-12-18 21:23 | DVH ---
CHEST RADIOGRAPH Indication: Increase work of breathing Technique: Single frontal view of the chest was obtained COMPARISON: XY CHEST PORTABLE on DOS: 12/17/24, XY CHEST PORTABLE on DOS: 12/15/24, XY CHEST PORTABLE o n DOS: 12/14/24, XY CHEST XRAY 1 VIEW on DOS: 12/11/24 FINDINGS: Lines and Tubes: Pacemaker/ AICD in the left upper chest with 2 cardiac leads. Left-sided central sarwat ous catheter is seen with tip in the region of the lower SVC. Lungs: Moderate interstitial pulmonary edema. Pleura: Small left effusion. No pneumothorax. Cardiomediastinal contours: Cardiomegaly Bones: Unremarkable IMPRESSION: 1. Moderate interstitial pulmonary edema in the setting of cardiomegaly. 2. Small left effusion.
[2024-12-18] MEDS ORDERED: IPRATROPIUM BROM 0.5 MG/2.5ML INH SOL NEB SCH (22:00)
--- NOTE | 2024-12-18 22:53 | DVHPN2 ---
Progress Note - Dictate Date Seen: Dec 18, 2024 Medical Necessity Reason Pt with a Central, PICC or Fol: Yes The following are medically ne: Barron Catheter Reason for barron catheter: Strict I&O Subjective Patient seen and examined at bedside. S/p extubation, on supplemental oxygen Overnight events reviewed. vital signs Vital Sign Date Time Temp Pulse Resp B/P (MAP) Pulse Ox O2 Delivery O2 Flow Rate FiO2 12/18/24 20:44 69 20 96 40.0 50 12/18/24 20:00 98.6 136/82 (100) 98.6 12/18/24 20:00 Oxymizer Total Intake and Output 12/17/24 12/17/24 12/18/24 15:00 23:00 07:00 Intake Total 528 ml 1140 ml 668 ml Output Total 450 ml 450 ml Balance 528 ml 690 ml 218 ml medications Current Medications Medications Dose Ordered Sig/Roberto Route Start Time Stop Time Status Last Admin Dose Admin Nitroglycerin 0.4 mg Q5MINP PRN SL 12/12/24 00:30 Morphine Sulfate 2 mg Q30M PRN IV 12/12/24 00:30 Vancomycin HCl 0 ml @ 0 mls/hr UD IV 12/12/24 00:30 Ceftriaxone Sodium 50 ml @ 100 mls/hr DAILY IV 12/12/24 10:00 UNV Acetaminophen [address] 12/12/24 08:30 12/12/24 09:17 650 MG Doxycycline Hyclate 100 ml @ 50 mls/hr Q12H IV 12/12/24 13:00 12/18/24 13:27 50 MLS/HR Methylprednisolone Sodium Succinate 40 mg Q8HR IV 12/12/24 14:00 12/18/24 22:17 40 MG Propofol 100 ml @ 1.8 mls/hr Q24H IV 12/14/24 00:30 12/16/24 21:36 5.4 MLS/HR Pantoprazole Sodium 40 mg BID IV 12/14/24 08:46 12/18/24 22:15 40 MG Aztreonam 1 gm/ Dextrose 50 ml @ 100 mls/hr Q8HR IV 12/14/24 16:00 12/18/24 22:13 100 MLS/HR Lactulose 30 ml Q6HPRN PRN PO 12/15/24 15:15 12/15/24 17:41 30 ML Amino Acids 0 ml @ 0 mls/hr PER PHARMACY IV 12/15/24 15:15 Amino Acids/ Electrolytes/ Dextrose 1,000 ml @ 41 mls/hr DAILY@2200 IV 12/15/24 22:00 12/18/24 22:19 41 MLS/HR Diagnostic Test (Pha) 1 strip Q6HR 12/16/24 00:00 12/18/24 17:40 1 STRIP Insulin Human Regular FOLLOW SLIDING SCALE Q6HR SC 12/16/24 00:00 12/18/24 17:42 4 UNITS Dextrose 50 ml UD IV 12/16/24 00:00 Dexmedetomidine HCl 400 mcg/ Dextrose 100 ml @ 3 mls/hr Q24H IV 12/16/24 17:00 Dextrose 1,000 ml @ 50 mls/hr Q20H IV 12/18/24 14:45 12/18/24 22:18 50 MLS/HR Ipratropium [place] 0.5 mg Q4HR NEB 12/18/24 22:00 Albuterol 2.5 mg Q4HR NEB 12/18/24 22:00 objective Gen.: Patient lying in bed in no apparent distress. On supplemental oxygen. Head: Normocephalic, atraumatic. Eyes: EOMI/PERRLA. Ears: Normal hearing. Normal anatomy. Neck/trachea: Trachea midline, supple. Nose: Normal external anatomy. Mouth: Moist mucous membranes. Chest: Decreased air entry bilaterally. No wheezing or rhonchi. Cardiovascular: Positive S1, positive S2. Regular rate and rhythm. Abdomen: Positive bowel sounds in all 4 quadrants. Soft, non-tender, non- distended. : Deferred. Rectal: Deferred. Skin: Warm, dry. Intact. Extremities: 2+ radial pulses bilaterally. No lower extremity edema. Neuro: Awake, alert, oriented x3. No gross motor or sensory deficits. Cranial nerves II through XII intact. Gait not assessed. laboratory and microbiology Laboratory Tests 12/18/24 05:44 Test 12/18/24 05:44 Range/Units Serum Glucose 171 H 74-106 mg/dL Assessment/Plan Impression: Acute hypoxic respiratory failure On mechanical ventilator COVID 19 infection S/p cardiac arrest Anemia Cachexia, BMI of 19 Events: Patient tolerated CPAP yesterday and was extubated uneventfully Currently on supplemental oxygen, 4 LPM NC Increased O2 requirements Off pressors, hemodynamically stable. Obtain STAT ABG and CXR. Leukocytosis - improving; WBC 12.7 K Monitor hemoglobin, 8.7 g/dl, stable Monitor platelets, trending up - 136 K Continue abx Continue steroids Clinimix for nutritional support On D5W infusion Monitor renal function Monitor electrolytes. Supplement as necessary. Hypokalemia - supplement Sodium 149 - continue to monitor Monitor respiratory status closely Labs and imaging reviewed. Rest of plan as noted below. Plan: s/p extubation Supplemental oxygen Titrate to keep O2 sats above 90%. Off sedation Antibiotics F/u cultures Blood cultures show no growth after 5 days Sputum culture shows normal oropharyngeal carmelo. Rare Staph aureus. Remdesivir course. Steroids - Solu-Medrol Monitor hemoglobin Pressors if necessary for hemodynamic support Titrate to keep mean arterial pressure greater than 65 mmHg. Monitor renal function Monitor electrolytes. Supplement as necessary. Monitor ins and outs. GI prophylaxis. DVT prophylaxis. Prognosis: Poor given patient's multiple co-morbidities. Condition: Critical Rest of plan per hospitalist and other consultants. A total of 35 minutes of critical care time was spent reviewing the patient record, examining the patient, making a diagnostic and therapeutic plan, discussing this plan with the medical personnel, following up on diagnostic studies and following the patient for clinical stability excluding any and all procedures. At least 50% of this time was spent in direct, [id number] contact. Thank you Dr. Baez for allowing me to participate in this patient's care. Further recommendations will depend on the patient's clinical course. Please do not hesitate to contact me if you have any questions or concerns. This medical document was created using an electronic medical record system with [employer] dictation system. Although these documentations are being carefully reviewed, there may still be some phonetic and typographical changes. The errors are purely typographical, due to imperfection on the software program, and do not reflect any compromise in the patient's medical care. Dietary Evaluation Review Comments: 1. If GI is accessible, consider glucerna 1.2 @ 50ml/hr to provide 1440kcal, 72g pro, 966 ml FW to meet 100% of needs. 2. Consider advance to CCHO 60g diet when appropriate 3. Consider TPN if NPO> 7 days Expected Outcomes/Goals: 1. Pt will meet >75% of estimated needs within 2-3 days Plan discussed with: Other (ROSALES Goodson) Critical Care Time(min): 35 CC Plasma Assessment Blood Product Administration S: [id number] VIDYA MISHRA MD Dec 18, 2024 22:53
[2024-12-18] MEDS: IPRATROPIUM BROM 0.5 MG/2.5ML INH SOL NEB SCH (23:24)
[2024-12-18] MEDS: ALBUTEROL SULF 2.5 MG/0.5ML(0.5%) NEB SOLN NEB SCH (23:25)
[2024-12-19] VITALS (38 sets, daily range): BP systolic 132–160; BP diastolic 68–87; PULSE 54–79; RESP 16–30; TEMP 97.2–99.3; O2SAT 89–100
[2024-12-19 05:21] LABS: Alkaline Phosphatase 94 U/L (46-116); Anion Gap 11 (5-15); BUN/Creatinine Ratio 63.8 (10.0-20.0); Magnesium 2.1 mg/dL (1.6-2.6)
[2024-12-19 05:22] LABS: Bilirubin, Total 0.8 mg/dL (0.2-1.0)
[2024-12-19 05:32] LABS: Alanine Aminotransferase 261 U/L (7-40); Albumin 2.4 g/dL (3.2-4.8); Aspartate Aminotransferase 64 U/L (13-40); Blood Urea Nitrogen 44 mg/dL (9-23); Carbon Dioxide 18 mmol/L (20-31); Chloride 118 mmol/L (98-107); Glucose 168 mg/dL (74-106); Potassium 3.4 mmol/L (3.5-5.1); Sodium 147 mmol/L (136-145); Total Protein 4.4 g/dL (5.7-8.2)
[2024-12-19] MEDS: POTASSIUM CHL 20MEQ/100ML 100 ML IV ONE ×2 (07:40→12:15)
--- NOTE | 2024-12-19 10:23 | DVHPN2 ---
Progress Note Date Seen: Dec 19, 2024 Resident Creating Document: CAROLINE VAZQUEZ RESIDENT Medical Necessity Reason Pt with a Central, PICC or Fol: Yes The following are medically ne: Barron Catheter Reason for barron catheter: Strict I&O Subjective Review of Systems Patient seen and examined. No nausea or vomiting. No signs of active GI bleeding Clinimix for nutrition Objective vital signs Vital Sign Date Time Temp Pulse Resp B/P (MAP) Pulse Ox O2 Delivery O2 Flow Rate FiO2 12/19/24 07:00 98.4 72 28 150/75 (100) 93 98.4 12/19/24 06:41 40.0 50 12/19/24 04:00 Hi-Flow Heated NC+ Total Intake and Output 12/18/24 12/18/24 12/19/24 15:00 23:00 07:00 Intake Total 888 ml 828 ml 828 ml Output Total 550 ml 350 ml Balance 888 ml 278 ml 478 ml medications Current Medications Medications Dose Ordered Sig/Roberto Route Start Time Stop Time Status Last Admin Dose Admin Nitroglycerin 0.4 mg Q5MINP PRN SL 12/12/24 00:30 Morphine Sulfate 2 mg Q30M PRN IV 12/12/24 00:30 Vancomycin HCl 0 ml @ 0 mls/hr UD IV 12/12/24 00:30 Ceftriaxone Sodium 50 ml @ 100 mls/hr DAILY IV 12/12/24 10:00 UNV Acetaminophen 650 mg Q6HP PRN [place] 12/12/24 08:30 12/12/24 09:17 650 MG Doxycycline Hyclate 100 ml @ 50 mls/hr Q12H IV 12/12/24 13:00 12/19/24 01:00 50 MLS/HR Methylprednisolone Sodium Succinate 40 mg Q8HR IV 12/12/24 14:00 12/19/24 06:10 40 MG Propofol 100 ml @ 1.8 mls/hr Q24H IV 12/14/24 00:30 12/16/24 21:36 5.4 MLS/HR Pantoprazole Sodium 40 mg BID IV 12/14/24 08:46 12/19/24 09:28 40 MG Aztreonam 1 gm/ Dextrose 50 ml @ 100 mls/hr Q8HR IV 12/14/24 16:00 12/19/24 06:10 100 MLS/HR Lactulose 30 ml Q6HPRN PRN PO 12/15/24 15:15 12/15/24 17:41 30 ML Amino Acids 0 ml @ 0 mls/hr PER PHARMACY IV 12/15/24 15:15 Amino Acids/ Electrolytes/ Dextrose 1,000 ml @ 41 mls/hr DAILY@2200 IV 12/15/24 22:00 12/18/24 22:19 41 MLS/HR Diagnostic Test (Pha) 1 strip Q6HR 12/16/24 00:00 12/19/24 06:09 1 STRIP Insulin Human Regular FOLLOW SLIDING SCALE Q6HR SC 12/16/24 00:00 12/19/24 06:19 4 UNITS Dextrose 50 ml UD IV 12/16/24 00:00 Dexmedetomidine HCl 400 mcg/ Dextrose 100 ml @ 3 mls/hr Q24H IV 12/16/24 17:00 Dextrose 1,000 ml @ 50 mls/hr Q20H IV 12/18/24 14:45 12/18/24 22:18 50 MLS/HR Ipratropium [place] 0.5 mg Q4HR NEB 12/18/24 22:00 12/19/24 10:20 0.5 MG Albuterol 2.5 mg Q4HR NEB 12/18/24 22:00 12/19/24 10:20 2.5 MG Examination General Appearance: Mildly confused, protecting airway. Head Exam: Normal inspection Neck Exam: Normal inspection. Non-tender. Normal alignment Pulmonary/Respiratory: Chest non-tender. Clear bilateral breath sounds Cardiovascular/Chest: Regular rate and rhythm. No murmurs. No JVD. Peripheral Pulses: 2+ Radial (R). 2+ Radial (L). 2+ Pedal (R). 2+ Pedal (L) Abdominal Exam: Normal bowel sounds. Soft. Nontender. No hepatospenomegaly. No masses Ankle Exam: Negative ankle edema Lower extremities: Negative lower extremity edema Neuro/Mental Status: Alert. Appropriate motor upper and lower extremity movements. laboratory and microbiology Laboratory Tests 12/19/24 04:41 12/18/24 05:44 Test 12/19/24 04:41 Range/Units Serum Glucose 168 H 74-106 mg/dL Microbiology Date/Time Source Procedure Growth Status 12/17/24 20:00 Urine - [place] Urine Culture - Preliminary Resulted 12/16/24 11:00 Wrist Left Gram Stain - Final Resulted 12/16/24 11:00 Wound Culture - Preliminary Proteus mirabilis Resulted 12/14/24 01:10 Sputum Gram Stain - Final Complete 12/14/24 01:10 Respiratory Culture - Final Staphylococcus aureus Complete 12/12/24 00:41 Stool Stool Culture - Final Complete 12/12/24 00:41 Stool Shiga Toxin I & II - Final Complete 12/12/24 00:14 Blood Blood Culture - Final NO GROWTH AFTER 5 DAYS OF INCUBATION. Complete Problem List/Assessment/Plan Problem List/Assessment/Plan COVID pneumonia Septic shock Cholelithiasis Cirrhosis Transaminitis Possible GI bleed Cachexia BMI 19 Microcytic hypochromic anemia Lactic acidosis Coagulopathy Plan/recommendation Dr. Gregory Follow up with GI in outpatient setting for GI workup. -continue current management with IV Protonix 40 mg b.i.d. -continue monitor H&H, coagulation panel and liver function. -no active GI bleed noted till now. -IV hydration and antibiotic as per primary team -we will continue monitor this patient Plan discussed with: Patient, Other (RN) Dietary Evaluation Review Comments: 1. If GI is accessible, consider glucerna 1.2 @ 50ml/hr to provide 1440kcal, 72g pro, 966 ml FW to meet 100% of needs. 2. Consider advance to CCHO 60g diet when appropriate 3. Consider TPN if NPO> 7 days Expected Outcomes/Goals: 1. Pt will meet >75% of estimated needs within 2-3 days CC Plasma Assessment Blood Product Administration S: [id number] CAROLINE VAZQUEZ RESIDENT Dec 19, 2024 10:23
[2024-12-19] MEDS: ceFAZolin 1GM/50ML 50 ML IV SCH (12:00)
[2024-12-19] MEDS: DOXYCYCLINE 100MG/100ML 100 ML IV SCH (12:00)
--- NOTE | 2024-12-19 12:06 | DVHPN2 ---
Subjective More alert and oriented Reviewed: Care Plan, H&P, Labs, Medications, Previous Orders, Radiology Changes from previous H/P or p: Changes General: Per HPI Objective Vitals Vital Signs Date Time Temp Pulse Resp B/P (MAP) Pulse Ox O2 Delivery O2 Flow Rate FiO2 12/19/24 10:27 60 21 99 12/19/24 10:20 Room Air* 0 21 12/19/24 10:00 146/75 (98) 12/19/24 08:00 98.6 98.6 Intake/Output Intake and Output 12/19/24 07:00 Intake Total 2544 ml Output Total 900 ml Balance 1644 ml Intake Oral 0 ml IV Total 2544 ml Other 0 ml Output Urine Total 900 ml General Appearance: No acute distress HEENT: Atraumatic Cardiovascular: Regular rate, Normal S1, Normal S2 Abdomen: Normal bowel sounds, Soft Medications Current Medications Medications Dose Ordered Sig/Roberto Route Start Time Stop Time Status Last Admin Dose Admin Nitroglycerin 0.4 mg Q5MINP PRN SL 12/12/24 00:30 Morphine Sulfate 2 mg Q30M PRN IV 12/12/24 00:30 Vancomycin HCl 0 ml @ 0 mls/hr UD IV 12/12/24 00:30 Ceftriaxone Sodium 50 ml @ 100 mls/hr DAILY IV 12/12/24 10:00 UNV Acetaminophen 650 mg Q6HP PRN [place] 12/12/24 08:30 12/12/24 09:17 650 MG Methylprednisolone Sodium Succinate 40 mg Q8HR IV 12/12/24 14:00 12/19/24 06:10 40 MG Propofol 100 ml @ 1.8 mls/hr Q24H IV 12/14/24 00:30 12/16/24 21:36 5.4 MLS/HR Pantoprazole Sodium 40 mg BID IV 12/14/24 08:46 12/19/24 09:28 40 MG Lactulose 30 ml Q6HPRN PRN PO 12/15/24 15:15 12/15/24 17:41 30 ML Amino Acids 0 ml @ 0 mls/hr PER PHARMACY IV 12/15/24 15:15 Amino Acids/ Electrolytes/ Dextrose 1,000 ml @ 41 mls/hr DAILY@2200 IV 12/15/24 22:00 12/18/24 22:19 41 MLS/HR Diagnostic Test (Pha) 1 strip Q6HR 2/24/25 00:00 12/19/24 11:57 1 STRIP Insulin Human Regular FOLLOW SLIDING SCALE Q6HR SC 12/16/24 00:00 12/19/24 11:58 2 UNITS Dextrose 50 ml UD IV 12/16/24 00:00 Dexmedetomidine HCl 400 mcg/ Dextrose 100 ml @ 3 mls/hr Q24H IV 12/16/24 17:00 Dextrose 1,000 ml @ 50 mls/hr Q20H IV 12/18/24 14:45 12/18/24 22:18 50 MLS/HR Ipratropium [place] 0.5 mg Q4HR NEB 12/18/24 22:00 12/19/24 10:20 0.5 MG Albuterol 2.5 mg Q4HR NEB 12/18/24 22:00 12/19/24 10:20 2.5 MG Cefazolin Sodium 50 ml @ 100 mls/hr Q6HR IV 12/19/24 12:00 UNV Doxycycline Hyclate 100 ml @ 50 mls/hr Q12H IV 12/19/24 12:00 UNV Laboratory Results Laboratory Tests 12/18/24 05:44 12/19/24 04:41 Chemistry Test 12/19/24 04:41 Albumin 2.4 g/dL (3.2-4.8) L Calcium Level 8.0 mg/dL (8.7-10.4) L Magnesium Level 2.1 mg/dL (1.6-2.6) Phosphorus Level 2.0 mg/dL (2.4-5.1) L Total Protein 4.4 g/dL (5.7-8.2) L LFT Test 12/19/24 04:41 Alanine Aminotransferase (ALT) 261 U/L (7-40) H Alkaline Phosphatase 94 U/L (46-116) Aspartate Amino Transferase (AST) 64 U/L (13-40) H Total Bilirubin 0.8 mg/dL (0.2-1.0) Urinalysis Test 12/12/24 02:20 12/12/24 07:47 Urine RBC 19 /hpf (0 - 3) Urine Microscopic WBC 50 /HPF (0-3) H Urine Squamous Epithelial Cells Few /hpf (<5) Urine Calcium Oxalate Crystals Few (None Seen) Urine Bacteria Few /hpf (None Seen) H Urine Color Dark-brown (Yellow) Urine Clarity Ex.turbid (Clear) Urine pH 7.0 (5.0-9.0) Urine Specific [place] 1.022 (1.001-1.035) Urine Protein 3+ (Negative) H Urine Ketones Trace (Negative) Urine Blood 2+ /uL (Negative) H Urine Nitrite 2+ (Negative) H Urine Bilirubin Negative (Negative) Urine Urobilinogen Normal mg/dL (Negative) Urine Leukocyte Esterase 3+ /uL (Negative) Urine Glucose Normal mg/dL (Normal) Blood Gas Results Test 12/18/24 19:35 12/18/24 23:40 Arterial Blood pH 7.431 (7.350-7.450) 7.452 (7.350-7.450) FiO2 % 36.0 50.0 Microbiology Microbiology Date/Time Source Procedure Growth Status 12/17/24 20:00 Urine - [place] Urine Culture - Preliminary Resulted 12/16/24 11:00 Wrist Left Gram Stain - Final Resulted 12/16/24 11:00 Wound Culture - Preliminary Proteus mirabilis Resulted 12/14/24 01:10 Sputum Gram Stain - Final Complete 12/14/24 01:10 Respiratory Culture - Final Staphylococcus aureus Complete 12/12/24 00:41 Stool Stool Culture - Final Complete 12/12/24 00:41 Stool Shiga Toxin I & II - Final Complete 12/12/24 00:14 Blood Blood Culture - Final NO GROWTH AFTER 5 DAYS OF INCUBATION. 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 History of GI bleed with possible GI bleed Severe anemia History of colonic polyps History of atrial fibrillation on blood thinners Coronary artery disease with a history of stents History of ventricular arrhythmia Status post ICD Bilateral pleural effusions Possible aspiration pneumonia COVID pneumonia Pericardial effusion Plan Clinimix IV Broad-spectrum antibiotics aztreonam and doxycycline and vancomycin IV remdesivir Eliquis IV steroids Start free water for the hypernatremia IV potassium IV Protonix Full code Contact numbers for family to clarify advance directives or code status are not working DC Eliquis: No DVT GI consult According to patient's nurse the power of consumer attorney requested full code Full code today 12/17/2024: Hypernatremia: Continue free water Acute respiratory failure: CPAP Hypokalemia: Replace IV Off Levophed drip Continue Clinimix Nephrology consult Discontinue Eliquis GI consult 04/17/2025: Downgrade to telemetry Replace magnesium and potassium as needed Continue IV antibiotics Swallow eval Start diet as recommended by swallow test 04/18/2025: Downgrade IV antibiotics to cefazolin and doxycycline Downgrade to telemetry Replace potassium IV Repeat a swallow eval Physical therapy evaluation Plan discussed with: Patient My Orders Orders - HUMPHREY OROZCO MD Procedure Category Date Status Time * Swallow Request ST 12/18/24 Transmitted 13:49 Pt Request For Service PT 12/18/24 Logged 13:50 Npo (Nothing By DIET 12/18/24 Transmitted Mouth) Diet Dinner Cefazolin 1gm/50ml PHA 12/19/24 Logged (Ancef) 12:00 Doxycycline PHA 12/19/24 Logged 100mg/100ml 12:00 * Swallow Request ST 12/19/24 Transmitted 12:01 Pt Request For Service PT 12/19/24 Logged 12:01 Date of Service: Dec 19, 2024 Billing Provider: HUMPHREY OROZCO MD Common Visit Codes: [id number] CARE 30-74 MIN HUMPHREY OROZCO MD Dec 19, 2024 12:06
[2024-12-19] MEDS: VANCOMYCIN 500mg/100mL 100 ML IV ONE (12:27)
[2024-12-19 13:13] LABS: Hepatitis B Core Total AB Negative (Negative)
[2024-12-19 13:21] LABS: Hepatitis A Total Antibody Positive (Negative); Hepatitis B Surface Antibody Negative (Negative); Hepatitis B Surface Antigen Negative (Negative)
[2024-12-19 13:22] LABS: Hepatitis C Antibody Negative (Negative)
--- NOTE | 2024-12-19 14:16 | DVHPN2 ---
Progress Note Date Seen: Dec 19, 2024 Medical Necessity Reason Pt with a Central, PICC or Fol: Yes The following are medically ne: Barron Catheter Reason for barron catheter: Strict I&O Objective vital signs Vital Sign Date Time Temp Pulse Resp B/P (MAP) Pulse Ox O2 Delivery O2 Flow Rate FiO2 12/19/24 14:00 62 12/19/24 14:00 24 137/73 (94) 100 12/19/24 12:00 98.4 98.4 12/19/24 10:20 Room Air* 0 21 Total Intake and Output 12/18/24 12/18/24 12/19/24 15:00 23:00 07:00 Intake Total 888 ml 828 ml 828 ml Output Total 550 ml 350 ml Balance 888 ml 278 ml 478 ml medications Current Medications Medications Dose Ordered Sig/Roberto Route Start Time Stop Time Status Last Admin Dose Admin Nitroglycerin 0.4 mg Q5MINP PRN SL 12/12/24 00:30 Morphine Sulfate 2 mg Q30M PRN IV 12/12/24 00:30 Ceftriaxone Sodium 50 ml @ 100 mls/hr DAILY IV 12/12/24 10:00 UNV Acetaminophen 650 mg Q6HP PRN [place] 12/12/24 08:30 12/12/24 09:17 650 MG Methylprednisolone Sodium Succinate 40 mg Q8HR IV 12/12/24 14:00 12/19/24 13:50 40 MG Pantoprazole Sodium 40 mg BID IV 12/14/24 08:46 12/19/24 09:28 40 MG Lactulose 30 ml Q6HPRN PRN PO 12/15/24 15:15 12/15/24 17:41 30 ML Amino Acids 0 ml @ 0 mls/hr PER PHARMACY IV 12/15/24 15:15 Amino Acids/ Electrolytes/ Dextrose 1,000 ml @ 41 mls/hr DAILY@2200 IV 12/15/24 22:00 12/18/24 22:19 41 MLS/HR Diagnostic Test (Pha) 1 strip Q6HR 12/16/24 00:00 12/19/24 11:57 1 STRIP Insulin Human Regular FOLLOW SLIDING SCALE Q6HR SC 12/16/24 00:00 12/19/24 11:58 2 UNITS Dextrose 50 ml UD IV 12/16/24 00:00 Dextrose 1,000 ml @ 50 mls/hr Q20H IV 12/18/24 14:45 12/18/24 22:18 50 MLS/HR Ipratropium [place] 0.5 mg Q4HR NEB 12/18/24 22:00 12/19/24 10:20 0.5 MG Albuterol 2.5 mg Q4HR NEB 12/18/24 22:00 12/19/24 10:20 2.5 MG Cefazolin Sodium 50 ml @ 100 mls/hr Q6HR IV 12/19/24 12:00 12/19/24 12:00 100 MLS/HR Doxycycline Hyclate 100 ml @ 50 mls/hr Q12H IV 12/19/24 12:00 12/19/24 12:00 50 MLS/HR Examination: GENERAL:Abnormal, LUNGS:Abnormal, ABDOMEN:Abnormal, SKIN:Abnormal laboratory and microbiology Laboratory Tests 12/19/24 04:41 12/18/24 05:44 Test 12/19/24 04:41 Range/Units Serum Glucose 168 H 74-106 mg/dL Microbiology Date/Time Source Procedure Growth Status 12/17/24 20:00 Urine - [place] Urine Culture - Preliminary Resulted 12/16/24 11:00 Wrist Left Gram Stain - Final Resulted 12/16/24 11:00 Wound Culture - Preliminary Proteus mirabilis Resulted 12/14/24 01:10 Sputum Gram Stain - Final Complete 12/14/24 01:10 Respiratory Culture - Final Staphylococcus aureus Complete 12/12/24 00:41 Stool Stool Culture - Final Complete 12/12/24 00:41 Stool Shiga Toxin I & II - Final Complete 12/12/24 00:14 Blood Blood Culture - Final NO GROWTH AFTER 5 DAYS OF INCUBATION. Complete Problem List/Assessment/Plan Problem List/Assessment/Plan ZACARIAS resolved hydronephrosis w/ obstructing stone Right side hypernatremia CHF EF 40% respiratory failure PNA hypokalemia Continue free water and potassium replacement IV d5W now that patient is extubated in currently not tolerating p.o. failed swallow , gets IV nutrition. check electrolytes and replace daily Strict Is&Os IV antibiotics for sepsis and pneumonia Avoid hypotension Avoid contrast studies Avoid nonsteroidal anti-inflammatory drugs Plan discussed with: Patient My Orders My Orders Orders - LARRY PLASCENCIA MD Procedure Category Date Status Time D5w 5% (Dextrose 5%) PHA 12/18/24 In Process 14:45 Dietary Evaluation Review Comments: 1. If GI is accessible, consider glucerna 1.2 @ 50ml/hr to provide 1440kcal, 72g pro, 966 ml FW to meet 100% of needs. 2. Consider advance to CCHO 60g diet when appropriate 3. Consider TPN if NPO> 7 days Expected Outcomes/Goals: 1. Pt will meet >75% of estimated needs within 2-3 days CC Plasma Assessment Blood Product Administration S: [id number] LARRY PLASCENCIA MD Dec 19, 2024 14:16
[2024-12-19] MEDS ORDERED: POTASSIUM PHOSPHATE 22 MEQ in SODIUM CHL 0.9% 100 ML IV ONE (15:15)
[2024-12-19] MEDS: POTASSIUM PHOSPHATE 26.4 MEQ in SODIUM CHL 0.9% 100 ML IV ONE (18:11)
--- NOTE | 2024-12-19 22:43 | DVHPN2 ---
Progress Note - Dictate Date Seen: Dec 19, 2024 Medical Necessity Reason Pt with a Central, PICC or Fol: Yes The following are medically ne: Barron Catheter Reason for barron catheter: Strict I&O Subjective Patient seen and examined at bedside. Currently on room air Overnight events reviewed. vital signs Vital Sign Date Time Temp Pulse Resp B/P (MAP) Pulse Ox O2 Delivery O2 Flow Rate FiO2 12/19/24 22:17 75 20 98 12/19/24 22:12 Room Air* 0 21 12/19/24 21:00 98.1 155/74 (101) 98.1 Total Intake and Output 12/18/24 12/18/24 12/19/24 15:00 23:00 07:00 Intake Total 888 ml 828 ml 828 ml Output Total 550 ml 350 ml Balance 888 ml 278 ml 478 ml medications Current Medications Medications Dose Ordered Sig/Roberto Route Start Time Stop Time Status Last Admin Dose Admin Nitroglycerin 0.4 mg Q5MINP PRN SL 12/12/24 00:30 Morphine Sulfate 2 mg Q30M PRN IV 12/12/24 00:30 Ceftriaxone Sodium 50 ml @ 100 mls/hr DAILY IV 12/12/24 10:00 UNV Acetaminophen 650 mg Q6HP PRN OR 12/12/24 08:30 12/12/24 09:17 650 MG Methylprednisolone Sodium Succinate 40 mg Q8HR IV 12/12/24 14:00 12/19/24 22:05 40 MG Pantoprazole Sodium 40 mg BID IV 12/14/24 08:46 12/19/24 22:05 40 MG Lactulose 30 ml Q6HPRN PRN PO 12/15/24 15:15 12/15/24 17:41 30 ML Amino Acids 0 ml @ 0 mls/hr PER PHARMACY IV 12/15/24 15:15 Amino Acids/ Electrolytes/ Dextrose 1,000 ml @ 41 mls/hr DAILY@2200 IV 12/15/24 22:00 12/19/24 22:09 41 MLS/HR Diagnostic Test (Pha) 1 strip Q6HR 12/16/24 00:00 12/19/24 17:28 1 STRIP Insulin Human Regular FOLLOW SLIDING SCALE Q6HR SC 12/16/24 00:00 12/19/24 17:25 4 UNITS Dextrose 50 ml UD IV 12/16/24 00:00 Dextrose 1,000 ml @ 50 mls/hr Q20H IV 12/18/24 14:45 12/18/24 22:18 50 MLS/HR Ipratropium [place] 0.5 mg Q4HR NEB 12/18/24 22:00 12/19/24 22:12 0.5 MG Albuterol 2.5 mg Q4HR NEB 12/18/24 22:00 12/19/24 22:12 2.5 MG Cefazolin Sodium 50 ml @ 100 mls/hr Q6HR IV 12/19/24 12:00 12/19/24 17:35 100 MLS/HR Doxycycline Hyclate 100 ml @ 50 mls/hr Q12H IV 12/19/24 12:00 12/19/24 12:00 50 MLS/HR objective Gen.: Patient lying in bed in no apparent distress. On room air. Head: Normocephalic, atraumatic. Eyes: EOMI/PERRLA. Ears: Normal hearing. Normal anatomy. Neck/trachea: Trachea midline, supple. Nose: Normal external anatomy. Mouth: Moist mucous membranes. Chest: Decreased air entry bilaterally. No wheezing or rhonchi. Cardiovascular: Positive S1, positive S2. Regular rate and rhythm. Abdomen: Positive bowel sounds in all 4 quadrants. Soft, non-tender, non- distended. : Deferred. Rectal: Deferred. Skin: Warm, dry. Intact. Extremities: 2+ radial pulses bilaterally. No lower extremity edema. Neuro: Awake, alert, oriented x3. No gross motor or sensory deficits. Cranial nerves II through XII intact. Gait not assessed. laboratory and microbiology Laboratory Tests 12/19/24 04:41 12/18/24 05:44 Test 12/19/24 04:41 Range/Units Serum Glucose 168 H 74-106 mg/dL Assessment/Plan Impression: Acute hypoxic respiratory failure COVID 19 infection S/p cardiac arrest Anemia Cachexia, BMI of 19 Events: Patient desaturated overnight, required high flow oxygen Obtained STAT ABG and CXR. ABG notable for alkalemia; metabolic acidosis w/ respiratory compensation CXR image and report reviewed; moderate interstitial opacities, pulmonary edema. Small left pleural effusion. Currently on room air. Supplemental oxygen PRN Improving O2 requirements Off pressors, hemodynamically stable. Leukocytosis - improving; WBC 12.7 K Monitor hemoglobin, 8.7 g/dl, stable Monitor platelets, trending up - 136 K Metabolic acidosis - bicarb 18 Continue abx Sputum culture shows normal oropharyngeal carmelo. Staph aureus. Started on vancomycin Blood cultures show no growth after 5 days Continue steroids Clinimix for nutritional support F/u swallow eval. On D5W infusion at 50 ml/hr IV fluids at 100 ml/hr. Monitor renal function Monitor electrolytes. Supplement as necessary. Hypokalemia - supplement Sodium 147 - continue to monitor Monitor respiratory status closely Labs and imaging reviewed. Rest of plan as noted below. Plan: s/p extubation on 12/17/24 Supplemental oxygen Titrate to keep O2 sats above 90%. Off sedation Antibiotics F/u cultures Blood cultures show no growth after 5 days Sputum culture shows normal oropharyngeal carmelo. Staph aureus. Remdesivir course completed. Steroids - Solu-Medrol Monitor hemoglobin Pressors if necessary for hemodynamic support Titrate to keep mean arterial pressure greater than 65 mmHg. Monitor renal function Monitor electrolytes. Supplement as necessary. Monitor ins and outs. GI prophylaxis. DVT prophylaxis. Prognosis: Guarded given patient's multiple co-morbidities. Rest of plan per hospitalist and other consultants. Thank you Dr. Baez for allowing me to participate in this patient's care. Further recommendations will depend on the patient's clinical course. Please do not hesitate to contact me if you have any questions or concerns. This medical document was created using an electronic medical record system with [employer] dictation system. Although these documentations are being carefully reviewed, there may still be some phonetic and typographical changes. The errors are purely typographical, due to imperfection on the software program, and do not reflect any compromise in the patient's medical care. Dietary Evaluation Review Comments: 1. If GI is accessible, consider glucerna 1.2 @ 50ml/hr to provide 1440kcal, 72g pro, 966 ml FW to meet 100% of needs. 2. Consider advance to CCHO 60g diet when appropriate 3. Consider TPN if NPO> 7 days Expected Outcomes/Goals: 1. Pt will meet >75% of estimated needs within 2-3 days Plan discussed with: Patient, Other (RN) CC Plasma Assessment Blood Product Administration S: [id number] VIDYA MISHRA MD Dec 19, 2024 22:43
[2024-12-20] VITALS (22 sets, daily range): BP systolic 109–127; BP diastolic 64–92; PULSE 56–67; RESP 14–24; TEMP 97.3–98; O2SAT 82–100
[2024-12-20 06:02] LABS: Alkaline Phosphatase 87 U/L (46-116); Anion Gap 12 (5-15); Aspartate Aminotransferase 39 U/L (13-40); BUN/Creatinine Ratio 50.8 (10.0-20.0); Potassium 3.7 mmol/L (3.5-5.1); Sodium 144 mmol/L (136-145)
[2024-12-20 06:04] LABS: Bilirubin, Total 0.8 mg/dL (0.2-1.0)
[2024-12-20 06:19] LABS: Hemoglobin 9.9 g/dL (13.5-17.5)
[2024-12-20 06:22] LABS: Hematocrit 34.4 % (41.0-53.0); Mean Corpuscular Hemoglobin 21.9 pg (28.0-32.0); Mean Corpuscular Hgb Conc. 28.7 g/dL (32.0-36.0); Mean Corpuscular Volume 76.3 fL (80.0-100.0); Platelet Count (auto) 153 10^3/uL (140-450); Red Blood Cells 4.51 10^6/uL (4.5-5.90); White Blood Cell 18.4 10^3/uL (4.4-10.8)
[2024-12-20 06:30] LABS: Red Cell Distribution Width 31.6 % (11.8-14.3)
[2024-12-20 06:31] LABS: Basophils % (manual) 0 (0.0-2.0); Blast Cells 0; Eosinophils % (manual) 0 (0-7); Metamyelocytes % 0; Myelocytes % 0; Promyelocytes % 0; Reactive Lymphocytes 0
[2024-12-20 06:44] LABS: Alanine Aminotransferase 204 U/L (7-40); Blood Urea Nitrogen 30 mg/dL (9-23); Calcium 8.6 mg/dL (8.7-10.4); Carbon Dioxide 16 mmol/L (20-31); Chloride 116 mmol/L (98-107); Glucose 143 mg/dL (74-106); Phosphorus 2.3 mg/dL (2.4-5.1); Total Protein 4.8 g/dL (5.7-8.2)
[2024-12-20 06:45] LABS: Albumin 2.6 g/dL (3.2-4.8)
[2024-12-20 06:50] LABS: Anisocytosis Moderate; Band Neutrophils % (manual) 1; Hypochromia Moderate; Lymphocytes % (manual) 3 (10.0-50.0); Monocytes % (manual) 4 (0-12)
[2024-12-20 06:51] LABS: Large Platelets FEW; Ovalocytes FEW; Platelet Estimate Adequate
--- NOTE | 2024-12-20 11:17 | DVHPN2 ---
Progress Note Date Seen: Dec 20, 2024 Resident Creating Document: CAROLINE VAZQUEZ RESIDENT Medical Necessity Reason Pt with a Central, PICC or Fol: Yes The following are medically ne: Barron Catheter Reason for barron catheter: Strict I&O Subjective Review of Systems No and over night events. Patient seen and examined. No nausea or vomiting. No signs of active GI bleeding Clinimix for nutrition Objective vital signs Vital Sign Date Time Temp Pulse Resp B/P (MAP) Pulse Ox O2 Delivery O2 Flow Rate FiO2 12/20/24 10:19 60 16 99 12/20/24 09:00 97.9 121/69 (86) 97.9 12/20/24 07:38 Room Air* 0 21 Total Intake and Output 12/19/24 12/19/24 12/20/24 15:00 23:00 07:00 Intake Total 928 ml 603 ml 1068 ml Output Total 600 ml 300 ml Balance 928 ml 3 ml 768 ml medications Current Medications Medications Dose Ordered Sig/Roberto Route Start Time Stop Time Status Last Admin Dose Admin Nitroglycerin 0.4 mg Q5MINP PRN SL 12/12/24 00:30 Morphine Sulfate 2 mg Q30M PRN IV 12/12/24 00:30 Ceftriaxone Sodium 50 ml @ 100 mls/hr DAILY IV 12/12/24 10:00 UNV Acetaminophen 650 mg Q6HP PRN [place] 12/12/24 08:30 12/12/24 09:17 650 MG Methylprednisolone Sodium Succinate 40 mg Q8HR IV 12/12/24 14:00 12/20/24 05:32 40 MG Pantoprazole Sodium 40 mg BID IV 12/14/24 08:46 12/20/24 09:34 40 MG Lactulose 30 ml Q6HPRN PRN PO 12/15/24 15:15 12/15/24 17:41 30 ML Amino Acids 0 ml @ 0 mls/hr PER PHARMACY IV 12/15/24 15:15 Amino Acids/ Electrolytes/ Dextrose 1,000 ml @ 41 mls/hr DAILY@2200 IV 12/15/24 22:00 12/19/24 22:09 41 MLS/HR Diagnostic Test (Pha) 1 strip Q6HR 12/16/24 00:00 12/20/24 06:16 1 STRIP Insulin Human Regular FOLLOW SLIDING SCALE Q6HR SC 12/16/24 00:00 12/20/24 06:16 2 UNITS Dextrose 50 ml UD IV 12/16/24 00:00 Dextrose 1,000 ml @ 50 mls/hr Q20H IV 12/18/24 14:45 12/18/24 22:18 50 MLS/HR Ipratropium [place] 0.5 mg Q4HR NEB 12/18/24 22:00 12/20/24 10:09 0.5 MG Albuterol 2.5 mg Q4HR NEB 12/18/24 22:00 12/20/24 10:09 2.5 MG Cefazolin Sodium 50 ml @ 100 mls/hr Q6HR IV 12/19/24 12:00 12/20/24 05:32 100 MLS/HR Doxycycline Hyclate 100 ml @ 50 mls/hr Q12H IV 12/19/24 12:00 12/20/24 00:50 50 MLS/HR Examination General Appearance: Alert, protecting airway. Head Exam: Normal inspection Neck Exam: Normal inspection. Non-tender. Normal alignment Pulmonary/Respiratory: Chest non-tender. Clear bilateral breath sounds Cardiovascular/Chest: Regular rate and rhythm. No murmurs. No JVD. Peripheral Pulses: 2+ Radial (R). 2+ Radial (L). 2+ Pedal (R). 2+ Pedal (L) Abdominal Exam: Normal bowel sounds. Soft. Nontender. No hepatospenomegaly. No masses Ankle Exam: Negative ankle edema Lower extremities: Negative lower extremity edema Neuro/Mental Status: Alert. Appropriate motor upper and lower extremity movements. laboratory and microbiology Laboratory Tests 12/20/24 05:24 Test 12/20/24 05:24 Range/Units Serum Glucose 143 H 74-106 mg/dL Microbiology Date/Time Source Procedure Growth Status 12/17/24 20:00 Urine - [place] Urine Culture - Preliminary Resulted 12/16/24 11:00 Wrist Left Gram Stain - Final Resulted 12/16/24 11:00 Wound Culture - Preliminary Proteus mirabilis Resulted 12/14/24 01:10 Sputum Gram Stain - Final Complete 12/14/24 01:10 Respiratory Culture - Final Staphylococcus aureus Complete 12/12/24 00:41 Stool Stool Culture - Final Complete 12/12/24 00:41 Stool Shiga Toxin I & II - Final Complete 12/12/24 00:14 Blood Blood Culture - Final NO GROWTH AFTER 5 DAYS OF INCUBATION. Complete Problem List/Assessment/Plan Problem List/Assessment/Plan COVID pneumonia Septic shock Cholelithiasis Cirrhosis Transaminitis Possible GI bleed Cachexia BMI 19 Microcytic hypochromic anemia Lactic acidosis Coagulopathy Plan/recommendation Dr. Gregory Follow up with GI in outpatient setting for GI workup. -continue current management with IV Protonix 40 mg b.i.d. -continue monitor H&H, coagulation panel and liver function. -no active GI bleed noted till now. -IV hydration and antibiotic as per primary team -we will continue monitor this patient Plan discussed with: Patient, Other (RN) Dietary Evaluation Review Comments: 1. If GI is accessible, consider glucerna 1.2 @ 50ml/hr to provide 1440kcal, 72g pro, 966 ml FW to meet 100% of needs. 2. Consider advance to CCHO 60g diet when appropriate 3. Consider TPN if NPO> 7 days Expected Outcomes/Goals: 1. Pt will meet >75% of estimated needs within 2-3 days CC Plasma Assessment Blood Product Administration S: [id number] CAROLINE VAZQUEZ RESIDENT Dec 20, 2024 11:17
--- NOTE | 2024-12-20 11:58 | DVHPN2 ---
Subjective He is looking better More alert and oriented Following commands He failed a swallow eval for the 2nd time yesterday Reviewed: Care Plan, H&P, Labs, Medications, Previous Orders, Radiology Changes from previous H/P or p: Changes General: Per HPI Objective Vitals Vital Signs Date Time Temp Pulse Resp B/P (MAP) Pulse Ox O2 Delivery O2 Flow Rate FiO2 12/20/24 10:19 60 16 99 12/20/24 09:00 97.9 121/69 (86) 97.9 12/20/24 07:38 Room Air* 0 21 Intake/Output Intake and Output 12/20/24 07:00 Intake Total 2599 ml Output Total 900 ml Balance 1699 ml IV Total 2599 ml Output Urine Total 900 ml General Appearance: No acute distress HEENT: Atraumatic Cardiovascular: Regular rate, Normal S1, Normal S2 Abdomen: Normal bowel sounds, Soft Medications Current Medications Medications Dose Ordered Sig/Roberto Route Start Time Stop Time Status Last Admin Dose Admin Nitroglycerin 0.4 mg Q5MINP PRN SL 12/12/24 00:30 Morphine Sulfate 2 mg Q30M PRN IV 12/12/24 00:30 Ceftriaxone Sodium 50 ml @ 100 mls/hr DAILY IV 12/12/24 10:00 UNV Acetaminophen 650 mg Q6HP PRN IN 12/12/24 08:30 12/12/24 09:17 650 MG Methylprednisolone Sodium Succinate 40 mg Q8HR IV 12/12/24 14:00 12/20/24 05:32 40 MG Pantoprazole Sodium 40 mg BID IV 12/14/24 08:46 12/20/24 09:34 40 MG Lactulose 30 ml Q6HPRN PRN PO 12/15/24 15:15 12/15/24 17:41 30 ML Amino Acids 0 ml @ 0 mls/hr PER PHARMACY IV 12/15/24 15:15 Amino Acids/ Electrolytes/ Dextrose 1,000 ml @ 41 mls/hr DAILY@2200 IV 12/15/24 22:00 12/19/24 22:09 41 MLS/HR Diagnostic Test (Pha) 1 strip Q6HR 12/16/24 00:00 12/20/24 06:16 1 STRIP Insulin Human Regular FOLLOW SLIDING SCALE Q6HR SC 12/16/24 00:00 12/20/24 06:16 2 UNITS Dextrose 50 ml UD IV 12/16/24 00:00 Dextrose 1,000 ml @ 50 mls/hr Q20H IV 12/18/24 14:45 12/18/24 22:18 50 MLS/HR Ipratropium [place] 0.5 mg Q4HR NEB 12/18/24 22:00 12/20/24 10:09 0.5 MG Albuterol 2.5 mg Q4HR NEB 12/18/24 22:00 12/20/24 10:09 2.5 MG Cefazolin Sodium 50 ml @ 100 mls/hr Q6HR IV 12/19/24 12:00 12/20/24 05:32 100 MLS/HR Doxycycline Hyclate 100 ml @ 50 mls/hr Q12H IV 12/19/24 12:00 12/20/24 00:50 50 MLS/HR Laboratory Results Laboratory Tests 12/20/24 05:24 Chemistry Test 12/20/24 05:24 Albumin 2.6 g/dL (3.2-4.8) L Calcium Level 8.6 mg/dL (8.7-10.4) L Magnesium Level 2.0 mg/dL (1.6-2.6) Phosphorus Level 2.3 mg/dL (2.4-5.1) L Total Protein 4.8 g/dL (5.7-8.2) L LFT Test 12/20/24 05:24 Alanine Aminotransferase (ALT) 204 U/L (7-40) H Alkaline Phosphatase 87 U/L (46-116) Aspartate Amino Transferase (AST) 39 U/L (13-40) Total Bilirubin 0.8 mg/dL (0.2-1.0) Urinalysis Test 12/12/24 02:20 12/12/24 07:47 Urine RBC 19 /hpf (0 - 3) Urine Microscopic WBC 50 /HPF (0-3) H Urine Squamous Epithelial Cells Few /hpf (<5) Urine Calcium Oxalate Crystals Few (None Seen) Urine Bacteria Few /hpf (None Seen) H Urine Color Dark-brown (Yellow) Urine Clarity Ex.turbid (Clear) Urine pH 7.0 (5.0-9.0) Urine Specific [place] 1.022 (1.001-1.035) Urine Protein 3+ (Negative) H Urine Ketones Trace (Negative) Urine Blood 2+ /uL (Negative) H Urine Nitrite 2+ (Negative) H Urine Bilirubin Negative (Negative) Urine Urobilinogen Normal mg/dL (Negative) Urine Leukocyte Esterase 3+ /uL (Negative) Urine Glucose Normal mg/dL (Normal) Microbiology Microbiology Date/Time Source Procedure Growth Status 12/17/24 20:00 Urine - [place] Urine Culture - Preliminary Resulted 12/16/24 11:00 Wrist Left Gram Stain - Final Complete 12/16/24 11:00 Wound Culture - Final Proteus mirabilis Enterococcus faecalis Complete 12/14/24 01:10 Sputum Gram Stain - Final Complete 12/14/24 01:10 Respiratory Culture - Final Staphylococcus aureus Complete 12/12/24 00:41 Stool Stool Culture - Final Complete 12/12/24 00:41 Stool Shiga Toxin I & II - Final Complete 12/12/24 00:14 Blood Blood Culture - Final NO GROWTH AFTER 5 DAYS OF INCUBATION. 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 History of GI bleed with possible GI bleed Severe anemia History of colonic polyps History of atrial fibrillation on blood thinners Coronary artery disease with a history of stents History of ventricular arrhythmia Status post ICD Bilateral pleural effusions Possible aspiration pneumonia COVID pneumonia Pericardial effusion Plan Clinimix IV Broad-spectrum antibiotics aztreonam and doxycycline and vancomycin IV remdesivir Eliquis IV steroids Start free water for the hypernatremia IV potassium IV Protonix Full code Contact numbers for family to clarify advance directives or code status are not working DC Eliquis: No DVT GI consult According to patient's nurse the power of environmental attorney requested full code Full code today 12/17/2024: Hypernatremia: Continue free water Acute respiratory failure: CPAP Hypokalemia: Replace IV Off Levophed drip Continue Clinimix Nephrology consult Discontinue Eliquis GI consult 12/18/2024: Downgrade to telemetry Replace magnesium and potassium as needed Continue IV antibiotics Swallow eval Start diet as recommended by swallow test 12/19/2024: Downgrade IV antibiotics to cefazolin and doxycycline Downgrade to telemetry Replace potassium IV Repeat a swallow eval Physical therapy evaluation 12/20/2024: The patient is still not able to swallow and therefore we will repeat a swallow evaluation to hopefully start him on a diet Lower the steroid dose Replace electrolytes as needed Repeat a swallow evaluation IV antibiotics cefazolin and doxycycline Monitor closely The rest of the management will depend on the hospital course The patient lives in a [facility] which he will go to again upon discharge Plan discussed with: Patient My Orders Orders - HUMPHREY OROZCO MD Procedure Category Date Status Time Cefazolin 1gm/50ml PHA 12/19/24 In Process (Ancef) 12:00 Doxycycline PHA 12/19/24 In Process 100mg/100ml 12:00 * Swallow Request ST 12/19/24 Transmitted 12:01 Pt Request For Service PT 12/19/24 Logged 12:01 Npo (Nothing By DIET 12/19/24 Transmitted Mouth) Diet Dinner Date of Service: Dec 20, 2024 Billing Provider: HUMPHREY OROZCO MD Common Visit Codes: [id number] INP/OBS CARE(HIGH) HUMPHREY OROZCO MD Dec 20, 2024 11:58
[2024-12-20] MEDS: POTASSIUM PHOSPHATE 22 MEQ in SODIUM CHL 0.9% 100 ML IV ONE (14:26)
[2024-12-20] MEDS: methylPREDNISolone SOD SUCC 40 MG/ML VL IV SCH (22:42)
--- NOTE | 2024-12-20 23:10 | DVHPN2 ---
Progress Note - Dictate Date Seen: Dec 20, 2024 Medical Necessity Reason Pt with a Central, PICC or Fol: Yes The following are medically ne: Barron Catheter Reason for barron catheter: Strict I&O Subjective Patient seen and examined at bedside. On supplemental oxygen Overnight events reviewed. vital signs Vital Sign Date Time Temp Pulse Resp B/P (MAP) Pulse Ox O2 Delivery O2 Flow Rate FiO2 12/20/24 22:17 65 16 99 12/20/24 22:11 Nasal Cannula 2.0 12/20/24 22:11 28 12/20/24 16:33 98.0 109/67 (81) 98.0 Total Intake and Output 12/19/24 12/19/24 12/20/24 14:59 22:59 06:59 Intake Total 928 ml 694 ml 1068 ml Output Total 600 ml 300 ml Balance 928 ml 94 ml 768 ml medications Current Medications Medications Dose Ordered Sig/Roberto Route Start Time Stop Time Status Last Admin Dose Admin Nitroglycerin 0.4 mg Q5MINP PRN SL 12/12/24 00:30 Morphine Sulfate 2 mg Q30M PRN IV 12/12/24 00:30 Ceftriaxone Sodium 50 ml @ 100 mls/hr DAILY IV 12/12/24 10:00 UNV Acetaminophen 650 mg Q6HP PRN MT 12/12/24 08:30 12/12/24 09:17 650 MG Pantoprazole Sodium 40 mg BID IV 12/14/24 08:46 12/20/24 22:42 40 MG Lactulose 30 ml Q6HPRN PRN PO 12/15/24 15:15 12/15/24 17:41 30 ML Amino Acids 0 ml @ 0 mls/hr PER PHARMACY IV 12/15/24 15:15 Amino Acids/ Electrolytes/ Dextrose 1,000 ml @ 41 mls/hr DAILY@2200 IV 12/15/24 22:00 12/20/24 22:43 41 MLS/HR Diagnostic Test (Pha) 1 strip Q6HR 12/16/24 00:00 12/20/24 18:00 1 STRIP Insulin Human Regular FOLLOW SLIDING SCALE Q6HR SC 12/16/24 00:00 12/20/24 19:12 2 UNITS Dextrose 50 ml UD IV 12/16/24 00:00 Dextrose 1,000 ml @ 50 mls/hr Q20H IV 12/18/24 14:45 12/18/24 22:18 50 MLS/HR Ipratropium [place] 0.5 mg Q4HR NEB 12/18/24 22:00 12/20/24 22:11 0.5 MG Albuterol 2.5 mg Q4HR NEB 12/18/24 22:00 12/20/24 22:11 2.5 MG Cefazolin Sodium 50 ml @ 100 mls/hr Q6HR IV 12/19/24 12:00 12/20/24 17:44 100 MLS/HR Doxycycline Hyclate 100 ml @ 50 mls/hr Q12H IV 12/19/24 12:00 12/20/24 14:26 50 MLS/HR Methylprednisolone Sodium Succinate 40 mg Q12HR IV 12/20/24 22:00 12/20/24 22:42 40 MG objective Gen.: Patient lying in bed in no apparent distress. On supplemental oxygen. Head: Normocephalic, atraumatic. Eyes: EOMI/PERRLA. Ears: Normal hearing. Normal anatomy. Neck/trachea: Trachea midline, supple. Nose: Normal external anatomy. Mouth: Moist mucous membranes. Chest: Decreased air entry bilaterally. No wheezing or rhonchi. Cardiovascular: Positive S1, positive S2. Regular rate and rhythm. Abdomen: Positive bowel sounds in all 4 quadrants. Soft, non-tender, non- distended. : Deferred. Rectal: Deferred. Skin: Warm, dry. Intact. Extremities: 2+ radial pulses bilaterally. No lower extremity edema. Neuro: Awake, alert, oriented x3. No gross motor or sensory deficits. Cranial nerves II through XII intact. Gait not assessed. laboratory and microbiology Laboratory Tests 12/20/24 05:24 Test 12/20/24 05:24 Range/Units Serum Glucose 143 H 74-106 mg/dL Assessment/Plan Impression: Acute hypoxic respiratory failure COVID 19 infection S/p cardiac arrest Anemia Cachexia, BMI of 19 Events: Currently on supplemental oxygen, on 2 LPM NC Taper O2 as tolerated Increased O2 requirements Patient is altered. Off pressors, hemodynamically stable. Leukocytosis - WBC trending up to 18.4 K Monitor hemoglobin, 9.9 g/dl, improved Monitor platelets, trending up - 153 K Continue antibiotics Sputum culture shows normal oropharyngeal carmelo. Staph aureus. Blood cultures show no growth after 5 days Continue bronchodilators Clinimix for nutritional support F/u swallow eval. On D5W infusion at 50 ml/hr IV fluids at 100 ml/hr. Monitor renal function Monitor electrolytes. Supplement as necessary. Head of bed elevation Aspiration precautions Monitor respiratory status closely Labs and imaging reviewed. Rest of plan as noted below. Plan: s/p extubation on 12/17/24 Supplemental oxygen Titrate to keep O2 sats above 90%. Off sedation Antibiotics F/u cultures Blood cultures show no growth after 5 days Sputum culture shows normal oropharyngeal carmelo. Staph aureus. Remdesivir course completed. Steroids - Solu-Medrol Monitor hemoglobin Pressors if necessary for hemodynamic support Titrate to keep mean arterial pressure greater than 65 mmHg. Monitor renal function Monitor electrolytes. Supplement as necessary. Monitor ins and outs. GI prophylaxis. DVT prophylaxis. Prognosis: Guarded given patient's multiple co-morbidities. Rest of plan per hospitalist and other consultants. Thank you Dr. Baez for allowing me to participate in this patient's care. Further recommendations will depend on the patient's clinical course. Please do not hesitate to contact me if you have any questions or concerns. This medical document was created using an electronic medical record system with [employer] dictation system. Although these documentations are being carefully reviewed, there may still be some phonetic and typographical changes. The errors are purely typographical, due to imperfection on the software program, and do not reflect any compromise in the patient's medical care. Dietary Evaluation Review Comments: 1. If GI is accessible, consider glucerna 1.2 @ 50ml/hr to provide 1440kcal, 72g pro, 966 ml FW to meet 100% of needs. 2. Consider advance to CCHO 60g diet when appropriate 3. Consider TPN if NPO> 7 days Expected Outcomes/Goals: 1. Pt will meet >75% of estimated needs within 2-3 days Plan discussed with: Patient, Other (ROSALES Singh) CC Plasma Assessment Blood Product Administration S: [id number] VIDYA MISHRA MD Dec 20, 2024 23:10
[2024-12-21] VITALS (97 sets, daily range): BP systolic 75–140; BP diastolic 40–78; PULSE 59–71; RESP 15–29; TEMP 97–98.6; O2SAT 90–100
[2024-12-21] MEDS: SODIUM BICARB 8.4% 50Meq/50ml SYR INJ ONE (02:27)
[2024-12-21 02:32] LABS: Base Excess -9.1 mmol/L (-2.0-3.0)
[2024-12-21] MEDS: ETOMIDATE (2MG/ML) 20ML VIAL IV ONE (02:45)
[2024-12-21] MEDS: SUCCINYLCHOLINE CHLORIDE 20 MG/ML 10ML VIAL IV ONE (02:45)
[2024-12-21] MEDS: SODIUM BICARB 8.4% 50Meq/50ml SYR Vial IV ONE (02:45)
[2024-12-21] MEDS: fentaNYL Drip 2500mCg/250mlNS 250 ML IV ONE (02:57)
[2024-12-21] MEDS: NOREPINEPHRINE 8 MG/250ML KIT 250 ML IV ONE (02:58)
[2024-12-21] MEDS: MIDAZOLAM DRIP 50 mg/50mL 50 ML IV ONE (02:58)
[2024-12-21] MEDS: MIDAZOLAM DRIP 50 mg/50mL 50 ML IV SCH (03:00)
[2024-12-21] MEDS: fentaNYL Drip 2500mCg/250mlNS 250 ML IV SCH (03:15)
--- NOTE | 2024-12-21 03:46 | DVH ---
Examination: CXR1 Clinical Indication: sob Comparison: None. Technique: Frontal radiograph of the chest was obtained. Findings: Endotracheal tube is seen noted 37 mm from the pauline. Nasogastric tube is seen with its tip not imaged. Left-sided central line seen with it In the superior vena cava. Mild right pleural effusion Inhomogeneous radiopacities seen in the right mid zone suggestive of infiltrates. There is no pneumothorax. The cardiomediastinal silhouette is within normal limits. Calcifications of aortic arch seen. No acute osseous abnormality is seen. Impression: 1. Endotracheal tube is seen noted. 2. Nasogastric tube is seen with its tip not imaged. 3. Left-sided central line seen with it. In the superior vena cava. 4. Mild right pleural effusion. 5. Inhomogeneous radiopacities seen in the right mid zone suggestive of infiltrates suggest clinical correlation and follow-up. Electronically Signed 12/21/2024 03:44 Richardson Lopez
[2024-12-21] MEDS: NOREPINEPHRINE 8 MG/250ML KIT 250 ML IV SCH (03:51)
--- NOTE | 2024-12-21 04:27 | RESUS ---
CODE ASSIST ASSESSSMENT Initial Information Code Assist Date: Dec 21, 2024 Code Assist Time: 02:37 Location of Arrest: [facility] Room [facility]-A Provider Name Yisel CORCORAN Crash Cart Opened and Supplies: Yes Situation Staff concerned/worried, speci: RR >28, Other Situation comment: Pt had increased SOB. Orders for a ABG. 2 amps of bicarb were given due to ABG results. Pt then verbalized difficulty of breathing w/ labored breathing and accessory muscle use. Code assist was called. Background Background: Pt admitted for Anemia, became hypoxic on 12/14 and was previously intubated. Assessment Temperature (Fahrenheit): 97.2 Blood Pressure Systolic: 151 Blood Pressure Diastolic: 70 Respiratory Rate: 38 O2 Sat by Pulse Oximetry: 90 Bedside Blood Glucose: 163 Assessment comment: POST VS 126/56 HR 60 vpaced 99% O2 intubated Recommendations/Interventions Procedures: Accu check, ABG, CXR Portable, Cardiac Monitoring, Intubated, Bag Mask Other Interventions Etomidate 20mg , succinylcholine 70mg given 0250 Pt intubated 0254 ETT 8fr 22 @ lip by Jenise [place] Confirmed color change Outcome Outcome: Transfer to ICU Follow up Report Follow up Report Patient transferred to ICU 107- with Estevan Enriquez RN Team Members Team Members Yisel CORCORAN; Dr. Torrez; Jenise W[place]; Lissa Diaz ICUCN, Chelsie Cordero ICURN; Najma Hurtado MSTCN; Sadie Gilbert MSTLD; Keshav Pavon RN; GRACIEAL Allen ALEX A. Dec 21, 2024 04:27
[2024-12-21 05:27] LABS: Base Excess -4.7 mmol/L (-2.0-3.0)
[2024-12-21 07:28] LABS: Base Excess -6.8 mmol/L (-2.0-3.0)
[2024-12-21 08:13] LABS: Eosinophils # (auto) 0 10 ^3/uL (0-0.8); Hematocrit 27.8 % (41.0-53.0); Lymphocytes # (auto) 0.3 10 ^3/uL (0.4-5.4); Lymphocytes % (auto) 1.2 % (10.0-50.0)
[2024-12-21 08:20] LABS: Basophils # (auto) 0 10 ^3/uL (0-0.2); Basophils % (auto) 0.1 % (0.0-2.0); Hemoglobin 8.2 g/dL (13.5-17.5); Mean Corpuscular Hemoglobin 22.3 pg (28.0-32.0); Mean Corpuscular Hgb Conc. 29.5 g/dL (32.0-36.0); Mean Corpuscular Volume 75.5 fL (80.0-100.0); Monocytes # (auto) 0.2 10 ^3/uL (0-1.3); Monocytes % (auto) 1.2 % (0.0-12.0); Neutrophils # (auto) 20.1 10 ^3/uL (1.6-8.6); Neutrophils % (auto) 97.5 % (37.0-80.0); Platelet Count (auto) 148 10^3/uL (140-450); Red Blood Cells 3.69 10^6/uL (4.5-5.90); Red Cell Distribution Width 32.3 % (11.8-14.3); White Blood Cell 20.6 10^3/uL (4.4-10.8)
[2024-12-21 08:30] LABS: Alkaline Phosphatase 91 U/L (46-116); Anion Gap 10 (5-15); Aspartate Aminotransferase 33 U/L (13-40); BUN/Creatinine Ratio 47.1 (10.0-20.0); Bilirubin, Total 0.6 mg/dL (0.2-1.0); Magnesium 1.8 mg/dL (1.6-2.6); Potassium 3.7 mmol/L (3.5-5.1); Sodium 142 mmol/L (136-145)
[2024-12-21 08:35] LABS: Alanine Aminotransferase 115 U/L (7-40); Blood Urea Nitrogen 32 mg/dL (9-23); Calcium 7.9 mg/dL (8.7-10.4); Carbon Dioxide 19 mmol/L (20-31); Chloride 113 mmol/L (98-107); Glucose 165 mg/dL (74-106)
[2024-12-21 08:36] LABS: Albumin 2.1 g/dL (3.2-4.8); Total Protein 4.1 g/dL (5.7-8.2)
[2024-12-21] MEDS: SODIUM CHLORIDE 0.9% 500 ML IV ONE (11:45)
[2024-12-21] MEDS ORDERED: VANCOMYCIN PER PHARMACY 0 MG IV SCH (11:45)
--- NOTE | 2024-12-21 11:49 | DVHPN2 ---
Assessment/Plan Assessment/Plan ICU Progress note Seen today during rounds, intubated overnight, now on mechanical ventilator. POCUS done, IVC 2cm >50% collapsibility on mechanical ventilator. on pressors. likely aspiration pneumonia. will do fluid challange, escalate abx, mrsa swab and culture Physical exam sedated and mechanically ventilated mechanical breaths ounds PERLLA s1 s2 RRR abdomen soft nontender contracted LUE stump LLE trace edema likely third psacing Labs imaging and EKG reviewed Assessment and plan acute hypoxic respiratory failure requiring mechanical ventilation aspiration pneumonia gp vs gn covid 19 resolved? 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 possible GIB severe anemia afib not on AC s/p cardiac arrest anmeia protein calorie malnutrition continue oxygen supplementation to maintain SpO2 above 94% dc clinimix start tube feeding empiric abx coverage, escalate to vanc and cefepime fluid challenge iv steroids rest as current management Lines L TLC ETT NGT Diane Diet jevity DVT prophylaxis hold GI prophylaxis Protonix Condition critical poor prognosis Full code 89 minutes of critical care time spent Plan discussed with: Other My Orders Orders - SLAVA GIRON MD Procedure Category Date Status Time Nutritional PHA 12/21/24 Logged Supplements (Jevity 11:45 Sodium Chloride 0.9% PHA 12/21/24 Logged 11:45 Cefepime 1gm/ 50ml PHA 12/21/24 Logged (Maxipime 1gm/50ml) 14:00 Vancomycin Per PHA 12/21/24 Logged Pharmacy 11:45 Mrsa Screen ANAHI 12/21/24 Logged 11:38 Magnesium Sulfate PHA 12/21/24 Logged 1gm/100ml 11:45 Complete Blood Count LAB 12/22/24 Verified 04:00 Basic Metabolic Panel LAB 12/22/24 Verified 04:00 Magnesium LAB 12/22/24 Verified 04:00 Phosphorus LAB 12/22/24 Verified 04:00 Date of Service: Dec 21, 2024 Billing Provider: SLAVA GIRON MD Common Visit Codes: 10151-[id number] CARE 30-74 MIN, [id number] CARE-EACH +30MIN SLAVA GIRON MD Dec 21, 2024 11:49
[2024-12-21] MEDS: VANCOMYCIN 1GM/250ML KIT 250 ML IV SCH (13:00)
[2024-12-21] MEDS: MAGNESIUM SULFATE 1GM/100ML 100 ML IV ONE (13:41)
[2024-12-21] MEDS: CEFEPIME 1GM/ 50ML 50 ML IV SCH (14:00)
--- NOTE | 2024-12-21 18:16 | DVHPN2 ---
Progress Note - Dictate Date Seen: Dec 21, 2024 Medical Necessity Reason Pt with a Central, PICC or Fol: Yes The following are medically ne: Barron Catheter Reason for barron catheter: Strict I&O Subjective Patient apparently is suspected to have an aspiration event this morning Patient was feeling short of breath and a code assist was called Patient was intubated and transferred to ICU Patient has undergone a bronchoscopy since then Currently he is stable resting in the bed intubated sedated FiO2 30% peep of five No active GI bleeding reported; hemoglobin at 8.2 today vital signs Vital Sign Date Time Temp Pulse Resp B/P (MAP) Pulse Ox O2 Delivery O2 Flow Rate FiO2 12/21/24 15:43 62 20 98/56 (70) 98 30 12/21/24 14:00 Mechanical Ventilator+ 12/21/24 12:00 97.0 97.0 12/21/24 01:51 5.0 Total Intake and Output 12/20/24 12/20/24 12/21/24 15:00 23:00 07:00 Intake Total 1482 ml 415.75 ml Output Total 500 ml 350 ml Balance 982 ml 65.75 ml medications Current Medications Medications Dose Ordered Sig/Roberto Route Start Time Stop Time Status Last Admin Dose Admin Nitroglycerin 0.4 mg Q5MINP PRN SL 12/12/24 00:30 Ceftriaxone Sodium 50 ml @ 100 mls/hr DAILY IV 12/12/24 10:00 UNV Acetaminophen 650 mg Q6HP PRN SD 12/12/24 08:30 12/12/24 09:17 650 MG Pantoprazole Sodium 40 mg BID IV 12/14/24 08:46 12/21/24 09:34 40 MG Lactulose 30 ml Q6HPRN PRN PO 12/15/24 15:15 12/15/24 17:41 30 ML Diagnostic Test (Pha) 1 strip Q6HR 12/16/24 00:00 12/21/24 12:00 1 STRIP Insulin Human Regular FOLLOW SLIDING SCALE Q6HR SC 12/16/24 00:00 12/21/24 13:43 4 UNITS Dextrose 50 ml UD IV 12/16/24 00:00 Ipratropium [place] 0.5 mg Q4HR NEB 12/18/24 22:00 12/21/24 14:14 0.5 MG Albuterol 2.5 mg Q4HR NEB 12/18/24 22:00 12/21/24 14:14 2.5 MG Doxycycline Hyclate 100 ml @ 50 mls/hr Q12H IV 12/19/24 12:00 12/21/24 13:42 50 MLS/HR Methylprednisolone Sodium Succinate 40 mg Q12HR IV 12/20/24 22:00 12/21/24 09:35 40 MG Norepinephrine Bitartrate 250 ml @ 3.75 mls/hr Q24H IV 12/21/24 03:30 12/21/24 03:51 3.75 MLS/HR Midazolam HCl 50 ml @ 1 mls/hr Q24H IV 12/21/24 03:30 12/21/24 09:34 4 MLS/HR Fentanyl Citrate 250 ml @ 2.5 mls/hr Q24H IV 12/21/24 03:30 12/21/24 03:15 2.5 MLS/HR Enteral Nutritional Formula 1,000 ml 40ML/HR GT 12/21/24 11:45 Cefepime HCl 50 ml @ 12.5 mls/hr Q8HR IV 12/21/24 14:00 12/21/24 14:00 12.5 MLS/HR Vancomycin HCl 0 ml @ 0 mls/hr UD IV 12/21/24 11:45 Vancomycin HCl 250 ml @ 200 mls/hr Q12H IV 12/21/24 13:00 12/21/24 13:00 200 MLS/HR objective Chronically ill-appearing male intubated sedated Lungs decreased since sounds at the bases CVS S1-S2 regular rate rhythm Abdomen is soft nontender nondistended Extremities without clubbing cyanosis or edema laboratory and microbiology Laboratory Tests 12/21/24 07:49 Test 12/21/24 07:49 Range/Units Serum Glucose 165 H 74-106 mg/dL Problems(with codes): (1) Hypoxemia (2) Elevated lactic acid level (3) Anemia due to blood loss, chronic (4) Altered mental status (5) Leukocytosis Prognosis Plan IV antibiotics Ventilatory support Start enteral tube feedings with Jevity at 10 mL/hour Supportive care for now Dietary Evaluation Review Comments: 1. If GI is accessible, consider glucerna 1.2 @ 50ml/hr to provide 1440kcal, 72g pro, 966 ml FW to meet 100% of needs. 2. Consider advance to CCHO 60g diet when appropriate 3. Consider TPN if NPO> 7 days Expected Outcomes/Goals: 1. Pt will meet >75% of estimated needs within 2-3 days Plan discussed with: Patient, Other (ICU Nurse) CC Plasma Assessment Blood Product Administration S: [id number] CORNEL RDZ MD Dec 21, 2024 18:16
[2024-12-21] MEDS: Jevity 1.2 Cal/Fiber 1 Liter GT SCH (19:12)
[2024-12-21] MEDS ORDERED: APIXABAN 5 MG TAB NG SCH (22:00)
--- NOTE | 2024-12-21 23:08 | DVHNC2 ---
Procedure - Bronchoscopy procedure note: Indications: Right/Left lower lobe atelectasis, Possible mucous plugging. Medicines: See [facility] LAB TECHNICIAN notes. Complications: None Procedure: Patient medications and allergies reviewed. The risks and benefits of the procedure and the sedation options and risk were discussed with the patient's healthcare proxy. All questions were answered and informed consent was obtained. Patient identification and proposed procedure were verified prior to the procedure by the physician, and a nurse, and the respiratory therapist in ICU room. The heart rate, respiratory rate, oxygen saturations, blood pressure, adequacy of pulmonary ventilation, and response to care were monitored throughout the procedure. The physical status of the patient was reassessed after the procedure. After obtaining informed consent, the bronchoscope was introduced through the endotracheal tube and advanced into the trachea bronchial tree of both lungs. The procedure was accomplished without difficulty. The patient tolerated the procedure well. Findings: The trachea is in normal caliber. The pauline is sharp. The tracheobronchial tree of the right lung was examined to at least the first subsegmental level. The bronchial mucosa and anatomy in the right lung are normal. There are no endobronchial lesions. There was copious whitish secretions from right main stem bronchus onward throughout R4-R10. Right middle lobe (RML) Bronchoalveolar lavage (BAL) obtained. RML BAL sent for gram stain and culture. The left upper lobe, lingula, and left lower lobe were examined to at least the first subsegmental level. Bronchial mucosa and anatomy in the left upper lobe and lingula are normal. There were no endobronchial lesions. There was copious whitish secretions from left main stem bronchus onward throughout L5-L10. Mucous plugging removed from L5-L10. There was no active bleeding at the completion of the procedure. Estimated blood loss: Less than 5 mL. Impression: Right/Left lower lobe atelectasis due to mucous plugging Mucous plugging from L5-L10 and R4-R10 RML BAL performed Recommendation: Follow-up RML BAL results. Procedure codes: 62884, bronchoscopy, rigid and flexible, including fluoroscopic guidance, one performed; with bronchial endobronchial broncho-alveolar lavage, single or multiple sites VIDYA MISHRA MD Dec 21, 2024 23:08
--- NOTE | 2024-12-21 23:37 | DVHPN2 ---
Progress Note - Dictate Date Seen: Dec 21, 2024 Medical Necessity Reason Pt with a Central, PICC or Fol: Yes The following are medically ne: Barron Catheter Reason for barron catheter: Strict I&O Subjective Patient seen and examined at bedside. Sedated, intubated on mechanical ventilator. Overnight events reviewed. vital signs Vital Sign Date Time Temp Pulse Resp B/P (MAP) Pulse Ox O2 Delivery O2 Flow Rate FiO2 12/21/24 22:37 61 18 113/59 (77) 99 30 12/21/24 22:00 Mechanical Ventilator+ 12/21/24 18:00 98.6 98.6 12/21/24 01:51 5.0 Total Intake and Output 12/20/24 12/20/24 12/21/24 15:00 23:00 07:00 Intake Total 1482 ml 513.25 ml Output Total 500 ml 350 ml Balance 982 ml 163.25 ml medications Current Medications Medications Dose Ordered Sig/Roberto Route Start Time Stop Time Status Last Admin Dose Admin Nitroglycerin 0.4 mg Q5MINP PRN SL 12/12/24 00:30 Ceftriaxone Sodium 50 ml @ 100 mls/hr DAILY IV 12/12/24 10:00 UNV Acetaminophen 650 mg Q6HP PRN AK 12/12/24 08:30 12/12/24 09:17 650 MG Pantoprazole Sodium 40 mg BID IV 12/14/24 08:46 12/21/24 21:38 40 MG Lactulose 30 ml Q6HPRN PRN PO 12/15/24 15:15 12/15/24 17:41 30 ML Diagnostic Test (Pha) 1 strip Q6HR 12/16/24 00:00 12/21/24 18:29 1 STRIP Insulin Human Regular FOLLOW SLIDING SCALE Q6HR SC 12/16/24 00:00 12/21/24 18:31 4 UNITS Dextrose 50 ml UD IV 12/16/24 00:00 Ipratropium [place] 0.5 mg Q4HR NEB 12/18/24 22:00 12/21/24 22:37 0.5 MG Albuterol 2.5 mg Q4HR NEB 12/18/24 22:00 12/21/24 22:37 2.5 MG Doxycycline Hyclate 100 ml @ 50 mls/hr Q12H IV 12/19/24 12:00 12/21/24 13:42 50 MLS/HR Methylprednisolone Sodium Succinate 40 mg Q12HR IV 12/20/24 22:00 12/21/24 21:38 40 MG Norepinephrine Bitartrate 250 ml @ 3.75 mls/hr Q24H IV 12/21/24 03:30 12/21/24 03:51 3.75 MLS/HR Midazolam HCl 50 ml @ 1 mls/hr Q24H IV 12/21/24 03:30 12/21/24 18:21 4 MLS/HR Fentanyl Citrate 250 ml @ 2.5 mls/hr Q24H IV 12/21/24 03:30 12/21/24 03:15 2.5 MLS/HR Enteral Nutritional Formula 1,000 ml 40ML/HR GT 12/21/24 11:45 12/21/24 19:12 1,000 ML Cefepime HCl 50 ml @ 12.5 mls/hr Q8HR IV 12/21/24 14:00 12/21/24 21:38 12.5 MLS/HR Vancomycin HCl 0 ml @ 0 mls/hr UD IV 12/21/24 11:45 Vancomycin HCl 250 ml @ 200 mls/hr Q12H IV 12/21/24 13:00 12/21/24 13:00 200 MLS/HR objective Gen.: Patient lying in bed in medical ICU. Sedated, intubated on mechanical ventilator. Head: Normocephalic, atraumatic. Eyes: PERRLA. Ears: Normal external anatomy. Throat: Endotracheal tube and orogastric tube in place. Neck: Supple, trachea midline. Chest: Transmitted breath sounds bilaterally. Decreased air entry bilaterally. No wheezing. Bibasilar crackles. Cardiovascular: Positive S1, positive S2. Regular rate and rhythm. Abdomen: Positive bowel sounds in all 4 quadrants. Soft, nontender, nondistended. : Barron in place. Normal external genitalia. Rectal: Deferred. Skin: Warm, dry. Intact. Extremities: 2+ radial pulses bilaterally. No lower extremity edema. Neuro: Sedated. 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 On AC mode; RR 18, VT 450, PEEP 5, FiO2 30% Sedated on Versed/Fentanyl. Pressors for hemodynamic support On Levophed 4 mcg/min Titrate to keep mean arterial pressure greater than 65 mmHg. Leukocytosis - WBC trending up to 20.6 K Monitor hemoglobin, 8.2 g/dl, trended down Monitor platelets, trending down - 148 K Continue antibiotics Sputum culture shows E.coli Continue bronchodilators Clinimix for nutritional support F/u swallow eval. On D5W infusion at 50 ml/hr IV fluids with NS Monitor renal function Monitor electrolytes. Supplement as necessary. Magnesium supplementation Head of bed elevation Aspiration precautions Obtain consent for bronchoscopy with BAL for clearing of secretions Labs and imaging reviewed. Rest of plan as noted below. Plan: s/p intubation, on mechanical ventilator. On AC mode; RR 18, VT 450, PEEP 5, FiO2 30% Titrate FIO2 to keep O2 saturation above 90%. VAP bundle. Daily ABG and CXR while intubated Sedate for ventilator synchrony Pressors for hemodynamic support Titrate to keep mean arterial pressure greater than 65 mmHg. Antibiotics F/u cultures Remdesivir course completed. Steroids - Solu-Medrol Monitor hemoglobin Monitor renal function Monitor electrolytes. Supplement as necessary. Monitor ins and outs. GI prophylaxis. DVT prophylaxis. Prognosis: Guarded given patient's multiple co-morbidities. Condition: Critical Rest of plan per hospitalist and other consultants. A total of 35 minutes of critical care time was spent reviewing the patient record, examining the patient, making a diagnostic and therapeutic plan, discussing this plan with the medical personnel, following up on diagnostic studies and following the patient for clinical stability excluding any and all procedures. At least 50% of this time was spent in direct, [id number] contact. Thank you Dr. Baez for allowing me to participate in this patient's care. Further recommendations will depend on the patient's clinical course. Please do not hesitate to contact me if you have any questions or concerns. This medical document was created using an electronic medical record system with [employer] system. Although these documentations are being carefully reviewed, there may still be some phonetic and typographical changes. The errors are purely typographical, due to imperfection on the software program, and do not reflect any compromise in the patient's medical care. Dietary Evaluation Review Comments: 1. If GI is accessible, consider glucerna 1.2 @ 50ml/hr to provide 1440kcal, 72g pro, 966 ml FW to meet 100% of needs. 2. Consider advance to CCHO 60g diet when appropriate 3. Consider TPN if NPO> 7 days Expected Outcomes/Goals: 1. Pt will meet >75% of estimated needs within 2-3 days Plan discussed with: Other (ROSALES Tiwari) Critical Care Time(min): 35 CC Plasma Assessment Blood Product Administration S: [id number] VIDYA MISHRA MD Dec 21, 2024 23:37
[2024-12-22] VITALS (107 sets, daily range): BP systolic 87–127; BP diastolic 45–67; PULSE 59–67; RESP 16–23; TEMP 96.8–98.7; O2SAT 96–100
[2024-12-22] MEDS: CEFEPIME 1GM/ 50ML 50 ML IV SCH (02:00)
[2024-12-22 04:11] LABS: Basophils # (auto) 0 10 ^3/uL (0-0.2); Eosinophils # (auto) 0 10 ^3/uL (0-0.8); Hemoglobin 8.8 g/dL (13.5-17.5); Lymphocytes # (auto) 0.2 10 ^3/uL (0.4-5.4)
[2024-12-22 04:15] LABS: Hematocrit 30.6 % (41.0-53.0); Lymphocytes % (auto) 0.8 % (10.0-50.0); Mean Corpuscular Hgb Conc. 28.9 g/dL (32.0-36.0); Mean Corpuscular Volume 76.1 fL (80.0-100.0); Monocytes # (auto) 0.3 10 ^3/uL (0-1.3); Monocytes % (auto) 1.3 % (0.0-12.0); Neutrophils # (auto) 18.9 10 ^3/uL (1.6-8.6); Neutrophils % (auto) 97.9 % (37.0-80.0); Nucleated Red Blood Cells % 0.1 %; Platelet Count (auto) 162 10^3/uL (140-450); Red Blood Cells 4.02 10^6/uL (4.5-5.90); White Blood Cell 19.3 10^3/uL (4.4-10.8)
[2024-12-22 04:22] LABS: Anion Gap 8 (5-15); Potassium 3.9 mmol/L (3.5-5.1); Sodium 140 mmol/L (136-145)
[2024-12-22 04:29] LABS: Magnesium 1.8 mg/dL (1.6-2.6)
[2024-12-22 04:30] LABS: Carbon Dioxide 20 mmol/L (20-31); Chloride 112 mmol/L (98-107); Glucose 130 mg/dL (74-106)
[2024-12-22 04:31] LABS: Blood Urea Nitrogen 30 mg/dL (9-23); Calcium 8.1 mg/dL (8.7-10.4); Phosphorus 2.5 mg/dL (2.4-5.1)
[2024-12-22 04:44] LABS: Red Cell Distribution Width 35.4 % (11.8-14.3)
[2024-12-22 06:30] LABS: Anisocytosis Moderate; Hypochromia Slight; Platelet Estimate Adequate
[2024-12-22 08:55] LABS: Base Excess -5.8 mmol/L (-2.0-3.0)
--- NOTE | 2024-12-22 11:38 | DVHPN2 ---
Assessment/Plan Assessment/Plan ICU Progress note Seen today during rounds, intubated overnight, now on mechanical ventilator. POCUS repeated today IVC 2cm <50% collapsibility on mechanical ventilator. on pressors. likely aspiration pneumonia. improved with fluid challenge, third spacing, will do albumin diureses Physical exam sedated and mechanically ventilated mechanical breaths ounds PERLLA s1 s2 RRR abdomen soft nontender contracted LUE stump LLE trace edema likely third psacing Labs imaging and EKG reviewed Assessment and plan acute hypoxic respiratory failure requiring mechanical ventilation aspiration pneumonia gp vs gn covid 19 resolved? 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 possible GIB severe anemia afib not on AC s/p cardiac arrest anmeia protein calorie malnutrition continue oxygen supplementation to maintain SpO2 above 94% dc clinimix start tube feeding empiric abx coverage, escalate to vanc and cefepime fluid challenge iv steroids albumin diuresis x3 q8 rest as current management Lines L TLC ETT NGT Diane Diet jevity DVT prophylaxis hold GI prophylaxis Protonix Condition critical poor prognosis Full code 58 minutes of critical care time spent Plan discussed with: Patient My Orders Orders - SLAVA GIRON MD Procedure Category Date Status Time Nutritional PHA 12/21/24 In Process Supplements (Jevity 11:45 Cefepime 1gm/ 50ml PHA 12/21/24 In Process (Maxipime 1gm/50ml) 14:00 Vancomycin Per PHA 12/21/24 In Process Pharmacy 11:45 Mrsa Screen ANAHI 12/21/24 Logged 11:38 Vancomycin 1gm/250ml PHA 12/21/24 In Process Kit 13:00 Vancomycin,Trough LAB 12/23/24 Verified 12:00 Vancomycin Per DEMARIO 12/21/24 In Process Pharmacy Protoc 12:00 Albumin 25% (Albutein) PHA 12/22/24 In Process 14:00 Furosemide Injection PHA 12/22/24 In Process (Lasix Injection) 14:00 Basic Metabolic Panel LAB 12/23/24 Verified 04:00 Complete Blood Count LAB 12/23/24 Verified 04:00 Magnesium LAB 12/23/24 Verified 04:00 Phosphorus LAB 12/23/24 Verified 04:00 Date of Service: Dec 22, 2024 Billing Provider: SLAVA GIRON MD Common Visit Codes: [id number] CARE 30-74 MIN SLAVA GIRON MD Dec 22, 2024 11:38
--- NOTE | 2024-12-22 12:22 | DVH ---
EXAM: XY CHEST PORTABLE HISTORY: recheck effusion and infiltrates COMPARISON: XY CHEST XRAY 1 VIEW on DOS: 12/21/24, XY CHEST PORTABLE on DOS: 12/18/24, XY CHEST PORTABLE on DOS: 12/17/24, XY CHEST PORTABLE on DOS: 12/15/24, XY CHEST PORTABLE on DOS: 12/14/24, CT scan of th e chest dated 12/12/2024 TECHNIQUE: Portable AP view of the chest was performed. FINDINGS: Endotracheal tube is re-identified with its tip 4.1 cm above the pauline. OG tube and left, left IJ central line, chest AICD are re-identified. Right basilar infiltrate and layering pleural eff usion are re-identified, similar to that seen previously. There is mild left basilar infiltrate and/o r effusion. No pneumothorax. Emphysematous changes are better characterized on prior CT scan. The hea rt is not enlarged. IMPRESSION: 1. Mechanical ventilation with tubes and lines as above. 2. Stable right basilar infiltrates and right layering pleural effusion; mild left basilar infiltrate and effusion. 3. Emphysema.
--- NOTE | 2024-12-22 14:38 | DVHPN2 ---
Progress Note - Dictate Date Seen: Dec 22, 2024 Medical Necessity Reason Pt with a Central, PICC or Fol: Yes The following are medically ne: Barron Catheter Reason for barron catheter: Strict I&O Subjective Patient seen at bedside ICU 107 No new complaints Patient is on a CPAP trial Patient had high gastric residuals Patient has not had a bowel movement for several days vital signs Vital Sign Date Time Temp Pulse Resp B/P (MAP) Pulse Ox O2 Delivery O2 Flow Rate FiO2 12/22/24 12:42 61 18 116/63 (80) 100 30 12/22/24 12:00 Mechanical Ventilator+ 12/22/24 04:00 97.6 97.6 12/21/24 01:51 5.0 Total Intake and Output 12/21/24 12/21/24 12/22/24 15:00 23:00 07:00 Intake Total 1591.25 ml 377.25 ml 599.50 ml Output Total 300 ml 350 ml Balance 1591.25 ml 77.25 ml 249.50 ml medications Current Medications Medications Dose Ordered Sig/Roberto Route Start Time Stop Time Status Last Admin Dose Admin Nitroglycerin 0.4 mg Q5MINP PRN SL 12/12/24 00:30 Ceftriaxone Sodium 50 ml @ 100 mls/hr DAILY IV 12/12/24 10:00 UNV Acetaminophen 650 mg Q6HP PRN TN 12/12/24 08:30 12/12/24 09:17 650 MG Pantoprazole Sodium 40 mg BID IV 12/14/24 08:46 12/22/24 09:22 40 MG Lactulose 30 ml Q6HPRN PRN PO 12/15/24 15:15 12/15/24 17:41 30 ML Diagnostic Test (Pha) 1 strip Q6HR 12/16/24 00:00 12/22/24 12:00 1 STRIP Insulin Human Regular FOLLOW SLIDING SCALE Q6HR SC 12/16/24 00:00 12/22/24 00:30 2 UNITS Dextrose 50 ml UD IV 12/16/24 00:00 Ipratropium [place] 0.5 mg Q4HR NEB 12/18/24 22:00 12/22/24 10:11 0.5 MG Albuterol 2.5 mg Q4HR NEB 12/18/24 22:00 12/22/24 10:11 2.5 MG Doxycycline Hyclate 100 ml @ 50 mls/hr Q12H IV 12/19/24 12:00 12/22/24 11:30 50 MLS/HR Methylprednisolone Sodium Succinate 40 mg Q12HR IV 12/20/24 22:00 12/22/24 09:22 40 MG Norepinephrine Bitartrate 250 ml @ 3.75 mls/hr Q24H IV 12/21/24 03:30 12/22/24 09:16 7.5 MLS/HR Midazolam HCl 50 ml @ 1 mls/hr Q24H IV 12/21/24 03:30 12/21/24 18:21 4 MLS/HR Fentanyl Citrate 250 ml @ 2.5 mls/hr Q24H IV 12/21/24 03:30 12/21/24 03:15 2.5 MLS/HR Enteral Nutritional Formula 1,000 ml 40ML/HR GT 12/21/24 11:45 12/21/24 19:12 1,000 ML Cefepime HCl 50 ml @ 12.5 mls/hr Q8HR IV 12/21/24 14:00 12/21/24 21:38 12.5 MLS/HR Vancomycin HCl 0 ml @ 0 mls/hr UD IV 12/21/24 11:45 Vancomycin HCl 250 ml @ 200 mls/hr Q12H IV 12/21/24 13:00 12/22/24 01:00 200 MLS/HR Albumin Human 100 ml @ 100 mls/hr Q8H IV 12/22/24 14:00 12/23/24 06:59 Furosemide 20 mg Q8HR IV 12/22/24 14:00 12/23/24 14:00 objective Chronically ill-appearing male intubated sedated Lungs decreased since sounds at the bases CVS S1-S2 regular rate rhythm Abdomen is soft nontender nondistended Extremities without clubbing cyanosis or edema laboratory and microbiology Laboratory Tests 12/22/24 03:27 Test 12/22/24 03:27 Range/Units Serum Glucose 130 H 74-106 mg/dL Problems(with codes): (1) Constipation (2) Hypoxemia (3) Elevated lactic acid level (4) Anemia due to blood loss, chronic (5) Altered mental status (6) Leukocytosis Prognosis Plan We will again try trickle tube feedings later today if the gastric residuals are less I will start IV Reglan 5 mg q.8 hours Recommend a fleets enema and MiraLax I will follow up patient with you Dietary Evaluation Review Comments: 1. If GI is accessible, consider glucerna 1.2 @ 50ml/hr to provide 1440kcal, 72g pro, 966 ml FW to meet 100% of needs. 2. Consider advance to CCHO 60g diet when appropriate 3. Consider TPN if NPO> 7 days Expected Outcomes/Goals: 1. Pt will meet >75% of estimated needs within 2-3 days Plan discussed with: Other (ICU Nurse) CC Plasma Assessment Blood Product Administration S: [id number] CORNEL RDZ MD Dec 22, 2024 14:38
[2024-12-22] MEDS: ALBUMIN 25% 100 ML IV SCH (14:40)
[2024-12-22] MEDS: FUROSEMIDE 40 MG/4 ML VIAL IV SCH (15:40)
[2024-12-22] MEDS: FLEET ENEMA(ADULT) 135 ML PR ONE (18:27)
--- NOTE | 2024-12-22 19:11 | DVHPN2 ---
Progress Note - Dictate Date Seen: Dec 22, 2024 Medical Necessity Reason Pt with a Central, PICC or Fol: Yes The following are medically ne: Barron Catheter Reason for barron catheter: Strict I&O Subjective Patient seen and examined at bedside. Sedated, intubated on mechanical ventilator. Overnight events reviewed. vital signs Vital Sign Date Time Temp Pulse Resp B/P (MAP) Pulse Ox O2 Delivery O2 Flow Rate FiO2 12/22/24 18:00 60 12/22/24 18:00 19 99 Mechanical Ventilator+ 30 30 12/22/24 17:54 115/57 (76) 12/22/24 12:15 97.5 97.5 12/21/24 01:51 5.0 Total Intake and Output 12/21/24 12/21/24 12/22/24 15:00 23:00 07:00 Intake Total 1591.25 ml 377.25 ml 612.50 ml Output Total 300 ml 350 ml Balance 1591.25 ml 77.25 ml 262.50 ml medications Current Medications Medications Dose Ordered Sig/Roberto Route Start Time Stop Time Status Last Admin Dose Admin Nitroglycerin 0.4 mg Q5MINP PRN SL 12/12/24 00:30 Ceftriaxone Sodium 50 ml @ 100 mls/hr DAILY IV 12/12/24 10:00 UNV Acetaminophen 650 mg Q6HP PRN AL 12/12/24 08:30 12/12/24 09:17 650 MG Pantoprazole Sodium 40 mg BID IV 12/14/24 08:46 12/22/24 09:22 40 MG Lactulose 30 ml Q6HPRN PRN PO 12/15/24 15:15 12/15/24 17:41 30 ML Diagnostic Test (Pha) 1 strip Q6HR 12/16/24 00:00 12/22/24 17:53 1 STRIP Insulin Human Regular FOLLOW SLIDING SCALE Q6HR SC 12/16/24 00:00 12/22/24 18:00 2 UNITS Dextrose 50 ml UD IV 12/16/24 00:00 Ipratropium [place] 0.5 mg Q4HR NEB 12/18/24 22:00 12/22/24 17:53 0.5 MG Albuterol 2.5 mg Q4HR NEB 12/18/24 22:00 12/22/24 17:53 2.5 MG Doxycycline Hyclate 100 ml @ 50 mls/hr Q12H IV 12/19/24 12:00 12/22/24 11:30 50 MLS/HR Methylprednisolone Sodium Succinate 40 mg Q12HR IV 12/20/24 22:00 12/22/24 09:22 40 MG Norepinephrine Bitartrate 250 ml @ 3.75 mls/hr Q24H IV 12/21/24 03:30 12/22/24 09:16 7.5 MLS/HR Midazolam HCl 50 ml @ 1 mls/hr Q24H IV 12/21/24 03:30 12/21/24 18:21 4 MLS/HR Fentanyl Citrate 250 ml @ 2.5 mls/hr Q24H IV 12/21/24 03:30 12/21/24 03:15 2.5 MLS/HR Enteral Nutritional Formula 1,000 ml 40ML/HR GT 12/21/24 11:45 12/21/24 19:12 1,000 ML Cefepime HCl 50 ml @ 12.5 mls/hr Q8HR IV 12/21/24 14:00 12/22/24 17:39 12.5 MLS/HR Vancomycin HCl 0 ml @ 0 mls/hr UD IV 12/21/24 11:45 Vancomycin HCl 250 ml @ 200 mls/hr Q12H IV 12/21/24 13:00 12/22/24 15:41 200 MLS/HR Albumin Human 100 ml @ 100 mls/hr Q8H IV 12/22/24 14:00 12/23/24 06:59 12/22/24 14:40 100 MLS/HR Furosemide 20 mg Q8HR IV 12/22/24 14:00 12/23/24 14:00 12/22/24 15:40 20 MG Polyethylene Glycol 17 gm DAILY PO 12/23/24 10:00 objective Gen.: Patient lying in bed in medical ICU. Sedated, intubated on mechanical ventilator. Head: Normocephalic, atraumatic. Eyes: PERRLA. Ears: Normal external anatomy. Throat: Endotracheal tube and orogastric tube in place. Neck: Supple, trachea midline. Chest: Transmitted breath sounds bilaterally. Decreased air entry bilaterally. No wheezing. Bibasilar crackles. Cardiovascular: Positive S1, positive S2. Regular rate and rhythm. Abdomen: Positive bowel sounds in all 4 quadrants. Soft, nontender, nondistended. : Barron in place. Normal external genitalia. Rectal: Deferred. Skin: Warm, dry. Intact. Extremities: 2+ radial pulses bilaterally. No lower extremity edema. Neuro: Sedated. laboratory and microbiology Laboratory Tests 12/22/24 03:27 Test 12/22/24 03:27 Range/Units Serum Glucose 130 H 74-106 mg/dL Assessment/Plan Impression: Acute hypoxic respiratory failure On mechanical ventilator COVID 19 infection S/p cardiac arrest Anemia Cachexia, BMI of 19 Events: Remains on vent support On AC mode; RR 18, VT 450, PEEP 5, FiO2 30% Sedated on Versed/Fentanyl. Pressors for hemodynamic support On Levophed 4 mcg/min Titrate to keep mean arterial pressure greater than 65 mmHg. ABG reviewed, compensated Chest x-ray ordered S/p bronchoscopy (12/21/24) with RML BAL with clearing of secretions from L6-L10 Follow up BAL culture results. Leukocytosis - WBC trending down to 19.3 K Monitor hemoglobin, 8.8 g/dl Monitor platelets, trending up - 162 K Continue antibiotics Sputum culture shows E.coli Continue bronchodilators Clinimix for nutritional support F/u swallow eval. Head of bed elevation Aspiration precautions Taper sedation CPAP with PS 8, PEEP of 5 Labs and imaging reviewed. Rest of plan as noted below. Plan: s/p intubation on 12/21/24, on mechanical ventilator. On AC mode; RR 18, VT 450, PEEP 5, FiO2 30% Titrate FIO2 to keep O2 saturation above 90%. VAP bundle. Daily ABG and CXR while intubated Sedate for ventilator synchrony Pressors for hemodynamic support Titrate to keep mean arterial pressure greater than 65 mmHg. Antibiotics F/u cultures Remdesivir course completed. Steroids - Solu-Medrol Monitor hemoglobin Monitor renal function Monitor electrolytes. Supplement as necessary. Monitor ins and outs. GI prophylaxis. DVT prophylaxis. Prognosis: Guarded given patient's multiple co-morbidities. Condition: Critical Rest of plan per hospitalist and other consultants. A total of 35 minutes of critical care time was spent reviewing the patient record, examining the patient, making a diagnostic and therapeutic plan, discussing this plan with the medical personnel, following up on diagnostic studies and following the patient for clinical stability excluding any and all procedures. At least 50% of this time was spent in direct, [id number] contact. Thank you Dr. Baez for allowing me to participate in this patient's care. Further recommendations will depend on the patient's clinical course. Please do not hesitate to contact me if you have any questions or concerns. This medical document was created using an electronic medical record system with [employer] dictation system. Although these documentations are being carefully reviewed, there may still be some phonetic and typographical changes. The errors are purely typographical, due to imperfection on the software program, and do not reflect any compromise in the patient's medical care. Dietary Evaluation Review Comments: 1. If GI is accessible, consider glucerna 1.2 @ 50ml/hr to provide 1440kcal, 72g pro, 966 ml FW to meet 100% of needs. 2. Consider advance to CCHO 60g diet when appropriate 3. Consider TPN if NPO> 7 days Expected Outcomes/Goals: 1. Pt will meet >75% of estimated needs within 2-3 days Plan discussed with: Other (ROSALES Gregory) Critical Care Time(min): 35 CC Plasma Assessment Blood Product Administration S: [id number] VIDYA MISHRA MD Dec 22, 2024 19:11
[2024-12-23] VITALS (113 sets, daily range): BP systolic 100–132; BP diastolic 43–65; PULSE 58–153; RESP 8–25; TEMP 96.6–98.6; O2SAT 98–100
[2024-12-23 03:58] LABS: Basophils # (auto) 0 10 ^3/uL (0-0.2); Eosinophils # (auto) 0 10 ^3/uL (0-0.8); Hemoglobin 8.2 g/dL (13.5-17.5); Mean Corpuscular Hgb Conc. 30.1 g/dL (32.0-36.0)
[2024-12-23 04:02] LABS: Hematocrit 27.2 % (41.0-53.0); Lymphocytes # (auto) 0.1 10 ^3/uL (0.4-5.4); Lymphocytes % (auto) 0.8 % (10.0-50.0); Mean Corpuscular Hemoglobin 22.8 pg (28.0-32.0); Mean Corpuscular Volume 75.9 fL (80.0-100.0); Monocytes # (auto) 0.3 10 ^3/uL (0-1.3); Monocytes % (auto) 1.5 % (0.0-12.0); Neutrophils # (auto) 16.6 10 ^3/uL (1.6-8.6); Neutrophils % (auto) 97.7 % (37.0-80.0); Nucleated Red Blood Cells % 0.3 %; Platelet Count (auto) 124 10^3/uL (140-450); Red Blood Cells 3.58 10^6/uL (4.5-5.90)
[2024-12-23 04:03] LABS: Sodium 140 mmol/L (136-145)
[2024-12-23 04:04] LABS: Anion Gap 12 (5-15)
[2024-12-23 04:09] LABS: BUN/Creatinine Ratio 46.7 (10.0-20.0)
[2024-12-23 04:14] LABS: Red Cell Distribution Width 38.5 % (11.8-14.3)
[2024-12-23 04:21] LABS: Blood Urea Nitrogen 28 mg/dL (9-23); Calcium 8.7 mg/dL (8.7-10.4); Carbon Dioxide 20 mmol/L (20-31); Chloride 108 mmol/L (98-107); Glucose 136 mg/dL (74-106); Potassium 3.4 mmol/L (3.5-5.1)
--- NOTE | 2024-12-23 04:59 | DVH ---
CHEST RADIOGRAPH Indication: RECHECK RIGHT PLEURAL EFFUSION AND INFILTRATE Technique: Single frontal view of the chest was obtained Comparison: XY CHEST PORTABLE on DOS: 12/22/24 FINDINGS: Lines and Tubes: The endotracheal tube terminates 4.2 cm above the pauline. AICD is noted. The enteric tube courses below the left hemidiaphragm and the tip extends outside the field of view. Lungs: Bilateral opacities decreased compared to prior study. Pleura: Bilateral pleural effusions are decreased. No pneumothorax. Cardiomediastinal contours: Stable. Bones: No acute osseous abnormality. IMPRESSION: 1. Decreased bilateral pulmonary opacities and pleural effusions.
[2024-12-23 05:41] LABS: Anisocytosis Moderate
[2024-12-23 05:42] LABS: Hypochromia Slight; Ovalocytes FEW; Target Cell FEW
[2024-12-23 05:43] LABS: Large Platelets FEW; Platelet Estimate Decrea; Stomatocytes Few
[2024-12-23 08:03] LABS: Base Excess -2.1 mmol/L (-2.0-3.0)
[2024-12-23] MEDS: POLYETHYLENE GLYCOL 17 GM PWDR PO SCH (10:00)
--- NOTE | 2024-12-23 10:17 | DVH ---
XY CHEST PORTABLE, HISTORY: ET PLACEMENT COMPARISON: XY CHEST PORTABLE on DOS: 12/23/24, XY CHEST PORTABLE on DOS: 12/22/24, XY CHEST XRAY 1 VIEW on DOS: 12/21/24 XY CHEST PORTABLE on DOS: 12/23/24, XY CHEST PORTABLE on DOS: 12/22/24, XY CHEST XRAY 1 VIEW on DOS: TECHNICAL DATA: 1 view of the chest was obtained. FINDINGS: Lines and tubes: ET in the mid thoracic trachea. NG in the stomach. Left CVC seen. Cardiomediastinal silhouette: normal Pulmonary vasculature: prominent Lung expansion: low Lung airspace: Patchy bibasilar airspace opacity. Lung interstitium: normal Pleura: Small bilateral effusions. Pneumothorax: no Bones: Unremarkable Other: no IMPRESSION: ET in the mid thoracic trachea. NG in the stomach. Left CVC seen. Similar lung aeration with small bilateral effusion.
--- NOTE | 2024-12-23 11:23 | MEDREC ---
[facility] Intervention Section I [facility] Intervention: Review courses of therapy (RESPIRATORY CULTURE POISTIVE FOR FILAMENTOUS FUNGI - PLEASE CONSIDER ADDING ANTIFUNGAL AGENT ) YOLANDA GODOY PHARMACIST Dec 23, 2024 11:23
[2024-12-23] MEDS: POTASSIUM CHL 20MEQ/100ML 100 ML IV ONE (12:03)
[2024-12-23 14:01] LABS: Base Excess -2.6 mmol/L (-2.0-3.0)
--- NOTE | 2024-12-23 15:05 | DVHPN2 ---
Progress Note Date Seen: Dec 23, 2024 Resident Creating Document: CAROLINE VAZQUEZ RESIDENT Medical Necessity Reason Pt with a Central, PICC or Fol: Yes The following are medically ne: Barron Catheter Reason for barron catheter: Strict I&O Subjective Review of Systems Patient seen and examined at bedside Patient alert Patient is going to CPAP trial No active GI bleed No diarrhea, nausea or vomiting. Off sedation Feeding hold. No bowel movement No new complaints. Objective vital signs Vital Sign Date Time Temp Pulse Resp B/P (MAP) Pulse Ox O2 Delivery O2 Flow Rate FiO2 12/23/24 14:04 71 15 120/48 (72) 100 30 12/23/24 14:00 Mechanical Ventilator+ 12/23/24 08:00 98.4 98.4 Total Intake and Output 12/22/24 12/22/24 12/23/24 15:00 23:00 07:00 Intake Total 91.25 ml 319.775 ml 603.439 ml Output Total 1025 ml 2350 ml Balance 91.25 ml -705.225 ml -1746.561 ml medications Current Medications Medications Dose Ordered Sig/Roberto Route Start Time Stop Time Status Last Admin Dose Admin Nitroglycerin 0.4 mg Q5MINP PRN SL 12/12/24 00:30 Ceftriaxone Sodium 50 ml @ 100 mls/hr DAILY IV 12/12/24 10:00 UNV Acetaminophen 650 mg Q6HP PRN AL 12/12/24 08:30 12/12/24 09:17 650 MG Pantoprazole Sodium 40 mg BID IV 12/14/24 08:46 12/23/24 10:10 40 MG Lactulose 30 ml Q6HPRN PRN PO 12/15/24 15:15 12/15/24 17:41 30 ML Diagnostic Test (Pha) 1 strip Q6HR 12/16/24 00:00 12/23/24 11:54 1 STRIP Insulin Human Regular FOLLOW SLIDING SCALE Q6HR SC 12/16/24 00:00 12/22/24 18:00 2 UNITS Dextrose 50 ml UD IV 12/16/24 00:00 Ipratropium [place] 0.5 mg Q4HR NEB 12/18/24 22:00 12/23/24 14:04 0.5 MG Albuterol 2.5 mg Q4HR NEB 12/18/24 22:00 12/23/24 14:04 2.5 MG Doxycycline Hyclate 100 ml @ 50 mls/hr Q12H IV 12/19/24 12:00 12/23/24 11:48 50 MLS/HR Methylprednisolone Sodium Succinate 40 mg Q12HR IV 12/20/24 22:00 12/23/24 10:10 40 MG Norepinephrine Bitartrate 250 ml @ 3.75 mls/hr Q24H IV 12/21/24 03:30 12/22/24 09:16 7.5 MLS/HR Midazolam HCl 50 ml @ 1 mls/hr Q24H IV 12/21/24 03:30 12/21/24 18:21 4 MLS/HR Fentanyl Citrate 250 ml @ 2.5 mls/hr Q24H IV 12/21/24 03:30 12/21/24 03:15 2.5 MLS/HR Enteral Nutritional Formula 1,000 ml 40ML/HR GT 12/21/24 11:45 12/21/24 19:12 1,000 ML Vancomycin HCl 0 ml @ 0 mls/hr UD IV 12/21/24 11:45 Polyethylene Glycol 17 gm DAILY PO 12/23/24 10:00 Cefepime HCl 50 ml @ 12.5 mls/hr Q8H IV 12/22/24 02:00 12/23/24 10:10 12.5 MLS/HR Examination General Appearance: Intubated, off sedation, alert but not oriented to time place and person. Not following commands. Head Exam: Normal inspection Neck Exam: Normal inspection. Non-tender. Normal alignment Pulmonary/Respiratory: Chest non-tender. Clear bilateral breath sounds Cardiovascular/Chest: Regular rate and rhythm. No murmurs. No JVD. Peripheral Pulses: 2+ Radial (R). 2+ Radial (L). 2+ Pedal (R). 2+ Pedal (L) Abdominal Exam: Normal bowel sounds. Soft. Nontender. No hepatospenomegaly. No masses Ankle Exam: Negative ankle edema Lower extremities: Negative lower extremity edema Neuro/Mental Status: Alert, not sedated. laboratory and microbiology Laboratory Tests 12/23/24 03:17 Test 12/23/24 03:17 Range/Units Serum Glucose 136 H 74-106 mg/dL Microbiology Date/Time Source Procedure Growth Status 12/21/24 03:26 Trachea Gram Stain - Final Resulted 12/21/24 03:26 Trachea Respiratory Culture - Preliminary Resulted 12/17/24 20:00 Urine - Barron [place] Urine Culture - Final Complete 12/14/24 01:10 Sputum Gram Stain - Final Complete 12/14/24 01:10 Respiratory Culture - Final Staphylococcus aureus Complete 12/12/24 00:41 Stool Stool Culture - Final Complete 12/12/24 00:41 Stool Shiga Toxin I & II - Final Complete 12/12/24 00:14 Blood Blood Culture - Final NO GROWTH AFTER 5 DAYS OF INCUBATION. Complete Problem List/Assessment/Plan Problem List/Assessment/Plan COVID pneumonia Septic shock Cholelithiasis Cirrhosis Transaminitis Possible GI bleed Cachexia BMI 19 Microcytic hypochromic anemia Lactic acidosis Coagulopathy Plan/recommendation Dr. Gregory Going through CPAP trial, hold feeding today, if patient fails CPAP trial resume trickle tube feeding. Reglan 5 mg Q eight Recommended Fleet enema and MiraLax for constipation if no bowel movement Follow up with GI in outpatient setting for GI workup. continue current management with IV Protonix 40 mg b.i.d. continue monitor H&H, coagulation panel and liver function. no active GI bleed noted till now. IV hydration and antibiotic as per primary team we will continue monitor this patient Plan discussed with: Patient, Other (RN) Dietary Evaluation Review Comments: 1. If GI is accessible, consider glucerna 1.2 @ 50ml/hr to provide 1440kcal, 72g pro, 966 ml FW to meet 100% of needs. 2. Consider advance to CCHO 60g diet when appropriate 3. Consider TPN if NPO> 7 days Expected Outcomes/Goals: 1. Pt will meet >75% of estimated needs within 2-3 days CC Plasma Assessment Blood Product Administration S: [id number] CAROLINE VAZQUEZ RESIDENT Dec 23, 2024 15:05
[2024-12-23] MEDS: POTASSIUM EFFERVESENT TAB 25 MEQ GT ONE (16:53)
[2024-12-23] MEDS: FUROSEMIDE 20 MG/2 ML VIAL IV ONE (16:57)
[2024-12-23] MEDS: MICAFUNGIN SODIUM 100 MG in SODIUM CHL 0.9% 100 ML IV ONE (17:20)
--- NOTE | 2024-12-23 18:05 | DVHPNRES ---
Progress Note Date Seen: Dec 23, 2024 Resident Creating Document: PREET COMBS RESIDENT Medical Necessity Reason Pt with a Central, PICC or Fol: Yes The following are medically ne: Barron Catheter Reason for barron catheter: Strict I&O Subjective Review of Systems Patient was placed on CPAP trial in the morning, and extubated in the afternoon, patient cultures showed filamentous fungus growing for which the patient was started on micafungin IV daily and Lasix 20 mg IV daily for small bilateral effusion showed on chest x-rays. Patient past 1 bowel movement today, urine output -1680. Continue IV antibiotics Objective vital signs Vital Sign Date Time Temp Pulse Resp B/P (MAP) Pulse Ox O2 Delivery O2 Flow Rate FiO2 12/23/24 17:08 100 8.0 12/23/24 17:07 20 12/23/24 17:00 64 128/59 (82) 12/23/24 16:00 30 12/23/24 16:00 Mechanical Ventilator+ 12/23/24 16:00 98.4 98.4 Total Intake and Output 12/22/24 12/22/24 12/23/24 15:00 23:00 07:00 Intake Total 91.25 ml 319.775 ml 603.439 ml Output Total 1025 ml 2350 ml Balance 91.25 ml -705.225 ml -1746.561 ml medications Current Medications Medications Dose Ordered Sig/Roberto Route Start Time Stop Time Status Last Admin Dose Admin Nitroglycerin 0.4 mg Q5MINP PRN SL 12/12/24 00:30 Ceftriaxone Sodium 50 ml @ 100 mls/hr DAILY IV 12/12/24 10:00 UNV Acetaminophen 650 mg Q6HP PRN AL 12/12/24 08:30 12/12/24 09:17 650 MG Pantoprazole Sodium 40 mg BID IV 12/14/24 08:46 12/23/24 10:10 40 MG Lactulose 30 ml Q6HPRN PRN PO 12/15/24 15:15 12/15/24 17:41 30 ML Diagnostic Test (Pha) 1 strip Q6HR 12/16/24 00:00 12/23/24 11:54 1 STRIP Insulin Human Regular FOLLOW SLIDING SCALE Q6HR SC 12/16/24 00:00 12/22/24 18:00 2 UNITS Dextrose 50 ml UD IV 12/16/24 00:00 Ipratropium [place] 0.5 mg Q4HR NEB 12/18/24 22:00 12/23/24 14:04 0.5 MG Albuterol 2.5 mg Q4HR NEB 12/18/24 22:00 12/23/24 14:04 2.5 MG Doxycycline Hyclate 100 ml @ 50 mls/hr Q12H IV 12/19/24 12:00 12/23/24 11:48 50 MLS/HR Norepinephrine Bitartrate 250 ml @ 3.75 mls/hr Q24H IV 12/21/24 03:30 12/22/24 09:16 7.5 MLS/HR Midazolam HCl 50 ml @ 1 mls/hr Q24H IV 12/21/24 03:30 12/21/24 18:21 4 MLS/HR Fentanyl Citrate 250 ml @ 2.5 mls/hr Q24H IV 12/21/24 03:30 12/21/24 03:15 2.5 MLS/HR Enteral Nutritional Formula 1,000 ml 40ML/HR GT 12/21/24 11:45 12/21/24 19:12 1,000 ML Vancomycin HCl 0 ml @ 0 mls/hr UD IV 12/21/24 11:45 Polyethylene Glycol 17 gm DAILY PO 12/23/24 10:00 Cefepime HCl 50 ml @ 12.5 mls/hr Q8H IV 12/22/24 02:00 12/23/24 10:10 12.5 MLS/HR Micafungin Sodium 100 mg/Sodium Chloride 100 ml @ 100 mls/hr DAILY@0900 IV 12/24/24 09:00 Furosemide 20 mg DAILY IV 12/24/24 10:00 Examination General Appearance: Intubated, off sedation, alert but not oriented to time place and person. Not following commands. Head Exam: Normal inspection Neck Exam: Normal inspection. Non-tender. Normal alignment Pulmonary/Respiratory: Chest non-tender. Clear bilateral breath sounds Cardiovascular/Chest: Regular rate and rhythm. No murmurs. No JVD. Peripheral Pulses: 2+ Radial (R). 2+ Radial (L). 2+ Pedal (R). 2+ Pedal (L) Abdominal Exam: Normal bowel sounds. Soft. Nontender. No hepatospenomegaly. No masses Ankle Exam: 1+ ankle edema Lower extremities: 1+ e lower extremity edema Neuro/Mental Status: Alert, not sedated. laboratory and microbiology Laboratory Tests 12/23/24 03:17 Test 12/23/24 03:17 Range/Units Serum Glucose 136 H 74-106 mg/dL Microbiology Date/Time Source Procedure Growth Status 12/21/24 03:26 Trachea Gram Stain - Final Resulted 12/21/24 03:26 Trachea Respiratory Culture - Preliminary Resulted 12/17/24 20:00 Urine - [place] Urine Culture - Final Complete 12/14/24 01:10 Sputum Gram Stain - Final Complete 12/14/24 01:10 Respiratory Culture - Final Staphylococcus aureus Complete 12/12/24 00:41 Stool Stool Culture - Final Complete 12/12/24 00:41 Stool Shiga Toxin I & II - Final Complete 12/12/24 00:14 Blood Blood Culture - Final NO GROWTH AFTER 5 DAYS OF INCUBATION. Complete Problem List/Assessment/Plan Problem List/Assessment/Plan Neurologic: #Acute metabolic encephalopathy due to sepsis s/p cardiac arrest #Vascular dementia #Large area of encephalomalacia involving the right temporal frontal and parietal lobes may represent old infarct Alert and oriented Status post extubation Nasal cannula 2 L Pending swallow evaluation Cardiology: #Sepsis: not septic shock yet #Moderate to severe pericardial effusion #atrial fibrillation #Hcoronary disease s/p stent #H/o ventricular arrhythmia #s/p ICD placement Antibiotics IV Cefepime q.8 Vancomycin IV Doxycycline q.12 IV Pulmonary #acute hypoxic respiratory failure s/p mechanical ventilation # cpap trial - extubated #Small pleural effusions # covid 19 infection #Early Aspiration pneumonia? #Sepsis #fungal infection,growing filamentus fungi - micafungin Furosemide 20 mg daily IV Potassium chloride Albuterol 5 q.4 Ipratropium 0.5 q.4 Renal #Sepsis #[id number] right-sided hydroureteronephrosis with multiple stones in the right ureter measuring up to 8 mm. #Lactic acidosis #There are multiple stones within the urinary bladder measuring less than 1 cm. #The bilateral kidneys demonstrate multiple nonobstructing stones measuring up to 2 cm. GI #r/o GI bleeding #History of colonic polyps #Cholelithiasis. #Mildly nodular hepatic contours may represent early changes of cirrhosis. Heme/onc #Severe anemia #Iron deficiency - iron sucrose - stool occult Prophylaxis: Pantoprazole 40 mg b.i.d. IV SCD Case discussed with Dr villasenor Disposition: icu Time spent on care not including procedures, 81 mins Code status: Plan discussed with: Other Dietary Evaluation Review Comments: 1. If GI is accessible, consider glucerna 1.2 @ 50ml/hr to provide 1440kcal, 72g pro, 966 ml FW to meet 100% of needs. 2. Consider advance to CCHO 60g diet when appropriate 3. Consider TPN if NPO> 7 days Expected Outcomes/Goals: 1. Pt will meet >75% of estimated needs within 2-3 days CC Plasma Assessment Blood Product Administration S: [id number] Date of Service: Dec 23, 2024 Billing Provider: DARYA VILLASENOR MD Common Visit Codes: 88111-[id number] CARE 30-74 MIN, 31726-[id number] CARE-EACH +30MIN PREET COMBS RESIDENT Dec 23, 2024 18:05 DARYA VILLASENOR MD Dec 24, 2024 14:01
[2024-12-24] VITALS (93 sets, daily range): BP systolic 115–145; BP diastolic 47–86; PULSE 55–74; RESP 11–31; TEMP 97.5–98.6; O2SAT 90–100
[2024-12-24 03:51] LABS: Basophils # (auto) 0 10 ^3/uL (0-0.2); Eosinophils # (auto) 0 10 ^3/uL (0-0.8); Lymphocytes # (auto) 0.4 10 ^3/uL (0.4-5.4); Neutrophils # (auto) 10.5 10 ^3/uL (1.6-8.6); Nucleated Red Blood Cells % 0.2 %; White Blood Cell 11.7 10^3/uL (4.4-10.8)
[2024-12-24 03:55] LABS: Basophils % (auto) 0.1 % (0.0-2.0); Hematocrit 25.9 % (41.0-53.0); Hemoglobin 8.2 g/dL (13.5-17.5); Lymphocytes % (auto) 3.2 % (10.0-50.0); Mean Corpuscular Hemoglobin 24.1 pg (28.0-32.0); Mean Corpuscular Hgb Conc. 31.5 g/dL (32.0-36.0); Mean Corpuscular Volume 76.6 fL (80.0-100.0); Monocytes # (auto) 0.8 10 ^3/uL (0-1.3); Monocytes % (auto) 7.1 % (0.0-12.0); Neutrophils % (auto) 89.6 % (37.0-80.0); Platelet Count (auto) 104 10^3/uL (140-450); Red Blood Cells 3.38 10^6/uL (4.5-5.90)
[2024-12-24 04:06] LABS: Red Cell Distribution Width 40.3 % (11.8-14.3)
[2024-12-24 04:10] LABS: Alanine Aminotransferase 37 U/L (7-40); Alkaline Phosphatase 68 U/L (46-116); Anion Gap 8 (5-15); BUN/Creatinine Ratio 45.5 (10.0-20.0); Calcium 8.8 mg/dL (8.7-10.4); Carbon Dioxide 26 mmol/L (20-31); Glucose 80 mg/dL (74-106); Sodium 141 mmol/L (136-145)
[2024-12-24 04:12] LABS: Aspartate Aminotransferase 14 U/L (13-40)
[2024-12-24 04:17] LABS: Albumin 3.1 g/dL (3.2-4.8); Bilirubin, Total 1.5 mg/dL (0.2-1.0); Blood Urea Nitrogen 25 mg/dL (9-23); Chloride 107 mmol/L (98-107); Potassium 3.2 mmol/L (3.5-5.1); Total Protein 4.7 g/dL (5.7-8.2)
[2024-12-24] MEDS ORDERED: POTASSIUM CHL 20MEQ/100ML 100 ML IV SCH (05:15)
[2024-12-24 05:46] LABS: Anisocytosis Moderate; Hypochromia Slight; Large Platelets FEW; Ovalocytes FEW; Platelet Estimate Decrea; Stomatocytes Few
[2024-12-24 08:39] LABS: Base Excess 0.6 mmol/L (-2.0-3.0)
[2024-12-24] MEDS: POTASSIUM CHL 20MEQ/100ML 100 ML IV SCH ×2 (09:04→21:27)
[2024-12-24] MEDS: MICAFUNGIN SODIUM 100 MG in SODIUM CHL 0.9% 100 ML IV SCH (09:57)
[2024-12-24] MEDS: FUROSEMIDE 20 MG/2 ML VIAL IV SCH (10:28)
--- NOTE | 2024-12-24 12:43 | MEDREC ---
[facility] Intervention Section I [facility] Intervention: Duplication of therapy (13 DAYS ON DOXYCYCLINE - POTENTIAL DUPLICATION OF THERAPY WITH VANCOMYCIN - PLEASE CONSIDER D/C DOXYCYCLINE) YOLANDA GODOY PHARMACIST Dec 24, 2024 12:43
--- NOTE | 2024-12-24 13:25 | DVH ---
EXAM: XY CHEST PORTABLE Indication: s/p extubation Technique: Single frontal view of the chest was obtained Comparison: XY CHEST PORTABLE on DOS: 12/23/24, XY CHEST PORTABLE on DOS: 12/23/24, XY CHEST PORTABLE on DOS: 12/22/24, XY CHEST XRAY 1 VIEW on DOS: 12/21/24, XY CHEST PORTABLE on DOS: 12/18/24 FINDINGS: Lines and Tubes: Cardiac pacemaker projects over left chest wall. Interval removal of endotracheal tu be. Lungs: Left lower lobe consolidative opacity. Pleura: Moderate left pleural effusion. No pneumothorax. Cardiomediastinal contours: Cardiomegaly. Atherosclerotic vascular calcifications of the thoracic aor ta are noted. Bones: No acute osseous abnormality. IMPRESSION: Moderate left pleural effusion and cardiomegaly.
[2024-12-24] MEDS: VANCOMYCIN 1GM/250ML KIT 250 ML IV SCH (14:13)
--- NOTE | 2024-12-24 15:06 | DVHPN2 ---
Progress Note - Dictate Date Seen: Dec 24, 2024 Medical Necessity Reason Pt with a Central, PICC or Fol: Yes The following are medically ne: Barron Catheter Reason for barron catheter: Strict I&O Subjective Patient seen at bedside ICU 107 No new complaints Patient was extubated yesterday Last bowel movement recorded yesterday vital signs Vital Sign Date Time Temp Pulse Resp B/P (MAP) Pulse Ox O2 Delivery O2 Flow Rate FiO2 12/24/24 13:56 66 26 99 12/24/24 12:00 Nasal Cannula* 2 28 12/24/24 10:28 135/54 12/24/24 04:00 97.5 97.5 Total Intake and Output 12/23/24 12/23/24 12/24/24 15:00 23:00 07:00 Intake Total 250.0 ml 270 ml 100 ml Output Total 2150 ml 1500 ml Balance 250.0 ml -1880 ml -1400 ml medications Current Medications Medications Dose Ordered Sig/Roberto Route Start Time Stop Time Status Last Admin Dose Admin Nitroglycerin 0.4 mg Q5MINP PRN SL 12/12/24 00:30 Ceftriaxone Sodium 50 ml @ 100 mls/hr DAILY IV 12/12/24 10:00 UNV Acetaminophen 650 mg Q6HP PRN OR 12/12/24 08:30 12/12/24 09:17 650 MG Pantoprazole Sodium 40 mg BID IV 12/14/24 08:46 12/24/24 10:28 40 MG Lactulose 30 ml Q6HPRN PRN PO 12/15/24 15:15 12/15/24 17:41 30 ML Diagnostic Test (Pha) 1 strip Q6HR 12/16/24 00:00 12/24/24 14:09 1 STRIP Insulin Human Regular FOLLOW SLIDING SCALE Q6HR SC 12/16/24 00:00 12/22/24 18:00 2 UNITS Dextrose 50 ml UD IV 12/16/24 00:00 Ipratropium [place] 0.5 mg Q4HR NEB 12/18/24 22:00 12/24/24 13:48 0.5 MG Albuterol 2.5 mg Q4HR NEB 12/18/24 22:00 12/24/24 13:48 2.5 MG Enteral Nutritional Formula 1,000 ml 40ML/HR GT 12/21/24 11:45 12/21/24 19:12 1,000 ML Vancomycin HCl 0 ml @ 0 mls/hr UD IV 12/21/24 11:45 Cefepime HCl 50 ml @ 12.5 mls/hr Q8H IV 12/22/24 02:00 12/24/24 10:29 12.5 MLS/HR Micafungin Sodium 100 mg/Sodium Chloride 100 ml @ 100 mls/hr DAILY@0900 IV 12/24/24 09:00 12/24/24 09:57 100 MLS/HR Furosemide 20 mg DAILY IV 12/24/24 10:00 12/24/24 10:28 20 MG Iron Sucrose 110 ml @ 110 mls/hr DAILY@1200 IV 12/24/24 12:00 12/28/24 12:59 Vancomycin HCl 250 ml @ 250 mls/hr DAILY@1400 IV 12/24/24 14:00 12/24/24 14:13 250 MLS/HR objective Chronically ill-appearing awake responsive extubated on supplemental oxygen Lungs decreased since sounds at the bases CVS S1-S2 regular rate rhythm Abdomen is soft nontender nondistended Extremities without clubbing cyanosis or edema laboratory and microbiology Laboratory Tests 12/24/24 03:00 Test 12/24/24 03:00 Range/Units Serum Glucose 80 74-106 mg/dL Problems(with codes): (1) Constipation (2) Hypoxemia (3) Elevated lactic acid level (4) Anemia due to blood loss, chronic (5) Altered mental status (6) Leukocytosis (7) Atrial fibrillation (8) Ventricular tachycardia Prognosis Plan Continue supportive care Repeat swallow evaluation and advance diet slowly as tolerated Keep head head end of the bed elevated to 30 at all times Dietary Evaluation Review Comments: 1. If GI is accessible, consider glucerna 1.2 @ 50ml/hr to provide 1440kcal, 72g pro, 966 ml FW to meet 100% of needs. 2. Consider advance to CCHO 60g diet when appropriate 3. Consider TPN if NPO> 7 days Expected Outcomes/Goals: 1. Pt will meet >75% of estimated needs within 2-3 days Plan discussed with: Patient, Other (ICU Nurse and Dr Cantor) CC Plasma Assessment Blood Product Administration S: [id number] CORNEL RDZ MD Dec 24, 2024 15:05
[2024-12-24] MEDS: IRON SUCROSE COMPLEX 110 ML IV SCH (15:09)
[2024-12-24] MEDS ORDERED: Jevity 1.2 Cal/Fiber 1 Liter GT SCH (17:00)
--- NOTE | 2024-12-24 18:27 | DVH ---
CHEST RADIOGRAPH Indication: OG tube in place. post placement confirmation Technique: Single frontal view of the chest was obtained COMPARISON: XY CHEST PORTABLE on DOS: 12/24/24, XY CHEST PORTABLE on DOS: 12/23/24, XY CHEST PORTABLE on DOS: 12/23/24, XY CHEST PORTABLE on DOS: 12/22/24, XY CHEST XRAY 1 VIEW on DOS: 12/21/24 FINDINGS: Lines and Tubes: Enteric tube ends in the body of the stomach Lungs: Clear Pleura: Stable moderate left pleural effusion mildly increasing right pleural effusion Effacement both hemidiaphragms Bibasilar atelectasis/infiltrate Stable heart size No pneumothorax. Cardiomediastinal contours: Stable Bones: Unremarkable IMPRESSION: 1. Increasing fluid and atelectasis right lung base when compared to the previous study Persistent moderate left pleural effusion NG tube ends in the body of the stomach.
--- NOTE | 2024-12-24 19:01 | DVHPNRES ---
Progress Note Date Seen: Dec 24, 2024 Resident Creating Document: PREET COMBS RESIDENT Medical Necessity Reason Pt with a Central, PICC or Fol: Yes The following are medically ne: Barron Catheter Reason for barron catheter: Strict I&O Subjective Review of Systems Patient extubate on 12/23/24 . Patient high risk of aspiration, did not passed the swallow evaluation. OG tube was placed. currently on lasix 20 daily with a net negative balance of 2L . CXR taken in the afternoon showed Increasing fluid and atelectasis right lung base when compared to the previous study and persistent moderate left pleural effusion no bowel movements today. Continue IV antibiotics and micafungin for filamentus fungi infection Patient reports: No new complaints Review of Systems: HEENT:Normal, CVS:Normal, RESPIRATORY:Normal, GI:Normal, :Normal, MSK:Normal, NEURO:Normal Objective vital signs Vital Sign Date Time Temp Pulse Resp B/P (MAP) Pulse Ox O2 Delivery O2 Flow Rate FiO2 12/24/24 18:16 55 22 100 12/24/24 18:00 Room Air* 0 21 12/24/24 12:01 98.6 98.6 Total Intake and Output 12/23/24 12/23/24 12/24/24 15:00 23:00 07:00 Intake Total 250.0 ml 270 ml 100 ml Output Total 2150 ml 1500 ml Balance 250.0 ml -1880 ml -1400 ml medications Current Medications Medications Dose Ordered Sig/Roberto Route Start Time Stop Time Status Last Admin Dose Admin Nitroglycerin 0.4 mg Q5MINP PRN SL 12/12/24 00:30 Ceftriaxone Sodium 50 ml @ 100 mls/hr DAILY IV 12/12/24 10:00 UNV Acetaminophen 650 mg Q6HP PRN [place] 12/12/24 08:30 12/12/24 09:17 650 MG Pantoprazole Sodium 40 mg BID IV 12/14/24 08:46 12/24/24 10:28 40 MG Lactulose 30 ml Q6HPRN PRN PO 12/15/24 15:15 12/15/24 17:41 30 ML Diagnostic Test (Pha) 1 strip Q6HR 12/16/24 00:00 12/24/24 18:23 1 STRIP Insulin Human Regular FOLLOW SLIDING SCALE Q6HR SC 12/16/24 00:00 12/22/24 18:00 2 UNITS Dextrose 50 ml UD IV 12/16/24 00:00 Ipratropium [place] 0.5 mg Q4HR NEB 12/18/24 22:00 12/24/24 13:48 0.5 MG Albuterol 2.5 mg Q4HR NEB 12/18/24 22:00 12/24/24 13:48 2.5 MG Vancomycin HCl 0 ml @ 0 mls/hr UD IV 12/21/24 11:45 Cefepime HCl 50 ml @ 12.5 mls/hr Q8H IV 12/22/24 02:00 12/24/24 18:28 12.5 MLS/HR Micafungin Sodium 100 mg/Sodium Chloride 100 ml @ 100 mls/hr DAILY@0900 IV 12/24/24 09:00 12/24/24 09:57 100 MLS/HR Furosemide 20 mg DAILY IV 12/24/24 10:00 12/24/24 10:28 20 MG Iron Sucrose 110 ml @ 110 mls/hr DAILY@1200 IV 12/24/24 12:00 12/28/24 12:59 12/24/24 15:09 110 MLS/HR Vancomycin HCl 250 ml @ 250 mls/hr DAILY@1400 IV 12/24/24 14:00 12/24/24 14:13 250 MLS/HR Enteral Nutritional Formula 1,000 ml 30ML/HR GT 12/24/24 17:00 Examination General Appearance: on room air, AO X2. able to follow commands. Head Exam: Normal inspection Pulmonary/Respiratory: Chest non-tender. Clear bilateral breath sounds Cardiovascular/Chest: Regular rate and paced rhythm. No murmurs. No JVD. Peripheral Pulses: 2+ Radial (R). 2+ Radial (L). 2+ Pedal (R). 2+ Pedal (L) Abdominal Exam: hypoactive bowel sounds. Soft. Nontender. No hepatospenomegaly. No masses Ankle Exam: 1+ ankle edema Lower extremities: 1+ lower extremity edema, left above knee amputation Neuro/Mental Status: Alert, not sedated. laboratory and microbiology Laboratory Tests 12/24/24 03:00 Test 12/24/24 03:00 Range/Units Serum Glucose 80 74-106 mg/dL Microbiology Date/Time Source Procedure Growth Status 12/21/24 03:26 Trachea Gram Stain - Final Resulted 12/21/24 03:26 Trachea Respiratory Culture - Preliminary Resulted 12/17/24 20:00 Urine - Barron Port Urine Culture - Final Complete 12/14/24 01:10 Sputum Gram Stain - Final Complete 12/14/24 01:10 Respiratory Culture - Final Staphylococcus aureus Complete 12/12/24 00:41 Stool Stool Culture - Final Complete 12/12/24 00:41 Stool Shiga Toxin I & II - Final Complete 12/12/24 00:14 Blood Blood Culture - Final NO GROWTH AFTER 5 DAYS OF INCUBATION. Complete Problem List/Assessment/Plan Problem List/Assessment/Plan Neurologic: #Acute metabolic encephalopathy due to sepsis s/p cardiac arrest #Vascular dementia #Large area of encephalomalacia involving the right temporal frontal and parietal lobes may represent old infarct - Alert and oriented X2 - Status post extubation - room air - Swallow evaluation Cardiology: #Septic shock #Moderate to severe pericardial effusion #atrial fibrillation #coronary disease s/p stent #H/o ventricular arrhythmia s/p ICD placement - Continue antibiotics IV Respiratory #acute hypoxic respiratory failure s/p mechanical ventilation #Moderate pleural effusions # covid 19 infection # Sepsis due to Community acquired pneumonia due to staph aureus infection/ filamentus fungi - Furosemide 20 mg daily IV - Vancomycin IV - potassium and magnesium levels - I&O - Albuterol 5 q.4 - Ipratropium 0.5 q.4 - micafungin iv Renal #[id number] right-sided hydroureteronephrosis with multiple stones in the right ureter measuring up to 8 mm. #Lactic acidosis #There are multiple stones within the urinary bladder measuring less than 1 cm. #The bilateral kidneys demonstrate multiple nonobstructing stones measuring up to 2 cm. #hypokalemia - potassium 40 IV ID #Septic shock likely due to aspiration pneumonia #skin infection positive proteus mirabilis and E.Faecalis #covid 19 infection, resolved #fungal infection,growing filamentus fungi - micafungin - Vancomycin and cefepime GI #r/o GI bleeding #History of colonic polyps #Cholelithiasis. #Mildly nodular hepatic contours may represent early changes of cirrhosis. #trace ascitis - OG tube Barron catheter Endocrine Heme/onc #Severe anemia #Iron deficiency - iron sucrose IV Prophylaxis: Pantoprazole 40 mg b.i.d. IV SCD Case discussed with Dr villasenor Disposition: icu Time spent on care not including procedures, 62 min Code status: full code Plan discussed with: Patient, Other My Orders My Orders Orders - PREET COMBS RESIDENT Procedure Category Date Status Time Iron Sucrose Complex PHA 12/24/24 In Process (Venofer) 12:00 Abg W/ Co-Ox RT 12/24/24 Logged 08:09 Chest Portable XY 12/24/24 Resulted 08:09 * Swallow Request ST 12/24/24 Transmitted 08:23 Chest Percussion Tx RT 12/24/24 Logged Initi 16:35 Chest Percussion Tx RT 12/24/24 Logged SUB 16:41 [address] Ng ORDERS 12/24/24 Transmitted 16:52 Tube Feeding DIET 12/24/24 Transmitted Dinner Nutritional PHA 12/24/24 In Process Supplements (Jevity 17:00 Dietary Evaluation Review Comments: 1. If GI is accessible, consider glucerna 1.2 @ 50ml/hr to provide 1440kcal, 72g pro, 966 ml FW to meet 100% of needs. 2. Consider advance to CCHO 60g diet when appropriate 3. Consider TPN if NPO> 7 days Expected Outcomes/Goals: 1. Pt will meet >75% of estimated needs within 2-3 days CC Plasma Assessment Blood Product Administration S: [id number] Date of Service: Dec 24, 2024 Billing Provider: DARYA VILLASENOR MD Common Visit Codes: [id number] CARE 30-74 MIN PREET COMBS RESIDENT Dec 24, 2024 19:00 DARYA VILLASENOR MD Dec 25, 2024 14:44
[2024-12-24 20:26] LABS: Potassium 3.1 mmol/L (3.5-5.1)
[2024-12-24 20:27] LABS: Magnesium 2.1 mg/dL (1.6-2.6)
[2024-12-25] VITALS (101 sets, daily range): BP systolic 110–143; BP diastolic 51–83; PULSE 59–108; RESP 10–24; TEMP 97.2–98.9; O2SAT 78–100
[2024-12-25 04:01] LABS: Basophils # (auto) 0 10 ^3/uL (0-0.2); Basophils % (auto) 0.1 % (0.0-2.0); Eosinophils # (auto) 0 10 ^3/uL (0-0.8); Hemoglobin 9.3 g/dL (13.5-17.5)
[2024-12-25 04:03] LABS: Hematocrit 28.6 % (41.0-53.0); Lymphocytes # (auto) 0.3 10 ^3/uL (0.4-5.4); Lymphocytes % (auto) 3.5 % (10.0-50.0); Mean Corpuscular Hgb Conc. 32.6 g/dL (32.0-36.0); Mean Corpuscular Volume 76.7 fL (80.0-100.0); Monocytes # (auto) 0.8 10 ^3/uL (0-1.3); Monocytes % (auto) 9.2 % (0.0-12.0); Neutrophils % (auto) 87.2 % (37.0-80.0); Nucleated Red Blood Cells % 0.2 %; Platelet Count (auto) 108 10^3/uL (140-450); Red Blood Cells 3.73 10^6/uL (4.5-5.90); White Blood Cell 9.2 10^3/uL (4.4-10.8)
[2024-12-25 04:11] LABS: Alanine Aminotransferase 34 U/L (7-40); Alkaline Phosphatase 69 U/L (46-116); Anion Gap 10 (5-15); Aspartate Aminotransferase 18 U/L (13-40); BUN/Creatinine Ratio 43.2 (10.0-20.0); Blood Urea Nitrogen 19 mg/dL (9-23); Carbon Dioxide 25 mmol/L (20-31); Sodium 142 mmol/L (136-145)
[2024-12-25 04:13] LABS: Albumin 2.9 g/dL (3.2-4.8); Bilirubin, Total 1.8 mg/dL (0.2-1.0); Calcium 8.4 mg/dL (8.7-10.4); Chloride 107 mmol/L (98-107); Glucose 72 mg/dL (74-106); Potassium 3.4 mmol/L (3.5-5.1); Total Protein 4.6 g/dL (5.7-8.2)
[2024-12-25] MEDS: POTASSIUM CHL 20MEQ/100ML 100 ML IV ONE (04:54)
[2024-12-25 05:11] LABS: Anisocytosis Moderate; Hypochromia Slight
[2024-12-25 05:12] LABS: Large Platelets FEW; Ovalocytes FEW; Platelet Estimate Decrea
--- NOTE | 2024-12-25 05:16 | DVH ---
CHEST RADIOGRAPH Indication: pleural effusion Technique: Single frontal view of the chest was obtained Comparison: XY CHEST PORTABLE on DOS: 12/24/24 FINDINGS: Lines and Tubes: The enteric tube courses below the left hemidiaphragm and the tip extends outside th e field of view. AICD noted. Lungs: Bibasilar opacities similar to prior study. Pleura: Bilateral pleural effusions similar to prior study. No pneumothorax. Cardiomediastinal contours: Stable Cardiovascular silhouette. Bones: No acute osseous abnormality. IMPRESSION: 1. No significant interval change.
[2024-12-25] MEDS ORDERED: TPN PER PHARMACY 0 ML IV SCH (17:00)
--- NOTE | 2024-12-25 17:55 | DVHPNRES ---
Progress Note Date Seen: Dec 25, 2024 Resident Creating Document: PREET COMBS RESIDENT Medical Necessity Reason Pt with a Central, PICC or Fol: Yes The following are medically ne: Barron Catheter Reason for barron catheter: Strict I&O Subjective Review of Systems Patient was extubated on 12/23/24 . Patient on high risk of aspiration, did not passed the swallow evaluation today. TPN will be started today.. currently on lasix 20 daily with a net negative balance of 2L . CXR still showing bilateral lower lung effusions. No bowel movements today. Continue IV cefepime and micafungin for filamentous fungi infection. Transfer to [facility] Swallow evaluation tomorrow. i personally discuss code status with Ricky FIELDS) , Patient is Full code. Objective vital signs Vital Sign Date Time Temp Pulse Resp B/P (MAP) Pulse Ox O2 Delivery O2 Flow Rate FiO2 12/25/24 17:15 62 19 130/67 (88) 97 12/25/24 16:00 Room Air* 0 21 12/25/24 16:00 97.8 97.8 Total Intake and Output 12/24/24 12/24/24 12/25/24 15:00 23:00 07:00 Intake Total 300.0 ml 460 ml 150 ml Output Total 2350 ml 1250 ml Balance 300.0 ml -1890 ml -1100 ml medications Current Medications Medications Dose Ordered Sig/Roberto Route Start Time Stop Time Status Last Admin Dose Admin Nitroglycerin 0.4 mg Q5MINP PRN SL 12/12/24 00:30 Ceftriaxone Sodium 50 ml @ 100 mls/hr DAILY IV 12/12/24 10:00 UNV Acetaminophen 650 mg Q6HP PRN [place] 12/12/24 08:30 12/12/24 09:17 650 MG Pantoprazole Sodium 40 mg BID IV 12/14/24 08:46 12/25/24 09:12 40 MG Lactulose 30 ml Q6HPRN PRN PO 12/15/24 15:15 12/15/24 17:41 30 ML Ipratropium [place] 0.5 mg Q4HR NEB 12/18/24 22:00 12/25/24 14:19 0.5 MG Albuterol 2.5 mg Q4HR NEB 12/18/24 22:00 12/25/24 14:19 2.5 MG Cefepime HCl 50 ml @ 12.5 mls/hr Q8H IV 12/22/24 02:00 12/25/24 09:12 12.5 MLS/HR Micafungin Sodium 100 mg/Sodium Chloride 100 ml @ 100 mls/hr DAILY@0900 IV 12/24/24 09:00 12/25/24 09:12 100 MLS/HR Furosemide 20 mg DAILY IV 12/24/24 10:00 12/25/24 09:12 20 MG Iron Sucrose 110 ml @ 110 mls/hr DAILY@1200 IV 12/24/24 12:00 12/28/24 12:59 12/25/24 12:44 110 MLS/HR Enteral Nutritional Formula 1,000 ml 30ML/HR GT 12/24/24 17:00 Amino Acids 0 ml @ 0 mls/hr PER PHARMACY IV 12/25/24 17:00 Examination General Appearance: on room air, AO X2. able to follow commands. Pulmonary/Respiratory: Chest non-tender. Clear bilateral breath sounds Cardiovascular/Chest: Regular rate and paced rhythm. No murmurs. No JVD. Peripheral Pulses: 2+ Radial (R). 2+ Radial(L). 2+ Pedal (R). 2+ Pedal (L) Abdominal Exam: Soft. Nontender. No hepatospenomegaly. No masses Ankle Exam: 2+ ankle edema Lower extremities: 1+ lower extremity edema, left above knee amputation Neuro/Mental Status: Alert, not sedated. laboratory and microbiology Laboratory Tests 12/25/24 03:05 Test 12/25/24 03:05 Range/Units Serum Glucose 72 L 74-106 mg/dL Microbiology Date/Time Source Procedure Growth Status 12/21/24 03:26 Trachea Gram Stain - Final Resulted 12/21/24 03:26 Trachea Respiratory Culture - Preliminary Resulted 12/17/24 20:00 Urine - Barron [place] Urine Culture - Final Complete 12/14/24 01:10 Sputum Gram Stain - Final Complete 12/14/24 01:10 Respiratory Culture - Final Staphylococcus aureus Complete 12/12/24 00:41 Stool Stool Culture - Final Complete 12/12/24 00:41 Stool Shiga Toxin I & II - Final Complete 12/12/24 00:14 Blood Blood Culture - Final NO GROWTH AFTER 5 DAYS OF INCUBATION. Complete Problem List/Assessment/Plan Problem List/Assessment/Plan Neurologic: #Acute metabolic encephalopathy due to sepsis s/p cardiac arrest #Vascular dementia #Large area of encephalomalacia involving the right temporal frontal and parietal lobes may represent old infarct - Alert and oriented X2 - Status post extubation - Transfer to [facility] - room air - Repeat Swallow evaluation tomorrow. Cardiology: #Septic shock #Moderate to severe pericardial effusion #atrial fibrillation #coronary disease s/p stent #H/o ventricular arrhythmia s/p ICD placement - Continue antibiotics IV Respiratory #acute hypoxic respiratory failure s/p mechanical ventilation #Moderate pleural effusions # covid 19 infection,resolved # Sepsis due to Community acquired pneumonia due to staph aureus infection/ filamentus fungi - Furosemide 20 mg daily IV - potassium and magnesium levels - I&O - Albuterol 5 q.4 - Ipratropium 0.5 q.4 - micafungin iv Genitourinary/Renal #[id number] right-sided hydroureteronephrosis with multiple stones in the right ureter measuring up to 8 mm. #Lactic acidosis #There are multiple stones within the urinary bladder measuring less than 1 cm. #The bilateral kidneys demonstrate multiple nonobstructing stones measuring up to 2 cm. #hypokalemia - potassium 40 IV - Barron catheter - negative balance - 2690 - monitor electrolytes Endocrine ID #Septic shock likely due to aspiration pneumonia #skin infection positive proteus mirabilis and E.Faecalis #covid 19 infection, resolved #fungal infection,growing filamentus fungi - IV micafungin - IV cefepime GI #r/o GI bleeding #History of colonic polyps #Cholelithiasis. #Mildly nodular hepatic contours may represent early changes of cirrhosis. #trace ascitis - TPN for nutrition. - phosphorous - magnesium Heme/onc #Severe microcytic hypochromic anemia #Iron deficiency anemia - iron sucrose IV Prophylaxis: Pantoprazole 40 mg b.i.d. IV SCD Case discussed with Dr villasenor Disposition: ICU Time spent on care not including procedures, 62 min Code status: full code Plan discussed with: Other (RICKY (MONIQUE)) My Orders My Orders Orders - PREET COMBS RESIDENT Procedure Category Date Status Time Chest Portable XY 12/25/24 Resulted 04:00 * Swallow Request ST 12/25/24 Transmitted 11:19 Transfer Orders XFER 12/25/24 Transmitted 14:13 Npo (Nothing By DIET 12/25/24 Transmitted Mouth) Diet Dinner * Swallow Request ST 12/26/24 Transmitted 09:00 Comprehensive LAB 12/26/24 Verified Metabolic Panel 04:00 Complete Blood Count LAB 12/26/24 Verified 04:00 Chest Portable XY 12/26/24 Logged 04:00 Tpn Per Pharmacy PHA 12/25/24 In Process 17:00 Amino Acid Infusion PHA 12/25/24 In Process In D5w (Clinimix 4.2 22:00 Glucose Blood PHA 12/25/24 In Process (Accu-Chek Comfort 18:00 Insulin R (Human) PHA 12/25/24 In Process (Insulin R) 18:00 Dextrose 50% Syringe PHA 12/25/24 In Process 18:00 Dietary Evaluation Review Comments: 1. If GI is accessible, consider glucerna 1.2 @ 50ml/hr to provide 1440kcal, 72g pro, 966 ml FW to meet 100% of needs. 2. Consider advance to CCHO 60g diet when appropriate 3. Consider TPN if NPO> 7 days Expected Outcomes/Goals: 1. Pt will meet >75% of estimated needs within 2-3 days CC Plasma Assessment Blood Product Administration S: 1752 Date of Service: Dec 25, 2024 Billing Provider: DARYA VILLASENOR MD Common Visit Codes: [id number] CARE 30-74 MIN PREET COMBS RESIDENT Dec 25, 2024 17:55 DARYA VILLASENOR MD Dec 26, 2024 11:13
[2024-12-25] MEDS: InsuLIN REG 1unit/0.01ml Soln (100units/ml) SC SCH (18:00)
[2024-12-25] MEDS ORDERED: DEXTROSE (50%) 50ML SYRG IV SCH (18:00)
[2024-12-25] MEDS: ACCU-CHEK COMFORT CURVE STRIP VI SCH (18:05)
[2024-12-25] MEDS: AMINO ACID INFUSION IN D5W 1,000 ML IV SCH (22:00)
[2024-12-26] VITALS (68 sets, daily range): BP systolic 113–151; BP diastolic 47–76; PULSE 59–82; RESP 11–24; TEMP 97.1–98.4; O2SAT 93–100
[2024-12-26 04:27] LABS: Alanine Aminotransferase 29 U/L (7-40); Alkaline Phosphatase 67 U/L (46-116); Anion Gap 10 (5-15); Aspartate Aminotransferase 17 U/L (13-40); BUN/Creatinine Ratio 46.3 (10.0-20.0); Basophils # (auto) 0 10 ^3/uL (0-0.2); Blood Urea Nitrogen 19 mg/dL (9-23); Carbon Dioxide 26 mmol/L (20-31); Chloride 106 mmol/L (98-107); Eosinophils # (auto) 0 10 ^3/uL (0-0.8); Eosinophils % (auto) 0.1 % (0.0-7.0); Glucose 96 mg/dL (74-106); Lymphocytes # (auto) 0.3 10 ^3/uL (0.4-5.4); Monocytes # (auto) 0.7 10 ^3/uL (0-1.3); Nucleated Red Blood Cells % 0.2 %; Sodium 142 mmol/L (136-145)
[2024-12-26 04:29] LABS: Hematocrit 31.2 % (41.0-53.0); Hemoglobin 9.6 g/dL (13.5-17.5); Lymphocytes % (auto) 4.5 % (10.0-50.0); Mean Corpuscular Hgb Conc. 30.8 g/dL (32.0-36.0); Monocytes % (auto) 9.8 % (0.0-12.0); Neutrophils # (auto) 5.9 10 ^3/uL (1.6-8.6); Neutrophils % (auto) 85.6 % (37.0-80.0); Platelet Count (auto) 72 10^3/uL (140-450); White Blood Cell 6.9 10^3/uL (4.4-10.8)
[2024-12-26 04:34] LABS: Albumin 2.8 g/dL (3.2-4.8); Bilirubin, Total 1.7 mg/dL (0.2-1.0); Calcium 8.4 mg/dL (8.7-10.4); Phosphorus 1.6 mg/dL (2.4-5.1); Potassium 2.6 mmol/L (3.5-5.1); Total Protein 4.5 g/dL (5.7-8.2)
[2024-12-26 05:32] LABS: Anisocytosis Slight; Hypochromia Moderate; Large Platelets FEW; Ovalocytes FEW; Platelet Estimate Decrea
--- NOTE | 2024-12-26 05:32 | DVH ---
EXAM: XR Chest, 1 View CLINICAL INDICATION: pleural effusion TECHNIQUE: Frontal view of the chest. COMPARISON: XY CHEST PORTABLE on DOS: 12/25/24, XY CHEST PORTABLE on DOS: 12/24/24, XY CHEST PORTABLE o n DOS: 12/24/24, XY CHEST PORTABLE on DOS: 12/23/24, XY CHEST PORTABLE on DOS: 12/23/24 FINDINGS: LUNGS AND PLEURAL SPACES: Congestion and edema. Bilateral pleural effusions. No pneumothorax. HEART: Unremarkable. No cardiomegaly. MEDIASTINUM: Unremarkable. Normal mediastinal contour. BONES/JOINTS: Unremarkable. No acute fracture. TUBES, LINES AND DEVICES: Left-sided cardiac pacemaker. OTHER FINDINGS: No significant change from the prior exam. . IMPRESSION: 1. Bilateral pleural effusions. 2. No significant change from the prior exam.
[2024-12-26 05:33] LABS: Giant Platelets Few; Stomatocytes Few
[2024-12-26] MEDS: POTASSIUM CHL 20MEQ/100ML 100 ML IV SCH ×2 (05:52→14:57)
[2024-12-26] MEDS: POTASSIUM PHOSPHATE 26.4 MEQ in SODIUM CHL 0.9% 100 ML IV ONE (13:39)
[2024-12-26 14:20] LABS: INR 1.88 (0.9-1.15); Partial Thromboplastin Time 66.9 SEC (24.5-34.5); Prothrombin Time 18.7 sec (9.3-11.8)
[2024-12-26] MEDS: LIDOCAINE 1% (LOCAL ANESTH.) PF 5ml SDV ID ONE (17:38)
--- NOTE | 2024-12-26 17:45 | DVHPNRES ---
Progress Note Date Seen: Dec 26, 2024 Resident Creating Document: PREET COMBS RESIDENT Medical Necessity Reason Pt with a Central, PICC or Fol: Yes The following are medically ne: PICC Line, Barron Catheter Reason for barron catheter: Strict I&O Subjective Review of Systems Patient was extubated on 12/23/24 . Patient on high risk of aspiration, he passed the swallow evaluation today with the indication of feeding carefully , he can tolerate pureed diet with honey thick liquids. Patient needs to be fed ( very small bites and slowly) to avoid aspiration. PICC line was placed today. currently on lasix 20 daily with a net negative balance of 2462 until this morning. CXR still showing bilateral lower lung effusions. Continue IV cefepime and micafungin for filamentous fungi infection. Transfer to [facility] is pending. POA updated , and discussed goals of care in person, they decided to continue FULL CODE, and transfer [facility], [employer] updated and working on the case. Objective vital signs Vital Sign Date Time Temp Pulse Resp B/P (MAP) Pulse Ox O2 Delivery O2 Flow Rate FiO2 12/26/24 17:31 61 12/26/24 17:31 16 94 Room Air* 0 21 12/26/24 17:00 134/70 (91) 12/26/24 16:00 97.9 97.9 Total Intake and Output 12/25/24 12/25/24 12/26/24 15:00 23:00 07:00 Intake Total 201 ml 428 ml Output Total 2600 ml 400 ml Balance -2399 ml 28 ml medications Current Medications Medications Dose Ordered Sig/Roberto Route Start Time Stop Time Status Last Admin Dose Admin Nitroglycerin 0.4 mg Q5MINP PRN SL 12/12/24 00:30 Ceftriaxone Sodium 50 ml @ 100 mls/hr DAILY IV 12/12/24 10:00 UNV Acetaminophen 650 mg Q6HP PRN [place] 12/12/24 08:30 12/12/24 09:17 650 MG Pantoprazole Sodium 40 mg BID IV 12/14/24 08:46 12/26/24 08:47 40 MG Lactulose 30 ml Q6HPRN PRN PO 12/15/24 15:15 12/15/24 17:41 30 ML Ipratropium [place] 0.5 mg Q4HR NEB 12/18/24 22:00 12/26/24 14:24 0.5 MG Albuterol 2.5 mg Q4HR NEB 12/18/24 22:00 12/26/24 14:24 2.5 MG Cefepime HCl 50 ml @ 12.5 mls/hr Q8H IV 12/22/24 02:00 12/26/24 09:06 12.5 MLS/HR Micafungin Sodium 100 mg/Sodium Chloride 100 ml @ 100 mls/hr DAILY@0900 IV 12/24/24 09:00 12/26/24 08:01 100 MLS/HR Furosemide 20 mg DAILY IV 12/24/24 10:00 12/26/24 08:47 20 MG Iron Sucrose 110 ml @ 110 mls/hr DAILY@1200 IV 12/24/24 12:00 12/28/24 12:59 12/26/24 12:09 110 MLS/HR Enteral Nutritional Formula 1,000 ml 30ML/HR GT 12/24/24 17:00 Amino Acids 0 ml @ 0 mls/hr PER PHARMACY IV 12/25/24 17:00 Amino Acids 1,000 ml @ 41 mls/hr DAILY@2200 IV 12/25/24 22:00 12/26/24 21:59 12/25/24 22:00 41 MLS/HR Diagnostic Test (Pha) 1 strip Q6HR 12/25/24 18:00 12/26/24 17:27 1 STRIP Insulin Human Regular FOLLOW SLIDING SCALE Q6HR SC 12/25/24 18:00 Dextrose 50 ml UD IV 12/25/24 18:00 Potassium Acetate 30 meq/Potassium Phosphate 40 meq/ Magnesium Sulfate 8 meq/ Multivitamins 10 ml/Chromium/ Copper/Manganese/ Zinc 1 ml/Amino Acids/Dextrose/ Purified Water 1,037.0909 ml @ 43 mls/hr Q24H8M IV 12/26/24 22:00 12/27/24 21:59 Potassium Chloride 100 ml @ 50 mls/hr Q2H IV 12/26/24 14:45 12/26/24 18:44 12/26/24 14:57 50 MLS/HR Sodium Chloride 10 ml QSHIFT@10,22 IV 12/26/24 22:00 UNV Examination General Appearance: on room air, AO X2. able to follow commands. Pulmonary/Respiratory: Chest non-tender. Clear bilateral breath sounds Cardiovascular/Chest: Regular rate and paced rhythm. No murmurs. No JVD. Peripheral Pulses: 2+ Radial (R). 2+ Radial(L). 2+ Pedal (R). 2+ Pedal (L) Abdominal Exam: Soft. Nontender. No hepatospenomegaly. No masses Ankle Exam: 2+ ankle edema Lower extremities: 1+ lower extremity edema, left above knee amputation Neuro/Mental Status: Alert, not sedated. laboratory and microbiology Laboratory Tests 12/26/24 13:42 12/26/24 03:30 Test 12/26/24 03:30 Range/Units Serum Glucose 96 74-106 mg/dL Microbiology Date/Time Source Procedure Growth Status 12/21/24 03:26 Trachea Gram Stain - Final Resulted 12/21/24 03:26 Trachea Respiratory Culture - Preliminary Resulted 12/17/24 20:00 Urine - Barron [place] Urine Culture - Final Complete 12/14/24 01:10 Sputum Gram Stain - Final Complete 12/14/24 01:10 Respiratory Culture - Final Staphylococcus aureus Complete 12/12/24 00:41 Stool Stool Culture - Final Complete 12/12/24 00:41 Stool Shiga Toxin I & II - Final Complete 12/12/24 00:14 Blood Blood Culture - Final NO GROWTH AFTER 5 DAYS OF INCUBATION. Complete Problem List/Assessment/Plan Problem List/Assessment/Plan Neurologic: #Acute metabolic encephalopathy due to sepsis s/p cardiac arrest #Vascular dementia #Large area of encephalomalacia involving the right temporal frontal and parietal lobes may represent old infarct - Alert and oriented X2 - Status post extubation - Transfer to [facility] - room air - TPN - Pureed diet, carefully and small pieces, high risk of aspiration. Cardiology: #Septic shock #Moderate to severe pericardial effusion #atrial fibrillation #coronary disease s/p stent #H/o ventricular arrhythmia s/p ICD placement - Continue antibiotics IV Respiratory #acute hypoxic respiratory failure s/p mechanical ventilation #Moderate pleural effusions # covid 19 infection,resolved # Sepsis due to Community acquired pneumonia due to staph aureus infection/ filamentus fungi - Furosemide 20 mg daily IV - I&O - Albuterol 5 q.4 - Ipratropium 0.5 q.4 - micafungin iv Genitourinary/Renal #[id number] right-sided hydroureteronephrosis with multiple stones in the right ureter measuring up to 8 mm. #Lactic acidosis #There are multiple stones within the urinary bladder measuring less than 1 cm. #The bilateral kidneys demonstrate multiple nonobstructing stones measuring up to 2 cm. #hypokalemia #hypophosphatemia - phosphorus replaced - potassium replaced - Barron catheter - strict I&O - monitor electrolytes Endocrine ID #Septic shock likely due to aspiration pneumonia #skin infection positive proteus mirabilis and E.Faecalis #covid 19 infection, resolved #fungal infection,growing filamentus fungi - IV micafungin - IV cefepime GI #r/o GI bleeding #History of colonic polyps #Cholelithiasis. #Mildly nodular hepatic contours may represent early changes of cirrhosis. #trace ascitis - TPN for nutrition. - phosphorous - magnesium Heme/onc #Severe microcytic hypochromic anemia #Iron deficiency anemia - iron sucrose IV Prophylaxis: Pantoprazole 40 mg b.i.d. IV SCD Case discussed with Dr villasenor Disposition: ICU Time spent on care not including procedures, 52 min Code status: full code Plan discussed with: Other (MONIQUE menchaca) My Orders My Orders Orders - PREET COMBS RESIDENT Procedure Category Date Status Time Amino Acid Infusion PHA 12/25/24 In Process In D5w (Clinimix 4.2 22:00 Glucose Blood PHA 12/25/24 In Process (Accu-Chek Comfort 18:00 Insulin R (Human) PHA 12/25/24 In Process (Insulin R) 18:00 Dextrose 50% Syringe PHA 12/25/24 In Process 18:00 Tpn Per Pharmacy DEMARIO 12/25/24 In Process 22:00 * Wood Piler CONS 12/26/24 Transmitted Consult Amino Acid PHA 12/26/24 In Process Infusion... 22:00 Comprehensive LAB 12/27/24 Verified Metabolic Panel 06:00 Magnesium LAB 12/27/24 Verified 06:00 Phosphorus LAB 12/27/24 Verified 06:00 Tpn Per Pharmacy DEMARIO 12/26/24 In Process 11:16 Triglycerides LAB 12/27/24 Verified 06:00 Pureed DIET 12/26/24 Transmitted Dinner Dietary Evaluation Review Comments: 1. If GI is accessible, consider glucerna 1.2 @ 50ml/hr to provide 1440kcal, 72g pro, 966 ml FW to meet 100% of needs. 2. Consider advance to CCHO 60g diet when appropriate 3. Consider TPN if NPO> 7 days Expected Outcomes/Goals: 1. Pt will meet >75% of estimated needs within 2-3 days CC Plasma Assessment Blood Product Administration S: 1752 Date of Service: Dec 26, 2024 Billing Provider: DARYA VILLASENOR MD Common Visit Codes: [id number] CARE 30-74 MIN PREET COMBS RESIDENT Dec 26, 2024 17:45 DARYA VILLASENOR MD Dec 28, 2024 19:38
--- NOTE | 2024-12-26 18:14 | DVH ---
CHEST RADIOGRAPH Indication: PICC LINE PLACEMENT. Technique: Single frontal view of the chest was obtained Comparison: XY CHEST PORTABLE on DOS: 12/26/24, XY CHEST PORTABLE on DOS: 12/25/24, XY CHEST PORTABLE on DOS: 12/24/24 FINDINGS: Lines and Tubes: PICC line in place in the right arm with the tip in the superior vena cava above the right atrium. Dual-chamber AICD pacemaker in place with pulse generator over the left chest. Lungs: Bibasilar airspace disease and pleural effusions Pleura: No effusion. No pneumothorax. Cardiomediastinal contours: Unremarkable Bones: No acute osseous abnormality. IMPRESSION: 1. PICC line in place from right arm with the tip in the superior vena cava of the right atrium. 2. Pacemaker place unchanged from 12/26/2024 3. Improvement in the bibasilar infiltrates pleural effusion.
[2024-12-26] MEDS: TPN PER PHARMACY IV NR (21:41)
[2024-12-26] MEDS: SODIUM CHLOR 0.9% PF (SALINE LOCK) 10ML VIAL/SYR IV SCH (22:00)
[2024-12-27] VITALS (78 sets, daily range): BP systolic 103–141; BP diastolic 52–67; PULSE 59–85; RESP 13–24; TEMP 97.5–98.8; O2SAT 60–100
[2024-12-27 04:18] LABS: Basophils # (auto) 0 10 ^3/uL (0-0.2); Basophils % (auto) 0.1 % (0.0-2.0); Eosinophils # (auto) 0 10 ^3/uL (0-0.8); Hemoglobin 9.5 g/dL (13.5-17.5); Nucleated Red Blood Cells % 0.1 %
[2024-12-27 04:21] LABS: Eosinophils % (auto) 0.2 % (0.0-7.0); Hematocrit 30.6 % (41.0-53.0); Lymphocytes # (auto) 0.4 10 ^3/uL (0.4-5.4); Lymphocytes % (auto) 3.9 % (10.0-50.0); Mean Corpuscular Hemoglobin 24.2 pg (28.0-32.0); Mean Corpuscular Hgb Conc. 30.9 g/dL (32.0-36.0); Mean Corpuscular Volume 78.4 fL (80.0-100.0); Monocytes # (auto) 0.6 10 ^3/uL (0-1.3); Monocytes % (auto) 6.1 % (0.0-12.0); Neutrophils # (auto) 9.5 10 ^3/uL (1.6-8.6); Neutrophils % (auto) 89.7 % (37.0-80.0); Platelet Count (auto) 58 10^3/uL (140-450); Red Blood Cells 3.91 10^6/uL (4.5-5.90); Red Cell Distribution Width 40.1 % (11.8-14.3); White Blood Cell 10.6 10^3/uL (4.4-10.8)
[2024-12-27 04:25] LABS: Alanine Aminotransferase 26 U/L (7-40); Alkaline Phosphatase 67 U/L (46-116); Anion Gap 6 (5-15); BUN/Creatinine Ratio 47.7 (10.0-20.0); Blood Urea Nitrogen 21 mg/dL (9-23); Carbon Dioxide 27 mmol/L (20-31); Magnesium 1.8 mg/dL (1.6-2.6); Sodium 142 mmol/L (136-145)
[2024-12-27 04:26] LABS: Aspartate Aminotransferase 16 U/L (13-40)
[2024-12-27 04:27] LABS: Bilirubin, Total 1.2 mg/dL (0.2-1.0)
[2024-12-27 04:58] LABS: Albumin 2.7 g/dL (3.2-4.8); Calcium 8.2 mg/dL (8.7-10.4); Chloride 109 mmol/L (98-107); Glucose 127 mg/dL (74-106); Phosphorus 1.8 mg/dL (2.4-5.1); Potassium 3.2 mmol/L (3.5-5.1); Total Protein 4.5 g/dL (5.7-8.2)
--- NOTE | 2024-12-27 05:24 | DVH ---
EXAM: XR Chest, 1 View CLINICAL INDICATION: pleural effusion TECHNIQUE: Frontal view of the chest. COMPARISON: XY CHEST PORTABLE on DOS: 12/26/24, XY CHEST PORTABLE on DOS: 12/26/24, XY CHEST PORTABLE o n DOS: 12/25/24, XY CHEST PORTABLE on DOS: 12/24/24, XY CHEST PORTABLE on DOS: 12/24/24 FINDINGS: LUNGS AND PLEURAL SPACES: Bilateral pleural effusions. HEART: Cardiomegaly with mild congestion. MEDIASTINUM: Unremarkable. Normal mediastinal contour. BONES/JOINTS: Unremarkable. No acute fracture. TUBES, LINES AND DEVICES: Left-sided cardiac pacemaker. Right peripherally inserted central cathet er (PICC) tip in the superior vena cava. OTHER FINDINGS: . IMPRESSION: 1. Cardiomegaly with mild congestion. 2. Bilateral pleural effusions.
[2024-12-27 06:17] LABS: Platelet Estimate Decreased
[2024-12-27 06:18] LABS: Anisocytosis Moderate; Hypochromia Slight; Ovalocytes FEW; Tear Drop Cells FEW
[2024-12-27] MEDS: POTASSIUM PHOSPHATE 22 MEQ in SODIUM CHL 0.9% 100 ML IV ONE (08:48)
[2024-12-27] MEDS: POTASSIUM CHL 20MEQ/100ML 100 ML IV ONE (11:56)
[2024-12-27] MEDS: MAGNESIUM SULFATE 1GM/100ML 100 ML IV ONE (12:35)
--- NOTE | 2024-12-27 17:59 | DVHPNRES ---
Progress Note Date Seen: Dec 27, 2024 Resident Creating Document: PREET COMBS RESIDENT Medical Necessity Reason Pt with a Central, PICC or Fol: Yes The following are medically ne: PICC Line, Barron Catheter Reason for barron catheter: Strict I&O Subjective Review of Systems Patient was extubated on 12/23/24 . Patient on high risk of aspiration, he is tolerating pureed diet, still on TPN , we will reevaluate and consider discontinue TPN tomorrow if patient keep tolerating feedings. currently on lasix 20 daily. CXR still showing bilateral lower lung effusions. Continue IV cefepime and micafungin for filamentous fungi infection. Transfer to BG, bed 265 Review of Systems: HEENT:Normal, CVS:Normal, RESPIRATORY:Normal, GI:Normal, :Normal, MSK:Normal, NEURO:Normal Objective vital signs Vital Sign Date Time Temp Pulse Resp B/P (MAP) Pulse Ox O2 Delivery O2 Flow Rate FiO2 12/27/24 16:00 63 12/27/24 16:00 22 94 Nasal Cannula* 2 28 12/27/24 16:00 123/62 (82) 12/27/24 14:31 98.2 98.2 Total Intake and Output 12/26/24 12/26/24 12/27/24 15:00 23:00 07:00 Intake Total 772.9 ml 550.5 ml 643 ml Output Total 1900 ml 525 ml Balance 772.9 ml -1349.5 ml 118 ml medications Current Medications Medications Dose Ordered Sig/Roberto Route Start Time Stop Time Status Last Admin Dose Admin Nitroglycerin 0.4 mg Q5MINP PRN SL 12/12/24 00:30 Ceftriaxone Sodium 50 ml @ 100 mls/hr DAILY IV 12/12/24 10:00 UNV Acetaminophen 650 mg Q6HP PRN VT 12/12/24 08:30 12/12/24 09:17 650 MG Pantoprazole Sodium 40 mg BID IV 12/14/24 08:46 12/27/24 08:41 40 MG Lactulose 30 ml Q6HPRN PRN PO 12/15/24 15:15 12/15/24 17:41 30 ML Ipratropium [place] 0.5 mg Q4HR NEB 12/18/24 22:00 12/27/24 13:39 0.5 MG Albuterol 2.5 mg Q4HR NEB 12/18/24 22:00 12/27/24 13:39 2.5 MG Cefepime HCl 50 ml @ 12.5 mls/hr Q8H IV 12/22/24 02:00 12/27/24 09:49 12.5 MLS/HR Micafungin Sodium 100 mg/Sodium Chloride 100 ml @ 100 mls/hr DAILY@0900 IV 12/24/24 09:00 12/27/24 08:41 100 MLS/HR Furosemide 20 mg DAILY IV 12/24/24 10:00 12/27/24 08:41 20 MG Iron Sucrose 110 ml @ 110 mls/hr DAILY@1200 IV 12/24/24 12:00 12/28/24 12:59 12/27/24 12:35 110 MLS/HR Enteral Nutritional Formula 1,000 ml 30ML/HR GT 12/24/24 17:00 Amino Acids 0 ml @ 0 mls/hr PER PHARMACY IV 12/25/24 17:00 Diagnostic Test (Pha) 1 strip Q6HR 12/25/24 18:00 12/27/24 17:58 1 STRIP Insulin Human Regular FOLLOW SLIDING SCALE Q6HR SC 12/25/24 18:00 12/27/24 12:03 2 UNITS Dextrose 50 ml UD IV 12/25/24 18:00 Potassium Acetate 30 meq/Potassium Phosphate 40 meq/ Magnesium Sulfate 8 meq/ Multivitamins 10 ml/Chromium/ Copper/Manganese/ Zinc 1 ml/Amino Acids/Dextrose/ Purified Water 1,037.0909 ml @ 43 mls/hr Q24H8M IV 12/26/24 22:00 12/27/24 21:59 12/26/24 21:41 43 MLS/HR Sodium Chloride 10 ml QSHIFT@10,22 IV 12/26/24 22:00 12/27/24 08:43 10 ML Fat Emulsion Intravenous 50 ml/ Potassium Acetate 30 meq/Potassium Phosphate 50 meq/ Magnesium Sulfate 14 meq/ Multivitamins 10 ml/Chromium/ Copper/Manganese/ Zinc 1 ml/Amino Acids/Dextrose/ Purified Water 1,190.8636 ml @ 50 mls/hr [id number] IV 12/27/24 22:00 12/28/24 21:59 Examination General Appearance: on room air, AO X2. able to follow commands. Pulmonary/Respiratory: Chest non-tender. Clear bilateral breath sounds Cardiovascular/Chest: Regular rate and paced rhythm. No murmurs. No JVD. Peripheral Pulses: 2+ Radial (R). 2+ Radial(L). 2+ Pedal (R). 2+ Pedal (L) Abdominal Exam: Soft. Nontender. No hepatospenomegaly. No masses Ankle Exam: 2+ ankle edema Lower extremities: 1+ lower extremity edema, left above knee amputation Neuro/Mental Status: Alert, not sedated. laboratory and microbiology Laboratory Tests 12/27/24 03:30 Test 12/27/24 03:30 Range/Units Serum Glucose 127 H 74-106 mg/dL Microbiology Date/Time Source Procedure Growth Status 12/21/24 03:26 Trachea Gram Stain - Final Resulted 12/21/24 03:26 Trachea Respiratory Culture - Preliminary Resulted 12/17/24 20:00 Urine - [place] Urine Culture - Final Complete 12/14/24 01:10 Sputum Gram Stain - Final Complete 12/14/24 01:10 Respiratory Culture - Final Staphylococcus aureus Complete 12/12/24 00:41 Stool Stool Culture - Final Complete 12/12/24 00:41 Stool Shiga Toxin I & II - Final Complete 12/12/24 00:14 Blood Blood Culture - Final NO GROWTH AFTER 5 DAYS OF INCUBATION. Complete Problem List/Assessment/Plan Problem List/Assessment/Plan Neurologic: #Acute metabolic encephalopathy due to sepsis s/p cardiac arrest #Vascular dementia #Large area of encephalomalacia involving the right temporal frontal and parietal lobes may represent old infarct - Alert and oriented X2 - Status post extubation - Transfer to BG - TPN - Pureed diet, carefully and small pieces, high risk of aspiration. Cardiology: #Septic shock #Moderate to severe pericardial effusion #atrial fibrillation #coronary disease s/p stent #H/o ventricular arrhythmia s/p ICD placement - Continue antibiotics IV Respiratory #acute hypoxic respiratory failure s/p mechanical ventilation #Moderate pleural effusions # covid 19 infection,resolved # Sepsis due to Community acquired pneumonia due to staph aureus infection/ filamentus fungi - Furosemide 20 mg daily IV - I&O - Albuterol 5 q.4 - Ipratropium 0.5 q.4 - micafungin iv Genitourinary/Renal #[id number] right-sided hydroureteronephrosis with multiple stones in the right ureter measuring up to 8 mm. #Lactic acidosis #There are multiple stones within the urinary bladder measuring less than 1 cm. #The bilateral kidneys demonstrate multiple nonobstructing stones measuring up to 2 cm. #hypokalemia #hypophosphatemia - phosphorus replaced - potassium replaced - Barron catheter - strict I&O - monitor electrolytes Endocrine ID #Septic shock likely due to aspiration pneumonia #skin infection positive proteus mirabilis and E.Faecalis #covid 19 infection, resolved #fungal infection,growing filamentus fungi - IV micafungin - IV cefepime GI #r/o GI bleeding #History of colonic polyps #Cholelithiasis. #Mildly nodular hepatic contours may represent early changes of cirrhosis. #trace ascitis - TPN for nutrition. - phosphorous - magnesium Heme/onc #Severe microcytic hypochromic anemia #Iron deficiency anemia #moderate thrombocytopenia - iron sucrose IV -CBC CMP tomorrow -no spontaneous bleeding at this time but closely monitoring based on high-risk of bleeding. -continue medications at this time, if platelets keeps trending down consider discontinue some of them. Prophylaxis: Pantoprazole 40 mg b.i.d. IV SCD Case discussed with Dr. Choi Disposition: BG Time spent on care not including procedures, 72 min Code status: full code Plan discussed with: Patient My Orders My Orders Orders - PREET COMBS Procedure Category Date Status Time Chest Portable XY 12/27/24 Resulted 04:00 Pt Request For Service PT 12/27/24 Logged 10:36 Amino Acid PHA 12/27/24 In Process Infusion... W/Fat 22:00 Renal Function Test LAB 12/28/24 Verified 04:00 Magnesium LAB 12/28/24 Verified 04:00 Tpn Per Pharmacy [facility] 12/27/24 In Process 22:00 Dietary Evaluation Review Comments: 1. If GI is accessible, consider glucerna 1.2 @ 50ml/hr to provide 1440kcal, 72g pro, 966 ml FW to meet 100% of needs. 2. Consider advance to CCHO 60g diet when appropriate 3. Consider TPN if NPO> 7 days Expected Outcomes/Goals: 1. Pt will meet >75% of estimated needs within 2-3 days CC Plasma Assessment Blood Product Administration S: [id number] PREET COMBS RESIDENT Dec 27, 2024 17:59
[2024-12-27] MEDS: TPN PER PHARMACY IV NR (22:14)
[2024-12-28] VITALS (43 sets, daily range): BP systolic 113–159; BP diastolic 52–71; PULSE 60–102; RESP 15–28; TEMP 97–99; O2SAT 88–100
[2024-12-28 05:40] LABS: Basophils # (auto) 0 10 ^3/uL (0-0.2); Basophils % (auto) 0.4 % (0.0-2.0); Eosinophils # (auto) 0.1 10 ^3/uL (0-0.8); Lymphocytes # (auto) 0.6 10 ^3/uL (0.4-5.4); Monocytes # (auto) 0.6 10 ^3/uL (0-1.3); Monocytes % (auto) 7.3 % (0.0-12.0)
[2024-12-28 05:45] LABS: Eosinophils % (auto) 0.8 % (0.0-7.0); Hemoglobin 10.1 g/dL (13.5-17.5); Lymphocytes % (auto) 7.5 % (10.0-50.0); Mean Corpuscular Hemoglobin 24.8 pg (28.0-32.0); Mean Corpuscular Hgb Conc. 30.5 g/dL (32.0-36.0); Mean Corpuscular Volume 81.3 fL (80.0-100.0); Neutrophils # (auto) 7.1 10 ^3/uL (1.6-8.6); Nucleated Red Blood Cells % 0.1 %; Platelet Count (auto) 47 10^3/uL (140-450); Red Blood Cells 4.05 10^6/uL (4.5-5.90); White Blood Cell 8.5 10^3/uL (4.4-10.8)
[2024-12-28 05:49] LABS: Red Cell Distribution Width 40.1 % (11.8-14.3)
--- NOTE | 2024-12-28 05:52 | DVH ---
CHEST RADIOGRAPH Indication: PNEUMONIA Technique: Single frontal view of the chest was obtained COMPARISON: XY CHEST PORTABLE on DOS: 12/27/24, XY CHEST PORTABLE on DOS: 12/26/24, XY CHEST PORTABLE on DOS: 12/26/24, XY CHEST PORTABLE on DOS: 12/25/24, XY CHEST PORTABLE on DOS: 12/24/24 FINDINGS: Lines and Tubes: Left chest wall AICD. Right PICC in satisfactory position. Lungs: Multifocal airspace disease. Pleura: Small bilateral pleural effusions. No pneumothorax. Cardiomediastinal contours: Unremarkable Bones: Unremarkable IMPRESSION: No significant interval change
--- NOTE | 2024-12-28 05:53 | DVH ---
Exam: US US GUIDED VASCULAR ACCESS Clinical History: picc placement Comparison: None Findings: Targeted sonographic evaluation of the upper arm veinwas obtained utilizing grayscale and color Doppl er imaging. IMPRESSION: Sonographic assistance for central line placement. Please refer to procedural report for detailed fin dings.
[2024-12-28 06:56] LABS: Anisocytosis Moderate; Hypochromia Slight
[2024-12-28 06:57] LABS: Ovalocytes FEW; Tear Drop Cells FEW
[2024-12-28 06:58] LABS: Platelet Estimate Decreased
[2024-12-28 07:38] LABS: Anion Gap 4 (5-15)
[2024-12-28 07:43] LABS: BUN/Creatinine Ratio 56.4 (10.0-20.0); GFR African American 275 mL/min; GFR Non-African American 228 mL/min
[2024-12-28 07:55] LABS: Alanine Aminotransferase 26 U/L (7-40); Albumin 2.8 g/dL (3.2-4.8); Alkaline Phosphatase 78 U/L (46-116); Aspartate Aminotransferase 18 U/L (13-40); Blood Urea Nitrogen 22 mg/dL (9-23); Calcium 8.1 mg/dL (8.7-10.4); Carbon Dioxide 27 mmol/L (20-31); Chloride 108 mmol/L (98-107); Glucose 116 mg/dL (74-106); Magnesium 2.1 mg/dL (1.6-2.6); Phosphorus 2.2 mg/dL (2.4-5.1); Sodium 139 mmol/L (136-145); Total Protein 4.8 g/dL (5.7-8.2)
--- NOTE | 2024-12-28 13:02 | DVHPN2 ---
Subjective The patient seen and examined at bedside. No complaint today. Reviewed: Care Plan, H&P, Labs, Medications, Previous Orders, Radiology Changes from previous H/P or p: No Changes General: Per HPI Objective Vitals Vital Signs Date Time Temp Pulse Resp B/P (MAP) Pulse Ox O2 Delivery O2 Flow Rate FiO2 12/28/24 12:00 18 98 Room Air* 0 21 12/28/24 12:00 98.5 69 132/62 (85) 98.5 Intake/Output Intake and Output 12/28/24 07:00 Intake Total 1631.00 ml Output Total 1900 ml Balance -269.00 ml IV Total 1631.00 ml Output Urine Total 1900 ml # Bowel Movements 2 General Appearance: Alert, No acute distress HEENT: Atraumatic Lungs: Clear to auscultation, Normal air movement Cardiovascular: Regular rate, Normal S1, Normal S2 Abdomen: Normal bowel sounds, Soft Extremities: Normal pulses Medications Current Medications Medications Dose Ordered Sig/Roberto Route Start Time Stop Time Status Last Admin Dose Admin Nitroglycerin 0.4 mg Q5MINP PRN SL 12/12/24 00:30 Ceftriaxone Sodium 50 ml @ 100 mls/hr DAILY IV 12/12/24 10:00 UNV Acetaminophen 650 mg Q6HP PRN GA 12/12/24 08:30 12/12/24 09:17 650 MG Pantoprazole Sodium 40 mg BID IV 12/14/24 08:46 12/28/24 11:12 40 MG Lactulose 30 ml Q6HPRN PRN PO 12/15/24 15:15 12/15/24 17:41 30 ML Ipratropium [place] 0.5 mg Q4HR NEB 12/18/24 22:00 12/28/24 09:56 0.5 MG Albuterol 2.5 mg Q4HR NEB 12/18/24 22:00 12/28/24 09:56 2.5 MG Micafungin Sodium 100 mg/Sodium Chloride 100 ml @ 100 mls/hr DAILY@0900 IV 12/24/24 09:00 12/28/24 09:14 100 MLS/HR Furosemide 20 mg DAILY IV 12/24/24 10:00 12/28/24 11:12 20 MG Enteral Nutritional Formula 1,000 ml 30ML/HR GT 12/24/24 17:00 Amino Acids 0 ml @ 0 mls/hr PER PHARMACY IV 12/25/24 17:00 Diagnostic Test (Pha) 1 strip Q6HR 12/25/24 18:00 12/28/24 11:12 1 STRIP Insulin Human Regular FOLLOW SLIDING SCALE Q6HR SC 12/25/24 18:00 12/27/24 12:03 2 UNITS Dextrose 50 ml UD IV 12/25/24 18:00 Sodium Chloride 10 ml QSHIFT@10,22 IV 12/26/24 22:00 12/28/24 11:12 10 ML Fat Emulsion Intravenous 50 ml/ Potassium Acetate 30 meq/Potassium Phosphate 50 meq/ Magnesium Sulfate 14 meq/ Multivitamins 10 ml/Chromium/ Copper/Manganese/ Zinc 1 ml/Amino Acids/Dextrose/ Purified Water 1,190.8636 ml @ 50 mls/hr [id number] IV 12/27/24 22:00 12/28/24 21:59 12/27/24 22:14 50 MLS/HR Cefepime HCl 50 ml @ 12.5 mls/hr Q12H IV 12/28/24 14:00 Fat Emulsion Intravenous 150 ml/Sodium Phosphate 20 meq/ Potassium Acetate 20 meq/Potassium Phosphate 22 meq/ Calcium Gluconate 2.3 meq/Magnesium Sulfate 12 meq/ Multivitamins 10 ml/Chromium/ Copper/Manganese/ Zinc 1 ml/Amino Acids/Dextrose/ Purified Water 1,488.9462 ml @ 62 mls/hr Q24H1M IV 12/28/24 22:00 12/29/24 21:59 Laboratory Results Laboratory Tests 12/28/24 05:06 12/28/24 07:15 Chemistry Test 12/28/24 07:15 Albumin 2.8 g/dL (3.2-4.8) L Calcium Level 8.1 mg/dL (8.7-10.4) L Magnesium Level 2.1 mg/dL (1.6-2.6) Phosphorus Level 2.2 mg/dL (2.4-5.1) L Total Protein 4.8 g/dL (5.7-8.2) L LFT Test 12/28/24 07:15 Alanine Aminotransferase (ALT) 26 U/L (7-40) Alkaline Phosphatase 78 U/L (46-116) Aspartate Amino Transferase (AST) 18 U/L (13-40) Total Bilirubin 1.0 mg/dL (0.2-1.0) Urinalysis Test 12/12/24 02:20 12/12/24 07:47 Urine RBC 19 /hpf (0 - 3) Urine Microscopic WBC 50 /HPF (0-3) H Urine Squamous Epithelial Cells Few /hpf (<5) Urine Calcium Oxalate Crystals Few (None Seen) Urine Bacteria Few /hpf (None Seen) H Urine Color Dark-brown (Yellow) Urine Clarity Ex.turbid (Clear) Urine pH 7.0 (5.0-9.0) Urine Specific [place] 1.022 (1.001-1.035) Urine Protein 3+ (Negative) H Urine Ketones Trace (Negative) Urine Blood 2+ /uL (Negative) H Urine Nitrite 2+ (Negative) H Urine Bilirubin Negative (Negative) Urine Urobilinogen Normal mg/dL (Negative) Urine Leukocyte Esterase 3+ /uL (Negative) Urine Glucose Normal mg/dL (Normal) Microbiology Microbiology Date/Time Source Procedure Growth Status 12/21/24 03:26 Trachea Gram Stain - Final Resulted 12/21/24 03:26 Trachea Respiratory Culture - Preliminary Resulted 12/17/24 20:00 Urine - [place] Urine Culture - Final Complete 12/14/24 01:10 Sputum Gram Stain - Final Complete 12/14/24 01:10 Respiratory Culture - Final Staphylococcus aureus Complete 12/12/24 00:41 Stool Stool Culture - Final Complete 12/12/24 00:41 Stool Shiga Toxin I & II - Final Complete 12/12/24 00:14 Blood Blood Culture - Final NO GROWTH AFTER 5 DAYS OF INCUBATION. Complete Labs and/or images reviewed: Labs reviewed by me Assessment/Plan Assessment/Plan Neurologic: #Acute metabolic encephalopathy due to sepsis s/p cardiac arrest #Vascular dementia #Large area of encephalomalacia involving the right temporal frontal and parietal lobes may represent old infarct - Alert and oriented X2 - Status post extubation - Transfer to BG - TPN - Pureed diet, carefully and small pieces, high risk of aspiration. Cardiology: #Septic shock #Moderate to severe pericardial effusion #atrial fibrillation #coronary disease s/p stent #H/o ventricular arrhythmia s/p ICD placement - Continue antibiotics IV Respiratory #acute hypoxic respiratory failure s/p mechanical ventilation #Moderate pleural effusions # covid 19 infection,resolved # Sepsis due to Community acquired pneumonia due to staph aureus infection/ filamentus fungi - Furosemide 20 mg daily IV - I&O - Albuterol 5 q.4 - Ipratropium 0.5 q.4 - micafungin iv Genitourinary/Renal #[id number] right-sided hydroureteronephrosis with multiple stones in the right ureter measuring up to 8 mm. #Lactic acidosis #There are multiple stones within the urinary bladder measuring less than 1 cm. #The bilateral kidneys demonstrate multiple nonobstructing stones measuring up to 2 cm. #hypokalemia #hypophosphatemia - phosphorus replaced - potassium replaced - Diane catheter - strict I&O - monitor electrolytes Endocrine ID #Septic shock likely due to aspiration pneumonia #skin infection positive proteus mirabilis and E.Faecalis #covid 19 infection, resolved #fungal infection,growing filamentus fungi - IV micafungin - IV cefepime GI #r/o GI bleeding #History of colonic polyps #Cholelithiasis. #Mildly nodular hepatic contours may represent early changes of cirrhosis. #trace ascitis - TPN for nutrition. - phosphorous - magnesium Heme/onc #Severe microcytic hypochromic anemia #Iron deficiency anemia #moderate thrombocytopenia - iron sucrose IV -CBC CMP tomorrow -no spontaneous bleeding at this time but closely monitoring based on high-risk of bleeding. -continue medications at this time, if platelets keeps trending down consider discontinue some of them. Prophylaxis: Pantoprazole 40 mg b.i.d. IV SCD Continuing current management. The patient had passed swallow eval in eat a little bit. Aspirate precaution. Eating with help. Elevate bed more than 30 degree. Continuing TPN until patient eat 70-80% This medical document was created using an electronic medical record system with [email or web address] direct computerized dictation system. Although this document has been carefully reviewed, there may still be some phonetic and typographical errors. These areas are purely typographical due to imperfections of the software programs, and do not reflect any compromise in the patient's medical care. Plan discussed with: Other Date of Service: Dec 28, 2024 Billing Provider: FELIPE MCKEON MD Common Visit Codes: [id number] INP/OBS CARE(HIGH) FELIPE MCKEON MD Dec 28, 2024 13:02
[2024-12-28] MEDS: SODIUM PHOSPHATES 24 MEQ in SODIUM CHL 0.9% 100 ML IV ONE (13:13)
--- NOTE | 2024-12-28 14:34 | DVHPN2 ---
Progress Note - Dictate Date Seen: Dec 28, 2024 Medical Necessity Reason Pt with a Central, PICC or Fol: Yes The following are medically ne: PICC Line, Barron Catheter Reason for barron catheter: Strict I&O Subjective Patient was downgraded to BG He is awake alert resolve visible Patient is eating slowly and very small portions of pureed diet with thickened liquids TPN is ongoing Patient has had a couple of loose stools and a rectal tube was placed vital signs Vital Sign Date Time Temp Pulse Resp B/P (MAP) Pulse Ox O2 Delivery O2 Flow Rate FiO2 12/28/24 14:00 62 23 145/71 (95) 98 12/28/24 14:00 Room Air* 0 21 12/28/24 12:00 98.5 98.5 Total Intake and Output 12/27/24 12/27/24 12/28/24 15:00 23:00 07:00 Intake Total 896.50 ml 272.0 ml 462.5 ml Output Total 1300 ml 200 ml 400 ml Balance -403.50 ml 72.0 ml 62.5 ml medications Current Medications Medications Dose Ordered Sig/Roberto Route Start Time Stop Time Status Last Admin Dose Admin Nitroglycerin 0.4 mg Q5MINP PRN SL 12/12/24 00:30 Ceftriaxone Sodium 50 ml @ 100 mls/hr DAILY IV 12/12/24 10:00 UNV Acetaminophen 650 mg Q6HP PRN WI 12/12/24 08:30 12/12/24 09:17 650 MG Pantoprazole Sodium 40 mg BID IV 12/14/24 08:46 12/28/24 11:12 40 MG Lactulose 30 ml Q6HPRN PRN PO 12/15/24 15:15 12/15/24 17:41 30 ML Ipratropium [place] 0.5 mg Q4HR NEB 12/18/24 22:00 12/28/24 09:56 0.5 MG Albuterol 2.5 mg Q4HR NEB 12/18/24 22:00 12/28/24 09:56 2.5 MG Micafungin Sodium 100 mg/Sodium Chloride 100 ml @ 100 mls/hr DAILY@0900 IV 12/24/24 09:00 12/28/24 09:14 100 MLS/HR Furosemide 20 mg DAILY IV 12/24/24 10:00 12/28/24 11:12 20 MG Enteral Nutritional Formula 1,000 ml 30ML/HR GT 12/24/24 17:00 Amino Acids 0 ml @ 0 mls/hr PER PHARMACY IV 12/25/24 17:00 Diagnostic Test (Pha) 1 strip Q6HR 12/25/24 18:00 12/28/24 11:12 1 STRIP Insulin Human Regular FOLLOW SLIDING SCALE Q6HR SC 12/25/24 18:00 12/27/24 12:03 2 UNITS Dextrose 50 ml UD IV 12/25/24 18:00 Sodium Chloride 10 ml QSHIFT@10,22 IV 12/26/24 22:00 12/28/24 11:12 10 ML Fat Emulsion Intravenous 50 ml/ Potassium Acetate 30 meq/Potassium Phosphate 50 meq/ Magnesium Sulfate 14 meq/ Multivitamins 10 ml/Chromium/ Copper/Manganese/ Zinc 1 ml/Amino Acids/Dextrose/ Purified Water 1,190.8636 ml @ 50 mls/hr [id number] IV 12/27/24 22:00 12/28/24 21:59 12/27/24 22:14 50 MLS/HR Cefepime HCl 50 ml @ 12.5 mls/hr Q12H IV 12/28/24 14:00 Fat Emulsion Intravenous 150 ml/Sodium Phosphate 20 meq/ Potassium Acetate 20 meq/Potassium Phosphate 22 meq/ Calcium Gluconate 2.3 meq/Magnesium Sulfate 12 meq/ Multivitamins 10 ml/Chromium/ Copper/Manganese/ Zinc 1 ml/Amino Acids/Dextrose/ Purified Water 1,488.9462 ml @ 62 mls/hr Q24H1M IV 12/28/24 22:00 12/29/24 21:59 objective Chronically ill-appearing awake responsive extubated on supplemental oxygen Lungs decreased since sounds at the bases CVS S1-S2 regular rate rhythm Abdomen is soft nontender nondistended Extremities without clubbing cyanosis or edema laboratory and microbiology Laboratory Tests 12/28/24 07:15 12/28/24 05:06 Test 12/28/24 07:15 Range/Units Serum Glucose 116 H 74-106 mg/dL Problems(with codes): (1) Atrial fibrillation (2) Elevated lactic acid level (3) Altered mental status (4) Leukocytosis (5) Hypoxemia Prognosis Plan Continue encouraging small amounts of pureed diet Glucerna with thickened liquids Continue to monitor labs bowel activity Continue TPN for now Add probiotics as the patient has been on antibiotics Once the patient is able to eat better we can slowly taper down the TPN Dietary Evaluation Review Comments: 1. If GI is accessible, consider glucerna 1.2 @ 50ml/hr to provide 1440kcal, 72g pro, 966 ml FW to meet 100% of needs. 2. Consider advance to CCHO 60g diet when appropriate 3. Consider TPN if NPO> 7 days Expected Outcomes/Goals: 1. Pt will meet >75% of estimated needs within 2-3 days Plan discussed with: Other (BG Nurse) CC Plasma Assessment Blood Product Administration S: 1752 CORNEL RDZ MD Dec 28, 2024 14:34
[2024-12-28] MEDS: CEFEPIME 1GM/ 50ML 50 ML IV SCH (14:47)
[2024-12-28] MEDS: DOPamine 1600MCG/ML D5W 0 ML IV ONE (21:29)
[2024-12-28] MEDS: TPN PER PHARMACY IV NR (21:34)
--- NOTE | 2024-12-28 21:54 | DVHPN2 ---
Progress Note - Dictate Date Seen: Dec 28, 2024 Medical Necessity Reason Pt with a Central, PICC or Fol: Yes The following are medically ne: PICC Line, Barron Catheter Reason for barron catheter: Strict I&O Subjective Patient seen and examined at bedside. Breathing comfortably on room air. Overnight events reviewed. vital signs Vital Sign Date Time Temp Pulse Resp B/P (MAP) Pulse Ox O2 Delivery O2 Flow Rate FiO2 12/28/24 19:53 91 23 96 12/28/24 19:47 Room Air 0.0 12/28/24 19:47 21 12/28/24 19:15 127/64 (85) 12/28/24 16:00 97.8 97.8 Total Intake and Output 12/27/24 12/27/24 12/28/24 15:00 23:00 07:00 Intake Total 896.50 ml 272.0 ml 462.5 ml Output Total 1300 ml 200 ml 400 ml Balance -403.50 ml 72.0 ml 62.5 ml medications Current Medications Medications Dose Ordered Sig/Roberto Route Start Time Stop Time Status Last Admin Dose Admin Nitroglycerin 0.4 mg Q5MINP PRN SL 12/12/24 00:30 Ceftriaxone Sodium 50 ml @ 100 mls/hr DAILY IV 12/12/24 10:00 UNV Acetaminophen 650 mg Q6HP PRN NC 12/12/24 08:30 12/12/24 09:17 650 MG Pantoprazole Sodium 40 mg BID IV 12/14/24 08:46 12/28/24 11:12 40 MG Lactulose 30 ml Q6HPRN PRN PO 12/15/24 15:15 12/15/24 17:41 30 ML Ipratropium [place] 0.5 mg Q4HR NEB 12/18/24 22:00 12/28/24 19:47 0.5 MG Albuterol 2.5 mg Q4HR NEB 12/18/24 22:00 12/28/24 19:47 2.5 MG Micafungin Sodium 100 mg/Sodium Chloride 100 ml @ 100 mls/hr DAILY@0900 IV 12/24/24 09:00 12/28/24 09:14 100 MLS/HR Furosemide 20 mg DAILY IV 12/24/24 10:00 12/28/24 11:12 20 MG Enteral Nutritional Formula 1,000 ml 30ML/HR GT 3/4/25 17:00 Amino Acids 0 ml @ 0 mls/hr PER PHARMACY IV 12/25/24 17:00 Diagnostic Test (Pha) 1 strip Q6HR 12/25/24 18:00 12/28/24 17:34 1 STRIP Insulin Human Regular FOLLOW SLIDING SCALE Q6HR SC 12/25/24 18:00 12/27/24 12:03 2 UNITS Dextrose 50 ml UD IV 12/25/24 18:00 Sodium Chloride 10 ml QSHIFT@10,22 IV 12/26/24 22:00 12/28/24 11:12 10 ML Fat Emulsion Intravenous 50 ml/ Potassium Acetate 30 meq/Potassium Phosphate 50 meq/ Magnesium Sulfate 14 meq/ Multivitamins 10 ml/Chromium/ Copper/Manganese/ Zinc 1 ml/Amino Acids/Dextrose/ Purified Water 1,190.8636 ml @ 50 mls/hr [id number] IV 12/27/24 22:00 12/28/24 21:59 12/27/24 22:14 50 MLS/HR Cefepime HCl 50 ml @ 12.5 mls/hr Q12H IV 12/28/24 14:00 12/28/24 14:47 12.5 MLS/HR Fat Emulsion Intravenous 150 ml/Sodium Phosphate 20 meq/ Potassium Acetate 20 meq/Potassium Phosphate 22 meq/ Calcium Gluconate 2.3 meq/Magnesium Sulfate 12 meq/ Multivitamins 10 ml/Chromium/ Copper/Manganese/ Zinc 1 ml/Amino Acids/Dextrose/ Purified Water 1,488.9462 ml @ 62 mls/hr Q24H1M IV 12/28/24 22:00 12/29/24 21:59 12/28/24 21:34 62 MLS/HR Saccharomyces Boulardii 250 mg DAILY PO 12/29/24 10:00 objective Gen.: Patient lying in bed in no apparent distress. Breathing on room air. Head: Normocephalic, atraumatic. Eyes: EOMI/PERRLA. Ears: Normal hearing. Normal anatomy. Neck/trachea: Trachea midline, supple. Nose: Normal external anatomy. Mouth: Moist mucous membranes. Chest: Decreased air entry bilaterally. No wheezing or rhonchi. Cardiovascular: Positive S1, positive S2. Regular rate and rhythm. Abdomen: Positive bowel sounds in all 4 quadrants. Soft, non-tender, non- distended. : Deferred. Rectal: Deferred. Skin: Warm, dry. Intact. Extremities: 2+ radial pulses bilaterally. No lower extremity edema. Neuro: Awake, alert, oriented x3. No gross motor or sensory deficits. Cranial nerves II through XII intact. Gait not assessed. laboratory and microbiology Laboratory Tests 12/28/24 07:15 12/28/24 05:06 Test 12/28/24 07:15 Range/Units Serum Glucose 116 H 74-106 mg/dL Assessment/Plan Impression: Acute hypoxic respiratory failure COVID 19 infection S/p cardiac arrest Anemia Cachexia, BMI of 19 Events: Patient was extubated on 12/23/24 . Currently on room air Supplemental oxygen PRN Off pressors, hemodynamically stable CXR reviewed, demonstrates multifocal airspace disease. Small bilateral pleural effusions. No significant interval change. Iron supplementation Monitor hemoglobin, 10.1 g/dl WBC within normal limits Monitor platelets, currently 47 K Continue antibiotics Continue antifungal Continue bronchodilators Incentive spirometry Head of bed elevation Aspiration precautions Continue TPN for nutritional support Advance diet as tolerated Monitor renal function Monitor electrolytes. Supplement as necessary. Na Phos supplementation S/p bronchoscopy (12/21/24) with RML BAL with clearing of secretions from L6-L10. Labs and imaging reviewed. Rest of plan as noted below. Plan: s/p extubation on 12/23/24 On room air Supplemental oxygen PRN Titrate to keep sats above 92% Pressors if necessary for hemodynamic support Titrate to keep mean arterial pressure greater than 65 mmHg. Antibiotics F/u cultures Remdesivir course completed. Monitor hemoglobin Diurese w/ Lasix as tolerated Monitor renal function Monitor electrolytes. Supplement as necessary. Monitor ins and outs. GI prophylaxis. DVT prophylaxis. Prognosis: Guarded given patient's multiple co-morbidities. Rest of plan per hospitalist and other consultants. Thank you Dr. Baez for allowing me to participate in this patient's care. Further recommendations will depend on the patient's clinical course. Please do not hesitate to contact me if you have any questions or concerns. This medical document was created using an electronic medical record system with [employer] system. Although these documentations are being carefully reviewed, there may still be some phonetic and typographical changes. The errors are purely typographical, due to imperfection on the software program, and do not reflect any compromise in the patient's medical care. Dietary Evaluation Review Comments: 1. If GI is accessible, consider glucerna 1.2 @ 50ml/hr to provide 1440kcal, 72g pro, 966 ml FW to meet 100% of needs. 2. Consider advance to CCHO 60g diet when appropriate 3. Consider TPN if NPO> 7 days Expected Outcomes/Goals: 1. Pt will meet >75% of estimated needs within 2-3 days Plan discussed with: Patient, Other (ROSALES Reed) CC Plasma Assessment Blood Product Administration S: [id number] VIDYA MISHRA MD Dec 28, 2024 21:54
[2024-12-29] VITALS (67 sets, daily range): BP systolic 90–130; BP diastolic 5–60; PULSE 45–84; RESP 11–26; TEMP 98–99.6; O2SAT 87–100
[2024-12-29 06:17] LABS: Alanine Aminotransferase 23 U/L (7-40); Alkaline Phosphatase 71 U/L (46-116); Anion Gap 7 (5-15); Aspartate Aminotransferase 17 U/L (13-40); BUN/Creatinine Ratio 79.4 (10.0-20.0); Carbon Dioxide 28 mmol/L (20-31); Chloride 106 mmol/L (98-107); Magnesium 2.1 mg/dL (1.6-2.6); Sodium 141 mmol/L (136-145)
[2024-12-29 06:18] LABS: Bilirubin, Total 0.7 mg/dL (0.2-1.0)
[2024-12-29 06:33] LABS: Albumin 2.7 g/dL (3.2-4.8); Blood Urea Nitrogen 27 mg/dL (9-23); Glucose 72 mg/dL (74-106); Potassium 3.5 mmol/L (3.5-5.1); Total Protein 4.4 g/dL (5.7-8.2)
[2024-12-29 07:24] LABS: Basophils # (auto) 0 10 ^3/uL (0-0.2); Eosinophils # (auto) 0.1 10 ^3/uL (0-0.8); Lymphocytes # (auto) 0.7 10 ^3/uL (0.4-5.4)
[2024-12-29 07:26] LABS: Basophils % (auto) 0.4 % (0.0-2.0); Eosinophils % (auto) 1.4 % (0.0-7.0); Hematocrit 29.2 % (41.0-53.0); Lymphocytes % (auto) 7.6 % (10.0-50.0); Mean Corpuscular Hemoglobin 24.3 pg (28.0-32.0); Mean Corpuscular Hgb Conc. 30.7 g/dL (32.0-36.0); Monocytes # (auto) 0.6 10 ^3/uL (0-1.3); Monocytes % (auto) 6.7 % (0.0-12.0); Neutrophils # (auto) 7.5 10 ^3/uL (1.6-8.6); Neutrophils % (auto) 83.9 % (37.0-80.0); Platelet Count (auto) 49 10^3/uL (140-450); Red Cell Distribution Width 39.7 % (11.8-14.3)
[2024-12-29] MEDS: FLORASTOR (S. BOULARDII) 250 MG CAP PO SCH (07:44)
--- NOTE | 2024-12-29 12:42 | DVHPN2 ---
Subjective The patient is seen and examined at bedside. The patient is doing better. No events overnight. Reviewed: Care Plan, H&P, Labs, Medications, Previous Orders, Radiology Changes from previous H/P or p: No Changes General: Per HPI Objective Vitals Vital Signs Date Time Temp Pulse Resp B/P (MAP) Pulse Ox O2 Delivery O2 Flow Rate FiO2 12/29/24 12:07 20 100 Nasal Cannula* 2 28 12/29/24 12:00 98.0 73 119/52 (74) 98.0 Intake/Output Intake and Output 12/29/24 07:00 Intake Total 2436.0 ml Output Total 1885 ml Balance 551.0 ml Intake Oral 380 ml IV Total 2056.0 ml Output Urine Total 1875 ml Stool Total 10 ml # Bowel Movements 1 General Appearance: Alert, No acute distress HEENT: Atraumatic, PERRLA, EOMI, Mucous membr. moist/pink Neck: Supple Lungs: Clear to auscultation, Normal air movement Cardiovascular: Regular rate, Normal S1, Normal S2 Abdomen: Normal bowel sounds, Soft Extremities: Normal pulses Neuro: Cranial nerves 3-12 NL Psych/Mental Status: Mental status NL Medications Current Medications Medications Dose Ordered Sig/Roberto Route Start Time Stop Time Status Last Admin Dose Admin Nitroglycerin 0.4 mg Q5MINP PRN SL 12/12/24 00:30 Ceftriaxone Sodium 50 ml @ 100 mls/hr DAILY IV 12/12/24 10:00 UNV Acetaminophen 650 mg Q6HP PRN [place] 12/12/24 08:30 12/12/24 09:17 650 MG Pantoprazole Sodium 40 mg BID IV 12/14/24 08:46 12/29/24 07:43 40 MG Lactulose 30 ml Q6HPRN PRN PO 12/15/24 15:15 12/15/24 17:41 30 ML Ipratropium [place] 0.5 mg Q4HR NEB 12/18/24 22:00 12/29/24 11:27 0.5 MG Albuterol 2.5 mg Q4HR NEB 12/18/24 22:00 12/29/24 11:27 2.5 MG Micafungin Sodium 100 mg/Sodium Chloride 100 ml @ 100 mls/hr DAILY@0900 IV 12/24/24 09:00 12/29/24 07:44 100 MLS/HR Furosemide 20 mg DAILY IV 12/24/24 10:00 12/29/24 07:44 20 MG Enteral Nutritional Formula 1,000 ml 30ML/HR GT 12/24/24 17:00 Amino Acids 0 ml @ 0 mls/hr PER PHARMACY IV 12/25/24 17:00 Diagnostic Test (Pha) 1 strip Q6HR 12/25/24 18:00 12/29/24 07:44 1 STRIP Insulin Human Regular FOLLOW SLIDING SCALE Q6HR SC 12/25/24 18:00 12/29/24 00:31 4 UNITS Dextrose 50 ml UD IV 12/25/24 18:00 Sodium Chloride 10 ml QSHIFT@10,22 IV 12/26/24 22:00 12/29/24 07:25 10 ML Cefepime HCl 50 ml @ 12.5 mls/hr Q12H IV 12/28/24 14:00 12/29/24 12:37 12.5 MLS/HR Fat Emulsion Intravenous 150 ml/Sodium Phosphate 20 meq/ Potassium Acetate 20 meq/Potassium Phosphate 22 meq/ Calcium Gluconate 2.3 meq/Magnesium Sulfate 12 meq/ Multivitamins 10 ml/Chromium/ Copper/Manganese/ Zinc 1 ml/Amino Acids/Dextrose/ Purified Water 1,488.9462 ml @ 62 mls/hr Q24H1M IV 12/28/24 22:00 12/29/24 21:59 12/28/24 21:34 62 MLS/HR Saccharomyces Boulardii 250 mg DAILY PO 12/29/24 10:00 12/29/24 07:44 250 MG Fat Emulsion Intravenous 150 ml/Sodium Phosphate 10 meq/ Potassium Acetate 20 meq/Potassium Phosphate 40 meq/ Calcium Gluconate 2.3 meq/Magnesium Sulfate 12 meq/ Multivitamins 10 ml/Chromium/ Copper/Manganese/ Zinc 1 ml/Amino Acids/Dextrose/ Purified Water 1,490.5371 ml @ 62 mls/hr Q24H3M IV 12/29/24 22:00 12/30/24 22:02 Enteral Nutritional Formula 240 ml TIDWM PO 12/29/24 18:00 Laboratory Results Laboratory Tests 12/29/24 05:10 Chemistry Test 12/29/24 05:10 Albumin 2.7 g/dL (3.2-4.8) L Calcium Level 8.0 mg/dL (8.7-10.4) L Magnesium Level 2.1 mg/dL (1.6-2.6) Phosphorus Level 2.0 mg/dL (2.4-5.1) L Total Protein 4.4 g/dL (5.7-8.2) L LFT Test 12/29/24 05:10 Alanine Aminotransferase (ALT) 23 U/L (7-40) Alkaline Phosphatase 71 U/L (46-116) Aspartate Amino Transferase (AST) 17 U/L (13-40) Total Bilirubin 0.7 mg/dL (0.2-1.0) Urinalysis Test 12/12/24 02:20 12/12/24 07:47 Urine RBC 19 /hpf (0 - 3) Urine Microscopic WBC 50 /HPF (0-3) H Urine Squamous Epithelial Cells Few /hpf (<5) Urine Calcium Oxalate Crystals Few (None Seen) Urine Bacteria Few /hpf (None Seen) H Urine Color Dark-brown (Yellow) Urine Clarity Ex.turbid (Clear) Urine pH 7.0 (5.0-9.0) Urine Specific [place] 1.022 (1.001-1.035) Urine Protein 3+ (Negative) H Urine Ketones Trace (Negative) Urine Blood 2+ /uL (Negative) H Urine Nitrite 2+ (Negative) H Urine Bilirubin Negative (Negative) Urine Urobilinogen Normal mg/dL (Negative) Urine Leukocyte Esterase 3+ /uL (Negative) Urine Glucose Normal mg/dL (Normal) Microbiology Microbiology Date/Time Source Procedure Growth Status 12/21/24 03:26 Trachea Gram Stain - Final Resulted 12/21/24 03:26 Trachea Respiratory Culture - Preliminary Resulted 12/17/24 20:00 Urine - [place] Urine Culture - Final Complete 12/14/24 01:10 Sputum Gram Stain - Final Complete 12/14/24 01:10 Respiratory Culture - Final Staphylococcus aureus Complete 12/12/24 00:41 Stool Stool Culture - Final Complete 12/12/24 00:41 Stool Shiga Toxin I & II - Final Complete 12/12/24 00:14 Blood Blood Culture - Final NO GROWTH AFTER 5 DAYS OF INCUBATION. Complete Labs and/or images reviewed: Labs reviewed by me Assessment/Plan Assessment/Plan Neurologic: #Acute metabolic encephalopathy due to sepsis s/p cardiac arrest #Vascular dementia #Large area of encephalomalacia involving the right temporal frontal and parietal lobes may represent old infarct - Alert and oriented X2 - Status post extubation - Transfer to BG - TPN - Pureed diet, carefully and small pieces, high risk of aspiration. Cardiology: #Septic shock #Moderate to severe pericardial effusion #atrial fibrillation #coronary disease s/p stent #H/o ventricular arrhythmia s/p ICD placement - Continue antibiotics IV Respiratory #acute hypoxic respiratory failure s/p mechanical ventilation #Moderate pleural effusions # covid 19 infection,resolved # Sepsis due to Community acquired pneumonia due to staph aureus infection/ filamentus fungi - Furosemide 20 mg daily IV - I&O - Albuterol 5 q.4 - Ipratropium 0.5 q.4 - micafungin iv Genitourinary/Renal #Hhib-bu-jppnorwa right-sided hydroureteronephrosis with multiple stones in the right ureter measuring up to 8 mm. #Lactic acidosis #There are multiple stones within the urinary bladder measuring less than 1 cm. #The bilateral kidneys demonstrate multiple nonobstructing stones measuring up to 2 cm. #hypokalemia #hypophosphatemia - phosphorus replaced - potassium replaced - Diane catheter - strict I&O - monitor electrolytes Endocrine ID #Septic shock likely due to aspiration pneumonia #skin infection positive proteus mirabilis and E.Faecalis #covid 19 infection, resolved #fungal infection,growing filamentus fungi - IV micafungin - IV cefepime GI #r/o GI bleeding #History of colonic polyps #Cholelithiasis. #Mildly nodular hepatic contours may represent early changes of cirrhosis. #trace ascitis - TPN for nutrition. - phosphorous - magnesium Heme/onc #Severe microcytic hypochromic anemia #Iron deficiency anemia #moderate thrombocytopenia - iron sucrose IV -CBC CMP tomorrow -no spontaneous bleeding at this time but closely monitoring based on high-risk of bleeding. -continue medications at this time, if platelets keeps trending down consider discontinue some of them. Prophylaxis: Pantoprazole 40 mg b.i.d. IV SCD Continuing current management. The patient had passed swallow eval and eat a little bit with pureed diet. Aspirate precaution. Eating with help. Elevate bed more than 30 degree. Continuing TPN until patient eat 70-80%. We will transfer the patient to telemetry today. This medical document was created using an electronic medical record system with [employer] direct computerized dictation system. Although this document has been carefully reviewed, there may still be some phonetic and typographical errors. These areas are purely typographical due to imperfections of the software programs, and do not reflect any compromise in the patient's medical care. Plan discussed with: Other (RN) Date of Service: Dec 29, 2024 Billing Provider: FELIPE MCKEON MD Common Visit Codes: 81981-[id number] INP/OBS CARE(HIGH) FELIPE MCKEON MD Dec 29, 2024 12:42
[2024-12-29] MEDS: Glucerna Carbsteady SHAKE Vanilla 8oz PO SCH (17:36)
[2024-12-29] MEDS: POTASSIUM PHOSPHATE 22 MEQ in SODIUM CHL 0.9% 100 ML IV ONE (18:21)
--- NOTE | 2024-12-29 21:13 | DVHPN2 ---
Progress Note - Dictate Date Seen: Dec 29, 2024 Medical Necessity Reason Pt with a Central, PICC or Fol: Yes The following are medically ne: PICC Line, Barron Catheter Reason for barron catheter: Strict I&O Subjective Patient was downgraded to BG He is awake alert in no acute distress Patient is eating slowly and very small portions of pureed diet with thickened liquids TPN is ongoing Patient has had a couple of loose stools and a rectal tube was placed vital signs Vital Sign Date Time Temp Pulse Resp B/P (MAP) Pulse Ox O2 Delivery O2 Flow Rate FiO2 12/29/24 20:30 59 23 123/48 (73) 98 12/29/24 20:00 Nasal Cannula* 2 28 12/29/24 20:00 98.9 98.9 Total Intake and Output 12/28/24 12/28/24 12/29/24 15:00 23:00 07:00 Intake Total 500 ml 1190 ml 746.0 ml Output Total 1360 ml 525 ml Balance 500 ml -170 ml 221.0 ml medications Current Medications Medications Dose Ordered Sig/Roberto Route Start Time Stop Time Status Last Admin Dose Admin Nitroglycerin 0.4 mg Q5MINP PRN SL 12/12/24 00:30 Ceftriaxone Sodium 50 ml @ 100 mls/hr DAILY IV 12/12/24 10:00 UNV Acetaminophen 650 mg Q6HP PRN IN 12/12/24 08:30 12/12/24 09:17 650 MG Pantoprazole Sodium 40 mg BID IV 12/14/24 08:46 12/29/24 07:43 40 MG Lactulose 30 ml Q6HPRN PRN PO 12/15/24 15:15 12/15/24 17:41 30 ML Ipratropium [place] 0.5 mg Q4HR NEB 12/18/24 22:00 12/29/24 18:58 0.5 MG Albuterol 2.5 mg Q4HR NEB 12/18/24 22:00 12/29/24 18:57 2.5 MG Micafungin Sodium 100 mg/Sodium Chloride 100 ml @ 100 mls/hr DAILY@0900 IV 12/24/24 09:00 12/29/24 07:44 100 MLS/HR Furosemide 20 mg DAILY IV 12/24/24 10:00 12/29/24 07:44 20 MG Enteral Nutritional Formula 1,000 ml 30ML/HR GT 12/24/24 17:00 Amino Acids 0 ml @ 0 mls/hr PER PHARMACY IV 12/25/24 17:00 Diagnostic Test (Pha) 1 strip Q6HR 12/25/24 18:00 12/29/24 17:36 1 STRIP Insulin Human Regular FOLLOW SLIDING SCALE Q6HR SC 12/25/24 18:00 12/29/24 00:31 4 UNITS Dextrose 50 ml UD IV 12/25/24 18:00 Sodium Chloride 10 ml QSHIFT@10,22 IV 12/26/24 22:00 12/29/24 07:25 10 ML Cefepime HCl 50 ml @ 12.5 mls/hr Q12H IV 12/28/24 14:00 12/29/24 12:37 12.5 MLS/HR Fat Emulsion Intravenous 150 ml/Sodium Phosphate 20 meq/ Potassium Acetate 20 meq/Potassium Phosphate 22 meq/ Calcium Gluconate 2.3 meq/Magnesium Sulfate 12 meq/ Multivitamins 10 ml/Chromium/ Copper/Manganese/ Zinc 1 ml/Amino Acids/Dextrose/ Purified Water 1,488.9462 ml @ 62 mls/hr Q24H1M IV 12/28/24 22:00 12/29/24 21:59 12/28/24 21:34 62 MLS/HR Saccharomyces Boulardii 250 mg DAILY PO 12/29/24 10:00 12/29/24 07:44 250 MG Fat Emulsion Intravenous 150 ml/Sodium Phosphate 10 meq/ Potassium Acetate 20 meq/Potassium Phosphate 40 meq/ Calcium Gluconate 2.3 meq/Magnesium Sulfate 12 meq/ Multivitamins 10 ml/Chromium/ Copper/Manganese/ Zinc 1 ml/Amino Acids/Dextrose/ Purified Water 1,490.5371 ml @ 62 mls/hr Q24H3M IV 12/29/24 22:00 12/30/24 22:02 Enteral Nutritional Formula 240 ml TIDWM PO 12/29/24 18:00 12/29/24 17:36 240 ML objective Chronically ill-appearing awake responsive extubated on supplemental oxygen Lungs decreased since sounds at the bases CVS S1-S2 regular rate rhythm Abdomen is soft nontender nondistended Extremities without clubbing cyanosis or edema laboratory and microbiology Laboratory Tests 12/29/24 05:10 Test 12/29/24 05:10 Range/Units Serum Glucose 72 L 74-106 mg/dL Problems(with codes): (1) Ventricular tachycardia (2) Atrial fibrillation (3) Constipation (4) Elevated lactic acid level (5) Anemia due to blood loss, chronic (6) Altered mental status (7) Leukocytosis Prognosis Plan Add Glucerna one can p.o. twice a day with some nectar thickened fluid If the patient is able to tolerate enough of the pureed diet and the Glucerna then we can taper off the TPN DC rectal tube; monitor for diarrhea There was no GI bleeding and H&H is stable Monitor labs Dietary Evaluation Review Comments: 1. If GI is accessible, consider glucerna 1.2 @ 50ml/hr to provide 1440kcal, 72g pro, 966 ml FW to meet 100% of needs. 2. Consider advance to CCHO 60g diet when appropriate 3. Consider TPN if NPO> 7 days Expected Outcomes/Goals: 1. Pt will meet >75% of estimated needs within 2-3 days Plan discussed with: Patient, Other (BG Nurse) CC Plasma Assessment Blood Product Administration S: [id number] CORNEL RDZ MD Dec 29, 2024 21:13
--- NOTE | 2024-12-29 23:36 | DVHPN2 ---
Progress Note - Dictate Date Seen: Dec 29, 2024 Medical Necessity Reason Pt with a Central, PICC or Fol: Yes The following are medically ne: PICC Line, Barron Catheter Reason for barron catheter: Strict I&O Subjective Patient seen and examined at bedside. Currently on supplemental oxygen Overnight events reviewed. vital signs Vital Sign Date Time Temp Pulse Resp B/P (MAP) Pulse Ox O2 Delivery O2 Flow Rate FiO2 12/29/24 22:30 60 23 125/51 (75) 97 12/29/24 22:00 Nasal Cannula* 2 28 12/29/24 20:00 98.9 98.9 Total Intake and Output 12/28/24 12/28/24 12/29/24 15:00 23:00 07:00 Intake Total 500 ml 1190 ml 746.0 ml Output Total 1360 ml 525 ml Balance 500 ml -170 ml 221.0 ml medications Current Medications Medications Dose Ordered Sig/Roberto Route Start Time Stop Time Status Last Admin Dose Admin Nitroglycerin 0.4 mg Q5MINP PRN SL 12/12/24 00:30 Ceftriaxone Sodium 50 ml @ 100 mls/hr DAILY IV 12/12/24 10:00 UNV Acetaminophen 650 mg Q6HP PRN [place] 12/12/24 08:30 12/12/24 09:17 650 MG Pantoprazole Sodium 40 mg BID IV 12/14/24 08:46 12/29/24 21:46 40 MG Lactulose 30 ml Q6HPRN PRN PO 12/15/24 15:15 12/15/24 17:41 30 ML Ipratropium [place] 0.5 mg Q4HR NEB 12/18/24 22:00 12/29/24 22:13 0.5 MG Albuterol 2.5 mg Q4HR NEB 12/18/24 22:00 12/29/24 22:13 2.5 MG Micafungin Sodium 100 mg/Sodium Chloride 100 ml @ 100 mls/hr DAILY@0900 IV 12/24/24 09:00 12/29/24 07:44 100 MLS/HR Furosemide 20 mg DAILY IV 12/24/24 10:00 12/29/24 07:44 20 MG Enteral Nutritional Formula 1,000 ml 30ML/HR GT 12/24/24 17:00 Amino Acids 0 ml @ 0 mls/hr PER PHARMACY IV 12/25/24 17:00 Diagnostic Test (Pha) 1 strip Q6HR 12/25/24 18:00 12/29/24 23:35 1 STRIP Insulin Human Regular FOLLOW SLIDING SCALE Q6HR SC 12/25/24 18:00 12/29/24 00:31 4 UNITS Dextrose 50 ml UD IV 12/25/24 18:00 Sodium Chloride 10 ml QSHIFT@10,22 IV 12/26/24 22:00 12/29/24 21:46 10 ML Cefepime HCl 50 ml @ 12.5 mls/hr Q12H IV 12/28/24 14:00 12/29/24 12:37 12.5 MLS/HR Saccharomyces Boulardii 250 mg DAILY PO 12/29/24 10:00 12/29/24 07:44 250 MG Fat Emulsion Intravenous 150 ml/Sodium Phosphate 10 meq/ Potassium Acetate 20 meq/Potassium Phosphate 40 meq/ Calcium Gluconate 2.3 meq/Magnesium Sulfate 12 meq/ Multivitamins 10 ml/Chromium/ Copper/Manganese/ Zinc 1 ml/Amino Acids/Dextrose/ Purified Water 1,490.5371 ml @ 62 mls/hr Q24H3M IV 12/29/24 22:00 12/30/24 22:02 12/29/24 21:46 62 MLS/HR Enteral Nutritional Formula 240 ml TIDWM PO 12/29/24 18:00 12/29/24 17:36 240 ML objective Gen.: Patient lying in bed in no apparent distress. On supplemental oxygen Head: Normocephalic, atraumatic. Eyes: EOMI/PERRLA. Ears: Normal hearing. Normal anatomy. Neck/trachea: Trachea midline, supple. Nose: Normal external anatomy. Mouth: Moist mucous membranes. Chest: Decreased air entry bilaterally. No wheezing or rhonchi. Cardiovascular: Positive S1, positive S2. Regular rate and rhythm. Abdomen: Positive bowel sounds in all 4 quadrants. Soft, non-tender, non- distended. : Deferred. Rectal: Deferred. Skin: Warm, dry. Intact. Extremities: 2+ radial pulses bilaterally. No lower extremity edema. Neuro: Awake, alert, oriented x3. No gross motor or sensory deficits. Cranial nerves II through XII intact. Gait not assessed. laboratory and microbiology Laboratory Tests 12/29/24 05:10 Test 12/29/24 05:10 Range/Units Serum Glucose 72 L 74-106 mg/dL Assessment/Plan Impression: Acute hypoxic respiratory failure COVID 19 infection S/p cardiac arrest Anemia Cachexia, BMI of 19 Events: Currently on supplemental oxygen 2 LPM NC Taper O2 as tolerated CXR on 12/28/24 demonstrated multifocal airspace disease. Small bilateral pleural effusions. No significant interval change. Iron supplementation Monitor hemoglobin - trended down to 9.0 g/dl WBC within normal limits Monitor platelets, currently 49 K Continue antibiotics Continue antifungal Continue bronchodilators Incentive spirometry Head of bed elevation Aspiration precautions Poor PO intake. Continue TPN for nutritional support Advance diet as tolerated Monitor renal function Monitor electrolytes. Supplement as necessary. Na Phos supplementation Patient is stable for downgrade from the pulmonary standpoint. S/p bronchoscopy (12/21/24) with RML BAL with clearing of secretions from L6-L10. Labs and imaging reviewed. Rest of plan as noted below. Plan: s/p extubation on 12/23/24 Supplemental oxygen Titrate to keep sats above 92% Pressors if necessary for hemodynamic support Titrate to keep mean arterial pressure greater than 65 mmHg. Antibiotics F/u cultures Remdesivir course completed. Monitor hemoglobin Diurese w/ Lasix as tolerated Monitor renal function Monitor electrolytes. Supplement as necessary. Monitor ins and outs. GI prophylaxis. DVT prophylaxis. Prognosis: Guarded given patient's multiple co-morbidities. Rest of plan per hospitalist and other consultants. Thank you Dr. Baez for allowing me to participate in this patient's care. Further recommendations will depend on the patient's clinical course. Please do not hesitate to contact me if you have any questions or concerns. This medical document was created using an electronic medical record system with [employer] dictation system. Although these documentations are being carefully reviewed, there may still be some phonetic and typographical changes. The errors are purely typographical, due to imperfection on the software program, and do not reflect any compromise in the patient's medical care. Dietary Evaluation Review Comments: 1. If GI is accessible, consider glucerna 1.2 @ 50ml/hr to provide 1440kcal, 72g pro, 966 ml FW to meet 100% of needs. 2. Consider advance to CCHO 60g diet when appropriate 3. Consider TPN if NPO> 7 days Expected Outcomes/Goals: 1. Pt will meet >75% of estimated needs within 2-3 days Plan discussed with: Patient, Other (ROSALES Whitley) CC Plasma Assessment Blood Product Administration S: [id number] VIDYA MISHRA MD Dec 29, 2024 23:35
[2024-12-30] VITALS (61 sets, daily range): BP systolic 92–134; BP diastolic 42–78; PULSE 59–76; RESP 15–31; TEMP 97.7–98.7; O2SAT 74–100
[2024-12-30 05:47] LABS: Eosinophils # (auto) 0.1 10 ^3/uL (0-0.8); Hemoglobin 8.4 g/dL (13.5-17.5)
[2024-12-30 05:50] LABS: Basophils # (auto) 0 10 ^3/uL (0-0.2); Basophils % (auto) 0.5 % (0.0-2.0); Eosinophils % (auto) 1.7 % (0.0-7.0); Hematocrit 28.4 % (41.0-53.0); Lymphocytes # (auto) 0.6 10 ^3/uL (0.4-5.4); Lymphocytes % (auto) 7.3 % (10.0-50.0); Mean Corpuscular Hemoglobin 26.5 pg (28.0-32.0); Mean Corpuscular Hgb Conc. 29.7 g/dL (32.0-36.0); Monocytes # (auto) 0.5 10 ^3/uL (0-1.3); Neutrophils # (auto) 7.1 10 ^3/uL (1.6-8.6); Neutrophils % (auto) 84.5 % (37.0-80.0); Nucleated Red Blood Cells % 0.1 %; Platelet Count (auto) 59 10^3/uL (140-450); Red Blood Cells 3.19 10^6/uL (4.5-5.90); White Blood Cell 8.4 10^3/uL (4.4-10.8)
[2024-12-30 06:01] LABS: Red Cell Distribution Width 40.7 % (11.8-14.3)
[2024-12-30 06:47] LABS: Anisocytosis Marked; Large Platelets FEW; Ovalocytes FEW; Platelet Estimate Decreased
[2024-12-30 06:48] LABS: Target Cell FEW
[2024-12-30 07:41] LABS: Base Excess 1.5 mmol/L (-2.0-3.0)
--- NOTE | 2024-12-30 08:12 | DVH ---
EXAM: XR Chest, 1 View CLINICAL INDICATION: SHORTNESS OF BREATH, DESATURATION IN OXYGEN LEVELS TECHNIQUE: Frontal view of the chest. COMPARISON: XY CHEST PORTABLE on DOS: 12/28/24, XY CHEST PORTABLE on DOS: 12/27/24, XY CHEST PORTABLE o n DOS: 12/26/24, XY CHEST PORTABLE on DOS: 12/26/24, XY CHEST PORTABLE on DOS: 12/25/24 FINDINGS: LUNGS AND PLEURAL SPACES: Left basilar atelectasis or pneumonia. HEART: Cardiomegaly with mild congestion. MEDIASTINUM: Unremarkable. Normal mediastinal contour. BONES/JOINTS: Unremarkable. No acute fracture. TUBES, LINES AND DEVICES: Left-sided cardiac pacemaker. Right peripherally inserted central cathet er (PICC) tip in the superior vena cava. OTHER FINDINGS: . IMPRESSION: 1. Left basilar atelectasis or pneumonia. 2. Cardiomegaly with mild congestion.
[2024-12-30 08:57] LABS: Anion Gap 3 (5-15)
[2024-12-30 09:02] LABS: BUN/Creatinine Ratio 57.4 (10.0-20.0)
[2024-12-30 09:03] LABS: Magnesium 2.3 mg/dL (1.6-2.6)
[2024-12-30 09:04] LABS: Alkaline Phosphatase 95 U/L (46-116); Blood Urea Nitrogen 27 mg/dL (9-23); Calcium 8.5 mg/dL (8.7-10.4); Carbon Dioxide 28 mmol/L (20-31); Chloride 106 mmol/L (98-107); Glucose 109 mg/dL (74-106); Sodium 137 mmol/L (136-145); Total Protein 5.5 g/dL (5.7-8.2)
[2024-12-30 09:08] LABS: Alanine Aminotransferase 32 U/L (7-40); Albumin 3.3 g/dL (3.2-4.8); Bilirubin, Total 0.8 mg/dL (0.2-1.0)
[2024-12-30 09:19] LABS: Aspartate Aminotransferase 24 U/L (13-40)
[2024-12-30 09:20] LABS: Phosphorus 2.7 mg/dL (2.4-5.1)
[2024-12-30] MEDS: FUROSEMIDE 40 MG/4 ML VIAL IV ONE ×2 (10:02→17:15)
[2024-12-30 10:20] LABS: Base Excess 3.4 mmol/L (-2.0-3.0)
--- NOTE | 2024-12-30 11:49 | DVHPN2 ---
Progress Note Date Seen: Dec 30, 2024 Resident Creating Document: HUI VITAL RESIDENT Medical Necessity Reason Pt with a Central, PICC or Fol: Yes The following are medically ne: PICC Line, Barron Catheter Reason for barron catheter: Strict I&O Subjective Review of Systems Patient lying down in bed in BG, currently on BiPAP P.o. intake was held as patient unable to tolerate and started on BiPAP TPN is ongoing at 62 mL/hour Rectal tube in place, 1 loose bowel movement Objective vital signs Vital Sign Date Time Temp Pulse Resp B/P (MAP) Pulse Ox O2 Delivery O2 Flow Rate FiO2 12/30/24 11:01 62 20 101/45 (63) 99 12/30/24 10:00 Bi-pap/CPAP 12/30/24 10:00 100 100 12/30/24 08:00 98.2 98.2 12/30/24 08:00 15 Total Intake and Output 12/29/24 12/29/24 12/30/24 15:00 23:00 07:00 Intake Total 646 ml 753.9462 ml 546.0 ml Output Total 1450 ml 650 ml Balance 646 ml -696.0538 ml -104.0 ml medications Current Medications Medications Dose Ordered Sig/Roberto Route Start Time Stop Time Status Last Admin Dose Admin Nitroglycerin 0.4 mg Q5MINP PRN SL 12/12/24 00:30 Ceftriaxone Sodium 50 ml @ 100 mls/hr DAILY IV 12/12/24 10:00 UNV Acetaminophen 650 mg Q6HP PRN [place] 12/12/24 08:30 12/12/24 09:17 650 MG Pantoprazole Sodium 40 mg BID IV 12/14/24 08:46 12/30/24 10:02 40 MG Lactulose 30 ml Q6HPRN PRN PO 12/15/24 15:15 12/15/24 17:41 30 ML Ipratropium [place] 0.5 mg Q4HR NEB 12/18/24 22:00 12/30/24 09:07 0.5 MG Albuterol 2.5 mg Q4HR NEB 12/18/24 22:00 12/30/24 09:07 2.5 MG Micafungin Sodium 100 mg/Sodium Chloride 100 ml @ 100 mls/hr DAILY@0900 IV 12/24/24 09:00 12/30/24 08:55 100 MLS/HR Furosemide 20 mg DAILY IV 12/24/24 10:00 12/29/24 07:44 20 MG Enteral Nutritional Formula 1,000 ml 30ML/HR GT 12/24/24 17:00 Amino Acids 0 ml @ 0 mls/hr PER PHARMACY IV 12/25/24 17:00 Diagnostic Test (Pha) 1 strip Q6HR 12/25/24 18:00 12/30/24 11:43 1 STRIP Insulin Human Regular FOLLOW SLIDING SCALE Q6HR SC 12/25/24 18:00 12/29/24 00:31 4 UNITS Dextrose 50 ml UD IV 12/25/24 18:00 Sodium Chloride 10 ml QSHIFT@10,22 IV 12/26/24 22:00 12/30/24 10:02 10 ML Cefepime HCl 50 ml @ 12.5 mls/hr Q12H IV 12/28/24 14:00 12/30/24 01:41 12.5 MLS/HR Saccharomyces Boulardii 250 mg DAILY PO 12/29/24 10:00 12/29/24 07:44 250 MG Fat Emulsion Intravenous 150 ml/Sodium Phosphate 10 meq/ Potassium Acetate 20 meq/Potassium Phosphate 40 meq/ Calcium Gluconate 2.3 meq/Magnesium Sulfate 12 meq/ Multivitamins 10 ml/Chromium/ Copper/Manganese/ Zinc 1 ml/Amino Acids/Dextrose/ Purified Water 1,490.5371 ml @ 62 mls/hr Q24H3M IV 12/29/24 22:00 12/30/24 22:02 12/29/24 21:46 62 MLS/HR Enteral Nutritional Formula 240 ml TIDWM PO 12/29/24 18:00 12/29/24 17:36 240 ML Examination General Appearance: Chronically ill-appearing, currently on BiPAP, recently extubated Head Exam: Normal inspection Neck Exam: Normal inspection. Non-tender. Normal alignment Pulmonary/Respiratory: Chest non-tender. Decreased bilateral breath sounds Cardiovascular/Chest: Regular rate and rhythm. No murmurs. No JVD. Abdominal Exam: Normal bowel sounds. Soft. Nontender. No hepatospenomegaly. No masses Appearance: In no acute distress Skin Exam: Normal inspection. Normal color. Warm. Dry laboratory and microbiology Laboratory Tests 12/30/24 08:20 12/30/24 05:19 Test 12/30/24 08:20 Range/Units Serum Glucose 109 H 74-106 mg/dL Microbiology Date/Time Source Procedure Growth Status 12/21/24 03:26 Trachea Gram Stain - Final Resulted 12/21/24 03:26 Trachea Respiratory Culture - Preliminary Resulted 12/17/24 20:00 Urine - Barron Port Urine Culture - Final Complete 12/14/24 01:10 Sputum Gram Stain - Final Complete 12/14/24 01:10 Respiratory Culture - Final Staphylococcus aureus Complete 12/12/24 00:41 Stool Stool Culture - Final Complete 12/12/24 00:41 Stool Shiga Toxin I & II - Final Complete 12/12/24 00:14 Blood Blood Culture - Final NO GROWTH AFTER 5 DAYS OF INCUBATION. 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 twice a day with some nectar thickened fluid Patient currently unable to tolerate enough of the pureed diet, continue Glucerna Continuing rectal tube due to multiple excoriations in the perineum and patient continuing to have diarrhea There was no GI bleeding and H&H is stable; 8.4 today from 9 yesterday Monitor labs Plan discussed with Dr. Gregory Plan discussed with: Patient, Other (ROSALES Santana) Dietary Evaluation Review Comments: 1. If GI is accessible, consider glucerna 1.2 @ 50ml/hr to provide 1440kcal, 72g pro, 966 ml FW to meet 100% of needs. 2. Consider advance to CCHO 60g diet when appropriate 3. Consider TPN if NPO> 7 days Expected Outcomes/Goals: 1. Pt will meet >75% of estimated needs within 2-3 days CC Plasma Assessment Blood Product Administration S: [id number] HUI VITAL RESIDENT Dec 30, 2024 11:49
--- NOTE | 2024-12-30 19:35 | DVHPNRES ---
Progress Note Date Seen: Dec 30, 2024 Resident Creating Document: YULI OROZCO Medical Necessity Reason Pt with a Central, PICC or Fol: Yes The following are medically ne: PICC Line, Barron Catheter Reason for barron catheter: Strict I&O Subjective Review of Systems HPI-patient is 79 years old male with past medical history of severe stroke (encephalomalacia in right temporal, frontal, and parietal lobes) with significant neurologic sequelae possible vascular dementia, prior episodes of gastrointestinal bleeding, Coronary artery disease sp stents, hypertension, atrial fibrillation with rapid ventricular response, ventricular tachycardia, left above-knee amputation, chronic kidney stones, history of GI bleed, AICD , hypercoagulable state was brought in from [facility] due to chest pain and vomiting and altered mental status. On arrival patient was tachycardic, tachypneic with low borderline blood pressure on 3 L of oxygen for hypoxic respiratory failure. In the ED, a head CT demonstrated large encephalomalacia, no other acute abnormality, a CBC revealed a hemoglobin of 4.6, patient was ordered to packs of RBCs, patient was given IV fluids, she was placed on broad- spectrum antibiotics with meropenem [place]. [place] [address], bands 11%. Patient's lactic acid was shown to be 4.8 and increased to 7.8, he continued to receive IV fluids, he was larsen-cultured. Troponins were within normal limits x3, BNP was 304.A chest x-ray initially showed to be unremarkable, no significant effusion or signs of congestion. He has a left-sided AICD with intact leads. COVID 19 Positive. chest/abdomen/pelvis CT scan without contrast revealed: Moderate to large pericardial effusion measuring up to 2 cm in the left lateral pericardium, small right and left pleural effusions, [id number] right-sided hydroureteronephrosis with multiple stones in the right ureter measuring up to 8 mm. There are multiple stones within the urinary bladder measuring less than 1 cm. The bilateral kidneys demonstrate multiple nonobstructing stones measuring up to 2 cm. . An EKG revealed ventricular paced complexes, low voltage in V1, V2, V6.Echo showed mild pericardial effusion, EF 40%, septal hypokinesis. Right upper extremity Doppler on 12/14/2024 revealed thrombus in the cephalic vein of the forearm. Ultrasound of Abdomen on 12/17/2024 revealedCholelithiasis. Mildly nodular hepatic contours may represent early changes of cirrhosis. Trace abdominal ascites. Patient had 4 units of blood transfusion. Respiratory culture 12/14/2024 positive for Staphylococcus aureus. Wound culture 12/16/2024- positive for Proteus mirabilis, Enterococcus faecalis. Urine culture contaminated sample. On 03/23/2025 respiratory culture grew oropharyngeal carmelo. MRSA screening negative. Patient coded in the elevator on 12/14/2024. Again Patient coded on 11/16 around 2:37 am and patient was intubated. Patient was extubated on 12/23/2024 and transferred to BG.. PICC line on right upper arm was placed on 12/26/24. Barron's Catheter in place 12/30/24-patient was seen today for clinical evaluation. Labs and chart reviewed. patient's WBC trending within normal limit, hemoglobin is stable today with a hemoglobin 8.4, thrombocytopenia with platelet 59 today. Electrolyte abnormality noted today Patient was discharged trending early in the morning with NC O2 2 liter/minute. Patient was wheezing had crackles, patient is put on non-rebreather at 15 L of oxygen. ABG revealed respiratory alkalosis. Patient was put on BiPAP for a while and gradually improved. But following removal of the BiPAP patient was desaturated again so patient was put back on BiPAP. Lasix IV 40 mg started was given a morning, also another 40 mg Lasix IV was given in the evening - change Lasix 20 mg IV daily to Lasix 40 mg b.i.d.. Patient was seen by Gastroenterology, recommendation reviewed and appreciated. Patient on TPN 62 mL/hour. Gastroenterology recommended for removal of the rectal tube but as there is a skin redness on the buttock and below the left above-knee stump we will continue with rectal due for now Ordered to insert NG tube, aspiration risk. Facilities Supervisor spoke to Iron, [phone] 10/29/1999, answered her question and she verbalized patient stay on full code. Objective vital signs Vital Sign Date Time Temp Pulse Resp B/P (MAP) Pulse Ox O2 Delivery O2 Flow Rate FiO2 12/30/24 18:30 60 16 117/58 (77) 98 12/30/24 18:14 Nasal BiPAP Mask 30 12/30/24 16:00 97.8 97.8 12/30/24 08:00 15 Total Intake and Output 12/29/24 12/29/24 12/30/24 15:00 23:00 07:00 Intake Total 646 ml 753.9462 ml 546.0 ml Output Total 1450 ml 650 ml Balance 646 ml -696.0538 ml -104.0 ml medications Current Medications Medications Dose Ordered Sig/Roberto Route Start Time Stop Time Status Last Admin Dose Admin Nitroglycerin 0.4 mg Q5MINP PRN SL 12/12/24 00:30 Ceftriaxone Sodium 50 ml @ 100 mls/hr DAILY IV 12/12/24 10:00 UNV Acetaminophen 650 mg Q6HP PRN [place] 12/12/24 08:30 12/12/24 09:17 650 MG Pantoprazole Sodium 40 mg BID IV 12/14/24 08:46 12/30/24 10:02 40 MG Lactulose 30 ml Q6HPRN PRN PO 12/15/24 15:15 12/15/24 17:41 30 ML Ipratropium [place] 0.5 mg Q4HR NEB 12/18/24 22:00 12/30/24 18:14 0.5 MG Albuterol 2.5 mg Q4HR NEB 12/18/24 22:00 12/30/24 18:14 2.5 MG Micafungin Sodium 100 mg/Sodium Chloride 100 ml @ 100 mls/hr DAILY@0900 IV 12/24/24 09:00 12/30/24 08:55 100 MLS/HR Enteral Nutritional Formula 1,000 ml 30ML/HR GT 12/24/24 17:00 Amino Acids 0 ml @ 0 mls/hr PER PHARMACY IV 12/25/24 17:00 Diagnostic Test (Pha) 1 strip Q6HR 12/25/24 18:00 12/30/24 17:15 1 STRIP Insulin Human Regular FOLLOW SLIDING SCALE Q6HR SC 12/25/24 18:00 12/29/24 00:31 4 UNITS Dextrose 50 ml UD IV 12/25/24 18:00 Sodium Chloride 10 ml QSHIFT@10,22 IV 12/26/24 22:00 12/30/24 10:02 10 ML Cefepime HCl 50 ml @ 12.5 mls/hr Q12H IV 12/28/24 14:00 12/30/24 13:52 12.5 MLS/HR Saccharomyces Boulardii 250 mg DAILY PO 12/29/24 10:00 12/29/24 07:44 250 MG Fat Emulsion Intravenous 150 ml/Sodium Phosphate 10 meq/ Potassium Acetate 20 meq/Potassium Phosphate 40 meq/ Calcium Gluconate 2.3 meq/Magnesium Sulfate 12 meq/ Multivitamins 10 ml/Chromium/ Copper/Manganese/ Zinc 1 ml/Amino Acids/Dextrose/ Purified Water 1,490.5371 ml @ 62 mls/hr Q24H3M IV 12/29/24 22:00 12/30/24 22:02 12/29/24 21:46 62 MLS/HR Fat Emulsion Intravenous 200 ml/Sodium Phosphate 40 meq/ Potassium Acetate 20 meq/Calcium Gluconate 2.3 meq/ Magnesium Sulfate 10 meq/ Multivitamins 10 ml/Chromium/ Copper/Manganese/ Zinc 1 ml/Amino Acids/Dextrose/ Purified Water 1,538.4462 ml @ 64 mls/hr Q24H3M IV 12/30/24 22:00 12/31/24 21:59 Furosemide 40 mg BIDD IV 12/31/24 06:00 Examination General Appearance: on room air, AAOX1-2, 2. able to follow commands. Pulmonary/Respiratory: Chest non-tender. Bilateral Lung crackles+ Cardiovascular/Chest: Regular rate and paced rhythm. No murmurs. No JVD. Peripheral Pulses: 2+ Radial (R). 2+ Radial(L). 2+ Pedal (R). 2+ Pedal (L) Abdominal Exam: Soft. Nontender. No hepatospenomegaly. No masses Ankle Exam: 2+ ankle edema extremities: Left upper arm contracted with edematous changes, 1+ lower extremity edema, left above knee amputation, redness biliary stamp of the left above-knee amputation Neuro/Mental Status: Alert, responds by yes on laboratory and microbiology Laboratory Tests 12/30/24 08:20 12/30/24 05:19 Test 12/30/24 08:20 Range/Units Serum Glucose 109 H 74-106 mg/dL Microbiology Date/Time Source Procedure Growth Status 12/21/24 03:26 Trachea Gram Stain - Final Resulted 12/21/24 03:26 Trachea Respiratory Culture - Preliminary Resulted 12/17/24 20:00 Urine - Barron Port Urine Culture - Final Complete 12/14/24 01:10 Sputum Gram Stain - Final Complete 12/14/24 01:10 Respiratory Culture - Final Staphylococcus aureus Complete 12/12/24 00:41 Stool Stool Culture - Final Complete 12/12/24 00:41 Stool Shiga Toxin I & II - Final Complete 12/12/24 00:14 Blood Blood Culture - Final NO GROWTH AFTER 5 DAYS OF INCUBATION. Complete Problem List/Assessment/Plan Problem List/Assessment/Plan Assessment and plan Neurologic: #Acute metabolic encephalopathy due to sepsis s/p cardiac arrest # history of recurrent stroke #Vascular dementia #Large area of encephalomalacia involving the right temporal frontal and parietal lobes may represent old infarct - Alert and oriented X1-2 - Status post extubation Cardiology: #Septic shock #Moderate to severe pericardial effusion #atrial fibrillation #coronary disease s/p stent # acute systolic/diastolic heart failure: iv lasix bid #H/o ventricular arrhythmia s/p ICD placement - Continue antibiotics IV Respiratory #acute hypoxic respiratory failure s/p mechanical ventilation #Moderate pleural effusions # covid 19 infection,resolved # Sepsis due to Community acquired pneumonia due to staph aureus infection/ filamentus fungi - increase Lasix from 20 mg IV daily to 40 mg IV b.i.d. - I&O - Albuterol 5 q.4 - Ipratropium 0.5 q.4 - micafungin iv GI #r/o GI bleeding #History of colonic polyps #Cholelithiasis. #Mildly nodular hepatic contours may represent early changes of cirrhosis. #trace ascitis - TPN for nutrition. - phosphorous - magnesium Genitourinary/Renal #[id number] right-sided hydroureteronephrosis with multiple stones in the right ureter measuring up to 8 mm. #Lactic acidosis #There are multiple stones within the urinary bladder measuring less than 1 cm. #The bilateral kidneys demonstrate multiple nonobstructing stones measuring up to 2 cm. #hypokalemia #hypophosphatemia - phosphorus replaced - potassium replaced - Barron catheter - strict I&O - monitor electrolytes ID #Septic shock likely due to aspiration pneumonia #skin infection positive proteus mirabilis and E.Faecalis #covid 19 infection, resolved #fungal infection,growing filamentus fungi - IV micafungin - IV cefepime Endocrine Heme/onc #Severe microcytic hypochromic anemia #Iron deficiency anemia #moderate thrombocytopenia - iron sucrose IV -CBC CMP tomorrow -no spontaneous bleeding at this time but closely monitoring based on high-risk of bleeding. -continue medications at this time, if platelets keeps trending down consider discontinue some of them. Prophylaxis: Pantoprazole 40 mg b.i.d. IV SCD Barron's catheter in place Right upper arm PICC line present-12/26/2024 Patient on BiPAP tonight Goals of care/advance care planning Code status ; full code, PUD prophylaxis: Pantoprazole DVT prophylaxis: SCD Plan discussed with Dr. Villasenor , nursing staff, patient Critical care Total time spent on patient evaluation, chart review, assessment and plan, critical care time to include monitoring during bipap was 82 mins Plan discussed with: Patient Plan discussed with: Patient, Other (Iron-Friend, RN) My Orders My Orders Orders - YULI OROZCO Procedure Category Date Status Time BIPAP RT 12/30/24 Logged 08:50 Abg W/ Co-Ox RT 12/30/24 Logged 10:00 Basic Metabolic Panel LAB 12/30/24 Logged 15:35 Magnesium LAB 12/30/24 Logged 15:35 Dietary Evaluation Review Comments: 1. If GI is accessible, consider glucerna 1.2 @ 50ml/hr to provide 1440kcal, 72g pro, 966 ml FW to meet 100% of needs. 2. Consider advance to CCHO 60g diet when appropriate 3. Consider TPN if NPO> 7 days Expected Outcomes/Goals: 1. Pt will meet >75% of estimated needs within 2-3 days CC Plasma Assessment Blood Product Administration S: [id number] Date of Service: Dec 30, 2024 Billing Provider: DARYA VILLASENOR MD Common Visit Codes: 66889-[id number] CARE 30-74 MIN, 06230-FFVEVPUT CARE-EACH +30MIN YULI OROZCO Dec 30, 2024 19:34 DARYA VILLASENOR MD Dec 31, 2024 15:42
[2024-12-30] MEDS: TPN PER PHARMACY IV NR (21:21)
[2024-12-31] VITALS (68 sets, daily range): BP systolic 86–134; BP diastolic 45–65; PULSE 59–66; RESP 10–24; TEMP 97.9–100.2; O2SAT 90–100
--- NOTE | 2024-12-31 05:15 | DVH ---
EXAM: XR Chest, 1 View CLINICAL INDICATION: Pulmonary edema TECHNIQUE: Frontal view of the chest. COMPARISON: XY CHEST PORTABLE on DOS: 12/30/24, XY CHEST PORTABLE on DOS: 12/28/24, XY CHEST PORTABLE on DOS: 12/27/24, XY CHEST PORTABLE on DOS: 12/26/24, XY CHEST PORTABLE on DOS: 12/26/24 FINDINGS: LUNGS AND PLEURAL SPACES: Bibasilar atelectasis or pneumonia. No pneumothorax. HEART: Left-sided cardiac. No cardiomegaly. MEDIASTINUM: Unremarkable. Normal mediastinal contour. BONES/JOINTS: Unremarkable. No acute fracture. OTHER FINDINGS: . IMPRESSION: Bibasilar atelectasis or pneumonia.
[2024-12-31] MEDS: FUROSEMIDE 40 MG/4 ML VIAL IV SCH (05:38)
[2024-12-31 06:39] LABS: Anion Gap 7 (5-15)
[2024-12-31 06:44] LABS: BUN/Creatinine Ratio 92.3 (10.0-20.0)
[2024-12-31 06:50] LABS: Alkaline Phosphatase 87 U/L (46-116); Bilirubin, Total 0.8 mg/dL (0.2-1.0); Blood Urea Nitrogen 36 mg/dL (9-23); Calcium 8.6 mg/dL (8.7-10.4); Carbon Dioxide 30 mmol/L (20-31); Chloride 100 mmol/L (98-107); Glucose 123 mg/dL (74-106); Magnesium 2.2 mg/dL (1.6-2.6); Potassium 3.2 mmol/L (3.5-5.1); Sodium 137 mmol/L (136-145); Total Protein 5.1 g/dL (5.7-8.2)
[2024-12-31 06:52] LABS: Alanine Aminotransferase 26 U/L (7-40); Aspartate Aminotransferase 17 U/L (13-40); Phosphorus 2.7 mg/dL (2.4-5.1)
[2024-12-31] MEDS: POTASSIUM CHL 20 Meq TABLET PO ONE (07:00)
[2024-12-31 07:13] LABS: Hemoglobin 9.3 g/dL (13.5-17.5); Mean Corpuscular Hgb Conc. 32.1 g/dL (32.0-36.0); Neutrophils # (auto) 13.8 10 ^3/uL (1.6-8.6); Red Blood Cells 3.65 10^6/uL (4.5-5.90)
[2024-12-31 07:16] LABS: Basophils # (auto) 0 10 ^3/uL (0-0.2); Basophils % (auto) 0.3 % (0.0-2.0); Eosinophils # (auto) 0 10 ^3/uL (0-0.8); Eosinophils % (auto) 0.2 % (0.0-7.0); Lymphocytes # (auto) 0.4 10 ^3/uL (0.4-5.4); Lymphocytes % (auto) 2.9 % (10.0-50.0); Mean Corpuscular Hemoglobin 25.5 pg (28.0-32.0); Mean Corpuscular Volume 79.5 fL (80.0-100.0); Monocytes # (auto) 0.6 10 ^3/uL (0-1.3); Monocytes % (auto) 3.8 % (0.0-12.0); Neutrophils % (auto) 92.8 % (37.0-80.0); Platelet Count (auto) 73 10^3/uL (140-450); White Blood Cell 14.8 10^3/uL (4.4-10.8)
[2024-12-31 07:31] LABS: Red Cell Distribution Width 39.7 % (11.8-14.3)
[2024-12-31] MEDS: POTASSIUM CHL 20MEQ/100ML 100 ML IV SCH (07:54)
[2024-12-31 08:26] LABS: Platelet Estimate Decreased
[2024-12-31 08:27] LABS: Target Cell FEW; Tear Drop Cells FEW
[2024-12-31 08:28] LABS: Anisocytosis Marked
--- NOTE | 2024-12-31 08:39 | DVHPNRES ---
Progress Note Date Seen: Dec 31, 2024 Resident Creating Document: YULI OROZCO RESIDENT Medical Necessity Reason Pt with a Central, PICC or Fol: Yes The following are medically ne: PICC Line, Barron Catheter (RN,) Reason for barron catheter: Strict I&O Subjective Review of Systems HPI-patient is 79 years old male with past medical history of severe stroke (encephalomalacia in right temporal, frontal, and parietal lobes) with significant neurologic sequelae possible vascular dementia, prior episodes of gastrointestinal bleeding, Coronary artery disease sp stents, hypertension, atrial fibrillation with rapid ventricular response, ventricular tachycardia, left above-knee amputation, chronic kidney stones, history of GI bleed, AICD , hypercoagulable state was brought in from [facility] facility due to chest pain and vomiting and altered mental status. On arrival patient was tachycardic, tachypneic with low borderline blood pressure on 3 L of oxygen for hypoxic respiratory failure. In the ED, a head CT demonstrated large encephalomalacia, no other acute abnormality, a CBC revealed a hemoglobin of 4.6, patient was ordered to packs of RBCs, patient was given IV fluids, she was placed on broad- spectrum antibiotics with meropenem [place]. [place] [address], bands 11%. Patient's lactic acid was shown to be 4.8 and increased to 7.8, he continued to receive IV fluids, he was larsen-cultured. Troponins were within normal limits x3, BNP was 304.A chest x-ray initially showed to be unremarkable, no significant effusion or signs of congestion. He has a left-sided AICD with intact leads. COVID 19 Positive. chest/abdomen/pelvis CT scan without contrast revealed: Moderate to large pericardial effusion measuring up to 2 cm in the left lateral pericardium, small right and left pleural effusions, Vjtl-[id number]-[id number] right-sided hydroureteronephrosis with multiple stones in the right ureter measuring up to 8 mm. There are multiple stones within the urinary bladder measuring less than 1 cm. The bilateral kidneys demonstrate multiple nonobstructing stones measuring up to 2 cm. . An EKG revealed ventricular paced complexes, low voltage in V1, V2, V6.Echo showed mild pericardial effusion, EF 40%, septal hypokinesis. Right upper extremity Doppler on 12/14/2024 revealed thrombus in the cephalic vein of the forearm. Ultrasound of Abdomen on 12/17/2024 revealedCholelithiasis. Mildly nodular hepatic contours may represent early changes of cirrhosis. Trace abdominal ascites. Patient had 4 units of blood transfusion. Respiratory culture 12/14/2024 positive for Staphylococcus aureus. Wound culture 12/16/2024- positive for Proteus mirabilis, Enterococcus faecalis. Urine culture contaminated sample. On 03/23/2025 respiratory culture grew oropharyngeal carmelo. MRSA screening negative. Patient coded in the elevator on 12/14/2024. Again Patient coded on 11/16 around 2:37 am and patient was intubated. Patient was extubated on 12/23/2024 and transferred to BG.. PICC line on right upper arm was placed on 12/26/24. Barron's Catheter in place 12/31/24-patient was seen today for clinical evaluation. Labs and chart reviewed. WBC went up today to 14.8, platelet count trending a little bit up today to 73, hypokalemia with potassium 3.2 supplemented, BUN elevated to 36 likely due to effect of Lasix. Patient remained on BiPAP overnight BiPAP was taken off, patient on NC O2 2 liter/minute, saturating well above 90 Negative output balance overnight Failed NG tube insertion last night Plan is to do another round of swallow evaluation Patient on TPN Flight Technician spoke to Iron, [phone] 10/29/1999, answered her question and she verbalized patient stay on full code. Objective vital signs Vital Sign Date Time Temp Pulse Resp B/P (MAP) Pulse Ox O2 Delivery O2 Flow Rate FiO2 12/31/24 07:00 61 21 105/56 (72) 99 12/31/24 06:55 Bi-pap/CPAP 12/31/24 06:55 30 12/31/24 04:00 99.7 99.7 12/30/24 08:00 15 Total Intake and Output 12/30/24 12/30/24 12/31/24 15:00 23:00 07:00 Intake Total 646 ml 477 ml 498.0 ml Output Total 2300 ml 1900 ml Balance 646 ml -1823 ml -1402.0 ml medications Current Medications Medications Dose Ordered Sig/Roberto Route Start Time Stop Time Status Last Admin Dose Admin Nitroglycerin 0.4 mg Q5MINP PRN SL 12/12/24 00:30 Ceftriaxone Sodium 50 ml @ 100 mls/hr DAILY IV 12/12/24 10:00 UNV Acetaminophen 650 mg Q6HP PRN AK 12/12/24 08:30 12/12/24 09:17 650 MG Pantoprazole Sodium 40 mg BID IV 12/14/24 08:46 12/30/24 21:24 40 MG Lactulose 30 ml Q6HPRN PRN PO 12/15/24 15:15 12/15/24 17:41 30 ML Ipratropium [place] 0.5 mg Q4HR NEB 12/18/24 22:00 12/31/24 06:55 0.5 MG Albuterol 2.5 mg Q4HR NEB 12/18/24 22:00 12/31/24 06:55 2.5 MG Micafungin Sodium 100 mg/Sodium Chloride 100 ml @ 100 mls/hr DAILY@0900 IV 12/24/24 09:00 12/30/24 08:55 100 MLS/HR Enteral Nutritional Formula 1,000 ml 30ML/HR GT 12/24/24 17:00 Amino Acids 0 ml @ 0 mls/hr PER PHARMACY IV 12/25/24 17:00 Diagnostic Test (Pha) 1 strip Q6HR 12/25/24 18:00 12/31/24 05:38 1 STRIP Insulin Human Regular FOLLOW SLIDING SCALE Q6HR SC 12/25/24 18:00 12/29/24 00:31 4 UNITS Dextrose 50 ml UD IV 12/25/24 18:00 Sodium Chloride 10 ml QSHIFT@10,22 IV 12/26/24 22:00 12/30/24 21:25 10 ML Cefepime HCl 50 ml @ 12.5 mls/hr Q12H IV 12/28/24 14:00 12/31/24 02:02 12.5 MLS/HR Saccharomyces Boulardii 250 mg DAILY PO 12/29/24 10:00 12/29/24 07:44 250 MG Fat Emulsion Intravenous 200 ml/Sodium Phosphate 40 meq/ Potassium Acetate 20 meq/Calcium Gluconate 2.3 meq/ Magnesium Sulfate 10 meq/ Multivitamins 10 ml/Chromium/ Copper/Manganese/ Zinc 1 ml/Amino Acids/Dextrose/ Purified Water 1,538.4462 ml @ 64 mls/hr Q24H3M IV 12/30/24 22:00 12/31/24 21:59 12/30/24 21:21 64 MLS/HR Furosemide 40 mg BIDD IV 12/31/24 06:00 12/31/24 05:38 40 MG Potassium Chloride 100 ml @ 50 mls/hr Q2H IV 12/31/24 07:00 12/31/24 10:59 12/31/24 07:54 50 MLS/HR Examination General Appearance: on room air, AAOX1-2, 2. able to follow commands. Pulmonary/Respiratory: Chest non-tender. Bilateral Lung crackles+ Cardiovascular/Chest: Regular rate and paced rhythm. No murmurs. No JVD. Peripheral Pulses: 2+ Radial (R). 2+ Radial(L). 2+ Pedal (R). 2+ Pedal (L) Abdominal Exam: Soft. Nontender. No hepatospenomegaly. No masses Ankle Exam: 2+ ankle edema extremities: Left upper arm contracted with edematous changes, 1+ lower extremity edema, left above knee amputation, redness biliary stamp of the left above-knee amputation Neuro/Mental Status: Alert, responds by yes on laboratory and microbiology Laboratory Tests 12/31/24 06:45 12/31/24 06:10 Test 12/31/24 06:10 Range/Units Serum Glucose 123 H 74-106 mg/dL Microbiology Date/Time Source Procedure Growth Status 12/21/24 03:26 Trachea Gram Stain - Final Resulted 12/21/24 03:26 Trachea Respiratory Culture - Preliminary Resulted 12/17/24 20:00 Urine - Barron [place] Urine Culture - Final Complete 12/14/24 01:10 Sputum Gram Stain - Final Complete 12/14/24 01:10 Respiratory Culture - Final Staphylococcus aureus Complete 12/12/24 00:41 Stool Stool Culture - Final Complete 12/12/24 00:41 Stool Shiga Toxin I & II - Final Complete 12/12/24 00:14 Blood Blood Culture - Final NO GROWTH AFTER 5 DAYS OF INCUBATION. Complete Problem List/Assessment/Plan Problem List/Assessment/Plan Assessment and plan Neurologic: #Acute metabolic encephalopathy due to sepsis s/p cardiac arrest # history of recurrent stroke #Vascular dementia #Large area of encephalomalacia involving the right temporal frontal and parietal lobes may represent old infarct - Alert and oriented X1 - Status post extubation -continue monitoring clinically -avoid dehydration Cardiology: # acute systolic/diastolic heart failure, LVEF 40% #Septic shock #Moderate to severe pericardial effusion #atrial fibrillation #coronary disease s/p stent #H/o ventricular arrhythmia s/p ICD placement - Continue Lasix 40 mg IV b.i.d. Respiratory #acute hypoxic respiratory failure s/p mechanical ventilation #Moderate pleural effusions # covid 19 infection,resolved # Sepsis due to Community acquired pneumonia due to staph aureus infection/ filamentus fungi - continue Lasix 40 mg IV b.i.d. - I&O - Albuterol 5 q.4 - Ipratropium 0.5 q.4 - micafungin iv GI #r/o GI bleeding #History of colonic polyps #Cholelithiasis. #Mildly nodular hepatic contours may represent early changes of cirrhosis. #trace ascitis -plan is to do another swallow evaluation - TPN for nutrition. - phosphorous - magnesium Genitourinary/Renal #[id number]-mt-rvlnrenp right-sided hydroureteronephrosis with multiple stones in the right ureter measuring up to 8 mm. #Lactic acidosis #There are multiple stones within the urinary bladder measuring less than 1 cm. #The bilateral kidneys demonstrate multiple nonobstructing stones measuring up to 2 cm. #hypokalemia #hypophosphatemia - phosphorus replaced - potassium replaced - Barron catheter - strict I&O - monitor electrolytes ID #Septic shock likely due to aspiration pneumonia #skin infection positive proteus mirabilis and E.Faecalis #covid 19 infection, resolved #fungal infection,growing filamentus fungi - IV micafungin - IV cefepime Endocrine Heme/onc #Severe microcytic hypochromic anemia #Iron deficiency anemia #moderate thrombocytopenia - iron sucrose IV -CBC CMP tomorrow -no spontaneous bleeding at this time but closely monitoring based on high-risk of bleeding. -continue medications at this time, if platelets keeps trending down consider discontinue some of them. Prophylaxis: Pantoprazole 40 mg b.i.d. IV SCD Barron's catheter in place Right upper arm PICC line present-12/26/2024 Patient on BiPAP tonight Goals of care/advance care planning Code status ; full code, PUD prophylaxis: Pantoprazole DVT prophylaxis: SCD Plan discussed with Dr. Villasenor , nursing staff, [facility] Critical care Total time spent on patient evaluation, chart review, assessment and plan, critical care time to include monitoring during bipap was 52 mins Plan discussed with: Other (RN, Iron) My Orders My Orders Orders - YULI OROZCO Procedure Category Date Status Time BIPAP RT 12/30/24 Logged 08:50 Abg W/ Co-Ox RT 12/30/24 Logged 10:00 Chest Portable XY 12/31/24 Resulted 06:00 Dietary Evaluation Review Comments: 1. If GI is accessible, consider glucerna 1.2 @ 50ml/hr to provide 1440kcal, 72g pro, 966 ml FW to meet 100% of needs. 2. Consider advance to CCHO 60g diet when appropriate 3. Consider TPN if NPO> 7 days Expected Outcomes/Goals: 1. Pt will meet >75% of estimated needs within 2-3 days CC Plasma Assessment Blood Product Administration S: [id number] Date of Service: Dec 31, 2024 Billing Provider: DARYA VILLASENOR MD Common Visit Codes: 15002-CFZRALTQ CARE 30-74 MIN YULI OROZCO Dec 31, 2024 08:39 DARYA VILLASNEOR MD Jan 01, 2025 16:53
--- NOTE | 2024-12-31 11:14 | DVHPN2 ---
Progress Note Date Seen: Dec 31, 2024 Resident Creating Document: HUI VITAL RESIDENT Medical Necessity Reason Pt with a Central, PICC or Fol: Yes The following are medically ne: PICC Line, Barron Catheter (RN,) Reason for barron catheter: Strict I&O Subjective Review of Systems Patient lying down in bed in BG, currently on trial off of BiPAP P.o. intake was held as patient unable to tolerate and started on BiPAP Stable H&H TPN is ongoing at 62 mL/hour Rectal tube in place, 300 mL output soft-watery Patient is AO x1 Attempted to place NG tube, however, unable to do so due to a deviated nasal septum Objective vital signs Vital Sign Date Time Temp Pulse Resp B/P (MAP) Pulse Ox O2 Delivery O2 Flow Rate FiO2 12/31/24 10:01 60 20 100 12/31/24 09:55 Bi-pap/CPAP 12/31/24 09:55 30 30 12/31/24 09:55 105/55 12/31/24 04:00 99.7 99.7 12/30/24 08:00 15 Total Intake and Output 12/30/24 12/30/24 12/31/24 15:00 23:00 07:00 Intake Total 646 ml 477 ml 498.0 ml Output Total 2300 ml 1900 ml Balance 646 ml -1823 ml -1402.0 ml medications Current Medications Medications Dose Ordered Sig/Roberto Route Start Time Stop Time Status Last Admin Dose Admin Nitroglycerin 0.4 mg Q5MINP PRN SL 12/12/24 00:30 Ceftriaxone Sodium 50 ml @ 100 mls/hr DAILY IV 12/12/24 10:00 UNV Acetaminophen 650 mg Q6HP PRN SD 12/12/24 08:30 12/12/24 09:17 650 MG Pantoprazole Sodium 40 mg BID IV 12/14/24 08:46 12/30/24 21:24 40 MG Lactulose 30 ml Q6HPRN PRN PO 12/15/24 15:15 12/15/24 17:41 30 ML Ipratropium [place] 0.5 mg Q4HR NEB 12/18/24 22:00 12/31/24 09:55 0.5 MG Albuterol 2.5 mg Q4HR NEB 12/18/24 22:00 12/31/24 09:55 2.5 MG Micafungin Sodium 100 mg/Sodium Chloride 100 ml @ 100 mls/hr DAILY@0900 IV 12/24/24 09:00 12/31/24 08:48 100 MLS/HR Enteral Nutritional Formula 1,000 ml 30ML/HR GT 12/24/24 17:00 Amino Acids 0 ml @ 0 mls/hr PER PHARMACY IV 12/25/24 17:00 Diagnostic Test (Pha) 1 strip Q6HR 12/25/24 18:00 12/31/24 05:38 1 STRIP Insulin Human Regular FOLLOW SLIDING SCALE Q6HR SC 12/25/24 18:00 12/29/24 00:31 4 UNITS Dextrose 50 ml UD IV 12/25/24 18:00 Sodium Chloride 10 ml QSHIFT@10,22 IV 12/26/24 22:00 12/31/24 11:13 10 ML Cefepime HCl 50 ml @ 12.5 mls/hr Q12H IV 12/28/24 14:00 12/31/24 02:02 12.5 MLS/HR Saccharomyces Boulardii 250 mg DAILY PO 12/29/24 10:00 12/29/24 07:44 250 MG Fat Emulsion Intravenous 200 ml/Sodium Phosphate 40 meq/ Potassium Acetate 20 meq/Calcium Gluconate 2.3 meq/ Magnesium Sulfate 10 meq/ Multivitamins 10 ml/Chromium/ Copper/Manganese/ Zinc 1 ml/Amino Acids/Dextrose/ Purified Water 1,538.4462 ml @ 64 mls/hr Q24H3M IV 12/30/24 22:00 12/31/24 21:59 12/30/24 21:21 64 MLS/HR Furosemide 40 mg BIDD IV 12/31/24 06:00 12/31/24 05:38 40 MG Examination General Appearance: Chronically ill-appearing, currently on BiPAP, recently extubated. AOX1 Head Exam: Normal inspection Neck Exam: Normal inspection. Non-tender. Normal alignment Pulmonary/Respiratory: Chest non-tender. Decreased bilateral breath sounds Cardiovascular/Chest: Regular rate and rhythm. No murmurs. No JVD. Abdominal Exam: Normal bowel sounds. Soft. Nontender. No hepatospenomegaly. No masses Appearance: In no acute distress Skin Exam: Normal inspection. Normal color. Warm. Dry laboratory and microbiology Laboratory Tests 12/31/24 06:45 3/11/25 06:10 Test 12/31/24 06:10 Range/Units Serum Glucose 123 H 74-106 mg/dL Microbiology Date/Time Source Procedure Growth Status 12/21/24 03:26 Trachea Gram Stain - Final Resulted 12/21/24 03:26 Trachea Respiratory Culture - Preliminary Resulted 12/17/24 20:00 Urine - Barron [place] Urine Culture - Final Complete 12/14/24 01:10 Sputum Gram Stain - Final Complete 12/14/24 01:10 Respiratory Culture - Final Staphylococcus aureus Complete 12/12/24 00:41 Stool Stool Culture - Final Complete 12/12/24 00:41 Stool Shiga Toxin I & II - Final Complete 12/12/24 00:14 Blood Blood Culture - Final NO GROWTH AFTER 5 DAYS OF INCUBATION. 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 twice a day with some nectar thickened fluid Patient currently unable to tolerate enough of the pureed diet, continue Glucerna Continuing rectal tube due to multiple excoriations in the perineum and patient continuing to have diarrhea There was no GI bleeding and H&H is stable; 8.4 today from 9 yesterday Coags trending upwards, we will continue to Monitor labs Low-grade fever and leukocytosis noted today Plan discussed with Dr. Gregory Plan discussed with: Other (RN) Dietary Evaluation Review Comments: 1. If GI is accessible, consider glucerna 1.2 @ 50ml/hr to provide 1440kcal, 72g pro, 966 ml FW to meet 100% of needs. 2. Consider advance to CCHO 60g diet when appropriate 3. Consider TPN if NPO> 7 days Expected Outcomes/Goals: 1. Pt will meet >75% of estimated needs within 2-3 days CC Plasma Assessment Blood Product Administration S: [id number] HUI VITAL RESIDENT Dec 31, 2024 11:14
[2024-12-31 20:28] LABS: Alanine Aminotransferase 28 U/L (7-40); Albumin 3.2 g/dL (3.2-4.8); Alkaline Phosphatase 93 U/L (46-116); Anion Gap 8 (5-15); Aspartate Aminotransferase 27 U/L (13-40); BUN/Creatinine Ratio 68.2 (10.0-20.0); Bilirubin, Total 0.9 mg/dL (0.2-1.0); Carbon Dioxide 27 mmol/L (20-31); Chloride 101 mmol/L (98-107); Potassium 3.6 mmol/L (3.5-5.1)
[2024-12-31 21:05] LABS: Blood Urea Nitrogen 30 mg/dL (9-23); Calcium 8.5 mg/dL (8.7-10.4); Glucose 122 mg/dL (74-106); Sodium 136 mmol/L (136-145); Total Protein 5.5 g/dL (5.7-8.2)
[2024-12-31] MEDS: TPN PER PHARMACY IV NR (21:28)
[2025-01-01] VITALS (53 sets, daily range): BP systolic 101–143; BP diastolic 46–64; PULSE 60–70; RESP 10–22; TEMP 97.5–98.8; O2SAT 91–100
[2025-01-01 05:24] LABS: Basophils # (auto) 0 10 ^3/uL (0-0.2); Hemoglobin 9.1 g/dL (13.5-17.5)
[2025-01-01 05:29] LABS: Basophils % (auto) 0.4 % (0.0-2.0); Eosinophils # (auto) 0.1 10 ^3/uL (0-0.8); Eosinophils % (auto) 0.4 % (0.0-7.0); Hematocrit 29.3 % (41.0-53.0); Lymphocytes # (auto) 0.4 10 ^3/uL (0.4-5.4); Lymphocytes % (auto) 3.2 % (10.0-50.0); Mean Corpuscular Hemoglobin 25.6 pg (28.0-32.0); Mean Corpuscular Hgb Conc. 31.1 g/dL (32.0-36.0); Mean Corpuscular Volume 82.3 fL (80.0-100.0); Monocytes # (auto) 0.5 10 ^3/uL (0-1.3); Monocytes % (auto) 3.7 % (0.0-12.0); Neutrophils # (auto) 11.8 10 ^3/uL (1.6-8.6); Neutrophils % (auto) 92.3 % (37.0-80.0); Platelet Count (auto) 82 10^3/uL (140-450); Red Blood Cells 3.56 10^6/uL (4.5-5.90); Red Cell Distribution Width 40.3 % (11.8-14.3); White Blood Cell 12.8 10^3/uL (4.4-10.8)
[2025-01-01 05:38] LABS: INR 1.07 (0.9-1.15); Partial Thromboplastin Time 36.7 SEC (24.5-34.5); Prothrombin Time 11.3 sec (9.3-11.8)
[2025-01-01 05:44] LABS: Alanine Aminotransferase 25 U/L (7-40); Alkaline Phosphatase 90 U/L (46-116); Anion Gap 5 (5-15); Aspartate Aminotransferase 22 U/L (13-40); BUN/Creatinine Ratio 89.7 (10.0-20.0); Carbon Dioxide 31 mmol/L (20-31); Chloride 102 mmol/L (98-107); Magnesium 2.3 mg/dL (1.6-2.6); Sodium 138 mmol/L (136-145)
[2025-01-01 05:45] LABS: Bilirubin, Total 0.8 mg/dL (0.2-1.0); Phosphorus 2.8 mg/dL (2.4-5.1)
[2025-01-01 06:00] LABS: Albumin 3.1 g/dL (3.2-4.8); Bilirubin, Direct 0.4 mg/dL (<0.3); Blood Urea Nitrogen 35 mg/dL (9-23); Calcium 8.4 mg/dL (8.7-10.4); Glucose 110 mg/dL (74-106); Potassium 2.9 mmol/L (3.5-5.1); Total Protein 5.2 g/dL (5.7-8.2)
[2025-01-01] MEDS: POTASSIUM CHL 20MEQ/50ML 100 ML IV ONE (06:06)
[2025-01-01] MEDS ORDERED: POTASSIUM CHLORIDE 60 MEQ, LIDOCAINE 1% (LOCAL ANESTH.) 6 ML in SODIUM CHL 0.9% 500 ML IV ONE (07:00)
[2025-01-01] MEDS: POTASSIUM CHL 20MEQ/100ML 100 ML IV SCH (07:50)
[2025-01-01] MEDS: POTASSIUM CHL 20MEQ/50ML 50 ML IV ONE ×3 (07:50→18:06)
[2025-01-01] MEDS: POTASSIUM CHL 20MEQ/50ML 50 ML IV SCH (08:00)
--- NOTE | 2025-01-01 09:04 | DVH ---
CHEST RADIOGRAPH Indication: protocol Technique: Single frontal view of the chest was obtained COMPARISON: XY CHEST PORTABLE on DOS: 12/31/24, XY CHEST PORTABLE on DOS: 12/30/24, XY CHEST PORTABLE o n DOS: 12/28/24, XY CHEST PORTABLE on DOS: 12/27/24, XY CHEST PORTABLE on DOS: 12/26/24 FINDINGS: Lines and Tubes: Left chest AICD. Right PICC in satisfactory position. Lungs: Right lower lobe airspace disease. Pleura: Small left pleural effusion. No pneumothorax. Cardiomediastinal contours: Unremarkable Bones: Unremarkable IMPRESSION: Increased right lower lobe airspace disease.
[2025-01-01 15:43] LABS: Chloride 103 mmol/L (98-107); Sodium 138 mmol/L (136-145)
[2025-01-01 15:44] LABS: Anion Gap 4 (5-15); Carbon Dioxide 31 mmol/L (20-31)
[2025-01-01 15:45] LABS: Calcium 8.2 mg/dL (8.7-10.4); Potassium 3.4 mmol/L (3.5-5.1)
[2025-01-01 15:49] LABS: BUN/Creatinine Ratio 110.8 (10.0-20.0)
[2025-01-01 15:50] LABS: Magnesium 2.2 mg/dL (1.6-2.6)
[2025-01-01 15:52] LABS: Blood Urea Nitrogen 41 mg/dL (9-23); Glucose 133 mg/dL (74-106)
[2025-01-01] MEDS ORDERED: POTASSIUM CHL 20MEQ/100ML 100 ML IV ONE (16:45)
--- NOTE | 2025-01-01 16:52 | DVHPN2 ---
Progress Note Date Seen: Jan 01, 2025 Resident Creating Document: HUI VITAL RESIDENT Medical Necessity Reason Pt with a Central, PICC or Fol: Yes The following are medically ne: PICC Line, Barron Catheter (RN,) Reason for barron catheter: Strict I&O Subjective Review of Systems Patient lying down in bed in BG, currently on trial off of BiPAP P.o. intake was held as patient unable to tolerate and started on BiPAP Off of BiPAP, currently on 1 L via NC Stable H&H TPN is ongoing at 62 mL/hour Rectal tube in place, 150 mL output soft-watery Patient is AO x1 Attempted to place NG tube, however, unable to do so due to a deviated nasal septum Objective vital signs Vital Sign Date Time Temp Pulse Resp B/P (MAP) Pulse Ox O2 Delivery O2 Flow Rate FiO2 01/01/25 14:19 60 01/01/25 14:19 19 96 Nasal Cannula* 1 24 01/01/25 14:00 130/60 (83) 01/01/25 12:00 97.5 97.5 Total Intake and Output 12/31/24 12/31/24 01/01/25 15:00 23:00 07:00 Intake Total 827 ml 355.0 ml 562.0 ml Output Total 1275 ml 1850 ml Balance 827 ml -920.0 ml -1288.0 ml medications Current Medications Medications Dose Ordered Sig/Roberto Route Start Time Stop Time Status Last Admin Dose Admin Nitroglycerin 0.4 mg Q5MINP PRN SL 12/12/24 00:30 Ceftriaxone Sodium 50 ml @ 100 mls/hr DAILY IV 12/12/24 10:00 UNV Acetaminophen 650 mg Q6HP PRN AL 12/12/24 08:30 12/12/24 09:17 650 MG Pantoprazole Sodium 40 mg BID IV 12/14/24 08:46 01/01/25 09:48 40 MG Lactulose 30 ml Q6HPRN PRN PO 12/15/24 15:15 12/15/24 17:41 30 ML Ipratropium [place] 0.5 mg Q4HR NEB 12/18/24 22:00 01/01/25 14:03 0.5 MG Albuterol 2.5 mg Q4HR NEB 12/18/24 22:00 01/01/25 14:03 2.5 MG Micafungin Sodium 100 mg/Sodium Chloride 100 ml @ 100 mls/hr DAILY@0900 IV 12/24/24 09:00 01/01/25 08:51 100 MLS/HR Enteral Nutritional Formula 1,000 ml 30ML/HR GT 12/24/24 17:00 Amino Acids 0 ml @ 0 mls/hr PER PHARMACY IV 12/25/24 17:00 Diagnostic Test (Pha) 1 strip Q6HR 12/25/24 18:00 01/01/25 11:51 1 STRIP Insulin Human Regular FOLLOW SLIDING SCALE Q6HR SC 12/25/24 18:00 12/31/24 23:41 2 UNITS Dextrose 50 ml UD IV 12/25/24 18:00 Sodium Chloride 10 ml QSHIFT@10,22 IV 12/26/24 22:00 01/01/25 09:49 10 ML Cefepime HCl 50 ml @ 12.5 mls/hr Q12H IV 12/28/24 14:00 01/01/25 14:09 12.5 MLS/HR Saccharomyces Boulardii 250 mg DAILY PO 12/29/24 10:00 12/29/24 07:44 250 MG Furosemide 40 mg BIDD IV 12/31/24 06:00 01/01/25 07:35 40 MG Fat Emulsion Intravenous 200 ml/Sodium Phosphate 40 meq/ Potassium Chloride 40 meq/ Potassium Phosphate 10 meq/ Calcium Gluconate 2.3 meq/Magnesium Sulfate 10 meq/ Multivitamins 10 ml/Chromium/ Copper/Manganese/ Zinc 1 ml/Amino Acids/Dextrose/ Purified Water 1,550.7189 ml @ 64 mls/hr [id number] IV 12/31/24 22:00 01/01/25 21:59 12/31/24 21:28 64 MLS/HR laboratory and microbiology Laboratory Tests 01/01/25 15:07 01/01/25 04:47 Test 01/01/25 15:07 Range/Units Serum Glucose 133 H 74-106 mg/dL Microbiology Date/Time Source Procedure Growth Status 12/21/24 03:26 Trachea Gram Stain - Final Resulted 12/21/24 03:26 Trachea Respiratory Culture - Preliminary Resulted 12/17/24 20:00 Urine - Barron [place] Urine Culture - Final Complete 12/14/24 01:10 Sputum Gram Stain - Final Complete 12/14/24 01:10 Respiratory Culture - Final Staphylococcus aureus Complete 12/12/24 00:41 Stool Stool Culture - Final Complete 12/12/24 00:41 Stool Shiga Toxin I & II - Final Complete 12/12/24 00:14 Blood Blood Culture - Final NO GROWTH AFTER 5 DAYS OF INCUBATION. 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 twice a day with some nectar thickened fluid Patient fails swallow evaluation, NPO Continuing rectal tube due to multiple excoriations in the perineum and patient continuing to have diarrhea There was no GI bleeding and H&H is stable; 8.4 today from 9 yesterday Coags trending upwards, we will continue to Monitor labs Plan discussed with Dr. Gregory Plan discussed with: Patient, Other (RN) Dietary Evaluation Review Comments: 1. If GI is accessible, consider glucerna 1.2 @ 50ml/hr to provide 1440kcal, 72g pro, 966 ml FW to meet 100% of needs. 2. Consider advance to CCHO 60g diet when appropriate 3. Consider TPN if NPO> 7 days Expected Outcomes/Goals: 1. Pt will meet >75% of estimated needs within 2-3 days CC Plasma Assessment Blood Product Administration S: [id number] HUI VITAL RESIDENT Jan 01, 2025 16:52
[2025-01-01] MEDS ORDERED: POTASSIUM CHL 20MEQ/100ML 100 ML IV SCH ×2 (17:15→17:30)
--- NOTE | 2025-01-01 17:16 | DVHPNRES ---
Progress Note Date Seen: Jan 01, 2025 Resident Creating Document: YULI OROZCO RESIDENT Medical Necessity Reason Pt with a Central, PICC or Fol: Yes The following are medically ne: PICC Line, Barron Catheter (RN,) Reason for barron catheter: Strict I&O Subjective Review of Systems HPI-patient is 79 years old male with past medical history of severe stroke (encephalomalacia in right temporal, frontal, and parietal lobes) with significant neurologic sequelae possible vascular dementia, prior episodes of gastrointestinal bleeding, Coronary artery disease sp stents, hypertension, atrial fibrillation with rapid ventricular response, ventricular tachycardia, left above-knee amputation, chronic kidney stones, history of GI bleed, AICD , hypercoagulable state was brought in from [facility] facility due to chest pain and vomiting and altered mental status. On arrival patient was tachycardic, tachypneic with low borderline blood pressure on 3 L of oxygen for hypoxic respiratory failure. In the ED, a head CT demonstrated large encephalomalacia, no other acute abnormality, a CBC revealed a hemoglobin of 4.6, patient was ordered to packs of RBCs, patient was given IV fluids, she was placed on broad- spectrum antibiotics with meropenem [place]. [place] [address], bands 11%. Patient's lactic acid was shown to be 4.8 and increased to 7.8, he continued to receive IV fluids, he was larsen-cultured. Troponins were within normal limits x3, BNP was 304.A chest x-ray initially showed to be unremarkable, no significant effusion or signs of congestion. He has a left-sided AICD with intact leads. COVID 19 Positive. chest/abdomen/pelvis CT scan without contrast revealed: Moderate to large pericardial effusion measuring up to 2 cm in the left lateral pericardium, small right and left pleural effusions, Leyb-we-gmmnljya right-sided hydroureteronephrosis with multiple stones in the right ureter measuring up to 8 mm. There are multiple stones within the urinary bladder measuring less than 1 cm. The bilateral kidneys demonstrate multiple nonobstructing stones measuring up to 2 cm. . An EKG revealed ventricular paced complexes, low voltage in V1, V2, V6.Echo showed mild pericardial effusion, EF 40%, septal hypokinesis. Right upper extremity Doppler on 12/14/2024 revealed thrombus in the cephalic vein of the forearm. Ultrasound of Abdomen on 12/17/2024 revealedCholelithiasis. Mildly nodular hepatic contours may represent early changes of cirrhosis. Trace abdominal ascites. Patient had 4 units of blood transfusion. Respiratory culture 12/14/2024 positive for Staphylococcus aureus. Wound culture 12/16/2024- positive for Proteus mirabilis, Enterococcus faecalis. Urine culture contaminated sample. On 03/23/2025 respiratory culture grew oropharyngeal carmelo. MRSA screening negative. Patient coded in the elevator on 12/14/2024. Again Patient coded on 11/16 around 2:37 am and patient was intubated. Patient was extubated on 12/23/2024 and transferred to [facility].. PICC line on right upper arm was placed on 12/26/24. Barron's Catheter in place 01/01/25 patient was seen today for clinical evaluation. Labs and chart reviewed. Patient is breathing improved overall Patient had a run of fever yesterday 100.2 Ordered blood culture I/O -Negative balance 1381 Leukocytosis trending down to 12.8 today, patient was hypokalemic potassium 2.9, supplement given, latest potassium 3.4 Platelets mildly trending up to 82 Patient failed swallow eval again today Patient still having loose bowel movement Order for PEG tube in place Provider spoke to Iron, [phone] 10/29/1999, answered her question , as per Iron, she wants patient to go to [facility] on discharge Patient on TPN Patient on NC O2 1 liter/minute Objective vital signs Vital Sign Date Time Temp Pulse Resp B/P (MAP) Pulse Ox O2 Delivery O2 Flow Rate FiO2 01/01/25 14:19 60 01/01/25 14:19 19 96 Nasal Cannula* 1 24 01/01/25 14:00 130/60 (83) 01/01/25 12:00 97.5 97.5 Total Intake and Output 12/31/24 12/31/24 01/01/25 15:00 23:00 07:00 Intake Total 827 ml 355.0 ml 562.0 ml Output Total 1275 ml 1850 ml Balance 827 ml -920.0 ml -1288.0 ml medications Current Medications Medications Dose Ordered Sig/Roberto Route Start Time Stop Time Status Last Admin Dose Admin Nitroglycerin 0.4 mg Q5MINP PRN SL 12/12/24 00:30 Ceftriaxone Sodium 50 ml @ 100 mls/hr DAILY IV 12/12/24 10:00 UNV Acetaminophen 650 mg Q6HP PRN DE 12/12/24 08:30 12/12/24 09:17 650 MG Pantoprazole Sodium 40 mg BID IV 12/14/24 08:46 01/01/25 09:48 40 MG Lactulose 30 ml Q6HPRN PRN PO 12/15/24 15:15 12/15/24 17:41 30 ML Ipratropium [place] 0.5 mg Q4HR NEB 12/18/24 22:00 01/01/25 14:03 0.5 MG Albuterol 2.5 mg Q4HR NEB 12/18/24 22:00 01/01/25 14:03 2.5 MG Micafungin Sodium 100 mg/Sodium Chloride 100 ml @ 100 mls/hr DAILY@0900 IV 12/24/24 09:00 01/01/25 08:51 100 MLS/HR Enteral Nutritional Formula 1,000 ml 30ML/HR GT 12/24/24 17:00 Amino Acids 0 ml @ 0 mls/hr PER PHARMACY IV 12/25/24 17:00 Diagnostic Test (Pha) 1 strip Q6HR 12/25/24 18:00 01/01/25 11:51 1 STRIP Insulin Human Regular FOLLOW SLIDING SCALE Q6HR SC 12/25/24 18:00 12/31/24 23:41 2 UNITS Dextrose 50 ml UD IV 12/25/24 18:00 Sodium Chloride 10 ml QSHIFT@10,22 IV 12/26/24 22:00 01/01/25 09:49 10 ML Cefepime HCl 50 ml @ 12.5 mls/hr Q12H IV 12/28/24 14:00 01/01/25 14:09 12.5 MLS/HR Saccharomyces Boulardii 250 mg DAILY PO 12/29/24 10:00 12/29/24 07:44 250 MG Furosemide 40 mg BIDD IV 12/31/24 06:00 01/01/25 07:35 40 MG Fat Emulsion Intravenous 200 ml/Sodium Phosphate 40 meq/ Potassium Chloride 40 meq/ Potassium Phosphate 10 meq/ Calcium Gluconate 2.3 meq/Magnesium Sulfate 10 meq/ Multivitamins 10 ml/Chromium/ Copper/Manganese/ Zinc 1 ml/Amino Acids/Dextrose/ Purified Water 1,550.7189 ml @ 64 mls/hr Q60D03M IV 12/31/24 22:00 01/01/25 21:59 12/31/24 21:28 64 MLS/HR Examination General Appearance: on room air, AAOX1-2, 2. able to follow commands. Pulmonary/Respiratory: Chest non-tender. Bilateral Lung crackles+ Cardiovascular/Chest: Regular rate and paced rhythm. No murmurs. No JVD. Peripheral Pulses: 2+ Radial (R). 2+ Radial(L). 2+ Pedal (R). 2+ Pedal (L) Abdominal Exam: Soft. Nontender. No hepatospenomegaly. No masses Ankle Exam: 2+ ankle edema extremities: Left upper arm contracted with edematous changes, 1+ lower extremity edema, left above knee amputation, redness biliary stamp of the left above-knee amputation Neuro/Mental Status: Alert, responds by yes on laboratory and microbiology Laboratory Tests 01/01/25 15:07 01/01/25 04:47 Test 01/01/25 15:07 Range/Units Serum Glucose 133 H 74-106 mg/dL Microbiology Date/Time Source Procedure Growth Status 12/21/24 03:26 Trachea Gram Stain - Final Resulted 12/21/24 03:26 Trachea Respiratory Culture - Preliminary Resulted 12/17/24 20:00 Urine - Barron Port Urine Culture - Final Complete 12/14/24 01:10 Sputum Gram Stain - Final Complete 12/14/24 01:10 Respiratory Culture - Final Staphylococcus aureus Complete 12/12/24 00:41 Stool Stool Culture - Final Complete 12/12/24 00:41 Stool Shiga Toxin I & II - Final Complete 12/12/24 00:14 Blood Blood Culture - Final NO GROWTH AFTER 5 DAYS OF INCUBATION. Complete Problem List/Assessment/Plan Problem List/Assessment/Plan Assessment and plan Neurology #Acute metabolic encephalopathy due to sepsis s/p cardiac arrest # history of recurrent stroke #Vascular dementia #Large area of encephalomalacia involving the right temporal frontal and parietal lobes may represent old infarct - Alert and oriented X1 - Status post extubation -continue monitoring clinically -avoid dehydration Cardiology: # acute systolic/diastolic heart failure, LVEF 40% #Septic shock #Moderate to severe pericardial effusion #atrial fibrillation #coronary disease s/p stent #H/o ventricular arrhythmia s/p ICD placement - Continue Lasix 40 mg IV b.i.d. Respiratory #acute hypoxic respiratory failure s/p mechanical ventilation #Moderate pleural effusions # covid 19 infection,resolved # Sepsis due to Community acquired pneumonia due to staph aureus infection/ filamentus fungi - continue Lasix 40 mg IV b.i.d. - I&O - Albuterol 5 q.4 - Ipratropium 0.5 q.4 - micafungin iv Gastrointestinal #r/o GI bleeding #History of colonic polyps #Cholelithiasis. #Mildly nodular hepatic contours may represent early changes of cirrhosis. #trace ascitis -plan is to do another swallow evaluation - TPN for nutrition. - phosphorous - magnesium Genitourinary/Renal #Vvkg-vl-ugnyzufh right-sided hydroureteronephrosis with multiple stones in the right ureter measuring up to 8 mm. #Lactic acidosis #There are multiple stones within the urinary bladder measuring less than 1 cm. #The bilateral kidneys demonstrate multiple nonobstructing stones measuring up to 2 cm. #hypokalemia, replenished #hypophosphatemia - potassium replaced - Barron catheter - strict I&O - monitor electrolytes Infectious disease #Septic shock likely due to aspiration pneumonia #skin infection positive proteus mirabilis and E.Faecalis #covid 19 infection, resolved #fungal infection,growing filamentus fungi - IV micafungin - IV cefepime Endocrine Heme/onc #Severe microcytic hypochromic anemia #Iron deficiency anemia #moderate thrombocytopenia - iron sucrose IV -CBC CMP tomorrow -no spontaneous bleeding at this time but closely monitoring based on high-risk of bleeding. -continue medications at this time, if platelets keeps trending down consider discontinue some of them. Prophylaxis: Pantoprazole 40 mg b.i.d. IV SCD Barron's catheter in place Right upper arm PICC line present-12/26/2024 Patient on BiPAP tonight Goals of care/advance care planning Code status ; full code, PUD prophylaxis: Pantoprazole DVT prophylaxis: SCD Plan discussed with Dr. Villasenor , nursing staff, Iron Critical care Total time spent on patient evaluation, chart review, assessment and plan, critical care time to include monitoring during bipap was 62 mins Plan discussed with: Other (Iron RN, ) My Orders My Orders Orders - YULI OROZCO RESIDENT Procedure Category Date Status Time Chest Portable XY 01/01/25 Resulted 07:39 * Swallow Request ST 01/01/25 Transmitted 08:00 * Swallow Request ST 01/01/25 Transmitted 08:12 Blood Culture ANAHI 01/01/25 In Process 08:27 Npo (Nothing By DIET 01/01/25 Transmitted Mouth) Diet Lunch Potassium Chl PHA 01/01/25 In Process 20meq/50ml (Potassium 17:00 Dietary Evaluation Review Comments: 1. If GI is accessible, consider glucerna 1.2 @ 50ml/hr to provide 1440kcal, 72g pro, 966 ml FW to meet 100% of needs. 2. Consider advance to CCHO 60g diet when appropriate 3. Consider TPN if NPO> 7 days Expected Outcomes/Goals: 1. Pt will meet >75% of estimated needs within 2-3 days CC Plasma Assessment Blood Product Administration S: [id number] Date of Service: Jan 02, 2025 Billing Provider: DARYA VILLASENOR MD Common Visit Codes: [id number] CARE 30-74 MIN YULI OROZCO RESIDENT Jan 01, 2025 17:16 DARYA VILLASENOR MD Jan 02, 2025 11:58
[2025-01-01] MEDS: AMINO ACID INFUSION IN D10W 2,000 ML IV SCH (23:00)
[2025-01-02] VITALS (25 sets, daily range): BP systolic 101–166; BP diastolic 49–69; PULSE 59–112; RESP 13–24; TEMP 97.7–98.5; O2SAT 92–100
[2025-01-02 05:31] LABS: Eosinophils # (auto) 0.1 10 ^3/uL (0-0.8); Eosinophils % (auto) 0.8 % (0.0-7.0); Lymphocytes # (auto) 0.5 10 ^3/uL (0.4-5.4); Monocytes # (auto) 0.5 10 ^3/uL (0-1.3)
[2025-01-02 05:35] LABS: Basophils # (auto) 0.1 10 ^3/uL (0-0.2); Basophils % (auto) 0.7 % (0.0-2.0); Hemoglobin 8.5 g/dL (13.5-17.5); Lymphocytes % (auto) 6.6 % (10.0-50.0); Mean Corpuscular Hemoglobin 26.1 pg (28.0-32.0); Mean Corpuscular Hgb Conc. 31.5 g/dL (32.0-36.0); Mean Corpuscular Volume 82.9 fL (80.0-100.0); Monocytes % (auto) 6.5 % (0.0-12.0); Neutrophils # (auto) 6.3 10 ^3/uL (1.6-8.6); Neutrophils % (auto) 85.4 % (37.0-80.0); Nucleated Red Blood Cells % 0.1 %; Platelet Count (auto) 96 10^3/uL (140-450); Red Blood Cells 3.25 10^6/uL (4.5-5.90); Red Cell Distribution Width 40.2 % (11.8-14.3); White Blood Cell 7.4 10^3/uL (4.4-10.8)
[2025-01-02 05:47] LABS: Alanine Aminotransferase 24 U/L (7-40); Alkaline Phosphatase 85 U/L (46-116); Anion Gap 7 (5-15); BUN/Creatinine Ratio 106.1 (10.0-20.0); Carbon Dioxide 28 mmol/L (20-31); Chloride 104 mmol/L (98-107); Magnesium 2.2 mg/dL (1.6-2.6); Sodium 139 mmol/L (136-145)
[2025-01-02 05:48] LABS: Aspartate Aminotransferase 18 U/L (13-40); Bilirubin, Total 0.7 mg/dL (0.2-1.0); Blood Urea Nitrogen 35 mg/dL (9-23); Calcium 8.6 mg/dL (8.7-10.4); Glucose 107 mg/dL (74-106); Phosphorus 2.1 mg/dL (2.4-5.1); Potassium 3.1 mmol/L (3.5-5.1); Total Protein 5.1 g/dL (5.7-8.2)
[2025-01-02 06:45] LABS: Anisocytosis Slight; Hypochromia Slight; Platelet Estimate Decreased
[2025-01-02] MEDS ORDERED: POTASSIUM CHL 20MEQ/100ML 100 ML IV ONE (07:15)
[2025-01-02] MEDS: POTASSIUM CHL 20MEQ/50ML 50 ML IV ONE (08:40)
--- NOTE | 2025-01-02 09:07 | DVHPNRES ---
Progress Note Date Seen: Jan 02, 2025 Resident Creating Document: YULI OROZCO RESIDENT Medical Necessity Reason Pt with a Central, PICC or Fol: Yes The following are medically ne: PICC Line, Barron Catheter (RN,) Reason for barron catheter: Strict I&O Subjective Review of Systems HPI-patient is 79 years old male with past medical history of severe stroke (encephalomalacia in right temporal, frontal, and parietal lobes) with significant neurologic sequelae possible vascular dementia, prior episodes of gastrointestinal bleeding, Coronary artery disease sp stents, hypertension, atrial fibrillation with rapid ventricular response, ventricular tachycardia, left above-knee amputation, chronic kidney stones, history of GI bleed, AICD , hypercoagulable state was brought in from [facility] facility due to chest pain and vomiting and altered mental status. On arrival patient was tachycardic, tachypneic with low borderline blood pressure on 3 L of oxygen for hypoxic respiratory failure. In the ED, a head CT demonstrated large encephalomalacia, no other acute abnormality, a CBC revealed a hemoglobin of 4.6, patient was ordered to packs of RBCs, patient was given IV fluids, she was placed on broad- spectrum antibiotics with meropenem [place]. [place] [address], bands 11%. Patient's lactic acid was shown to be 4.8 and increased to 7.8, he continued to receive IV fluids, he was larsen-cultured. Troponins were within normal limits x3, BNP was 304.A chest x-ray initially showed to be unremarkable, no significant effusion or signs of congestion. He has a left-sided AICD with intact leads. COVID 19 Positive. chest/abdomen/pelvis CT scan without contrast revealed: Moderate to large pericardial effusion measuring up to 2 cm in the left lateral pericardium, small right and left pleural effusions, Ojnb-la-dauiltcv right-sided hydroureteronephrosis with multiple stones in the right ureter measuring up to 8 mm. There are multiple stones within the urinary bladder measuring less than 1 cm. The bilateral kidneys demonstrate multiple nonobstructing stones measuring up to 2 cm. . An EKG revealed ventricular paced complexes, low voltage in V1, V2, V6.Echo showed mild pericardial effusion, EF 40%, septal hypokinesis. Right upper extremity Doppler on 12/14/2024 revealed thrombus in the cephalic vein of the forearm. Ultrasound of Abdomen on 12/17/2024 revealedCholelithiasis. Mildly nodular hepatic contours may represent early changes of cirrhosis. Trace abdominal ascites. Patient had 4 units of blood transfusion. Respiratory culture 12/14/2024 positive for Staphylococcus aureus. Wound culture 12/16/2024- positive for Proteus mirabilis, Enterococcus faecalis. Urine culture contaminated sample. On 03/23/2025 respiratory culture grew oropharyngeal carmelo. MRSA screening negative. Patient coded in the elevator on 12/14/2024. Again Patient coded on 11/16 around 2:37 am and patient was intubated. Patient was extubated on 12/23/2024 and transferred to [facility].. PICC line on right upper arm was placed on 12/26/24. Barron's Catheter in place 01/02/25 -patient was seen today for clinical evaluation. Labs and chart reviewed. Patient is breathing improved overall No fever noted overnight Pending blood culture I/O -Negative balance 1253 last 24 hours Leukocytosis trending down to 12.8 >7.4 today, Patient continued to be hypokalemic, potassium 3.1, ordered potassium supplement Decrease Lasix from 40 mg IV b.i.d. to 20 mg IV b.i.d. Platelets mildly trending up to 82>96 Patient failed swallow eval again started Pending PEG tube placement possibly tomorrow Provider spoke to Ricky, [phone] 10/29/1999, answered her question , as per Ricky, she wants patient to go to a [facility] [place] on discharge Patient on TPN reduce lasix from 40 to 20 mg iv bis Plan is to get patient off oxygen today Patient was transferred to telemetry Objective vital signs Vital Sign Date Time Temp Pulse Resp B/P (MAP) Pulse Ox O2 Delivery O2 Flow Rate FiO2 01/02/25 06:00 21 100 Nasal Cannula* 1 24 01/02/25 06:00 63 01/02/25 06:00 132/58 (82) 01/02/25 04:00 97.8 97.8 Total Intake and Output 01/01/25 01/01/25 01/02/25 15:00 23:00 07:00 Intake Total 1062 ml 484 ml 337 ml Output Total 1700 ml 1500 ml Balance 1062 ml -1216 ml -1163 ml medications Current Medications Medications Dose Ordered Sig/Roberto Route Start Time Stop Time Status Last Admin Dose Admin Nitroglycerin 0.4 mg Q5MINP PRN SL 12/12/24 00:30 Ceftriaxone Sodium 50 ml @ 100 mls/hr DAILY IV 12/12/24 10:00 UNV Acetaminophen 650 mg Q6HP PRN VA 12/12/24 08:30 12/12/24 09:17 650 MG Pantoprazole Sodium 40 mg BID IV 12/14/24 08:46 01/01/25 20:48 40 MG Lactulose 30 ml Q6HPRN PRN PO 12/15/24 15:15 12/15/24 17:41 30 ML Ipratropium [place] 0.5 mg Q4HR NEB 12/18/24 22:00 01/02/25 03:10 0.5 MG Albuterol 2.5 mg Q4HR NEB 12/18/24 22:00 01/02/25 03:10 2.5 MG Micafungin Sodium 100 mg/Sodium Chloride 100 ml @ 100 mls/hr DAILY@0900 IV 12/24/24 09:00 01/01/25 08:51 100 MLS/HR Enteral Nutritional Formula 1,000 ml 30ML/HR GT 12/24/24 17:00 Amino Acids 0 ml @ 0 mls/hr PER PHARMACY IV 12/25/24 17:00 Diagnostic Test (Pha) 1 strip Q6HR 12/25/24 18:00 01/02/25 05:44 1 STRIP Insulin Human Regular FOLLOW SLIDING SCALE Q6HR SC 12/25/24 18:00 12/31/24 23:41 2 UNITS Dextrose 50 ml UD IV 12/25/24 18:00 Sodium Chloride 10 ml QSHIFT@10,22 IV 12/26/24 22:00 01/01/25 20:48 10 ML Cefepime HCl 50 ml @ 12.5 mls/hr Q12H IV 12/28/24 14:00 01/02/25 01:34 12.5 MLS/HR Saccharomyces Boulardii 250 mg DAILY PO 12/29/24 10:00 12/29/24 07:44 250 MG Furosemide 40 mg BIDD IV 12/31/24 06:00 01/02/25 05:43 40 MG Potassium Chloride 50 ml @ 25 mls/hr DAILY IV 01/02/25 10:00 Amino Acids/ Electrolytes/ Dextrose 2,000 ml @ 41 mls/hr DAILY@2200 IV 01/01/25 22:00 01/02/25 21:59 01/01/25 23:00 41 MLS/HR Examination General Appearance: on room air, AAOX1-2, 2. able to follow commands. Pulmonary/Respiratory: Chest non-tender. Bilateral Lung crackles+ Cardiovascular/Chest: Regular rate and paced rhythm. No murmurs. No JVD. Peripheral Pulses: 2+ Radial (R). 2+ Radial(L). 2+ Pedal (R). 2+ Pedal (L) Abdominal Exam: Soft. Nontender. No hepatospenomegaly. No masses Ankle Exam: 2+ ankle edema extremities: Left upper arm contracted with edematous changes, 1+ lower extremity edema, left above knee amputation, redness biliary stamp of the left above-knee amputation Neuro/Mental Status: Alert, responds by yes on laboratory and microbiology Laboratory Tests 01/02/25 04:48 Test 01/02/25 04:48 Range/Units Serum Glucose 107 H 74-106 mg/dL Microbiology Date/Time Source Procedure Growth Status 12/21/24 03:26 Trachea Gram Stain - Final Resulted 12/21/24 03:26 Trachea Respiratory Culture - Preliminary Resulted 12/17/24 20:00 Urine - Barron Port Urine Culture - Final Complete 12/14/24 01:10 Sputum Gram Stain - Final Complete 12/14/24 01:10 Respiratory Culture - Final Staphylococcus aureus Complete 12/12/24 00:41 Stool Stool Culture - Final Complete 12/12/24 00:41 Stool Shiga Toxin I & II - Final Complete 12/12/24 00:14 Blood Blood Culture - Final NO GROWTH AFTER 5 DAYS OF INCUBATION. Complete Problem List/Assessment/Plan Problem List/Assessment/Plan Assessment and plan Neurology #Acute metabolic encephalopathy due to sepsis s/p cardiac arrest # history of recurrent stroke #Vascular dementia #Large area of encephalomalacia involving the right temporal frontal and parietal lobes may represent old infarct - Alert and oriented X1 - Status post extubation -continue monitoring clinically -avoid dehydration Cardiology: # acute systolic/diastolic heart failure, LVEF 40% #Septic shock #Moderate to severe pericardial effusion #atrial fibrillation #coronary disease s/p stent #H/o ventricular arrhythmia s/p ICD placement - Continue Lasix 20 mg IV b.i.d. Respiratory #acute hypoxic respiratory failure s/p mechanical ventilation #Moderate pleural effusions # covid 19 infection,resolved # Sepsis due to Community acquired pneumonia due to staph aureus infection/ filamentus fungi - continue Lasix 20 mg IV b.i.d. - I&O - Albuterol 5 q.4 - Ipratropium 0.5 q.4 - micafungin iv Gastrointestinal #r/o GI bleeding #History of colonic polyps #Cholelithiasis. #Mildly nodular hepatic contours may represent early changes of cirrhosis. #trace ascitis -plan is to do another swallow evaluation - TPN for nutrition. - phosphorous - magnesium Genitourinary/Renal #Pnar-wt-uipzoxhc right-sided hydroureteronephrosis with multiple stones in the right ureter measuring up to 8 mm. #Lactic acidosis #There are multiple stones within the urinary bladder measuring less than 1 cm. #The bilateral kidneys demonstrate multiple nonobstructing stones measuring up to 2 cm. #hypokalemia, replenished #hypophosphatemia - potassium replaced - Barron catheter - strict I&O - monitor electrolytes Infectious disease #Septic shock likely due to aspiration pneumonia #skin infection positive proteus mirabilis and E.Faecalis #covid 19 infection, resolved #fungal infection,growing filamentus fungi - IV micafungin - IV cefepime Endocrine Heme/onc #Severe microcytic hypochromic anemia #Iron deficiency anemia #moderate thrombocytopenia - iron sucrose IV -CBC CMP tomorrow -no spontaneous bleeding at this time but closely monitoring based on high-risk of bleeding. -continue medications at this time, if platelets keeps trending down consider discontinue some of them. Prophylaxis: Pantoprazole 40 mg b.i.d. IV SCD Barron's catheter in place Right upper arm PICC line present-12/26/2024 Patient on BiPAP tonight Goals of care/advance care planning Code status ; full code, PUD prophylaxis: Pantoprazole DVT prophylaxis: SCD Plan discussed with Dr. Villasenor , nursing staff, Ricky Critical care Total time spent on patient evaluation, chart review, assessment and plan, advance paln of [place] time spent 38 minutes Plan discussed with: Other (RICKY RN) My Orders My Orders Orders - YULI OROZCO RESIDENT Procedure Category Date Status Time Npo (Nothing By DIET 01/01/25 Transmitted Mouth) Diet Lunch * Gi Dvh Sandwich Wrapper CONS 01/01/25 Transmitted 17:23 Potassium Chl PHA 01/02/25 In Process 20meq/50ml (Potassium 10:00 * Rehab Trainer CONS 01/02/25 Transmitted Consult 07:26 Potassium Chl PHA 01/02/25 In Process 20meq/50ml (Potassium 08:30 Transfer Orders XFER 01/02/25 Transmitted 08:27 Dietary Evaluation Review Comments: 1. If GI is accessible, consider glucerna 1.2 @ 50ml/hr to provide 1440kcal, 72g pro, 966 ml FW to meet 100% of needs. 2. Consider advance to CCHO 60g diet when appropriate 3. Consider TPN if NPO> 7 days Expected Outcomes/Goals: 1. Pt will meet >75% of estimated needs within 2-3 days CC Plasma Assessment Blood Product Administration S: 1752 Date of Service: Jan 02, 2025 Billing Provider: DARYA VILLASENOR MD Common Visit Codes: [id number] CARE 30-74 MIN YULI OROZCO RESIDENT Jan 02, 2025 09:07 DARYA VILLASENOR MD Jan 04, 2025 16:46
[2025-01-02] MEDS: POTASSIUM CHL 20MEQ/50ML 50 ML IV SCH (10:00)
--- NOTE | 2025-01-02 11:06 | DVHPN2 ---
Progress Note Date Seen: Jan 02, 2025 Resident Creating Document: HUI VITAL RESIDENT Medical Necessity Reason Pt with a Central, PICC or Fol: Yes The following are medically ne: PICC Line, Barron Catheter (RN,) Reason for barron catheter: Strict I&O Subjective Review of Systems On O2 via NC 2 L P.o. intake was held as patient failed swallow evaluation Off of BiPAP, currently on 1 L via NC Stable H&H TPN is ongoing at 62 mL/hour Rectal tube in place, 50 mL watery output Patient is AO x1 Attempted to place NG tube, however, unable to do so due to a deviated nasal septum Considering PEG tube placement Objective vital signs Vital Sign Date Time Temp Pulse Resp B/P (MAP) Pulse Ox O2 Delivery O2 Flow Rate FiO2 01/02/25 10:30 97.7 60 20 119/59 (79) 98 97.7 01/02/25 06:00 Nasal Cannula* 1 24 Total Intake and Output 01/01/25 01/01/25 01/02/25 15:00 23:00 07:00 Intake Total 1062 ml 484 ml 337 ml Output Total 1700 ml 1500 ml Balance 1062 ml -1216 ml -1163 ml medications Current Medications Medications Dose Ordered Sig/Roberto Route Start Time Stop Time Status Last Admin Dose Admin Nitroglycerin 0.4 mg Q5MINP PRN SL 12/12/24 00:30 Ceftriaxone Sodium 50 ml @ 100 mls/hr DAILY IV 12/12/24 10:00 UNV Acetaminophen 650 mg Q6HP PRN ME 12/12/24 08:30 12/12/24 09:17 650 MG Pantoprazole Sodium 40 mg BID IV 12/14/24 08:46 01/02/25 10:56 40 MG Lactulose 30 ml Q6HPRN PRN PO 12/15/24 15:15 12/15/24 17:41 30 ML Ipratropium Lequire 0.5 mg Q4HR NEB 12/18/24 22:00 01/02/25 10:14 0.5 MG Albuterol 2.5 mg Q4HR NEB 12/18/24 22:00 01/02/25 10:14 2.5 MG Micafungin Sodium 100 mg/Sodium Chloride 100 ml @ 100 mls/hr DAILY@0900 IV 12/24/24 09:00 01/02/25 11:04 100 MLS/HR Enteral Nutritional Formula 1,000 ml 30ML/HR GT 12/24/24 17:00 Amino Acids 0 ml @ 0 mls/hr PER PHARMACY IV 12/25/24 17:00 Diagnostic Test (Pha) 1 strip Q6HR 12/25/24 18:00 01/02/25 05:44 1 STRIP Insulin Human Regular FOLLOW SLIDING SCALE Q6HR SC 12/25/24 18:00 12/31/24 23:41 2 UNITS Dextrose 50 ml UD IV 12/25/24 18:00 Sodium Chloride 10 ml QSHIFT@10,22 IV 12/26/24 22:00 01/02/25 10:57 10 ML Cefepime HCl 50 ml @ 12.5 mls/hr Q12H IV 12/28/24 14:00 01/02/25 01:34 12.5 MLS/HR Saccharomyces Boulardii 250 mg DAILY PO 12/29/24 10:00 12/29/24 07:44 250 MG Furosemide 40 mg BIDD IV 12/31/24 06:00 01/02/25 05:43 40 MG Potassium Chloride 50 ml @ 25 mls/hr DAILY IV 01/02/25 10:00 01/02/25 10:00 25 MLS/HR Amino Acids/ Electrolytes/ Dextrose 2,000 ml @ 41 mls/hr DAILY@2200 IV 01/01/25 22:00 01/02/25 21:59 01/01/25 23:00 41 MLS/HR Examination General Appearance: Chronically ill-appearing, currently on BiPAP, recently extubated. AOX1. Severe temporal wasting Head Exam: Normal inspection Neck Exam: Normal inspection. Non-tender. Normal alignment Pulmonary/Respiratory: Chest non-tender. Decreased bilateral breath sounds Cardiovascular/Chest: Regular rate and rhythm. No murmurs. No JVD. Abdominal Exam: Normal bowel sounds. Soft. Nontender. No hepatospenomegaly. No masses Appearance: In no acute distress Skin Exam: Normal inspection. Normal color. Warm. Dry laboratory and microbiology Laboratory Tests 01/02/25 04:48 Test 01/02/25 04:48 Range/Units Serum Glucose 107 H 74-106 mg/dL Microbiology Date/Time Source Procedure Growth Status 12/21/24 03:26 Trachea Gram Stain - Final Resulted 12/21/24 03:26 Trachea Respiratory Culture - Preliminary Resulted 12/17/24 20:00 Urine - [place] Urine Culture - Final Complete 12/14/24 01:10 Sputum Gram Stain - Final Complete 12/14/24 01:10 Respiratory Culture - Final Staphylococcus aureus Complete 12/12/24 00:41 Stool Stool Culture - Final Complete 12/12/24 00:41 Stool Shiga Toxin I & II - Final Complete 12/12/24 00:14 Blood Blood Culture - Final NO GROWTH AFTER 5 DAYS OF INCUBATION. 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 There was no GI bleeding and H&H is stable; 8.5 from 9.1 yesterday Coags trending upwards, we will continue to Monitor labs Plan discussed with Dr. Gregory Plan discussed with: Patient, Other (RN) Dietary Evaluation Review Comments: 1. If GI is accessible, consider glucerna 1.2 @ 50ml/hr to provide 1440kcal, 72g pro, 966 ml FW to meet 100% of needs. 2. Consider advance to CCHO 60g diet when appropriate 3. Consider TPN if NPO> 7 days Expected Outcomes/Goals: 1. Pt will meet >75% of estimated needs within 2-3 days CC Plasma Assessment Blood Product Administration S: [id number] HUI VITAL RESIDENT Jan 02, 2025 11:06
[2025-01-02] MEDS: POTASSIUM PHOSPHATE 22 MEQ in SODIUM CHL 0.9% 100 ML IV ONE (15:49)
[2025-01-02] MEDS: FUROSEMIDE 20 MG/2 ML VIAL IV SCH (18:01)
--- NOTE | 2025-01-02 20:08 | DVHINCON2 ---
Date of service: Jan 02, [address] katz Reason for Consultation For PEG tube placement History of Present Illness This 79-year-old male presented to the emergency room with complaints of chest pain altered level and apparently had some episodes of vomiting and unable to keep anything down had from bowel movement patient was on Eliquis which has been held at this time Patient needs G-tube placement for for transfer to subacute care. Patient had some blood transfusions also had history of CVA hypertension AL and CAD. He lives in an assisted care and needs placement and trachea and EGD with PEG placement before the replacement. Past Medical History Unable to get much detailed Past Surgical History Unable to get detailed Family History: Cancer of colon G8 MOTHER, Onset:50s - 60 Family history: Arthritis G8 MOTHER, Onset:50s - 60 Family history: Cardiovascular disease G8 FATHER, Onset:50 - Family History Noncontributory Social History Denies smoking or drinking Allergies: Coded Allergies: Penicillins (Verified Allergy, Severe, 10/21/15) Home Meds Reported Medications Warfarin Sodium (Warfarin Sodium) 2.5 Mg Tab, 2.5 MG PO DAILY, TAB 10/23/15 Gabapentin (Gabapentin) 300 Mg Cap, 1 CAP PO TID PRN for MILD PAIN OR TEMP>100.4, #90 CAP 5 Refills 10/23/15 Baclofen (Baclofen) 10 Mg Tab, 10 MG PO Q6HP PRN for MILD PAIN OR TEMP>100.4, TAB 10/23/15 Digoxin (Digoxin) 0.125 Mg Tab, 1 TAB PO DAILY, #30 TAB 5 Refills 10/23/15 Metoprolol Succinate (Toprol Xl) 25 Mg Tab, 1 TAB PO BID, #30 TAB 5 Refills 10/23/15 Lisinopril (Lisinopril) 2.5 Mg Tab, 1 TAB PO DAILY, #30 TAB 5 Refills 10/23/15 Atorvastatin Calcium (Lipitor) 40 Mg Tab, 1 TAB PO QPM, #90 TAB 1 Refill 10/23/15 Current Medications Current Medications Medications (Trade) Dose Ordered Sig/Roberto Route PRN Reason Start Time Stop Time Status Last Admin Potassium Chloride 50 ml @ 25 mls/hr DAILY IV 01/02/25 10:00 01/02/25 10:00 Amino Acids/ Electrolytes/ Dextrose 2,000 ml @ 41 mls/hr DAILY@2200 IV 01/01/25 22:00 01/02/25 21:59 01/01/25 23:00 Fat Emulsion Intravenous 100 ml/Potassium Chloride 20 meq/ Potassium Phosphate 40 meq/ Magnesium Sulfate 6 meq/ Multivitamins 10 ml/Chromium/ Copper/Manganese/ Zinc 1 ml/Amino Acids/Dextrose/ Purified Water 1,031.5909 ml @ 43 mls/hr Q24H IV 01/02/25 22:00 01/03/25 21:59 Furosemide (Lasix Injection) 20 mg BIDD IV 01/02/25 18:00 01/02/25 18:01 Review of Systems Non contribute Vital Signs Vital Signs Date Time Temp Pulse Resp B/P (MAP) Pulse Ox O2 Delivery O2 Flow Rate FiO2 01/02/25 18:26 104 22 99 01/02/25 18:18 Nasal Cannula* 2 28 01/02/25 18:01 124/73 01/02/25 16:34 98.4 98.4 Physical Exam Originally built and nourished cachectic looking male in no acute distress unable to get much detailed history from him and most of the information is from the chart and from the nurse's HEENT examination no pallor or icterus Is cachectic and wasted Lungs clear Abdomen is soft no tenderness no rigidity no guarding Bowel sounds normal Labs/Diagnostic Data Labs Test 01/02/25 12:17 01/02/25 04:48 01/01/25 04:47 12/31/24 06:45 Range/Units POC Glucose 100 70-106 mg/dl White Blood Count 7.4 # 4.4-10.8 10^3/uL Red Blood Count 3.25 L 4.5-5.90 10^6/uL Hemoglobin 8.5 L 13.5-17.5 g/dL Hematocrit 27.0 L 41.0-53.0 % Mean Corpuscular Volume 82.9 80.0-100.0 fL Mean Corpuscular Hemoglobin 26.1 L 28.0-32.0 pg Mean Corpuscular Hemoglobin Concent 31.5 L 32.0-36.0 g/dL Red Cell Distribution Width 40.2 H 11.8-14.3 % Platelet Count 96 L 140-450 10^3/uL Mean Platelet Volume 8.7 6.9-10.8 fL Neutrophils (%) (Auto) 85.4 H 37.0-80.0 % Lymphocytes (%) (Auto) 6.6 L 10.0-50.0 % Monocytes (%) (Auto) 6.5 0.0-12.0 % Eosinophils (%) (Auto) 0.8 0.0-7.0 % Basophils (%) (Auto) 0.7 0.0-2.0 % Neutrophils # (Auto) 6.3 1.6-8.6 10 ^3/uL Lymphocytes # (Auto) 0.5 0.4-5.4 10 ^3/uL Monocytes # (Auto) 0.5 0-1.3 10 ^3/uL Eosinophils # (Auto) 0.1 0-0.8 10 ^3/uL Basophils # (Auto) 0.1 0-0.2 10 ^3/uL Nucleated Red Blood Cells 0.1 % Platelet Estimate Decreased Hypochromasia (manual) Slight Anisocytosis (manual) Slight Sodium Level 139 136-145 mmol/L Potassium Level 3.1 L 3.5-5.1 mmol/L Chloride Level 104 98-107 mmol/L Carbon Dioxide Level 28 20-31 mmol/L Anion Gap 7 5-15 Blood Urea Nitrogen 35 H 9-23 mg/dL Creatinine 0.33 L 0.700-1.30 mg/dL Glomerular Filtration Rate Calc 118 >90 mL/min BUN/Creatinine Ratio 106.1 H 10.0-20.0 Serum Glucose 107 H 74-106 mg/dL Calcium Level 8.6 L 8.7-10.4 mg/dL Phosphorus Level 2.1 L 2.4-5.1 mg/dL Magnesium Level 2.2 1.6-2.6 mg/dL Total Bilirubin 0.7 0.2-1.0 mg/dL Aspartate Amino Transferase (AST) 18 13-40 U/L Alanine Aminotransferase (ALT) 24 7-40 U/L Alkaline Phosphatase 85 46-116 U/L Total Protein 5.1 L 5.7-8.2 g/dL Albumin 3.0 L 3.2-4.8 g/dL Prothrombin Time 11.3 9.3-11.8 sec Prothrombin Time INR 1.07 0.9-1.15 Activated Partial Thromboplast Time 36.7 H 24.5-34.5 SEC Direct Bilirubin 0.4 H <0.3 mg/dL Microcytosis Slight Target Cells Few Tear Drop Cells Few Test 12/30/24 10:13 12/30/24 07:35 12/30/24 05:19 12/28/24 07:15 Range/Units Blood Gas Specimen Type Arterial Blood Gas Sample Site Right radial Blood Gas Patient Temperature 37.0 Arterial Blood Date Drawn [id number] Arterial Blood pH 7.537 H 7.350-7.450 Arterial Blood Partial Pressure CO2 31.1 L 35.0-48.0 mmHg Arterial Blood Partial Pressure O2 448.0 *H 83.0-108.0 mmHg Arterial Blood HCO3 25.8 21.0-28.0 mmol/L Arterial Blood Oxygen Saturation 99.6 H 94.0-98.0 % Arterial Blood Base Excess 3.4 H -2.0-3.0 mmol/L Arterial Blood Oxyhemoglobin 99.0 H 94.0-98.0 % Arterial Blood Carboxyhemoglobin 0.3 L 0.5-1.5 % Arterial Blood Methemoglobin 0.3 0.0-1.5 % David Test Yes Blood Gas Total Hemoglobin 9.60 L 13.5-17.5 g/dL Blood Gas Set Respiration Rate 14.0 Blood Gas Modality Mask - bipap FiO2 % 100.0 Blood Gas EPAP 5 Blood Gas IPAP 12 Blood Gas Critical Value Read Back Yes Blood Gas Notified Whom Elizabeth berrios md Blood Gas Notified Time [id number] Blood Gas Notified By [employer] Blood Gas Liter Flow 15.00 Large Platelets Few Poikilocytosis (manual) Slight Ovalocytes Few Schistocytes Few Estimated GFR () 275 mL/min Estimated GFR (Non- 228 mL/min Test 12/28/24 05:06 12/27/24 03:30 12/26/24 03:30 12/24/24 03:00 Range/Units [place] Cells Few Triglycerides Level 71 < 150 mg/dL Giant Platelets Few Stomatocytes Few Random Vancomycin Level 20.2 H 5-10 ug/mL Test 12/23/24 13:46 12/23/24 12:30 12/23/24 07:52 12/21/24 07:09 Range/Units Blood Gas Pressure Support 8 Blood Gas PEEP or CPAP 5.0 Vancomycin Level Trough 27.4 H 5-10 ug/mL Blood Gas Tidal Volume 450.0 Blood Gas Spontaneous Rate 18 Specimen Drawn By Gerry machine tracer Test 12/21/24 05:20 12/20/24 05:24 12/18/24 16:32 12/18/24 05:44 Range/Units Miscellaneous Referred Test (Rm Tmp Sent to [facility] Differential Total Cells Counted 100.0 100 Neutrophils % (Manual) 92 H 37.0-80.0 Band Neutrophils % (Manual) 1 Lymphocytes % (Manual) 3 L 10.0-50.0 Monocytes % (Manual) 4 0-12 Eosinophils % (Manual) 0 0-7 Basophils % (Manual) 0 0.0-2.0 Metamyelocytes % (manual) 0 Myelocytes % (Manual) 0 Promyelocytes % (Manual) 0 Blast Cells % (Manual) 0 Reactive Lymphocytes 0 SARS-CoV-2 Antigen (Rapid) Negative NEGATIVE Hepatitis A Antibody Total Positive H Negative Hepatitis B Surface Antigen Negative Negative Hepatitis B Surface Antibody Negative Negative Hepatitis B Core Total Antibody Negative Negative Hepatitis C Antibody Negative Negative Test 12/14/24 14:22 12/14/24 03:26 12/13/24 03:56 12/12/24 13:28 Range/Units Lactic Acid Level 2.3 *H 0.4-2.0 mmol/L Stool Occult Blood Negative Stool Occult Blood Sample #3 Negative Hemoglobin A1c 5.0 <5.7 % A1C Cholesterol Level 66 < 200 mg/dL LDL Cholesterol 25 < 100 mg/dL HDL Cholesterol 21 L 40-59 mg/dL Vitamin B12 Level 331 211-911 pg/mL Vitamin D 25-Hydroxy 7.2 L 30.0-100 ng/mL Haptoglobin 139 34-355 mg/dL Test 12/12/24 10:21 12/12/24 07:47 12/12/24 07:45 12/12/24 02:20 Range/Units Digoxin Level < 0.14 L 0.8-2 ng/mL Urine Color Dark-brown Yellow Urine Clarity Ex.turbid Clear Urine pH 7.0 5.0-9.0 Urine Specific [place] 1.022 1.001-1.035 Urine Protein 3+ H Negative Urine Ketones Trace Negative Urine Blood 2+ H Negative /uL Urine Nitrite 2+ H Negative Urine Bilirubin Negative Negative Urine Urobilinogen Normal Negative mg/dL Urine Leukocyte Esterase 3+ Negative /uL Urine Glucose Normal Normal mg/dL Influenza Type A Antigen Negative Negative Influenza Type B Antigen Negative Negative Urine RBC 19 0 - 3 /hpf Urine Microscopic WBC 50 H 0-3 /HPF Urine Squamous Epithelial Cells Few <5 /hpf Urine Calcium Oxalate Crystals Few None Seen Urine Bacteria Few H None Seen /hpf Test 12/12/24 01:30 12/11/24 23:07 12/11/24 22:10 12/11/24 22:08 Range/Units Erythrocyte Sedimentation Rate 25 H 0-20 mm/hr Troponin I High Sensitivity 6 </=54 ng/L Thyroid Stimulating Hormone (TSH) 3.98 0.55-4.78 uIU/mL Iron Level 11 L 65-175 ug/dL Total Iron Binding Capacity 323 250-425 ug/dL Percent Iron Saturation 3.4 L 20-55 % Ferritin 6.1 L 22-322 ng/mL C-Reactive Protein High Sensitivity 1.32 H <1.0 mg/dL B-Type Natriuretic Peptide 304.72 0-100 pg/mL Lipase 22 12-53 U/L Ammonia < 10 L 11-32 umol/L Microbiology Date/Time Source Procedure Growth Status 01/01/25 10:11 Blood Blood Culture - Preliminary NO GROWTH AFTER 24 HOURS OF INCUBATION. Resulted 12/21/24 03:26 Trachea Gram Stain - Final Resulted 12/21/24 03:26 Trachea Respiratory Culture - Preliminary Resulted 12/17/24 20:00 Urine - [place] Urine Culture - Final Complete 12/14/24 01:10 Sputum Gram Stain - Final Complete 12/14/24 01:10 Respiratory Culture - Final Staphylococcus aureus Complete 12/12/24 00:41 Stool Stool Culture - Final Complete 12/12/24 00:41 Stool Shiga Toxin I & II - Final Complete Assessment 79-year-old male with a history of cachexia malnutrition feeding from has got his CVA hypertension C or coronary artery disease and AL and pacemaker presented for with weakness tiredness now and the GI consult is for PEG tube placement Examination showed marked wasting otherwise unremarkable abdomen is soft nontender no masses 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 Salazar Plan discussed with: Other SANDRA SALAZAR MD Jan 02, 2025 20:08
[2025-01-02 22:06] LABS: Chloride 103 mmol/L (98-107); Sodium 138 mmol/L (136-145)
[2025-01-02 22:07] LABS: Anion Gap 6 (5-15); Calcium 8.8 mg/dL (8.7-10.4); Carbon Dioxide 29 mmol/L (20-31)
[2025-01-02 22:12] LABS: BUN/Creatinine Ratio 79.4 (10.0-20.0); Glucose 94 mg/dL (74-106)
[2025-01-02 22:15] LABS: Blood Urea Nitrogen 27 mg/dL (9-23); Potassium 3.2 mmol/L (3.5-5.1)
[2025-01-02] MEDS: TPN PER PHARMACY IV NR (22:39)
[2025-01-03] VITALS (21 sets, daily range): BP systolic 129–145; BP diastolic 63–69; PULSE 59–105; RESP 15–22; TEMP 97.4–98.7; O2SAT 94–100
[2025-01-03 06:19] LABS: Basophils # (auto) 0.1 10 ^3/uL (0-0.2); Basophils % (auto) 1.3 % (0.0-2.0); Eosinophils # (auto) 0.1 10 ^3/uL (0-0.8); Eosinophils % (auto) 1.3 % (0.0-7.0); Hematocrit 32.4 % (41.0-53.0); Lymphocytes # (auto) 0.8 10 ^3/uL (0.4-5.4); Lymphocytes % (auto) 13.2 % (10.0-50.0); Mean Corpuscular Hemoglobin 26.9 pg (28.0-32.0); Mean Corpuscular Hgb Conc. 30.9 g/dL (32.0-36.0); Mean Corpuscular Volume 87.1 fL (80.0-100.0); Monocytes # (auto) 0.5 10 ^3/uL (0-1.3); Monocytes % (auto) 8.7 % (0.0-12.0); Neutrophils # (auto) 4.3 10 ^3/uL (1.6-8.6); Neutrophils % (auto) 75.5 % (37.0-80.0); Nucleated Red Blood Cells % 0.1 %; Platelet Count (auto) 144 10^3/uL (140-450); Red Blood Cells 3.72 10^6/uL (4.5-5.90); Red Cell Distribution Width 39.8 % (11.8-14.3); White Blood Cell 5.7 10^3/uL (4.4-10.8)
[2025-01-03 06:23] LABS: Potassium 3.9 mmol/L (3.5-5.1)
[2025-01-03 06:29] LABS: BUN/Creatinine Ratio 54.5 (10.0-20.0); Magnesium 2.2 mg/dL (1.6-2.6)
[2025-01-03 06:30] LABS: Albumin 3.4 g/dL (3.2-4.8)
[2025-01-03 06:33] LABS: Phosphorus 2.2 mg/dL (2.4-5.1)
[2025-01-03 08:16] LABS: Anisocytosis Moderate; Ovalocytes FEW; Platelet Estimate Adequate; Tear Drop Cells FEW
--- NOTE | 2025-01-03 08:46 | DVHPNRES ---
Progress Note Date Seen: Jan 03, 2025 Resident Creating Document: YULI OROZCO RESIDENT Medical Necessity Reason Pt with a Central, PICC or Fol: Yes The following are medically ne: PICC Line, Barron Catheter (RN,) Reason for barron catheter: Strict I&O Subjective Review of Systems HPI-patient is 79 years old male with past medical history of severe stroke (encephalomalacia in right temporal, frontal, and parietal lobes) with significant neurologic sequelae possible vascular dementia, prior episodes of gastrointestinal bleeding, Coronary artery disease sp stents, hypertension, atrial fibrillation with rapid ventricular response, ventricular tachycardia, left above-knee amputation, chronic kidney stones, history of GI bleed, AICD , hypercoagulable state was brought in from [facility] due to chest pain and vomiting and altered mental status. On arrival patient was tachycardic, tachypneic with low borderline blood pressure on 3 L of oxygen for hypoxic respiratory failure. In the ED, a head CT demonstrated large encephalomalacia, no other acute abnormality, a CBC revealed a hemoglobin of 4.6, patient was ordered to packs of RBCs, patient was given IV fluids, she was placed on broad- spectrum antibiotics with meropenem [place]. [place] [address], bands 11%. Patient's lactic acid was shown to be 4.8 and increased to 7.8, he continued to receive IV fluids, he was larsen-cultured. Troponins were within normal limits x3, BNP was 304.A chest x-ray initially showed to be unremarkable, no significant effusion or signs of congestion. He has a left-sided AICD with intact leads. COVID 19 Positive. chest/abdomen/pelvis CT scan without contrast revealed: Moderate to large pericardial effusion measuring up to 2 cm in the left lateral pericardium, small right and left pleural effusions, [id number] right-sided hydroureteronephrosis with multiple stones in the right ureter measuring up to 8 mm. There are multiple stones within the urinary bladder measuring less than 1 cm. The bilateral kidneys demonstrate multiple nonobstructing stones measuring up to 2 cm. . An EKG revealed ventricular paced complexes, low voltage in V1, V2, V6.Echo showed mild pericardial effusion, EF 40%, septal hypokinesis. Right upper extremity Doppler on 12/14/2024 revealed thrombus in the cephalic vein of the forearm. Ultrasound of Abdomen on 12/17/2024 revealedCholelithiasis. Mildly nodular hepatic contours may represent early changes of cirrhosis. Trace abdominal ascites. Patient had 4 units of blood transfusion. Respiratory culture 12/14/2024 positive for Staphylococcus aureus. Wound culture 12/16/2024- positive for Proteus mirabilis, Enterococcus faecalis. Urine culture contaminated sample. On 03/23/2025 respiratory culture grew oropharyngeal carmelo. MRSA screening negative. Patient coded in the elevator on 12/14/2024. Again Patient coded on 11/16 around 2:37 am and patient was intubated. Patient was extubated on 12/23/2024 and transferred to [facility].. PICC line on right upper arm was placed on 12/26/24. Barron's Catheter in place 01/03/25 -patient was seen today for clinical evaluation. Labs and chart reviewed. Patient had PEG tube placement today on 01/03/2025 Repeat blood culture on 01/01/25 negative for any growth I/O -Negative balance 2850 last 24 hours Leukocytosis trending down to 12.8 >7.4 >5.7 Potassium is trending towards normal range today 3.9 On Lasix 20 mg IV b.i.d. Platelets mildly trending up to 82>96>144 Provider spoke to Iron, [phone] 10/29/1999, answered her question , as per Iron, she wants patient to go to a [facility] on discharge Plan is to discharge patient to SNF 01/06/25 on Monday Objective vital signs Vital Sign Date Time Temp Pulse Resp B/P (MAP) Pulse Ox O2 Delivery O2 Flow Rate FiO2 01/03/25 06:22 60 20 97 01/03/25 06:16 Nasal Cannula 2.0 01/03/25 06:16 28 01/03/25 06:00 129/60 01/03/25 05:00 98.7 98.7 Total Intake and Output 01/02/25 01/02/25 01/03/25 15:00 23:00 07:00 Intake Total 100 ml 0 ml Output Total 3000 ml Balance 100 ml -3000 ml 0 ml medications Current Medications Medications Dose Ordered Sig/Roberto Route Start Time Stop Time Status Last Admin Dose Admin Nitroglycerin 0.4 mg Q5MINP PRN SL 12/12/24 00:30 Ceftriaxone Sodium 50 ml @ 100 mls/hr DAILY IV 12/12/24 10:00 UNV Acetaminophen 650 mg Q6HP PRN SD 12/12/24 08:30 12/12/24 09:17 650 MG Pantoprazole Sodium 40 mg BID IV 12/14/24 08:46 01/02/25 22:41 40 MG Lactulose 30 ml Q6HPRN PRN PO 12/15/24 15:15 12/15/24 17:41 30 ML Ipratropium [place] 0.5 mg Q4HR NEB 12/18/24 22:00 01/03/25 06:16 0.5 MG Albuterol 2.5 mg Q4HR NEB 12/18/24 22:00 01/03/25 06:16 2.5 MG Micafungin Sodium 100 mg/Sodium Chloride 100 ml @ 100 mls/hr DAILY@0900 IV 12/24/24 09:00 01/02/25 11:04 100 MLS/HR Enteral Nutritional Formula 1,000 ml 30ML/HR GT 12/24/24 17:00 Amino Acids 0 ml @ 0 mls/hr PER PHARMACY IV 12/25/24 17:00 Diagnostic Test (Pha) 1 strip Q6HR 12/25/24 18:00 01/03/25 06:15 1 STRIP Insulin Human Regular FOLLOW SLIDING SCALE Q6HR SC 12/25/24 18:00 12/31/24 23:41 2 UNITS Dextrose 50 ml UD IV 12/25/24 18:00 Sodium Chloride 10 ml QSHIFT@10,22 IV 12/26/24 22:00 01/02/25 22:39 10 ML Cefepime HCl 50 ml @ 12.5 mls/hr Q12H IV 12/28/24 14:00 01/03/25 02:42 12.5 MLS/HR Saccharomyces Boulardii 250 mg DAILY PO 12/29/24 10:00 12/29/24 07:44 250 MG Potassium Chloride 50 ml @ 25 mls/hr DAILY IV 01/02/25 10:00 01/02/25 10:00 25 MLS/HR Fat Emulsion Intravenous 100 ml/Potassium Chloride 20 meq/ Potassium Phosphate 40 meq/ Magnesium Sulfate 6 meq/ Multivitamins 10 ml/Chromium/ Copper/Manganese/ Zinc 1 ml/Amino Acids/Dextrose/ Purified Water 1,031.5909 ml @ 43 mls/hr Q24H IV 01/02/25 22:00 01/03/25 21:59 01/02/25 22:39 43 MLS/HR Furosemide 20 mg BIDD IV 01/02/25 18:00 01/02/25 18:01 20 MG Examination General Appearance: on room air, AAOX1-2, 2. able to follow commands. Pulmonary/Respiratory: Chest non-tender. Bilateral Lung crackles+ Cardiovascular/Chest: Regular rate and paced rhythm. No murmurs. No JVD. Peripheral Pulses: 2+ Radial (R). 2+ Radial(L). 2+ Pedal (R). 2+ Pedal (L) Abdominal Exam: Soft. Nontender. No hepatospenomegaly. No masses Ankle Exam: 2+ ankle edema extremities: Left upper arm contracted with edematous changes, 1+ lower extremity edema, left above knee amputation, redness biliary stamp of the left above-knee amputation Neuro/Mental Status: Alert, responds by yes on laboratory and microbiology Laboratory Tests 01/03/25 05:59 Test 01/03/25 05:59 Range/Units Serum Glucose 115 H 74-106 mg/dL Microbiology Date/Time Source Procedure Growth Status 01/01/25 10:11 Blood Blood Culture - Preliminary NO GROWTH AFTER 24 HOURS OF INCUBATION. Resulted 12/21/24 03:26 Trachea Gram Stain - Final Resulted 12/21/24 03:26 Trachea Respiratory Culture - Preliminary Resulted 12/17/24 20:00 Urine - Bar[place] Urine Culture - Final Complete 12/14/24 01:10 Sputum Gram Stain - Final Complete 12/14/24 01:10 Respiratory Culture - Final Staphylococcus aureus Complete 12/12/24 00:41 Stool Stool Culture - Final Complete 12/12/24 00:41 Stool Shiga Toxin I & II - Final Complete Problem List/Assessment/Plan Problem List/Assessment/Plan Assessment and plan Neurology #Acute metabolic encephalopathy due to sepsis s/p cardiac arrest # history of recurrent stroke #Vascular dementia #Large area of encephalomalacia involving the right temporal frontal and parietal lobes may represent old infarct - Alert and oriented X1 - Status post extubation -continue monitoring clinically -avoid dehydration Cardiology: # acute systolic/diastolic heart failure, LVEF 40% #Septic shock #Moderate to severe pericardial effusion #atrial fibrillation #coronary disease s/p stent #H/o ventricular arrhythmia s/p ICD placement - Continue Lasix 20 mg IV b.i.d. Respiratory #acute hypoxic respiratory failure s/p mechanical ventilation #Moderate pleural effusions # covid 19 infection,resolved # Sepsis due to Community acquired pneumonia due to staph aureus infection/ filamentus fungi - continue Lasix 20 mg IV b.i.d. - I&O - Albuterol 5 q.4 - Ipratropium 0.5 q.4 - micafungin iv Gastrointestinal #r/o GI bleeding #History of colonic polyps #Cholelithiasis. #Mildly nodular hepatic contours may represent early changes of cirrhosis. #trace ascitis -failed swallow eval 4 times -patient had a PEG tube placement on 01/03/2025 Genitourinary/Renal #[id number] right-sided hydroureteronephrosis with multiple stones in the right ureter measuring up to 8 mm. #Lactic acidosis #There are multiple stones within the urinary bladder measuring less than 1 cm. #The bilateral kidneys demonstrate multiple nonobstructing stones measuring up to 2 cm. #hypokalemia, replenished #hypophosphatemia - potassium replaced - Barron catheter - strict I&O - monitor electrolytes Infectious disease #Septic shock likely due to aspiration pneumonia #skin infection positive proteus mirabilis and E.Faecalis #covid 19 infection, resolved #fungal infection,growing filamentus fungi - IV micafungin - IV cefepime Endocrine Heme/onc #Severe microcytic hypochromic anemia #Iron deficiency anemia #moderate thrombocytopenia - iron sucrose IV -CBC CMP tomorrow -no spontaneous bleeding at this time but closely monitoring based on high-risk of bleeding. -continue medications at this time, if platelets keeps trending down consider discontinue some of them. Prophylaxis: Pantoprazole 40 mg b.i.d. IV SCD Barron's catheter in place Right upper arm PICC line present-12/26/2024 Patient on BiPAP tonight Goals of care/advance care planning Code status ; full code, PUD prophylaxis: Pantoprazole DVT prophylaxis: SCD Plan discussed with Dr. Choi , nursing staff, Iron Critical care Total time spent on patient evaluation, chart review, assessment and plan, advanced plan of care total time spent 55 minutes Plan discussed with: Other (ROSALES menchaca) My Orders My Orders Orders - BABU,MOHAMMED RESIDENT Procedure Category Date Status Time Furosemide Injection PHA 01/02/25 In Process (Lasix Injection) 18:00 Dietary Evaluation Review Comments: 1. If GI is accessible, consider glucerna 1.2 @ 50ml/hr to provide 1440kcal, 72g pro, 966 ml FW to meet 100% of needs. 2. Consider advance to CCHO 60g diet when appropriate 3. Consider TPN if NPO> 7 days Expected Outcomes/Goals: 1. Pt will meet >75% of estimated needs within 2-3 days CC Plasma Assessment Blood Product Administration S: [id number] YULI OROZCO RESIDENT Jan 03, 2025 08:46
[2025-01-03] MEDS ORDERED: KETAMINE 50mg/ML 1ml syringe ONE (09:02)
[2025-01-03] MEDS ORDERED: fentaNYL CITRATE 100 MCG/2 ML VL ONE (09:02)
[2025-01-03] MEDS ORDERED: PROPOFOL 10 MG/ML 20 ML IV ONE (09:02)
[2025-01-03] MEDS ORDERED: MIDAZOLAM HCL 2MG/2ML 2ml VIAL (1mg/ml) ONE (09:02)
[2025-01-03] MEDS ORDERED: LIDOCAINE 1% INJ PF 5ML AMP ONE (09:02)
[2025-01-03] MEDS ORDERED: MORPHINE SULFATE 4 MG/ML SYR/VIAL IV PRN (10:30)
[2025-01-03] MEDS ORDERED: MORPHINE SULFATE INJ 2 MG/ml SYRG IV PRN (10:30)
[2025-01-03] MEDS ORDERED: HYDROmorphone HCL 2 MG/ML VL/or syr IV PRN ×2 (10:30)
[2025-01-03] MEDS: SODIUM PHOSPHATES 20 MEQ in SODIUM CHL 0.9% 100 ML IV ONE (11:00)
--- NOTE | 2025-01-03 11:50 | DVHOP2 ---
Operative Report DATE OF PROCEDURE: 01/03/25 INDICATIONS FOR THE PROCEDURE: Malnutrition feeding problems CVA for PEG placement PROCEDURE PERFORMED: 1. Esophagogastroduodenoscopy and percutaneous endoscopic gastrostomy POSTOPERATIVE DIAGNOSIS: Malnutrition peg tube placed Small hiatal hernia INFORMED CONSENT: The risks and benefits and alternatives were explained to the patient and informed consent was obtained. PROCEDURE IN DETAIL: The patient was kept NPO after midnight. In the endoscopy room OR MAC was given and then Olympus gastroscope was passed through the oropharynx into the stomach and the duodenum, and the findings were as follows. Esophagus: Small hiatal hernia 1 cm No Esophagitis No Esophageal ulcer No Esophageal stricture Stomach: Fundus: Normal Body and antrum Normal Pylorus normal Duodenum Unremarkable After the endoscopy was completed the scope was withdrawn into the stomach and at the point of maximum illumination Seldinger needle was introduced Needle was withdrawn and through the cannula a guidewire was introduced which was held by a snare passed through the endoscopic biopsy channel The guidewire was now removed through the oropharynx and over the guidewire feeding gastrostomy tube was introduced in a retrograde fashion The guidewire was pulled from the anterior abdominal wall aspect and observed to be in good position and the anterior gastric wall and anchored Patient tolerated the procedure extremely well and post vital signs stable Endoscopic impression CVA malnutrition for which feeding tube placed Suggestions We will start feeding and watch for any complications Thank you for asking me to take part in the care of this pleasant patient With warm regards, SANDRA Castillo MD Jan 03, 2025 11:50
[2025-01-03] MEDS: TPN PER PHARMACY IV NR (22:06)
[2025-01-04] VITALS (20 sets, daily range): BP systolic 123–142; BP diastolic 63–68; PULSE 53–90; RESP 16–20; TEMP 97.4–98.3; O2SAT 95–100
[2025-01-04 07:49] LABS: Basophils # (auto) 0.1 10 ^3/uL (0-0.2); Basophils % (auto) 2.6 % (0.0-2.0); Eosinophils # (auto) 0.2 10 ^3/uL (0-0.8); Eosinophils % (auto) 4.1 % (0.0-7.0); Hematocrit 30.8 % (41.0-53.0); Hemoglobin 9.8 g/dL (13.5-17.5); Lymphocytes # (auto) 0.5 10 ^3/uL (0.4-5.4); Lymphocytes % (auto) 13.1 % (10.0-50.0); Mean Corpuscular Hemoglobin 26.8 pg (28.0-32.0); Mean Corpuscular Volume 83.9 fL (80.0-100.0); Monocytes # (auto) 0.4 10 ^3/uL (0-1.3); Monocytes % (auto) 10.2 % (0.0-12.0); Neutrophils # (auto) 2.7 10 ^3/uL (1.6-8.6); Platelet Count (auto) 171 10^3/uL (140-450); Red Blood Cells 3.67 10^6/uL (4.5-5.90); White Blood Cell 3.9 10^3/uL (4.4-10.8)
[2025-01-04 08:00] LABS: Chloride 105 mmol/L (98-107); Sodium 140 mmol/L (136-145)
[2025-01-04 08:01] LABS: Anion Gap 9 (5-15); Carbon Dioxide 26 mmol/L (20-31)
[2025-01-04 08:02] LABS: Calcium 8.6 mg/dL (8.7-10.4); Potassium 3.1 mmol/L (3.5-5.1)
[2025-01-04 08:07] LABS: BUN/Creatinine Ratio 57.5 (10.0-20.0); Magnesium 2.1 mg/dL (1.6-2.6)
[2025-01-04 08:09] LABS: Phosphorus 2.9 mg/dL (2.4-5.1)
[2025-01-04 08:12] LABS: Blood Urea Nitrogen 23 mg/dL (9-23); Glucose 118 mg/dL (74-106)
--- NOTE | 2025-01-04 11:48 | DVHPN2 ---
Reviewed: Care Plan, H&P, Labs, Medications, Previous Orders, Radiology Changes from previous H/P or p: No Changes General: Per HPI Objective Vitals Vital Signs Date Time Temp Pulse Resp B/P (MAP) Pulse Ox O2 Delivery O2 Flow Rate FiO2 01/04/25 09:59 61 16 98 01/04/25 09:53 Nasal Cannula* 2 28 01/04/25 09:00 97.6 142/65 (90) 97.6 Intake/Output Intake and Output 01/04/25 07:00 Intake Total 865 ml Output Total 175 ml Balance 690 ml IV Total 265 ml Blood Product 600 ml Other 0 ml Output Urine Total 175 ml # Bowel Movements 1 General Appearance: Alert, No acute distress HEENT: Atraumatic, PERRLA, EOMI, Mucous membr. moist/pink Neck: Supple Lungs: Clear to auscultation, Normal air movement Cardiovascular: Regular rate, Normal S1, Normal S2 Abdomen: Normal bowel sounds, Soft Extremities: Normal pulses Neuro: Cranial nerves 3-12 NL Psych/Mental Status: Mental status NL Medications Current Medications Medications Dose Ordered Sig/Roberto Route Start Time Stop Time Status Last Admin Dose Admin Nitroglycerin 0.4 mg Q5MINP PRN SL 12/12/24 00:30 Ceftriaxone Sodium 50 ml @ 100 mls/hr DAILY IV 12/12/24 10:00 UNV Acetaminophen 650 mg Q6HP PRN OH 12/12/24 08:30 12/12/24 09:17 650 MG Pantoprazole Sodium 40 mg BID IV 12/14/24 08:46 01/04/25 08:50 40 MG Lactulose 30 ml Q6HPRN PRN PO 12/15/24 15:15 12/15/24 17:41 30 ML Ipratropium [place] 0.5 mg Q4HR NEB 12/18/24 22:00 01/04/25 09:53 0.5 MG Albuterol 2.5 mg Q4HR NEB 12/18/24 22:00 01/04/25 09:53 2.5 MG Micafungin Sodium 100 mg/Sodium Chloride 100 ml @ 100 mls/hr DAILY@0900 IV 12/24/24 09:00 01/04/25 08:48 100 MLS/HR Enteral Nutritional Formula 1,000 ml 30ML/HR GT 12/24/24 17:00 Amino Acids 0 ml @ 0 mls/hr PER PHARMACY IV 12/25/24 17:00 Diagnostic Test (Pha) 1 strip Q6HR 12/25/24 18:00 01/04/25 06:34 1 STRIP Insulin Human Regular FOLLOW SLIDING SCALE Q6HR SC 12/25/24 18:00 01/04/25 06:33 2 UNITS Dextrose 50 ml UD IV 12/25/24 18:00 Sodium Chloride 10 ml QSHIFT@10,22 IV 12/26/24 22:00 01/04/25 08:52 10 ML Cefepime HCl 50 ml @ 12.5 mls/hr Q12H IV 12/28/24 14:00 01/04/25 02:03 12.5 MLS/HR Saccharomyces Boulardii 250 mg DAILY PO 12/29/24 10:00 12/29/24 07:44 250 MG Potassium Chloride 50 ml @ 25 mls/hr DAILY IV 01/02/25 10:00 01/04/25 08:50 25 MLS/HR Furosemide 20 mg BIDD IV 01/02/25 18:00 01/04/25 06:29 20 MG Fat Emulsion Intravenous 150 ml/Sodium Phosphate 40 meq/ Potassium Chloride 30 meq/ Magnesium Sulfate 6 meq/ Multivitamins 10 ml/Chromium/ Copper/Manganese/ Zinc 1 ml/Amino Acids/Dextrose/ Purified Water 1,337.5 ml @ 56 mls/hr [id number] IV 01/03/25 22:00 01/04/25 21:59 01/03/25 22:06 56 MLS/HR Fat Emulsion Intravenous 200 ml/Sodium Chloride 20 meq/ Potassium Acetate 20 meq/Potassium Phosphate 44 meq/ Calcium Gluconate 2.3 meq/Magnesium Sulfate 8 meq/ Multivitamins 10 ml/Chromium/ Copper/Manganese/ Zinc 1 ml/Amino Acids/Dextrose/ Purified Water 1,542.9462 ml @ 64 mls/hr Q24H7M IV 01/04/25 22:00 01/05/25 21:59 Laboratory Results Laboratory Tests 01/04/25 06:19 Chemistry Test 01/04/25 06:19 Calcium Level 8.6 mg/dL (8.7-10.4) L Magnesium Level 2.1 mg/dL (1.6-2.6) Phosphorus Level 2.9 mg/dL (2.4-5.1) Urinalysis Test 2/20/25 02:20 12/12/24 07:47 Urine RBC 19 /hpf (0 - 3) Urine Microscopic WBC 50 /HPF (0-3) H Urine Squamous Epithelial Cells Few /hpf (<5) Urine Calcium Oxalate Crystals Few (None Seen) Urine Bacteria Few /hpf (None Seen) H Urine Color Dark-brown (Yellow) Urine Clarity Ex.turbid (Clear) Urine pH 7.0 (5.0-9.0) Urine Specific [place] 1.022 (1.001-1.035) Urine Protein 3+ (Negative) H Urine Ketones Trace (Negative) Urine Blood 2+ /uL (Negative) H Urine Nitrite 2+ (Negative) H Urine Bilirubin Negative (Negative) Urine Urobilinogen Normal mg/dL (Negative) Urine Leukocyte Esterase 3+ /uL (Negative) Urine Glucose Normal mg/dL (Normal) Microbiology Microbiology Date/Time Source Procedure Growth Status 01/01/25 10:11 Blood Blood Culture - Preliminary NO GROWTH AFTER 48 HOURS OF INCUBATION. Resulted 12/21/24 03:26 Trachea Gram Stain - Final Resulted 12/21/24 03:26 Trachea Respiratory Culture - Preliminary Resulted 12/17/24 20:00 Urine - [place] Urine Culture - Final Complete 12/14/24 01:10 Sputum Gram Stain - Final Complete 12/14/24 01:10 Respiratory Culture - Final Staphylococcus aureus Complete 12/12/24 00:41 Stool Stool Culture - Final Complete 12/12/24 00:41 Stool Shiga Toxin I & II - Final Complete Labs and/or images reviewed: Labs reviewed by me, Image(s) reviewed by me Assessment/Plan Assessment/Plan Covering for resident physician Status post PEG tube placement by Dr. Salazar 01/03/2025, start G-tube feedings after clearance by GI Dr. Salazar Neurology #Acute metabolic encephalopathy due to sepsis s/p cardiac arrest # history of recurrent stroke #Vascular dementia #Large area of encephalomalacia involving the right temporal frontal and parietal lobes may represent old infarct - Alert and oriented X1 - Status post extubation -continue monitoring clinically -avoid dehydration Cardiology: # acute systolic/diastolic heart failure, LVEF 40% #Septic shock #Moderate to severe pericardial effusion #atrial fibrillation #coronary disease s/p stent #H/o ventricular arrhythmia s/p ICD placement - Continue Lasix 20 mg IV b.i.d. Respiratory #acute hypoxic respiratory failure s/p mechanical ventilation #Moderate pleural effusions # covid 19 infection,resolved # Sepsis due to Community acquired pneumonia due to staph aureus infection/ filamentus fungi - continue Lasix 20 mg IV b.i.d. - I&O - Albuterol 5 q.4 - Ipratropium 0.5 q.4 - micafungin iv Gastrointestinal #r/o GI bleeding #History of colonic polyps #Cholelithiasis. #Mildly nodular hepatic contours may represent early changes of cirrhosis. #trace ascitis -failed swallow eval 4 times -patient had a PEG tube placement on 01/03/2025 Genitourinary/Renal #[id number] right-sided hydroureteronephrosis with multiple stones in the right ureter measuring up to 8 mm. #Lactic acidosis #There are multiple stones within the urinary bladder measuring less than 1 cm. #The bilateral kidneys demonstrate multiple nonobstructing stones measuring up to 2 cm. #hypokalemia, replenished #hypophosphatemia - potassium replaced - Diane catheter - strict I&O - monitor electrolytes Infectious disease #Septic shock likely due to aspiration pneumonia #skin infection positive proteus mirabilis and E.Faecalis #covid 19 infection, resolved #fungal infection,growing filamentus fungi - IV micafungin - IV cefepime Endocrine Heme/onc #Severe microcytic hypochromic anemia #Iron deficiency anemia #moderate thrombocytopenia - iron sucrose IV -CBC CMP tomorrow -no spontaneous bleeding at this time but closely monitoring based on high-risk of bleeding. -continue medications at this time, if platelets keeps trending down consider discontinue some of them. Prophylaxis: Pantoprazole 40 mg b.i.d. IV SCD Diane's catheter in place Right upper arm PICC line present-12/26/2024 Patient on BiPAP Plan discussed with: Patient Date of Service: Jan 04, 2025 Billing Provider: PREETHI BELTRAN MD Common Visit Codes: [id number] INP/OBS CARE(HIGH) PREETHI BELTRAN MD Jan 04, 2025 11:48
--- NOTE | 2025-01-04 15:33 | DVHPN2 ---
Progress Note - Dictate Date Seen: Jan 04, 2025 Medical Necessity Reason Pt with a Central, PICC or Fol: Yes The following are medically ne: PICC Line, Barron Catheter (RN,) Reason for barron catheter: Strict I&O Subjective Doing fine no complications after the PEG tube tolerating feeds vital signs Vital Sign Date Time Temp Pulse Resp B/P (MAP) Pulse Ox O2 Delivery O2 Flow Rate FiO2 01/04/25 14:29 66 16 99 01/04/25 14:23 Nasal Cannula 2.0 01/04/25 14:23 28 01/04/25 13:00 97.4 130/64 (86) 97.4 Total Intake and Output 01/03/25 01/03/25 01/04/25 15:00 23:00 07:00 Intake Total 215 ml 50 ml 600 ml Output Total 175 ml Balance 215 ml -125 ml 600 ml medications Current Medications Medications Dose Ordered Sig/Roberto Route Start Time Stop Time Status Last Admin Dose Admin Nitroglycerin 0.4 mg Q5MINP PRN SL 12/12/24 00:30 Ceftriaxone Sodium 50 ml @ 100 mls/hr DAILY IV 12/12/24 10:00 UNV Acetaminophen 650 mg Q6HP PRN AL 12/12/24 08:30 12/12/24 09:17 650 MG Pantoprazole Sodium 40 mg BID IV 12/14/24 08:46 01/04/25 08:50 40 MG Lactulose 30 ml Q6HPRN PRN PO 12/15/24 15:15 12/15/24 17:41 30 ML Ipratropium [place] 0.5 mg Q4HR NEB 12/18/24 22:00 01/04/25 14:23 0.5 MG Albuterol 2.5 mg Q4HR NEB 12/18/24 22:00 01/04/25 14:23 2.5 MG Enteral Nutritional Formula 1,000 ml 30ML/HR GT 12/24/24 17:00 Amino Acids 0 ml @ 0 mls/hr PER PHARMACY IV 12/25/24 17:00 Diagnostic Test (Pha) 1 strip Q6HR 12/25/24 18:00 01/04/25 11:48 1 STRIP Insulin Human Regular FOLLOW SLIDING SCALE Q6HR SC 12/25/24 18:00 01/04/25 11:48 2 UNITS Dextrose 50 ml UD IV 12/25/24 18:00 Sodium Chloride 10 ml QSHIFT@10,22 IV 12/26/24 22:00 01/04/25 08:52 10 ML Cefepime HCl 50 ml @ 12.5 mls/hr Q12H IV 12/28/24 14:00 01/04/25 14:05 12.5 MLS/HR Saccharomyces Boulardii 250 mg DAILY PO 12/29/24 10:00 12/29/24 07:44 250 MG Potassium Chloride 50 ml @ 25 mls/hr DAILY IV 01/02/25 10:00 01/04/25 08:50 25 MLS/HR Furosemide 20 mg BIDD IV 01/02/25 18:00 01/04/25 06:29 20 MG Fat Emulsion Intravenous 150 ml/Sodium Phosphate 40 meq/ Potassium Chloride 30 meq/ Magnesium Sulfate 6 meq/ Multivitamins 10 ml/Chromium/ Copper/Manganese/ Zinc 1 ml/Amino Acids/Dextrose/ Purified Water 1,337.5 ml @ 56 mls/hr [id number] IV 01/03/25 22:00 01/04/25 21:59 01/03/25 22:06 56 MLS/HR Fat Emulsion Intravenous 200 ml/Sodium Chloride 20 meq/ Potassium Acetate 20 meq/Potassium Phosphate 44 meq/ Calcium Gluconate 2.3 meq/Magnesium Sulfate 8 meq/ Multivitamins 10 ml/Chromium/ Copper/Manganese/ Zinc 1 ml/Amino Acids/Dextrose/ Purified Water 1,542.9462 ml @ 64 mls/hr Q24H7M IV 01/04/25 22:00 01/05/25 21:59 objective Abdomen soft nontender no masses G-tube site looks healthy laboratory and microbiology Laboratory Tests 01/04/25 06:19 Test 01/04/25 06:19 Range/Units Serum Glucose 118 H 74-106 mg/dL Assessment/Plan 79-year-old male with a history of cachexia malnutrition feeding from has got his CVA hypertension C or coronary artery disease and ID and pacemaker presented for with weakness tiredness now and the GI consult is for PEG tube placement Examination showed marked wasting otherwise unremarkable abdomen is soft nontender no masses Clinical impression is cachexia malnutrition for PEG placement Patient with malnutrition peg tube placed tolerating feeds okay we will continue to increase the feeds and see Thank you Dr. Salazar Dietary Evaluation Review Comments: 1. If GI is accessible, consider glucerna 1.2 @ 50ml/hr to provide 1440kcal, 72g pro, 966 ml FW to meet 100% of needs. 2. Consider advance to CCHO 60g diet when appropriate 3. Consider TPN if NPO> 7 days Expected Outcomes/Goals: 1. Pt will meet >75% of estimated needs within 2-3 days Plan discussed with: Patient CC Plasma Assessment Blood Product Administration S: [id number] SANDRA SALAZAR MD Jan 04, 2025 15:33
[2025-01-04] MEDS: TPN PER PHARMACY IV NR (22:11)
[2025-01-05] VITALS (20 sets, daily range): BP systolic 115–141; BP diastolic 54–73; PULSE 50–96; RESP 16–20; TEMP 97.4–98.5; O2SAT 91–100
[2025-01-05 07:29] LABS: Alanine Aminotransferase 21 U/L (7-40); Albumin 3.4 g/dL (3.2-4.8); Alkaline Phosphatase 109 U/L (46-116); Anion Gap 8 (5-15); Aspartate Aminotransferase 18 U/L (13-40); BUN/Creatinine Ratio 60.5 (10.0-20.0); Carbon Dioxide 25 mmol/L (20-31); Chloride 106 mmol/L (98-107); Magnesium 2.2 mg/dL (1.6-2.6); Phosphorus 2.7 mg/dL (2.4-5.1); Sodium 139 mmol/L (136-145); Total Protein 5.8 g/dL (5.7-8.2)
[2025-01-05 07:30] LABS: Bilirubin, Total 0.6 mg/dL (0.2-1.0)
[2025-01-05 07:31] LABS: Blood Urea Nitrogen 26 mg/dL (9-23); Glucose 124 mg/dL (74-106); Potassium 3.4 mmol/L (3.5-5.1)
--- NOTE | 2025-01-05 10:34 | DVHPN2 ---
Reviewed: Care Plan, H&P, Labs, Medications, Previous Orders, Radiology Changes from previous H/P or p: No Changes General: Per HPI Objective Vitals Vital Signs Date Time Temp Pulse Resp B/P (MAP) Pulse Ox O2 Delivery O2 Flow Rate FiO2 01/05/25 10:29 96 Nasal Cannula* 2 28 01/05/25 10:29 60 16 01/05/25 05:40 136/73 01/05/25 05:00 97.4 97.4 Intake/Output Intake and Output 01/05/25 07:00 Intake Total 150 ml Output Total 2850 ml Balance -2700 ml Intake Oral 0 ml IV Total 150 ml Output Urine Total 2850 ml General Appearance: Alert, No acute distress HEENT: Atraumatic, PERRLA, EOMI, Mucous membr. moist/pink Neck: Supple Lungs: Clear to auscultation, Normal air movement Cardiovascular: Regular rate, Normal S1, Normal S2 Abdomen: Normal bowel sounds, Soft Extremities: Normal pulses Neuro: Cranial nerves 3-12 NL Psych/Mental Status: Mental status NL Medications Current Medications Medications Dose Ordered Sig/Roberto Route Start Time Stop Time Status Last Admin Dose Admin Nitroglycerin 0.4 mg Q5MINP PRN SL 12/12/24 00:30 Ceftriaxone Sodium 50 ml @ 100 mls/hr DAILY IV 12/12/24 10:00 UNV Acetaminophen 650 mg Q6HP PRN [place] 12/12/24 08:30 12/12/24 09:17 650 MG Pantoprazole Sodium 40 mg BID IV 12/14/24 08:46 01/05/25 08:40 40 MG Lactulose 30 ml Q6HPRN PRN PO 12/15/24 15:15 12/15/24 17:41 30 ML Ipratropium [place] 0.5 mg Q4HR NEB 12/18/24 22:00 01/05/25 07:16 0.5 MG Albuterol 2.5 mg Q4HR NEB 12/18/24 22:00 01/05/25 10:29 2.5 MG Enteral Nutritional Formula 1,000 ml 30ML/HR GT 12/24/24 17:00 Amino Acids 0 ml @ 0 mls/hr PER PHARMACY IV 12/25/24 17:00 Diagnostic Test (Pha) 1 strip Q6HR 12/25/24 18:00 01/05/25 06:04 1 STRIP Insulin Human Regular FOLLOW SLIDING SCALE Q6HR SC 12/25/24 18:00 01/05/25 06:11 2 UNITS Dextrose 50 ml UD IV 12/25/24 18:00 Sodium Chloride 10 ml QSHIFT@10,22 IV 12/26/24 22:00 01/04/25 21:00 10 ML Cefepime HCl 50 ml @ 12.5 mls/hr Q12H IV 12/28/24 14:00 01/05/25 02:00 12.5 MLS/HR Saccharomyces Boulardii 250 mg DAILY PO 12/29/24 10:00 12/29/24 07:44 250 MG Potassium Chloride 50 ml @ 25 mls/hr DAILY IV 01/02/25 10:00 01/05/25 08:40 25 MLS/HR Furosemide 20 mg BIDD IV 01/02/25 18:00 01/04/25 18:18 20 MG Fat Emulsion Intravenous 200 ml/Sodium Chloride 20 meq/ Potassium Acetate 20 meq/Potassium Phosphate 44 meq/ Calcium Gluconate 2.3 meq/Magnesium Sulfate 8 meq/ Multivitamins 10 ml/Chromium/ Copper/Manganese/ Zinc 1 ml/Amino Acids/Dextrose/ Purified Water 1,542.9462 ml @ 64 mls/hr Q24H7M IV 01/04/25 22:00 01/05/25 21:59 01/04/25 22:11 64 MLS/HR Laboratory Results Laboratory Tests 01/04/25 06:19 01/05/25 06:18 Chemistry Test 01/05/25 06:18 Albumin 3.4 g/dL (3.2-4.8) Calcium Level 9.0 mg/dL (8.7-10.4) Magnesium Level 2.2 mg/dL (1.6-2.6) Phosphorus Level 2.7 mg/dL (2.4-5.1) Total Protein 5.8 g/dL (5.7-8.2) LFT Test 01/05/25 06:18 Alanine Aminotransferase (ALT) 21 U/L (7-40) Alkaline Phosphatase 109 U/L (46-116) Aspartate Amino Transferase (AST) 18 U/L (13-40) Total Bilirubin 0.6 mg/dL (0.2-1.0) Urinalysis Test 12/12/24 02:20 12/12/24 07:47 Urine RBC 19 /hpf (0 - 3) Urine Microscopic WBC 50 /HPF (0-3) H Urine Squamous Epithelial Cells Few /hpf (<5) Urine Calcium Oxalate Crystals Few (None Seen) Urine Bacteria Few /hpf (None Seen) H Urine Color Dark-brown (Yellow) Urine Clarity Ex.turbid (Clear) Urine pH 7.0 (5.0-9.0) Urine Specific [place] 1.022 (1.001-1.035) Urine Protein 3+ (Negative) H Urine Ketones Trace (Negative) Urine Blood 2+ /uL (Negative) H Urine Nitrite 2+ (Negative) H Urine Bilirubin Negative (Negative) Urine Urobilinogen Normal mg/dL (Negative) Urine Leukocyte Esterase 3+ /uL (Negative) Urine Glucose Normal mg/dL (Normal) Microbiology Microbiology Date/Time Source Procedure Growth Status 01/01/25 10:11 Blood Blood Culture - Preliminary NO GROWTH AFTER 72 HOURS OF INCUBATION. Resulted 12/21/24 03:26 Trachea Gram Stain - Final Resulted 12/21/24 03:26 Trachea Respiratory Culture - Preliminary Resulted 12/17/24 20:00 Urine - [place] Urine Culture - Final Complete 12/14/24 01:10 Sputum Gram Stain - Final Complete 12/14/24 01:10 Respiratory Culture - Final Staphylococcus aureus Complete 12/12/24 00:41 Stool Stool Culture - Final Complete 12/12/24 00:41 Stool Shiga Toxin I & II - Final Complete Labs and/or images reviewed: Labs reviewed by me, Image(s) reviewed by me Assessment/Plan Assessment/Plan Covering for resident physician Status post PEG tube placement by Dr. Salazar 01/03/2025, start G-tube feedings after clearance by GI Dr. Salazar Neurology #Acute metabolic encephalopathy due to sepsis s/p cardiac arrest # history of recurrent stroke #Vascular dementia #Large area of encephalomalacia involving the right temporal frontal and parietal lobes may represent old infarct - Alert and oriented X1 - Status post extubation -continue monitoring clinically -avoid dehydration Cardiology: # acute systolic/diastolic heart failure, LVEF 40% #Septic shock #Moderate to severe pericardial effusion #atrial fibrillation #coronary disease s/p stent #H/o ventricular arrhythmia s/p ICD placement - Continue Lasix 20 mg IV b.i.d. Respiratory #acute hypoxic respiratory failure s/p mechanical ventilation #Moderate pleural effusions # covid 19 infection,resolved # Sepsis due to Community acquired pneumonia due to staph aureus infection/ filamentus fungi - continue Lasix 20 mg IV b.i.d. - I&O - Albuterol 5 q.4 - Ipratropium 0.5 q.4 - micafungin iv Gastrointestinal #r/o GI bleeding #History of colonic polyps #Cholelithiasis. #Mildly nodular hepatic contours may represent early changes of cirrhosis. #trace ascitis -failed swallow eval 4 times -patient had a PEG tube placement on 01/03/2025 Genitourinary/Renal #[id number]-[id number] right-sided hydroureteronephrosis with multiple stones in the right ureter measuring up to 8 mm. #Lactic acidosis #There are multiple stones within the urinary bladder measuring less than 1 cm. #The bilateral kidneys demonstrate multiple nonobstructing stones measuring up to 2 cm. #hypokalemia, replenished #hypophosphatemia - potassium replaced - Diane catheter - strict I&O - monitor electrolytes Infectious disease #Septic shock likely due to aspiration pneumonia #skin infection positive proteus mirabilis and E.Faecalis #covid 19 infection, resolved #fungal infection,growing filamentus fungi - IV micafungin - IV cefepime Endocrine Heme/onc #Severe microcytic hypochromic anemia #Iron deficiency anemia #moderate thrombocytopenia - iron sucrose IV -CBC CMP tomorrow -no spontaneous bleeding at this time but closely monitoring based on high-risk of bleeding. -continue medications at this time, if platelets keeps trending down consider discontinue some of them. Prophylaxis: Pantoprazole 40 mg b.i.d. IV SCD Diane's catheter in place Right upper arm PICC line present-12/26/2024 Patient on BiPAP Continue current management CBC and CMP ordered for Monday Plan discussed with: Patient My Orders Orders - PREETHI BELTRAN MD Procedure Category Date Status Time * Dietary Consult CONS 01/04/25 Transmitted 11:48 Date of Service: Jan 05, 2025 Billing Provider: PREETHI BELTRAN MD Common Visit Codes: [id number] INP/OBS CARE(HIGH) PREETHI BELTRAN MD Jan 05, 2025 10:34
--- NOTE | 2025-01-05 15:57 | DVHPN2 ---
Progress Note - Dictate Date Seen: Jan 05, 2025 Medical Necessity Reason Pt with a Central, PICC or Fol: Yes The following are medically ne: PICC Line, Barron Catheter (RN,) Reason for barron catheter: Strict I&O Subjective Doing fine no complications with the PEG Awaiting tube feedings apparently not started vital signs Vital Sign Date Time Temp Pulse Resp B/P (MAP) Pulse Ox O2 Delivery O2 Flow Rate FiO2 01/05/25 14:30 60 18 99 01/05/25 14:24 Nasal Cannula 2.0 01/05/25 14:24 28 01/05/25 13:00 97.9 141/69 (93) 97.9 Total Intake and Output 01/04/25 01/04/25 01/05/25 15:00 23:00 07:00 Intake Total 100 ml 50 ml 0 ml Output Total 1300 ml 1550 ml Balance 100 ml -1250 ml -1550 ml medications Current Medications Medications Dose Ordered Sig/Roberto Route Start Time Stop Time Status Last Admin Dose Admin Nitroglycerin 0.4 mg Q5MINP PRN SL 12/12/24 00:30 Ceftriaxone Sodium 50 ml @ 100 mls/hr DAILY IV 12/12/24 10:00 UNV Acetaminophen 650 mg Q6HP PRN [place] 12/12/24 08:30 12/12/24 09:17 650 MG Pantoprazole Sodium 40 mg BID IV 12/14/24 08:46 01/05/25 08:40 40 MG Lactulose 30 ml Q6HPRN PRN PO 12/15/24 15:15 12/15/24 17:41 30 ML Ipratropium [place] 0.5 mg Q4HR NEB 12/18/24 22:00 01/05/25 14:24 0.5 MG Albuterol 2.5 mg Q4HR NEB 12/18/24 22:00 01/05/25 14:24 2.5 MG Enteral Nutritional Formula 1,000 ml 30ML/HR GT 12/24/24 17:00 Amino Acids 0 ml @ 0 mls/hr PER PHARMACY IV 12/25/24 17:00 Diagnostic Test (Pha) 1 strip Q6HR 12/25/24 18:00 01/05/25 11:55 1 STRIP Insulin Human Regular FOLLOW SLIDING SCALE Q6HR SC 12/25/24 18:00 01/05/25 11:52 2 UNITS Dextrose 50 ml UD IV 12/25/24 18:00 Sodium Chloride 10 ml QSHIFT@10,22 IV 12/26/24 22:00 01/05/25 10:00 10 ML Cefepime HCl 50 ml @ 12.5 mls/hr Q12H IV 12/28/24 14:00 01/05/25 14:06 12.5 MLS/HR Saccharomyces Boulardii 250 mg DAILY PO 12/29/24 10:00 12/29/24 07:44 250 MG Potassium Chloride 50 ml @ 25 mls/hr DAILY IV 01/02/25 10:00 01/05/25 08:40 25 MLS/HR Furosemide 20 mg BIDD IV 01/02/25 18:00 01/04/25 18:18 20 MG Fat Emulsion Intravenous 200 ml/Sodium Chloride 20 meq/ Potassium Acetate 20 meq/Potassium Phosphate 44 meq/ Calcium Gluconate 2.3 meq/Magnesium Sulfate 8 meq/ Multivitamins 10 ml/Chromium/ Copper/Manganese/ Zinc 1 ml/Amino Acids/Dextrose/ Purified Water 1,542.9462 ml @ 64 mls/hr Q24H7M IV 01/04/25 22:00 01/05/25 21:59 01/04/25 22:11 64 MLS/HR Fat Emulsion Intravenous 200 ml/Sodium Chloride 10 meq/ Sodium Acetate 20 meq/Potassium Acetate 25 meq/ Potassium Phosphate 50 meq/ Magnesium Sulfate 8 meq/ Multivitamins 10 ml/Chromium/ Copper/Manganese/ Zinc 1 ml/Amino Acids/Dextrose/ Purified Water 1,549.3636 ml @ 64 mls/hr [id number] IV 01/05/25 22:00 01/06/25 21:59 objective Abdomen soft nontender no masses G-tube site looks healthy laboratory and microbiology Laboratory Tests 01/05/25 06:18 01/04/25 06:19 Test 01/05/25 06:18 Range/Units Serum Glucose 124 H 74-106 mg/dL Assessment/Plan 79-year-old male with a history of cachexia malnutrition feeding from has got his CVA hypertension C or coronary artery disease and AR and pacemaker presented for with weakness tiredness now and the GI consult is for PEG tube placement Examination showed marked wasting otherwise unremarkable abdomen is soft nontender no masses 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 Salazar Dietary Evaluation Review Comments: 1. If GI is accessible, consider glucerna 1.2 @ 50ml/hr to provide 1440kcal, 72g pro, 966 ml FW to meet 100% of needs. 2. Consider advance to CCHO 60g diet when appropriate 3. Consider TPN if NPO> 7 days Expected Outcomes/Goals: 1. Pt will meet >75% of estimated needs within 2-3 days Plan discussed with: Patient CC Plasma Assessment Blood Product Administration S: [id number] SANDRA SALAZAR MD Jan 05, 2025 15:57
[2025-01-05] MEDS ORDERED: Jevity 1.2 Cal/Fiber 1 Liter GT SCH (17:00)
[2025-01-05] MEDS: TPN PER PHARMACY IV NR (21:50)
[2025-01-06] VITALS (23 sets, daily range): BP systolic 109–128; BP diastolic 58–76; PULSE 50–79; RESP 14–18; TEMP 96.9–98.5; O2SAT 93–100
[2025-01-06 06:24] LABS: Basophils # (auto) 0.1 10 ^3/uL (0-0.2); Basophils % (auto) 2.1 % (0.0-2.0); Eosinophils # (auto) 0.1 10 ^3/uL (0-0.8); Eosinophils % (auto) 2.2 % (0.0-7.0); Hematocrit 32.9 % (41.0-53.0); Hemoglobin 10.7 g/dL (13.5-17.5); Lymphocytes # (auto) 0.6 10 ^3/uL (0.4-5.4); Lymphocytes % (auto) 10.3 % (10.0-50.0); Mean Corpuscular Hemoglobin 27.5 pg (28.0-32.0); Mean Corpuscular Hgb Conc. 32.4 g/dL (32.0-36.0); Monocytes # (auto) 0.7 10 ^3/uL (0-1.3); Monocytes % (auto) 11.7 % (0.0-12.0); Neutrophils # (auto) 4.4 10 ^3/uL (1.6-8.6); Neutrophils % (auto) 73.7 % (37.0-80.0); Nucleated Red Blood Cells % 0.4 %; Platelet Count (auto) 283 10^3/uL (140-450); Red Blood Cells 3.87 10^6/uL (4.5-5.90); Red Cell Distribution Width 39.2 % (11.8-14.3)
[2025-01-06] MEDS: METOCLOPRAMIDE HCL 5MG/ml INJ 2ml VIAL IV ONE (08:29)
[2025-01-06 08:34] LABS: Platelet Estimate Adequate
[2025-01-06 08:35] LABS: Anisocytosis Marked; Ovalocytes MODERATE
--- NOTE | 2025-01-06 10:37 | DVHPN2 ---
Progress Note Date Seen: Jan 06, 2025 Resident Creating Document: HUI [facility]ITAL RESIDENT Medical Necessity Reason Pt with a Central, PICC or Fol: Yes The following are medically ne: PICC Line, Barron Catheter (RN,) Reason for barron catheter: Strict I&O Subjective Review of Systems Patient seen and examined at bedside Patient AO x1 Rectal tube in place with a proximally 100 mL of watery output Peg tube in place, we will start tube feedings Objective vital signs Vital Sign Date Time Temp Pulse Resp B/P (MAP) Pulse Ox O2 Delivery O2 Flow Rate FiO2 01/06/25 10:27 75 14 97 01/06/25 09:00 97.6 109/59 (76) 97.6 01/06/25 06:07 Nasal Cannula* 2 28 Total Intake and Output 01/05/25 01/05/25 01/06/25 15:00 23:00 07:00 Intake Total 100 ml 50 ml 0 ml Output Total 300 ml 350 ml Balance 100 ml -250 ml -350 ml medications Current Medications Medications Dose Ordered Sig/Roberto Route Start Time Stop Time Status Last Admin Dose Admin Nitroglycerin 0.4 mg Q5MINP PRN SL 12/12/24 00:30 Ceftriaxone Sodium 50 ml @ 100 mls/hr DAILY IV 12/12/24 10:00 UNV Acetaminophen 650 mg Q6HP PRN [place] 12/12/24 08:30 12/12/24 09:17 650 MG Pantoprazole Sodium 40 mg BID IV 12/14/24 08:46 01/06/25 10:18 40 MG Lactulose 30 ml Q6HPRN PRN PO 12/15/24 15:15 12/15/24 17:41 30 ML Ipratropium [place] 0.5 mg Q4HR NEB 12/18/24 22:00 01/06/25 10:27 0.5 MG Albuterol 2.5 mg Q4HR NEB 12/18/24 22:00 01/06/25 10:26 2.5 MG Amino Acids 0 ml @ 0 mls/hr PER PHARMACY IV 12/25/24 17:00 Diagnostic Test (Pha) 1 strip Q6HR 12/25/24 18:00 01/06/25 06:00 1 STRIP Insulin Human Regular FOLLOW SLIDING SCALE Q6HR SC 12/25/24 18:00 01/06/25 00:31 2 UNITS Dextrose 50 ml UD IV 12/25/24 18:00 Sodium Chloride 10 ml QSHIFT@10,22 IV 12/26/24 22:00 01/06/25 10:23 10 ML Cefepime HCl 50 ml @ 12.5 mls/hr Q12H IV 12/28/24 14:00 01/06/25 03:03 12.5 MLS/HR Saccharomyces Boulardii 250 mg DAILY PO 12/29/24 10:00 01/06/25 10:17 250 MG Potassium Chloride 50 ml @ 25 mls/hr DAILY IV 01/02/25 10:00 01/05/25 08:40 25 MLS/HR Furosemide 20 mg BIDD IV 01/02/25 18:00 01/06/25 06:25 20 MG Fat Emulsion Intravenous 200 ml/Sodium Chloride 10 meq/ Sodium Acetate 20 meq/Potassium Acetate 25 meq/ Potassium Phosphate 50 meq/ Magnesium Sulfate 8 meq/ Multivitamins 10 ml/Chromium/ Copper/Manganese/ Zinc 1 ml/Amino Acids/Dextrose/ Purified Water 1,549.3636 ml @ 64 mls/hr [id number] IV 01/05/25 22:00 01/06/25 21:59 Enteral Nutritional Formula 1,000 ml 30ML/HR GT 01/05/25 17:00 Enteral Nutritional Formula 240 ml Q6HR PO 01/07/25 06:00 UNV Examination General Appearance: on room air, AAOX1-2. able to follow commands. Pulmonary/Respiratory: Chest non-tender. Bilateral Lung crackles+ Cardiovascular/Chest: Regular rate and paced rhythm. No murmurs. No JVD. Peripheral Pulses: 2+ Radial (R). 2+ Radial(L). 2+ Pedal (R). 2+ Pedal (L) Abdominal Exam: Soft. Nontender. No hepatospenomegaly. No masses Ankle Exam: 2+ ankle edema extremities: Left upper arm contracted with edematous changes, 1+ lower extremity edema, left above knee amputation Neuro/Mental Status: Alert laboratory and microbiology Laboratory Tests 01/06/25 04:24 Test 01/06/25 09:34 Range/Units Serum Glucose Pending Microbiology Date/Time Source Procedure Growth Status 01/01/25 10:11 Blood Blood Culture - Preliminary NO GROWTH AFTER 72 HOURS OF INCUBATION. 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 There was no GI bleeding and H&H is stable Coags within normal limits Plan discussed with Dr. Gregory Plan discussed with: Patient, Other (RN) Dietary Evaluation Review Comments: 1. If GI is accessible, consider glucerna 1.2 @ 50ml/hr to provide 1440kcal, 72g pro, 966 ml FW to meet 100% of needs. 2. Consider advance to CCHO 60g diet when appropriate 3. Consider TPN if NPO> 7 days Expected Outcomes/Goals: 1. Pt will meet >75% of estimated needs within 2-3 days CC Plasma Assessment Blood Product Administration S: [id number] HUI VITAL RESIDENT Jan 06, 2025 10:37
[2025-01-06 10:51] LABS: Alanine Aminotransferase 21 U/L (7-40); Anion Gap 9 (5-15); BUN/Creatinine Ratio 75.6 (10.0-20.0); Carbon Dioxide 25 mmol/L (20-31); Glucose 90 mg/dL (74-106); Sodium 142 mmol/L (136-145)
[2025-01-06 10:52] LABS: Aspartate Aminotransferase 18 U/L (13-40); Magnesium 2.3 mg/dL (1.6-2.6); Total Protein 5.8 g/dL (5.7-8.2)
[2025-01-06 10:53] LABS: Albumin 3.3 g/dL (3.2-4.8); Alkaline Phosphatase 116 U/L (46-116); Bilirubin, Total 0.7 mg/dL (0.2-1.0); Blood Urea Nitrogen 34 mg/dL (9-23); Chloride 108 mmol/L (98-107); Potassium 3.5 mmol/L (3.5-5.1)
[2025-01-06] MEDS: ENSURE CLEAR Apple 8oz Carton PO SCH (12:00)
--- NOTE | 2025-01-06 16:35 | DVHPNRES ---
Progress Note Date Seen: Jan 06, 2025 Resident Creating Document: YULI OROZCO RESIDENT Medical Necessity Reason Pt with a Central, PICC or Fol: Yes The following are medically ne: PICC Line, Barron Catheter (RN,) Reason for barron catheter: Strict I&O Subjective Review of Systems HPI-patient is 79 years old male with past medical history of severe stroke (encephalomalacia in right temporal, frontal, and parietal lobes) with significant neurologic sequelae possible vascular dementia, prior episodes of gastrointestinal bleeding, Coronary artery disease sp stents, hypertension, atrial fibrillation with rapid ventricular response, ventricular tachycardia, left above-knee amputation, chronic kidney stones, history of GI bleed, AICD , hypercoagulable state was brought in from [facility] due to chest pain and vomiting and altered mental status. On arrival patient was tachycardic, tachypneic with low borderline blood pressure on 3 L of oxygen for hypoxic respiratory failure. In the ED, a head CT demonstrated large encephalomalacia, no other acute abnormality, a CBC revealed a hemoglobin of 4.6, patient was ordered to packs of RBCs, patient was given IV fluids, she was placed on broad- spectrum antibiotics with meropenem [place]. [place] [address], bands 11%. Patient's lactic acid was shown to be 4.8 and increased to 7.8, he continued to receive IV fluids, he was larsen-cultured. Troponins were within normal limits x3, BNP was 304.A chest x-ray initially showed to be unremarkable, no significant effusion or signs of congestion. He has a left-sided AICD with intact leads. COVID 19 Positive. chest/abdomen/pelvis CT scan without contrast revealed: Moderate to large pericardial effusion measuring up to 2 cm in the left lateral pericardium, small right and left pleural effusions, [id number] right-sided hydroureteronephrosis with multiple stones in the right ureter measuring up to 8 mm. There are multiple stones within the urinary bladder measuring less than 1 cm. The bilateral kidneys demonstrate multiple nonobstructing stones measuring up to 2 cm. . An EKG revealed ventricular paced complexes, low voltage in V1, V2, V6.Echo showed mild pericardial effusion, EF 40%, septal hypokinesis. Right upper extremity Doppler on 12/14/2024 revealed thrombus in the cephalic vein of the forearm. Ultrasound of Abdomen on 12/17/2024 revealedCholelithiasis. Mildly nodular hepatic contours may represent early changes of cirrhosis. Trace abdominal ascites. Patient had 4 units of blood transfusion. Respiratory culture 12/14/2024 positive for Staphylococcus aureus. Wound culture 12/16/2024- positive for Proteus mirabilis, Enterococcus faecalis. Urine culture contaminated sample. On 03/23/2025 respiratory culture grew oropharyngeal carmelo. MRSA screening negative. Patient coded in the elevator on 12/14/2024. Again Patient coded on 11/16 around 2:37 am and patient was intubated. Patient was extubated on 12/23/2024 and transferred to [facility].. PICC line on right upper arm was placed on 12/26/24. Barron's Catheter in place 01/04/25 -patient was seen today for clinical evaluation. Labs and chart reviewed. Status post PEG tube placement today on 01/03/2025 Repeat blood culture on 01/01/25 negative for any growth I/O -Negative balance 500 last 24 hours Trend of leukocytosis with a normal limit for last couple of days, today 6.0 Hemoglobin was staying stable level today 10.7 Platelets trending up to 82>96>144>> 171> 283 Potassium is trending towards normal range 3.6> 2.9> 3.4> 3.2> 3.1> 3.4, today 3.5 Continue IV antibiotic pantoprazole change Lasix and potassium to tablet form Provider spoke to Iron, [phone] 10/29/1999, answered her question Plan is to discharge patient home tomorrow morning Heparin TPN, patient is scheduled to be on PEG tube feeding q.6h bolus Patient was seen by Gastroenterology, recommended-initiate tube feedings; bolus feeding 250ml q4hrs Objective vital signs Vital Sign Date Time Temp Pulse Resp B/P (MAP) Pulse Ox O2 Delivery O2 Flow Rate FiO2 01/06/25 14:37 73 16 100 01/06/25 12:45 97.6 110/62 (78) 97.6 01/06/25 06:07 Nasal Cannula* 2 28 Total Intake and Output 01/05/25 01/05/25 01/06/25 15:00 23:00 07:00 Intake Total 100 ml 50 ml 0 ml Output Total 300 ml 350 ml Balance 100 ml -250 ml -350 ml medications Current Medications Medications Dose Ordered Sig/Roberto Route Start Time Stop Time Status Last Admin Dose Admin Nitroglycerin 0.4 mg Q5MINP PRN SL 12/12/24 00:30 Ceftriaxone Sodium 50 ml @ 100 mls/hr DAILY IV 12/12/24 10:00 UNV Acetaminophen 650 mg Q6HP PRN NH 12/12/24 08:30 12/12/24 09:17 650 MG Lactulose 30 ml Q6HPRN PRN PO 12/15/24 15:15 12/15/24 17:41 30 ML Ipratropium [place] 0.5 mg Q4HR NEB 12/18/24 22:00 01/06/25 14:29 0.5 MG Albuterol 2.5 mg Q4HR NEB 12/18/24 22:00 01/06/25 14:29 2.5 MG Diagnostic Test (Pha) 1 strip Q6HR 12/25/24 18:00 01/06/25 12:41 1 STRIP Insulin Human Regular FOLLOW SLIDING SCALE Q6HR SC 12/25/24 18:00 01/06/25 00:31 2 UNITS Dextrose 50 ml UD IV 12/25/24 18:00 Sodium Chloride 10 ml QSHIFT@10,22 IV 12/26/24 22:00 01/06/25 10:23 10 ML Enteral Nutritional Formula 240 ml Q6HR PO 01/06/25 12:00 Furosemide 40 mg BIDD PO 01/06/25 18:00 UNV Potassium Bicarbonate 25 meq BID PO 01/06/25 22:00 UNV Examination General Appearance: on room air, AAOX1-2, 2. able to follow commands. Pulmonary/Respiratory: Chest non-tender. Bilateral Lung crackles+ Cardiovascular/Chest: Regular rate and paced rhythm. No murmurs. No JVD. Peripheral Pulses: 2+ Radial (R). 2+ Radial(L). 2+ Pedal (R). 2+ Pedal (L) Abdominal Exam: Soft. Nontender. No hepatospenomegaly. No masses Ankle Exam: 2+ ankle edema extremities: Left upper arm contracted with edematous changes, 1+ lower extremity edema, left above knee amputation, redness biliary stamp of the left above-knee amputation Neuro/Mental Status: Alert, responds by yes on laboratory and microbiology Laboratory Tests 01/06/25 09:34 01/06/25 04:24 Test 01/06/25 09:34 Range/Units Serum Glucose 90 74-106 mg/dL Microbiology Date/Time Source Procedure Growth Status 01/01/25 10:11 Blood Blood Culture - Final NO GROWTH AFTER 5 DAYS OF INCUBATION. Complete 12/21/24 03:26 Trachea Gram Stain - Final Resulted 12/21/24 03:26 Trachea Respiratory Culture - Preliminary Resulted 12/17/24 20:00 Urine - Barron Port Urine Culture - Final Complete 12/14/24 01:10 Sputum Gram Stain - Final Complete 12/14/24 01:10 Respiratory Culture - Final Staphylococcus aureus Complete 12/12/24 00:41 Stool Stool Culture - Final Complete 12/12/24 00:41 Stool Shiga Toxin I & II - Final Complete Problem List/Assessment/Plan Problem List/Assessment/Plan Assessment and plan Neurology #Acute metabolic encephalopathy due to sepsis s/p cardiac arrest # history of recurrent stroke #Vascular dementia #Large area of encephalomalacia involving the right temporal frontal and parietal lobes may represent old infarct - Alert and oriented X1 - Status post extubation -continue monitoring clinically -avoid dehydration Cardiology: # acute systolic/diastolic heart failure, LVEF 40% #Septic shock #Moderate to severe pericardial effusion #atrial fibrillation #coronary disease s/p stent #H/o ventricular arrhythmia s/p ICD placement - continue Lasix 40 mg via PEG tube. b.i.d. Respiratory #acute hypoxic respiratory failure s/p mechanical ventilation #Moderate pleural effusions # covid 19 infection,resolved # Sepsis due to Community acquired pneumonia due to staph aureus infection/ filamentus fungi - continue Lasix 40 mg via PEG tube. b.i.d. - I&O - Albuterol 5 q.4 - Ipratropium 0.5 q.4 Gastrointestinal #r/o GI bleeding #History of colonic polyps #Cholelithiasis. #Mildly nodular hepatic contours may represent early changes of cirrhosis. #trace ascitis -plan is to do another swallow evaluation - continue on titration down of TPN, plan is to discontinue it - continue feeding with PEG tube as bolus as recommended Genitourinary/Renal #Ydpo-ge-trnerxwy right-sided hydroureteronephrosis with multiple stones in the right ureter measuring up to 8 mm. #Lactic acidosis #There are multiple stones within the urinary bladder measuring less than 1 cm. #The bilateral kidneys demonstrate multiple nonobstructing stones measuring up to 2 cm. #hypokalemia, replenished #hypophosphatemia -continue positive supplement via PEG tube as prescribed - Barron catheter - strict I&O - monitor electrolytes Infectious disease #Septic shock likely due to aspiration pneumonia #skin infection positive proteus mirabilis and E.Faecalis #covid 19 infection, resolved #fungal infection,growing yeast -monitor clinically Endocrine Heme/onc #Severe microcytic hypochromic anemia #Iron deficiency anemia #moderate thrombocytopenia -CBC BMP -no spontaneous bleeding at this time but closely monitoring based on high-risk of bleeding. -continue medications at this time, if platelets keeps trending down consider discontinue some of them. Prophylaxis: SCD Barron's catheter in place Right upper arm PICC line present-12/26/2024 Patient on BiPAP tonight Goals of care/advance care planning Code status ; full code, PUD prophylaxis:- DVT prophylaxis: SCD Plan discussed with Dr. Villasenor, nursing staff, Iron Critical care Total time spent on patient evaluation, chart review, assessment and plan, advance paln of [place] time spent 36 minutes Plan discussed with: Other (iron, RN) My Orders My Orders Orders - YULI OROZCO RESIDENT Procedure Category Date Status Time Nursing Protocol For [facility] 01/06/25 In Process TPN 14:13 Dietary Evaluation Review Comments: 1. If GI is accessible, consider glucerna 1.2 @ 50ml/hr to provide 1440kcal, 72g pro, 966 ml FW to meet 100% of needs. 2. Consider advance to CCHO 60g diet when appropriate 3. Consider TPN if NPO> 7 days Expected Outcomes/Goals: 1. Pt will meet >75% of estimated needs within 2-3 days CC Plasma Assessment Blood Product Administration S: [id number] Date of Service: Jan 06, 2025 Billing Provider: DARYA VILLASENOR MD Common Visit Codes: [id number] CARE 30-74 MIN YULI OROZCO RESIDENT Jan 06, 2025 16:35 DARYA VILLASENOR MD Jan 07, 2025 15:19
[2025-01-06] MEDS: FUROSEMIDE 40 MG TAB PO SCH (17:21)
[2025-01-06] MEDS: POTASSIUM EFFERVESENT TAB 25 MEQ PO SCH (21:24)
[2025-01-06] MEDS ORDERED: TPN PER PHARMACY IV NR (22:00)
[2025-01-07] VITALS (15 sets, daily range): BP systolic 118–135; BP diastolic 56–66; PULSE 47–81; RESP 15–18; TEMP 97.5–97.8; O2SAT 94–100
[2025-01-07] MEDS ORDERED: ENSURE CLEAR Apple 8oz Carton PO SCH (06:00)
[2025-01-07 06:09] LABS: Basophils # (auto) 0.1 10 ^3/uL (0-0.2); Basophils % (auto) 1.1 % (0.0-2.0); Eosinophils # (auto) 0.1 10 ^3/uL (0-0.8); Eosinophils % (auto) 2.1 % (0.0-7.0); Hematocrit 31.6 % (41.0-53.0); Hemoglobin 10.4 g/dL (13.5-17.5); Lymphocytes # (auto) 0.6 10 ^3/uL (0.4-5.4); Lymphocytes % (auto) 10.9 % (10.0-50.0); Mean Corpuscular Hemoglobin 28.3 pg (28.0-32.0); Mean Corpuscular Volume 85.9 fL (80.0-100.0); Monocytes # (auto) 0.6 10 ^3/uL (0-1.3); Monocytes % (auto) 11.2 % (0.0-12.0); Neutrophils # (auto) 4.1 10 ^3/uL (1.6-8.6); Neutrophils % (auto) 74.7 % (37.0-80.0); Platelet Count (auto) 387 10^3/uL (140-450); Red Blood Cells 3.67 10^6/uL (4.5-5.90); White Blood Cell 5.5 10^3/uL (4.4-10.8)
[2025-01-07 06:24] LABS: Alanine Aminotransferase 20 U/L (7-40); Albumin 3.2 g/dL (3.2-4.8); Anion Gap 7 (5-15); Aspartate Aminotransferase 16 U/L (13-40); BUN/Creatinine Ratio 57.7 (10.0-20.0); Calcium 8.9 mg/dL (8.7-10.4); Carbon Dioxide 26 mmol/L (20-31); Magnesium 2.1 mg/dL (1.6-2.6); Potassium 3.9 mmol/L (3.5-5.1); Sodium 140 mmol/L (136-145)
[2025-01-07 06:25] LABS: Bilirubin, Total 0.6 mg/dL (0.2-1.0); Phosphorus 2.7 mg/dL (2.4-5.1)
[2025-01-07 06:33] LABS: Alkaline Phosphatase 117 U/L (46-116); Blood Urea Nitrogen 30 mg/dL (9-23); Chloride 107 mmol/L (98-107); Glucose 137 mg/dL (74-106); Total Protein 5.6 g/dL (5.7-8.2)
[2025-01-07 06:54] LABS: Anisocytosis Moderate
[2025-01-07 06:55] LABS: Ovalocytes FEW; Platelet Estimate Adequate
[2025-01-07] MEDS: Ensure Enlive Strawberry 8oz Bottle PO SCH (12:00)
--- NOTE | 2025-01-07 15:08 | DVHPN2 ---
Progress Note Date Seen: Jan 07, 2025 Resident Creating Document: HUI VITAL RESIDENT Medical Necessity Reason Pt with a Central, PICC or Fol: Yes The following are medically ne: PICC Line, Barron Catheter (RN,) Reason for barron catheter: Strict I&O Subjective Review of Systems Patient seen and examined at bedside Patient AO x1 Rectal tube in place with a proximally 100 mL of watery output Peg tube in place, we will start tube feedings Objective vital signs Vital Sign Date Time Temp Pulse Resp B/P (MAP) Pulse Ox O2 Delivery O2 Flow Rate FiO2 01/07/25 13:39 81 16 99 01/07/25 13:33 Nasal Cannula* 2 28 01/07/25 09:00 97.8 118/61 (80) 97.8 Total Intake and Output 01/06/25 01/06/25 01/07/25 15:00 23:00 07:00 Intake Total 100 ml 900 ml 0 ml Output Total 300 ml Balance 100 ml 600 ml 0 ml medications Current Medications Medications Dose Ordered Sig/Roberto Route Start Time Stop Time Status Last Admin Dose Admin Nitroglycerin 0.4 mg Q5MINP PRN SL 12/12/24 00:30 Ceftriaxone Sodium 50 ml @ 100 mls/hr DAILY IV 12/12/24 10:00 UNV Acetaminophen 650 mg Q6HP PRN [place] 12/12/24 08:30 12/12/24 09:17 650 MG Lactulose 30 ml Q6HPRN PRN PO 12/15/24 15:15 12/15/24 17:41 30 ML Ipratropium [place] 0.5 mg Q4HR NEB 12/18/24 22:00 01/07/25 13:33 0.5 MG Albuterol 2.5 mg Q4HR NEB 12/18/24 22:00 01/07/25 13:33 2.5 MG Sodium Chloride 10 ml QSHIFT@10,22 IV 12/26/24 22:00 01/07/25 08:06 10 ML Fat Emulsion Intravenous 200 ml/Sodium Acetate 20 meq/Potassium Acetate 30 meq/ Potassium Phosphate 22 meq/ Magnesium Sulfate 6 meq/ Multivitamins 10 ml/Chromium/ Copper/Manganese/ Zinc 1 ml/Amino Acids/Dextrose/ Purified Water 1,592.5 ml @ 66 mls/hr Q24H8M IV 01/06/25 22:00 01/06/25 22:00 Cancel Furosemide 40 mg BIDD PO 01/06/25 18:00 01/07/25 06:35 40 MG Potassium Bicarbonate 25 meq BID PO 01/06/25 22:00 01/07/25 08:06 25 MEQ Enteral Nutritional Formula 240 ml Q6HR PO 01/07/25 12:00 Examination General Appearance: on room air, AAOX1-2. able to follow commands. Pulmonary/Respiratory: Chest non-tender. Bilateral Lung crackles+ Cardiovascular/Chest: Regular rate and paced rhythm. No murmurs. No JVD. Peripheral Pulses: 2+ Radial (R). 2+ Radial(L). 2+ Pedal (R). 2+ Pedal (L) Abdominal Exam: Soft. Nontender. No hepatospenomegaly. No masses Ankle Exam: 2+ ankle edema extremities: Left upper arm contracted with edematous changes, 1+ lower extremity edema, left above knee amputation Neuro/Mental Status: Alert laboratory and microbiology Laboratory Tests 01/07/25 05:40 Test 01/07/25 05:40 Range/Units Serum Glucose 137 H 74-106 mg/dL Microbiology Date/Time Source Procedure Growth Status 01/01/25 10:11 Blood Blood Culture - Final NO GROWTH AFTER 5 DAYS OF INCUBATION. Complete 12/21/24 03:26 Trachea Gram Stain - Final Resulted 12/21/24 03:26 Trachea Respiratory Culture - Preliminary Resulted 12/17/24 20:00 Urine - Barron Port Urine Culture - Final Complete 12/14/24 01:10 Sputum Gram Stain - Final Complete 12/14/24 01:10 Respiratory Culture - Final Staphylococcus aureus Complete 12/12/24 00:41 Stool Stool Culture - Final Complete 12/12/24 00:41 Stool Shiga Toxin I & II - Final Complete Problem List/Assessment/Plan Problem List/Assessment/Plan Chronic anemia due to blood loss Ventricular tachycardia Atrial fibrillation Constipation Lactic acidosis Altered level of consciousness Leukocytosis Malnutrition Plan s/p PEG tube placement initiate tube feedings; bolus feeding 250ml q4hrs Continuing rectal tube due to multiple excoriations in the perineum and patient continuing to have diarrhea, however, consider removing rectal tube to allow passage of formed stool. There was no GI bleeding and H&H is stable Coags within normal limits Possible discharge today Plan discussed with Dr. Gregory Plan discussed with: Patient, Other (RN) Dietary Evaluation Review Comments: 1. If GI is accessible, consider glucerna 1.2 @ 50ml/hr to provide 1440kcal, 72g pro, 966 ml FW to meet 100% of needs. 2. Consider advance to CCHO 60g diet when appropriate 3. Consider TPN if NPO> 7 days Expected Outcomes/Goals: 1. Pt will meet >75% of estimated needs within 2-3 days CC Plasma Assessment Blood Product Administration S: [id number] HUI VITAL RESIDENT Jan 07, 2025 15:08
[2025-01-07] MEDS ORDERED: METO25TA5 PO (16:12)
[2025-01-07] MEDS ORDERED: FURO1TAB31 PO (16:12)
[2025-01-07] MEDS ORDERED: DIGO0.12 PO (16:12)
[2025-01-07] MEDS ORDERED: POTA-220 PO (16:12)
[2025-01-07] MEDS ORDERED: LISI20TA56 PO (16:12)
[2025-01-07] MEDS ORDERED: NUTR-1275 OR (16:18)
--- NOTE | 2025-01-07 16:27 | DVHDSRES ---
Discharge Summary Date of Admission Resident Creating Document: YULI OROZCO RESIDENT Dec 12, 2024 at 00:16 Date of Discharge: Jan 07, 2025 Admitting Diagnosis Sepsis, severe anemia, status post cardiac arrest Labs/Diagnostic Data: Laboratory Results Test 01/07/25 05:40 01/06/25 17:17 01/03/25 05:59 01/02/25 04:48 White Blood Count 5.5 10^3/uL (4.4-10.8) Red Blood Count 3.67 10^6/uL (4.5-5.90) Hemoglobin 10.4 g/dL (13.5-17.5) Hematocrit 31.6 % (41.0-53.0) Mean Corpuscular Volume 85.9 fL (80.0-100.0) Mean Corpuscular Hemoglobin 28.3 pg (28.0-32.0) Mean Corpuscular Hemoglobin Concent 33.0 g/dL (32.0-36.0) Red Cell Distribution Width 39.0 % (11.8-14.3) Platelet Count 387 10^3/uL (140-450) Mean Platelet Volume 8.8 fL (6.9-10.8) Neutrophils (%) (Auto) 74.7 % (37.0-80.0) Lymphocytes (%) (Auto) 10.9 % (10.0-50.0) Monocytes (%) (Auto) 11.2 % (0.0-12.0) Eosinophils (%) (Auto) 2.1 % (0.0-7.0) Basophils (%) (Auto) 1.1 % (0.0-2.0) Neutrophils # (Auto) 4.1 10 ^3/uL (1.6-8.6) Lymphocytes # (Auto) 0.6 10 ^3/uL (0.4-5.4) Monocytes # (Auto) 0.6 10 ^3/uL (0-1.3) Eosinophils # (Auto) 0.1 10 ^3/uL (0-0.8) Basophils # (Auto) 0.1 10 ^3/uL (0-0.2) Nucleated Red Blood Cells 0.0 % Platelet Estimate Adequate Anisocytosis (manual) Moderate Ovalocytes Few Schistocytes Few Sodium Level 140 mmol/L (136-145) Potassium Level 3.9 mmol/L (3.5-5.1) Chloride Level 107 mmol/L (98-107) Carbon Dioxide Level 26 mmol/L (20-31) Anion Gap 7 (5-15) Blood Urea Nitrogen 30 mg/dL (9-23) Creatinine 0.52 mg/dL (0.700-1.30) Glomerular Filtration Rate Calc 103 mL/min (>90) BUN/Creatinine Ratio 57.7 (10.0-20.0) Serum Glucose 137 mg/dL (74-106) Calcium Level 8.9 mg/dL (8.7-10.4) Phosphorus Level 2.7 mg/dL (2.4-5.1) Magnesium Level 2.1 mg/dL (1.6-2.6) Total Bilirubin 0.6 mg/dL (0.2-1.0) Aspartate Amino Transferase (AST) 16 U/L (13-40) Alanine Aminotransferase (ALT) 20 U/L (7-40) Alkaline Phosphatase 117 U/L (46-116) Total Protein 5.6 g/dL (5.7-8.2) Albumin 3.2 g/dL (3.2-4.8) POC Glucose 89 mg/dl (70-106) Tear Drop Cells Few Estimated GFR () 240 mL/min Estimated GFR (Non- 198 mL/min Triglycerides Level 87 mg/dL (< 150) Hypochromasia (manual) Slight Test 01/01/25 04:47 12/31/24 06:45 12/30/24 10:13 12/30/24 07:35 Prothrombin Time 11.3 sec (9.3-11.8) Prothrombin Time INR 1.07 (0.9-1.15) Activated Partial Thromboplast Time 36.7 SEC (24.5-34.5) Direct Bilirubin 0.4 mg/dL (<0.3) Microcytosis Slight Target Cells Few Blood Gas Specimen Type Arterial Blood Gas Sample Site Right radial Blood Gas Patient Temperature 37.0 Arterial Blood Date Drawn [id number] Arterial Blood pH 7.537 (7.350-7.450) Arterial Blood Partial Pressure CO2 31.1 mmHg (35.0-48.0) Arterial Blood Partial Pressure O2 448.0 mmHg (83.0-108.0) Arterial Blood HCO3 25.8 mmol/L (21.0-28.0) Arterial Blood Oxygen Saturation 99.6 % (94.0-98.0) Arterial Blood Base Excess 3.4 mmol/L (-2.0-3.0) Arterial Blood Oxyhemoglobin 99.0 % (94.0-98.0) Arterial Blood Carboxyhemoglobin 0.3 % (0.5-1.5) Arterial Blood Methemoglobin 0.3 % (0.0-1.5) David Test Yes Blood Gas Total Hemoglobin 9.60 g/dL (13.5-17.5) Blood Gas Set Respiration Rate 14.0 Blood Gas Modality Mask - bipap FiO2 % 100.0 Blood Gas EPAP 5 Blood Gas IPAP 12 Blood Gas Critical Value Read Back Yes Blood Gas Notified Whom Elizabeth orozco md Blood Gas Notified Time [id number] Blood Gas Notified By Ngoc saha Blood Gas Liter Flow 15.00 Test 12/30/24 05:19 12/28/24 05:06 12/26/24 03:30 12/24/24 03:00 Large Platelets Few Poikilocytosis (manual) Slight Diane Cells Few Giant Platelets Few Stomatocytes Few Random Vancomycin Level 20.2 ug/mL (5-10) Test 12/23/24 13:46 12/23/24 12:30 12/23/24 07:52 12/21/24 07:09 Blood Gas Pressure Support 8 Blood Gas PEEP or CPAP 5.0 Vancomycin Level Trough 27.4 ug/mL (5-10) Blood Gas Tidal Volume 450.0 Blood Gas Spontaneous Rate 18 Specimen Drawn By Gerry [facility] Test 12/21/24 05:20 12/20/24 05:24 12/18/24 16:32 12/18/24 05:44 Miscellaneous Referred Test (Rm Tmp Sent to [facility] Differential Total Cells Counted 100.0 (100) Neutrophils % (Manual) 92 (37.0-80.0) Band Neutrophils % (Manual) 1 Lymphocytes % (Manual) 3 (10.0-50.0) Monocytes % (Manual) 4 (0-12) Eosinophils % (Manual) 0 (0-7) Basophils % (Manual) 0 (0.0-2.0) Metamyelocytes % (manual) 0 Myelocytes % (Manual) 0 Promyelocytes % (Manual) 0 Blast Cells % (Manual) 0 Reactive Lymphocytes 0 SARS-CoV-2 Antigen (Rapid) Negative (NEGATIVE) Hepatitis A Antibody Total Positive (Negative) Hepatitis B Surface Antigen Negative (Negative) Hepatitis B Surface Antibody Negative (Negative) Hepatitis B Core Total Antibody Negative (Negative) Hepatitis C Antibody Negative (Negative) Test 12/14/24 14:22 12/14/24 03:26 12/13/24 03:56 12/12/24 13:28 Lactic Acid Level 2.3 mmol/L (0.4-2.0) Stool Occult Blood (Negative) Stool Occult Blood Sample #3 (Negative) Hemoglobin A1c 5.0 % A1C (<5.7) Cholesterol Level 66 mg/dL (< 200) LDL Cholesterol 25 mg/dL (< 100) HDL Cholesterol 21 mg/dL (40-59) Vitamin B12 Level 331 pg/mL (211-911) Vitamin D 25-Hydroxy 7.2 ng/mL (30.0-100) Haptoglobin 139 mg/dL (34-355) Test 12/12/24 10:21 12/12/24 07:47 12/12/24 07:45 12/12/24 02:20 Digoxin Level < 0.14 ng/mL (0.8-2) Urine Color Dark-brown (Yellow) Urine Clarity Ex.turbid (Clear) Urine pH 7.0 (5.0-9.0) Urine Specific [place] 1.022 (1.001-1.035) Urine Protein 3+ (Negative) Urine Ketones Trace (Negative) Urine Blood 2+ /uL (Negative) Urine Nitrite 2+ (Negative) Urine Bilirubin Negative (Negative) Urine Urobilinogen Normal mg/dL (Negative) Urine Leukocyte Esterase 3+ /uL (Negative) Urine Glucose Normal mg/dL (Normal) Influenza Type A Antigen Negative (Negative) Influenza Type B Antigen Negative (Negative) Urine RBC 19 /hpf (0 - 3) Urine Microscopic WBC 50 /HPF (0-3) Urine Squamous Epithelial Cells Few /hpf (<5) Urine Calcium Oxalate Crystals Few (None Seen) Urine Bacteria Few /hpf (None Seen) Test 12/12/24 01:30 12/11/24 23:07 12/11/24 22:10 12/11/24 22:08 Erythrocyte Sedimentation Rate 25 mm/hr (0-20) Troponin I High Sensitivity 6 ng/L (</=54) Thyroid Stimulating Hormone (TSH) 3.98 uIU/mL (0.55-4.78) Iron Level 11 ug/dL (65-175) Total Iron Binding Capacity 323 ug/dL (250-425) Percent Iron Saturation 3.4 % (20-55) Ferritin 6.1 ng/mL (22-322) C-Reactive Protein High Sensitivity 1.32 mg/dL (<1.0) B-Type Natriuretic Peptide 304.72 pg/mL (0-100) Lipase 22 U/L (12-53) Ammonia < 10 umol/L (11-32) Other Laboratory Tests 01/07/25 05:40 Brief Hx & Hospital Course: HPI-patient is 79 years old male with past medical history of severe stroke (encephalomalacia in right temporal, frontal, and parietal lobes) with significant neurologic sequelae possible vascular dementia, prior episodes of gastrointestinal bleeding, Coronary artery disease sp stents, hypertension, atrial fibrillation with rapid ventricular response, ventricular tachycardia, left above-knee amputation, chronic kidney stones, history of GI bleed, AICD , hypercoagulable state was brought in from [facility] due to chest pain and vomiting and altered mental status. On arrival patient was tachycardic, tachypneic with low borderline blood pressure on 3 L of oxygen for hypoxic respiratory failure. In the ED, a head CT demonstrated large encephalomalacia, no other acute abnormality, a CBC revealed a hemoglobin of 4.6, patient was ordered to packs of RBCs, patient was given IV fluids, she was placed on broad- spectrum antibiotics with meropenem [place]. [place] [address], bands 11%. Patient's lactic acid was shown to be 4.8 and increased to 7.8, he continued to receive IV fluids, he was larsen-cultured. Troponins were within normal limits x3, BNP was 304.A chest x-ray initially showed to be unremarkable, no significant effusion or signs of congestion. He has a left-sided AICD with intact leads. COVID 19 Positive. chest/abdomen/pelvis CT scan without contrast revealed: Moderate to large pericardial effusion measuring up to 2 cm in the left lateral pericardium, small right and left pleural effusions, Nusk-fd-xxiygakb right-sided hydroureteronephrosis with multiple stones in the right ureter measuring up to 8 mm. There are multiple stones within the urinary bladder measuring less than 1 cm. The bilateral kidneys demonstrate multiple nonobstructing stones measuring up to 2 cm. . An EKG revealed ventricular paced complexes, low voltage in V1, V2, V6.Echo showed mild pericardial effusion, EF 40%, septal hypokinesis. Right upper extremity Doppler on 12/14/2024 revealed thrombus in the cephalic vein of the forearm. Ultrasound of Abdomen on 12/17/2024 revealedCholelithiasis. Mildly nodular hepatic contours may represent early changes of cirrhosis. Trace abdominal ascites. Patient had 4 units of blood transfusion. Respiratory culture 12/14/2024 positive for Staphylococcus aureus. Wound culture 12/16/2024- positive for Proteus mirabilis, Enterococcus faecalis. Urine culture contaminated sample. On 03/23/2025 respiratory culture grew oropharyngeal carmelo. MRSA screening negative. Patient coded in the elevator on 12/14/2024. Again Patient coded on 11/16 around 2:37 am and patient was intubated. Patient was extubated on 12/23/2024. Patient Had recurrent failed swallow eval. Patient was put on PEG tube placed on 01/03/2025. Patient's heart failure improved with the treatment of Lasix 40 mg b.i.d.. Plan is to keep patient on 40 Lasix b.i.d.. Patient is being discharged home with home health for PEG tube feeding. Patient had suspected GI bleeding, the was not restarted to avoid recurrent massive bleeding Patient is being discharged with Lasix 40 mg b.i.d., potassium chloride 20 mEq 20 b.i.d., lisinopril 2.5 mg q.d., atorvastatin 40 mg q.h.s., digoxin 0.125 mg q.d., metoprolol 25 mg b.i.d., ensure via PEG tube 240 mL q.6h. Patient's meds were sent to the pharmacy electronically. Patient and POA was advised to follow up with the primary care physician in 1 week, follow up with the ethylbenzene converter operator in 1- 2 weeks follow up with the home therapy clinician in 2-3 weeks.. Patient was hemodynamically stable on discharge. Time spent in discharge planning was 42 mins Operations or Procedures [address] [address] Ph: [phone] DIAGNOSTIC IMAGING Diagnostic Imaging Report : [id number] Signed PATIENT: ADI LUX ACCT: [id number] UNIT: [id number] : 1945 LOC: OVERFLOW ROOM / BED: 1030-[facility] / A AGE / SEX: 79 / M ADM STATUS: ADM IN SERVICE 0025 ORDERING PHYSICIAN: TRANG FULLER PROCEDURE(s): ECIDC - ECHO 2D MODE CARDIAC DOP REASON: RULE OUT CHF ORDER NUMBER(s): [id number], ACCESSION NUMBER(s): [id number] APPROVED REPORT EXAM: Two-dimensional and M-mode echocardiogram with Doppler and color Doppler. Blood Pressure: 148/53 mmHg INDICATION Heart Failure RISK FACTORS Height: 5'10", Weight: 132 DIMENSIONS LVDd 4.5 (3.8-5.7cm) LA (2D) 5.5 (1.9-4.0cm) Aortic Root 3.8 (2.0- 3.7cm) LVDs 3.1 (2.5-4.0cm) LA (MM) (1.9-4.0cm) Aortic Cusp Exc 1.6 (1.5- 2.0cm) EF (%) 58.0 (55-70%) Rt. Atrium 5.9 (1.9-4.0cm) Asc. Aorta cm IVSd 1.2 (0.7-1.1cm) RV (D) (1.8-2.4cm) Mitral Valve Mitral Mitral Stenosis E wave 1.14m/s MV Mean GR. mmHg E/A ratio 0.0 2D MVA cm2 Aortic Valve Aortic Valve Aortic Stenosis LVOT Diameter 2.5 (1.8-2.4cm) Doppler MARISOL cm2 Tricuspid Valve TR Velocity 2.50m/s RVSP 28mmHg Other Information Quality : Technically Limited Rhythm : Technically limited study due to body habitus and pt moving. Conclusion lvef 40% septal is hypokinetic small posterior pericardial effusion noted, no complromise severe left atrium enlarged RV enlrged RA enlarged lead in RV valves not well seen SIGNED BY: ELIDA LANDERS MD SIGNED DATE/TIME: 12/12/24 0650 CC: [place] [address] Ph: [phone] DIAGNOSTIC IMAGING Diagnostic Imaging Report : [id number] Signed PATIENT: ADI LUX ACCT: [id number] UNIT: [id number] : 1945 LOC: ER ROOM / BED: / AGE / SEX: 79 / M ADM STATUS: REG ER SERVICE 47 ORDERING PHYSICIAN: KEN THURMAN PSYCHOLOGIST MILITARY PERSONNEL PROCEDURE(s): CXR1 - CHEST XRAY 1 VIEW REASON: aloc ORDER NUMBER(s): [id number], ACCESSION NUMBER(s): [id number] CHEST RADIOGRAPH Indication: aloc Technique: Single frontal view of the chest was obtained Comparison: None FINDINGS: Lines and Tubes: Left-sided cardiac device with intact leads. Lungs: Clear Pleura: No effusion. No pneumothorax. Cardiomediastinal contours: Unremarkable Bones: Unremarkable IMPRESSION: Clear lungs. ATED BY: OSEAS REAGAN DO DICTATED DATE/TIME: 12/11/242243 SIGNED BY: OSEAS REAGAN DO SIGNED DATE/TIME: 12/11/242243 CC: [place] [address] Ph: [phone] DIAGNOSTIC IMAGING Diagnostic Imaging Report : [id number] Signed PATIENT: ADI LUX ACCT: [id number] UNIT: [id number] : 1945 LOC: ER ROOM / BED: / AGE / SEX: 79 / M ADM STATUS: REG ER SERVICE 47 ORDERING PHYSICIAN: KEN THURMAN PSYCHOLOGIST MILITARY PERSONNEL PROCEDURE(s): HWOCT - HEAD WITHOUT CONTRAST REASON: aloc ORDER NUMBER(s): [id number], ACCESSION NUMBER(s): [id number] EXAM: CT HEAD WITHOUT CONTRAST INDICATION: aloc TECHNIQUE: CT of the head without intravenous contrast. Radiation Dose Information: CT Dose: CTDI volume is 21.65 mGy. Dose-length product is 3500 86.68 mGy*cm The dose indicators for CT are the volume Computed Tomography (CT) Dose Index (CTDIvol) and the Dose Length Product (DLP), and are measured in units of mGy and mGy-cm, respectively. These indicators are not patient dose, but values generated from the CT scanner acquisition factors. The report includes radiation exposure data for exposures received during this examination. COMPARISON: None [place] [address] Ph: [phone] DIAGNOSTIC IMAGING Diagnostic Imaging Report : [id number] Signed PATIENT: ADI LUX ACCT: [id number] UNIT: [id number] : 1945 LOC: BG IN ICU ROOM / BED: [facility] / A AGE / SEX: 79 / M ADM STATUS: ADM IN SERVICE 1710 ORDERING PHYSICIAN: DARYA VILLASENOR MD PROCEDURE(s): USGUIVASAC - US Guided Vascular Access REASON: picc placement ORDER NUMBER(s): [id number], ACCESSION NUMBER(s): [id number] Exam: US US GUIDED VASCULAR ACCESS Clinical History: picc placement Comparison: None Findings: Targeted sonographic evaluation of the upper arm veinwas obtained utilizing grayscale and color Doppler imaging. IMPRESSION: Sonographic assistance for central line placement. Please refer to procedural report for detailed findings. ATED BY: PASTOR CR MD DICTATED DATE/TIME: 12/28/24547 SIGNED BY: PASTOR CR MD SIGNED DATE/TIME: 12/28/24547 CC: [place] [address] Ph: [phone] DIAGNOSTIC IMAGING Diagnostic Imaging Report : [id number] Signed PATIENT: ADI LUX ACCT: [id number] UNIT: [id number] : 1945 [facility]GE / SEX: 79 / M ADM STATUS: ADM IN SERVICE 0739 ORDERING PHYSICIAN: YULI OROZCO PROCEDURE(s): CXRP - CHEST PORTABLE REASON: protocol ORDER NUMBER(s): [id number], ACCESSION NUMBER(s): [id number] CHEST RADIOGRAPH Indication: protocol Technique: Single frontal view of the chest was obtained COMPARISON: XY CHEST PORTABLE on DOS: 12/31/24, XY CHEST PORTABLE on DOS: 12/30/24, XY CHEST PORTABLE on DOS: 12/28/24, XY CHEST PORTABLE on DOS: 12/27/24, XY CHEST PORTABLE on DOS: 12/26/24 FINDINGS: Lines and Tubes: Left chest AICD. Right PICC in satisfactory position. Lungs: Right lower lobe airspace disease. Pleura: Small left pleural effusion. No pneumothorax. Cardiomediastinal contours: Unremarkable Bones: Unremarkable IMPRESSION: Increased right lower lobe airspace disease. ATED BY: PASTOR CR MD DICTATED DATE/TIME: 01/01/25900 SIGNED BY: PASTOR CR MD SIGNED DATE/TIME: 01/01/25900 CC: FINDINGS: Patient would not hold still and images are suboptimal. There is no evidence of acute intracranial hemorrhage, extra-axial collection, mass effect, midline shift, herniation or hydrocephalus. Large area of encephalomalacia involving the right frontal temporal lobe with no mass effect or midline shift findings suggest large area of ischemic infarct. This suggests an old infarct. There are no prior studies for comparison The ventricles, sulci and cisterns are age appropriate. The cuadra-white differentiation is intact. Patchy periventricular and subcortical white matter hypoattenuation is nonspecific but may be related to small vessel ischemic disease. The visualized paranasal sinuses and mastoid air cells are clear. The surrounding soft tissues and osseous structures are unremarkable. IMPRESSION: 1. Large area of encephalomalacia involving the right temporal frontal and parietal lobes may represent old infarct. 2. No prior studies for comparison. ATED BY: MARKO SETHI Jr., DO DICTATED DATE/TIME: 12/11/242255 SIGNED BY: MARKO SETHI Jr., DO SIGNED DATE/TIME: 12/11/242255 CC: [place] [address] Ph: [phone] DIAGNOSTIC IMAGING Diagnostic Imaging Report : [id number] Signed PATIENT: ADI LUX ACCT: [id number] UNIT: [id number] : 1945 LOC: ER ROOM / BED: / AGE / SEX: 79 / M ADM STATUS: REG ER SERVICE 2335 ORDERING PHYSICIAN: KEN THURMAN PROCEDURE(s): CTCAP - CHST AB PEL WO CON-NO IV/ORAL REASON: aloc ORDER NUMBER(s): [id number], ACCESSION NUMBER(s): [id number] Exam: CT CHST AB PEL WO CON-NO IV/ORAL History: aloc Comparison Study: None available at time of dictation. Technique: Multidetector spiral CT of the chest, abdomen and pelvis was performed from lower neck to pubic symphysis Axial, coronal and sagittal multiplanar reformats were performed by the technologist on a separate workstation. Radiation Dose : 1. Chest/Abdomen/Pelvis: CTDIvol 7 mGy, DLP 476 mGy*cm. Findings: Lower neck: Within normal limits Lungs: Within normal limits Heart/Vascular Structures: Lkrgbvcw-ym-vxmnj pericardial effusion measuring up to 2 cm left lateral pericardium left-sided cardiac device with intact leads. Lymph Nodes: No adenopathy Pleura: Small right and trace left-sided pericardial effusion with adjacent compressive atelectasis Liver: The liver is normal in size. No focal lesions. Normal hepatic vascular enhancement. Gallbladder and Biliary Tree: Unremarkable Spleen: Unremarkable Pancreas: The pancreas is normal in appearance without focal lesions or abnormal enhancement. Adrenal Glands: Unremarkable Kidneys: Bilateral nonobstructing renal stones measuring up to 1.5 cm. Vhcc-wi-prwhdrqm right-sided hydronephrosis with multiple stones seen in the right ureter measuring up to 8 mm. Bladder: Multiple urinary bladder stones measuring up to 1 cm Bowel: The stomach is grossly normal in appearance. Moderate fecal retention throughout the colon. The appendix is not visualized; however, no secondary findings of acute appendicitis identified. Ascites: Absent Lymphadenopathy: No mesenteric, retroperitoneal or periportal lymphadenopathy. Abdominal Wall and Mesentery: Unremarkable. Vasculature: The visualized abdominal aorta is normal in size and caliber. Abdominal and pelvic vessels demonstrate normal enhancement. Pelvic Organs: Unremarkable Musculoskeletal: No aggressive focal bony lesions, acute fractures or dislocation. IMPRESSION: Ihse-dl-rvceuxem right-sided hydroureteronephrosis with multiple stones in the right ureter measuring up to 8 mm. There are multiple stones within the urinary bladder measuring less than 1 cm. The bilateral kidneys demonstrate multiple nonobstructing stones measuring up to 2 cm. Small right and trace left pleural effusions with adjacent compressive atelectasis Moderate to severe pericardial effusion. Moderate fecal retention throughout the colon ATED BY: OSEAS REAGAN DO DICTATED DATE/TIME: 12/12/24116 SIGNED BY: OSEAS REAGAN DO SIGNED DATE/TIME: 12/12/24116 CC: [place] [address] Ph: [phone] DIAGNOSTIC IMAGING Diagnostic Imaging Report : [id number] Signed PATIENT: ADI LUX ACCT: [id number] UNIT: [id number] : 1945 LOC: OVERFLOW ROOM / BED: [address] [place] [address] AGE / SEX: 79 / M ADM STATUS: ADM IN SERVICE ORDERING PHYSICIAN: BRI ALEMAN MD PROCEDURE(s): CXRP - CHEST PORTABLE REASON: POST INTUBATION ORDER NUMBER(s): [id number], ACCESSION NUMBER(s): [id number] CHEST RADIOGRAPH Indication: POST INTUBATION Technique: Single frontal view of the chest was obtained COMPARISON: XY CHEST XRAY 1 VIEW on DOS: 12/11/24 FINDINGS/IMPRESSION: Lines and Tubes: Interval insertion of ETT the tip of which is at the origin of the right mainstem bronchus and should be withdrawn by 3-4 cm. Dual-lead AID again noted overlying left chest wall. Lungs/Pleura: Opacities noted throughout both lungs most likely representing pulmonary edema. Bibasilar atelectasis/consolidation and small bilateral pleural effusions. No normal thorax. Cardiomediastinal contours: Unremarkable ATED BY: MARIBEL GOTTI MD DICTATED DATE/TIME: 12/14/24118 SIGNED BY: MARIBEL GOTTI MD SIGNED DATE/TIME: 12/14/24118 CC: [place] [address] Ph: [phone] DIAGNOSTIC IMAGING Diagnostic Imaging Report : [id number] Signed PATIENT: ADI LUX ACCT: [id number] UNIT: [id number] : 1945 LOC: ICU CENTRL ROOM / BED: [facility] / A AGE / SEX: 79 / M ADM STATUS: ADM IN SERVICE 0953 ORDERING PHYSICIAN: TRANG FULLER PROCEDURE(s): RUDVT - Rt Upper DVT REASON: rule out DVT ORDER NUMBER(s): [id number], ACCESSION NUMBER(s): [id number] EXAM: US Duplex Right Upper Extremity Veins CLINICAL INDICATION: rule out DVT TECHNIQUE: Real-time duplex ultrasound scan of the right upper extremity veins integrating B-mode two-dimensional vascular structure, Doppler spectral analysis, color flow Doppler imaging and compression. COMPARISON: None FINDINGS: DEEP VEINS: Unremarkable. No DVT in the internal jugular, subclavian, axillary, or brachial veins. The veins demonstrate normal color flow, are normally compressible, with normal phasic flow and/or augmentation response. SUPERFICIAL VEINS: Thrombus in the cephalic vein of the forearm. SOFT TISSUES: No acute findings. OTHER FINDINGS: . IMPRESSION: Thrombus in the cephalic vein of the forearm. ATED BY: GORGE MONTAGUE MD DICTATED DATE/TIME: 12/14/24 1230 SIGNED BY: GORGE MONTAGUE MD SIGNED DATE/TIME: 12/14/24 1230 CC: [place] [address] Ph: [phone] DIAGNOSTIC IMAGING Diagnostic Imaging Report : [id number] Signed PATIENT: ADI LUX ACCT: [id number] UNIT: [id number] : 1945 LOC: ICU CENTRL ROOM / BED: [facility] / A AGE / SEX: 79 / M ADM STATUS: ADM IN SERVICE 0400 ORDERING PHYSICIAN: EMI RUSH DO PROCEDURE(s): CXRP - CHEST PORTABLE REASON: INTUBATED ORDER NUMBER(s): [id number], ACCESSION NUMBER(s): [id number] EXAM: XY CHEST PORTABLE Indication: INTUBATED Technique: Single frontal view of the chest was obtained Comparison: XY CHEST PORTABLE on DOS: 12/14/24, XY CHEST XRAY 1 VIEW on DOS: 12/11/24 FINDINGS: Lines and Tubes: Interval retraction of endotracheal tube which projects 6 cm above the level of the pauline. Cardiac pacemaker projects over left chest wall. Enteric tube tip projects over the expected region of the stomach. Lungs: Pulmonary edema. Pleura: Trace left pleural effusion. No pneumothorax. Cardiomediastinal contours: Unremarkable Bones: No acute osseous abnormality. IMPRESSION: Lines and tubes in appropriate position. ATED BY: DAVIN KENT MD DICTATED DATE/TIME: 12/15/24541 SIGNED BY: DAVIN KENT MD SIGNED DATE/TIME: 12/15/24541 CC: [place] [address] Ph: [phone] DIAGNOSTIC IMAGING Diagnostic Imaging Report : [id number] Signed PATIENT: ADI LUX ACCT: [id number] UNIT: [id number] : 1945 LOC: ICU CENTR ROOM / BED: [facility] A AGE / SEX: 79 / M ADM STATUS: ADM IN SERVICE 0600 ORDERING PHYSICIAN: HUMPHREY OROZCO MD PROCEDURE(s): CXRP - CHEST PORTABLE REASON: vent ORDER NUMBER(s): [id number], ACCESSION NUMBER(s): [id number] CHEST RADIOGRAPH Indication: vent Technique: Single frontal view of the chest was obtained COMPARISON: XY CHEST PORTABLE on DOS: 12/15/24, XY CHEST PORTABLE on DOS: 12/14/24, XY CHEST XRAY 1 VIEW on DOS: 12/11/24 FINDINGS: Lines and Tubes: Endotracheal catheter again noted with its tip overlying level just below the thoracic inlet. ICD generator overlies and obscures the lateral left chest and axilla with atrial and ventricular wire leads. Lungs: Patchy airspace disease is noted at the right lung base. There is improved visualization of the left lung base when compared with the prior study. Pleura: No effusion. No pneumothorax. Cardiomediastinal contours: Unremarkable Bones: Unremarkable IMPRESSION: 1. Pneumonia. ATED BY: TUAN LOPEZ MD DICTATED DATE/TIME: 12/17/24352 SIGNED BY: TUAN LOPEZ MD SIGNED DATE/TIME: 12/17/24352 CC: [place] [address] Ph: [phone] DIAGNOSTIC IMAGING Diagnostic Imaging Report : [id number] Signed PATIENT: ADI LUX ACCT: [id number] UNIT: [id number] : 1945 LOC: ICU CENTRL ROOM / BED: [facility] / A AGE / SEX: 79 / M ADM STATUS: ADM IN SERVICE 46 ORDERING PHYSICIAN: SHAAN BELTRAN PROCEDURE(s): ABDS - ABDOMEN 2 VIEW REASON: abd discomfort ORDER NUMBER(s): [id number], ACCESSION NUMBER(s): [id number] EXAM: XY ABDOMEN 2 VIEW HISTORY: abd discomfort COMPARISON: None TECHNIQUE: Single AP of the abdomen and pelvis was obtained. Findings: Frontal view of the abdomen demonstrates a nonobstructive bowel gas pattern. No visualized renal calculi. There is no evidence of an acute fracture, dislocation, blastic, or lytic lesions. The visualized portions of the lung bases are unremarkable. No radiopaque foreign bodies. No superficial soft tissue abnormalities. Impression: 1. Nonobstructive bowel gas pattern. ATED BY: APOORVA MALIN DO DICTATED DATE/TIME: 12/17/241651 SIGNED BY: APOORVA MALIN DO SIGNED DATE/TIME: 12/17/241651 CC: [address] [id number] Ph: [phone] DIAGNOSTIC IMAGING Diagnostic Imaging Report : [id number] Signed PATIENT: ADI LUX ACCT: [id number] UNIT: [id number] : 1945 LOC: ICU CENTRL ROOM / BED: [facility] / A AGE / SEX: 79 / M ADM STATUS: ADM IN SERVICE 1447 ORDERING PHYSICIAN: SHAAN BELTRAN PROCEDURE(s): ABDL - ABDOMEN LIMITED REASON: elevated LFTs ORDER NUMBER(s): [id number], ACCESSION NUMBER(s): [id number] INDICATION: elevated LFTs TECHNIQUE: Multiple real-time sonographic images were obtained of the right upper quadrant. COMPARISON: None FINDINGS: The liver demonstrates heterogeneous nodular echotexture without focal mass lesions. The liver measures 17.1 cm. There is no intrahepatic or extrahepatic ductal dilatation. The common duct measures 0.4 cm. Cholelithiasis. The gallbladder wall measures 0.2 cm and is within normal limits. The right kidney measures 10.8 cm. The right kidney is normal in contour, size, and shape. The echogenicity is normal. There is no hydronephrosis. The pancreas is not well visualized due to overlying bowel gas. IMPRESSION: Cholelithiasis. Mildly nodular hepatic contours may represent early changes of cirrhosis. Trace abdominal ascites. ATED BY: PASTOR CR MD DICTATED DATE/TIME: 12/17/24 1543 SIGNED BY: PASTOR CR MD SIGNED DATE/TIME: 12/17/24 1543 CC: [place] [address] Ph: [phone] DIAGNOSTIC IMAGING Diagnostic Imaging Report : [id number] Signed PATIENT: ADI LUX ACCT: [id number] UNIT: [id number] : 1945 LOC: ICU CENTR ROOM / BED: [facility] / A AGE / SEX: 79 / M ADM STATUS: ADM IN SERVICE 1919 ORDERING PHYSICIAN: VIDYA MISHRA MD PROCEDURE(s): CXRP - CHEST PORTABLE REASON: Increase work of breathing ORDER NUMBER(s): [id number], ACCESSION NUMBER(s): [id number] CHEST RADIOGRAPH Indication: Increase work of breathing Technique: Single frontal view of the chest was obtained COMPARISON: XY CHEST PORTABLE on DOS: 12/17/24, XY CHEST PORTABLE on DOS: 12/15/24, XY CHEST PORTABLE on DOS: 12/14/24, XY CHEST XRAY 1 VIEW on DOS: 12/11/24 FINDINGS: Lines and Tubes: Pacemaker/ AICD in the left upper chest with 2 cardiac leads. Left-sided central venous catheter is seen with tip in the region of the lower SVC. Lungs: Moderate interstitial pulmonary edema. Pleura: Small left effusion. No pneumothorax. Cardiomediastinal contours: Cardiomegaly Bones: Unremarkable IMPRESSION: 1. Moderate interstitial pulmonary edema in the setting of cardiomegaly. 2. Small left effusion. ATED BY: NITHIN ZULETA MD DICTATED DATE/TIME: 12/18/242120 SIGNED BY: NITHIN ZULETA MD SIGNED DATE/TIME: 12/18/242120 CC: Condition at Discharge: Stable Final Diagnosis/Problems List #Acute metabolic encephalopathy due to sepsis s/p cardiac arrest #Septic shock likely due to aspiration pneumonia # acute systolic/diastolic heart failure, LVEF 40% # Community acquired pneumonia due to staph aureus infection #Severe microcytic hypochromic anemia # history of recurrent stroke #Vascular dementia #Large area of encephalomalacia involving the right temporal frontal and parietal lobes may represent old infarct #Moderate to severe pericardial effusion #atrial fibrillation #coronary disease s/p stent #acute hypoxic respiratory failure s/p mechanical ventilation #Moderate pleural effusions # covid 19 infection,resolved #Malnutrition # suspected GI bleeding GI bleeding #History of colonic polyps #Cholelithiasis. #Mildly nodular hepatic contours may represent early changes of cirrhosis. #trace ascitis #Hagu-pj-xwnaglkp right-sided hydroureteronephrosis with multiple stones in the right ureter measuring up to 8 mm. #Lactic acidosis resolved #There are multiple stones within the urinary bladder measuring less than 1 cm. #The bilateral kidneys demonstrate multiple nonobstructing stones measuring up to 2 cm. #hypokalemia, replenished #hypophosphatemia #skin infection positive proteus mirabilis and E.Faecalis #covid 19 infection, resolved #fungal infection,growing yeast #Iron deficiency anemia #moderate thrombocytopenia Discharge Disposition: Home with Health Services Discharge Instruct/Medications Diet: Cardiac 2g Na,low cholest Activity: See Comment Activity comment: Patient is bed ridden Follow Up/Referral: Please follow up with the primary care physician in 1 week Follow up with the primary care physician in 1 week with the lab reviewed of CBC, CMP, magnesium Please discuss with your primary care physician regarding restarting warfarin as patient had likely 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 Discharge Statement: "Patient was advised to return to the ER or call 911 if any headaches, dizziness, shortness of breath, chest pain, abdominal pain, bleeding, fevers, or worsening of medical condition. Patient was counseled about treatment plan, medications, possible side effects, patientverbalized understanding. All questions were answered to the best of my ability. This discharge took greater then 30 minutes in planning, reviewing documentation, counseling the patient, and discussing with other team members." ASSESSMENT ASSESSMENT Assessment Status post EVAR to thoracic / abdominal aorta Date of Service: Jan 07, 2025 Billing Provider: DARYA VILLASENOR MD Common Visit Codes: 06439-XGG/OBS DISCH DAY >30min YULI OROZCO RESIDENT Jan 07, 2025 16:27 DARYA VILLASENOR MD Jan 12, 2025 11:59
[2025-01-07] MEDS ORDERED: ATOR40TA52 PEG (16:28)
== END 2025-01-07 18:50 | disposition home health service (06) | DRG 871 ==
LOC: EDBD 21:24 → ER 21:24 → OVERFLOW 12-12 00:16 → ICU CENTRL 12-14 08:31 → DOU IN ICU 12-19 01:42 → TELE-CENTR 12-19 17:03 → ICU WEST 12-21 03:10 → DOU IN ICU 12-27 14:00 → TELE-WESTW 01-02 09:42
PROVIDERS: ADMIT Internal Medicine; ATTEND Internal Medicine
PROC: 30233N1 Transfusion of Nonautologous Red Blood Cells into Peripheral Vein, Percutaneous Approach (ICD-10-PCS; 2024-12-12)
PROC: XW033E5 Introduction of Remdesivir Anti-infective into Peripheral Vein, Percutaneous Approach, New Technology Group 5 (ICD-10-PCS; 2024-12-14)
PROC: 0BH17EZ Insertion of Endotracheal Airway into Trachea, Via Natural or Artificial Opening (ICD-10-PCS; 2024-12-14)
PROC: 5A1945Z Respiratory Ventilation, 24-96 Consecutive Hours (ICD-10-PCS; 2024-12-14)
PROC: 05HN33Z Insertion of Infusion Device into Left Internal Jugular Vein, Percutaneous Approach (ICD-10-PCS; 2024-12-14)
PROC: 5A12012 Performance of Cardiac Output, Single, Manual (ICD-10-PCS; 2024-12-14)
PROC: 5A0935A Assistance with Respiratory Ventilation, Less than 24 Consecutive Hours, High Flow/Velocity Cannula (ICD-10-PCS; 2024-12-18)
PROC: 5A1945Z Respiratory Ventilation, 24-96 Consecutive Hours (ICD-10-PCS; principal; 2024-12-21)
PROC: 0B9D7ZX Drainage of Right Middle Lung Lobe, Via Natural or Artificial Opening, Diagnostic (ICD-10-PCS; 2024-12-21)
PROC: 0BH17EZ Insertion of Endotracheal Airway into Trachea, Via Natural or Artificial Opening (ICD-10-PCS; 2024-12-21)
PROC: 02HV33Z Insertion of Infusion Device into Superior Vena Cava, Percutaneous Approach (ICD-10-PCS; 2024-12-26)
PROC: B548ZZA Ultrasonography of Superior Vena Cava, Guidance (ICD-10-PCS; 2024-12-26)
PROC: 5A09457 Assistance with Respiratory Ventilation, 24-96 Consecutive Hours, Continuous Positive Airway Pressure (ICD-10-PCS; 2024-12-30)
PROC: 0DH63UZ Insertion of Feeding Device into Stomach, Percutaneous Approach (ICD-10-PCS; 2025-01-03)
DX: A41.01 Sepsis due to Methicillin susceptible Staphylococcus aureus (principal); G93.41 Metabolic encephalopathy; J96.01 Acute respiratory failure with hypoxia; J15.211 Pneumonia due to Methicillin susceptible Staphylococcus aureus; R65.21 Severe sepsis with septic shock; J69.0 Pneumonitis due to inhalation of food and vomit; U07.1 COVID-19; I46.9 Cardiac arrest, cause unspecified; I50.41 Acute combined systolic (congestive) and diastolic (congestive) heart failure; J12.82 Pneumonia due to coronavirus disease 2019; I31.39 Other pericardial effusion (noninflammatory); R64 Cachexia; Z68.1 Body mass index [BMI] 19.9 or less, adult; E87.0 Hyperosmolality and hypernatremia; E87.4 Mixed disorder of acid-base balance; N17.9 Acute kidney failure, unspecified; E46 Unspecified protein-calorie malnutrition; I69.354 Hemiplegia and hemiparesis following cerebral infarction affecting left non-dominant side; D68.9 Coagulation defect, unspecified; I47.20 Ventricular tachycardia, unspecified; N13.6 Pyonephrosis; D50.0 Iron deficiency anemia secondary to blood loss (chronic); E87.6 Hypokalemia; F01.50 Vascular dementia, unspecified severity, without behavioral disturbance, psychotic disturbance, mood disturbance, and anxiety; G93.89 Other specified disorders of brain; I11.0 Hypertensive heart disease with heart failure; I25.10 Atherosclerotic heart disease of native coronary artery without angina pectoris; N21.0 Calculus in bladder; K59.00 Constipation, unspecified; E83.42 Hypomagnesemia; D69.6 Thrombocytopenia, unspecified; E83.39 Other disorders of phosphorus metabolism; K74.60 Unspecified cirrhosis of liver; R74.01 Elevation of levels of liver transaminase levels; N20.0 Calculus of kidney; K44.9 Diaphragmatic hernia without obstruction or gangrene; L08.9 Local infection of the skin and subcutaneous tissue, unspecified; I48.91 Unspecified atrial fibrillation; Z88.0 Allergy status to penicillin; Z79.01 Long term (current) use of anticoagulants; Z79.899 Other long term (current) drug therapy; I25.2 Old myocardial infarction; Z89.612 Acquired absence of left leg above knee; Z86.0100 Personal history of colon polyps, unspecified; Z95.810 Presence of automatic (implantable) cardiac defibrillator; Z82.49 Family history of ischemic heart disease and other diseases of the circulatory system; Z80.0 Family history of malignant neoplasm of digestive organs
CPT/HCPCS: 36415; 36430; 36556; 36569; 36600; 70450; 71045; 71250; 74021; 74176; 76705; 76937; 80048; 80053; 80061; 80069; 80076; 80162; 80202; 81001; 81003; 82140; 82270; 82306; 82565; 82607; 82728; 82805; 82962; 83010; 83036; 83540; 83550; 83605; 83690; 83735; 83880; 84100; 84132; 84443; 84478; 84484; 85007; 85014; 85018; 85025; 85027; 85610; 85652; 85730; 86141; 86704; 86706; 86708; 86803; 86850; 86880; 86900; 86901; 86920; 87040; 87045; 87070; 87077; 87081; 87086; 87186; 87205; 87340; 87426; 87427; 87804; 92507; 92610; 92950; 93005; 93306; 93971; 94002; 94003; 94640; 94660; 94667; 94668; 96365; 97110; 97163; 97530; 99291; G0378; J0131; J0330; J1756; J1815; J2003; J2185; J2248; J2250; J2470; J2704; J3480; J7060; J7131; P9047